=== PATIENT | male | born 1950 | race Caucasian/White ===

== ENCOUNTER 2016-09-01 13:21 | Emergency (ER) | payer OTHER ==
[2016-09-01 14:08] VITALS: BP 131/72; PULSE 77; TEMP 99; BMI 24.0
--- NOTE | 2016-09-01 15:06 | PDOC ---
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 [facility] no COs; missed 4 days of BP Timing/Duration: gone Severity: mild Associated Symptoms: denies: chest pain, cough, diaphoresis, fever/chills, loss of appetite, nausea/vomiting, shortness of breath Past History - Past Medical History Allergies/Adverse Reactions: Allergies Allergy/AdvReac Type Severity Reaction Status Date / Time beeswax Allergy Unknown Verified 09/01/16 13:52 venom-honey bee Allergy ANAPHYLAXIS Verified 09/01/16 13:52 [bee venom (honey bee)] Home Medications: Ambulatory Orders Aripiprazole [Abilify -] 2 mg PO HS 06/10/16 Aripiprazole [Abilify] 5 mg PO HS 06/10/16 Aspirin [ASA -] 81 mg PO DAILY 06/10/16 Atorvastatin Ca [Lipitor] 10 mg PO HS 06/10/16 Divalproex Sodium [Depakote] 250 mg PO HS 06/10/16 Divalproex [Depakote -] 500 mg PO BID 06/10/16 Finasteride 5 mg PO DAILY 06/10/16 Lisinopril [Zestril] 2.5 mg PO BID 06/10/16 Multivitamin [Poly-Vitamin] 1 each PO DAILY 06/10/16 Omeprazole 20 mg PO DAILY 06/10/16 Warfarin Na [Coumadin] 2 tab PO ASDIR 06/10/16 Warfarin Na [Coumadin] 5 mg PO ASDIR 06/10/16 Anemia: No Asthma: No Cancer: No Cardiac Disorders: Yes (aortic valve disorder, dvt, cardiomegaly) CVA: No COPD: No CHF: No Dementia: No Diabetes: No GI Disorders: Yes (volvulus of intestine, bowel or colon, SBO, POLYPS) Disorders: (volvulus of intestine, bowel or colon, SBO) HTN: Yes Hypercholesterolemia: Yes (HYPERLIPIDEMIA) Liver Disease: No Seizures: Yes Thyroid Disease: No Other medical history: SEVERE MR - Surgical History Abdominal Surgery: Yes (aortic root repair and area) Appendectomy: No Cardiac Surgery: Yes (heart valve repair) Cholecystectomy: No Lung Surgery: No Neurologic Surgery: No Orthopedic Surgery: No - Psycho/Social/Smoking Cessation Hx Anxiety: Yes Suicidal Ideation: No Smoking Status: No Smoking History: Never smoked Years of Tobacco Use: 0 Have you smoked in the past 12 months: No Number of Cigarettes Smoked Daily: 0 Cigars Per Day: 0 Hx Alcohol Use: No Drug/Substance Use Hx: No Substance Use Type: None Hx Substance Use Treatment: No Review of Systems - Review of Systems Constitutional: No: Symptoms Reported HEENTM: No: Symptoms Reported Respiratory: No: Symptoms reported, Cough Cardiac (ROS): No: Symptoms Reported, Chest Pain, Edema, Irregular Heart Rate, Lightheadedness, Palpitations, Syncope, Chest Tightness ABD/GI: No: Symptoms Reported, Vomiting *Physical Exam - Vital Signs Last Vital Signs Temp Pulse Resp BP Pulse Ox 99 F 77 19 131/72 100 09/01/16 13:54 09/01/16 13:54 09/01/16 13:54 09/01/16 13:54 09/01/16 13:54 - Physical Exam General Appearance: Yes: Appropriately Dressed HEENT: positive: TMs Normal, Pharynx Normal Neck: negative: Tender, Rigid Respiratory/Chest: positive: Lungs Clear Cardiovascular: positive: Regular Rhythm, Regular Rate. negative: Murmur Medical Decision Making - Medical Decision Making 09/01/16 15:04 PLEASE FILL PTS MEDICATIONS AND GIVE INDICATED *DC/Admit/Observation/Transfer Diagnosis at time of Disposition: Normal exam - Discharge Dispostion Disposition: HOME Condition at time of disposition: Stable Admit: No - Patient Instructions Additional Instructions: PLEASE GET AND START PT MEDS ORDERED BY LOCAL MD; RETURN FOR ANY NEW SYMPTOMS
== END 2016-09-01 15:08 | disposition home or self-care (01) ==
LOC: JERFT 13:21
DX: I10 Essential (primary) hypertension (principal); Z76.0 Encounter for issue of repeat prescription; E78.5 Hyperlipidemia, unspecified; G40.909 Epilepsy, unspecified, not intractable, without status epilepticus; F72 Severe intellectual disabilities
CPT/HCPCS: 99281-25

== ENCOUNTER 2017-07-24 11:30 | Observation (INO) | payer OTHER ==
--- NOTE | 2017-07-24 12:34 | PDOC ---
History of Present Illness - General History Source: Care Provider, Other Exam Limitations: Clinical Condition <Maureen Garland - Last Filed: 07/24/17 16:11> - General History Source: Care Provider, Other Exam Limitations: Clinical Condition, Other - History of Present Illness Initial Comments: 07/24/17 12:58 The patient is a 65 year old male, resident of [facility], with a significant past medical history of mental retardation/developmental disorder, Seizure disorders. Hypertension, hyperlipidemia, GERD(s/p mechanical AVR), aortic root repair, and thoracic aneurysm repair, who presents to the emergency department s/p syncopal episode earlier today. As per retanner, the patient was at work earlier today when he began to feel dizzy, syncopized and landed on his right side. Per retanner, patient was unresponsive for approximately 45 seconds. and could only get up with assistance. It is unclear whether patient sustained any head trauma, or experienced changes in vision, headache, or lightheadedness. Patient endorses right arm pain, but denies any other joint aches at this time. Patients history is limited due to clinical condition. Patient is on Coumadin. Allergies: NKDA, beeswax, honey bee venom Past Surgical History: AAA Repair(2000), Valve Replacement(mechanical AVR) Social History: Non smoker. No ETOH or recreational drug use. PCP: Dr. Jones <Ricci Peña - Last Filed: 07/24/17 16:51> - General Stated Complaint: Syncope/Near Syncope Time Seen by Provider: 07/24/17 12:33 Past History - Past Medical History Anemia: No Asthma: No Cancer: No Cardiac Disorders: Yes (aortic valve disorder, dvt, cardiomegaly) CVA: No COPD: No CHF: No Dementia: No Diabetes: No GI Disorders: Yes (volvulus of intestine, bowel or colon, SBO, POLYPS) Disorders: (volvulus of intestine, bowel or colon, SBO) HTN: Yes Hypercholesterolemia: Yes (HYPERLIPIDEMIA) Liver Disease: No Seizures: Yes Thyroid Disease: No - Surgical History Abdominal Surgery: Yes (aortic root repair and area) Appendectomy: No Cardiac Surgery: Yes (heart valve repair) Cholecystectomy: No Lung Surgery: No Neurologic Surgery: No Orthopedic Surgery: No - Suicide/Smoking/Psychosocial Hx Smoking Status: No Smoking History: Never smoked Years of Tobacco Use: 0 Have you smoked in the past 12 months: No Number of Cigarettes Smoked Daily: 0 Cigars Per Day: 0 Hx Alcohol Use: No Drug/Substance Use Hx: No Substance Use Type: None Hx Substance Use Treatment: No <Maureen Garland - Last Filed: 07/24/17 16:11> <Ricci Peña - Last Filed: 07/24/17 16:51> - Past Medical History Allergies/Adverse Reactions: Allergies Allergy/AdvReac Type Severity Reaction Status Date / Time beeswax Allergy Unknown Verified 07/24/17 12:36 venom-honey bee Allergy ANAPHYLAXIS Verified 07/24/17 12:36 [bee venom (honey bee)] Home Medications: Ambulatory Orders Aripiprazole [Abilify -] 2 mg PO HS 06/10/16 Aripiprazole [Abilify] 5 mg PO HS 06/10/16 Aspirin [ASA -] 81 mg PO DAILY 06/10/16 Atorvastatin Ca [Lipitor] 10 mg PO HS 06/10/16 Divalproex Sodium [Depakote] 250 mg PO HS 06/10/16 Divalproex [Depakote -] 500 mg PO BID 06/10/16 Finasteride 5 mg PO DAILY 06/10/16 Lisinopril [Zestril] 2.5 mg PO BID 06/10/16 Multivitamin [Poly-Vitamin] 1 each PO DAILY 06/10/16 Omeprazole 20 mg PO DAILY 06/10/16 Warfarin Na [Coumadin] 2 tab PO ASDIR 06/10/16 Warfarin Na [Coumadin] 5 mg PO ASDIR 06/10/16 Review of Systems - Review of Systems Able to Perform ROS?: Yes (Limited. ) Comments:: 07/24/17 12:59 GENERAL/CONSTITUTIONAL: No: fever, chills, weakness, loss of appetite. HEAD, EYES, EARS, NOSE AND THROAT: No: change in vision, ear pain, discharge, sore throat, throat swelling. CARDIOVASCULAR: Yes syncope. No: chest pain, lightheadedness, palpitations RESPIRATORY: No: cough, shortness of breath, wheezing, hemoptysis, stridor. GASTROINTESTINAL: No: nausea, vomiting, abdominal cramping, diarrhea, rectal bleeding, constipation. GENITOURINARY: No: dysuria, hematuria, frequency, urgency, flank pain. MUSCULOSKELETAL: No: back pain, neck pain, joint pain, muscle swelling or pain NEUROLOGIC: Yes: dizziness, loss of consciousness, unresponsiveness. No: headache, paresthesias, weakness <Ricci Peña - Last Filed: 07/24/17 16:51> *Physical Exam - Vital Signs Last Vital Signs Temp Pulse Resp BP Pulse Ox 98.5 F 62 17 117/73 100 07/24/17 12:37 07/24/17 12:37 07/24/17 12:37 07/24/17 12:37 07/24/17 12:37 - Physical Exam Comments: 07/24/17 13:01 GENERAL: Awake and Alert. Able to respond to questions within his capacity. The patient is in no acute distress. HEAD: Normal with no signs of trauma. EYES: PERRLA, EOMI, sclera anicteric, conjunctiva clear. ENT: Ears normal, nares patent, oropharynx clear without exudates. Moist mucous membranes. NECK: Normal range of motion, supple without lymphadenopathy, JVD, or masses. LUNGS: Breath sounds equal, clear to auscultation bilaterally. No wheezes, and no crackles. HEART: Grade 1 holosystolic murmur. Regular rate and rhythm, no rub or gallop. No bruits. ABDOMEN: Soft, nontender, normoactive bowel sounds. No guarding, no rebound. Large abdominal surgical scar that is well healed. PELVIS: Stable. EXTREMITIES: Normal range of motion, no edema. No clubbing or cyanosis. No erythema, or tenderness. NEUROLOGICAL: Cranial nerves II through XII grossly intact. No focal neurological deficits. MUSCULOSKELETAL: Back non-tender to palpation, no CVA tenderness SKIN: Warm, Dry, normal turgor. <CaseyAnnaliseaida - Last Filed: 07/24/17 16:51> Heart Score/ECG Review - ECG Intrepretation Comment:: 07/24/17 13:04 Vent Rate: 63 bpm IMPRESSION: Normal sinus rhythm. Possible left atrial enlargement. Left axis deviation. Right bundle branch block. Left ventricular hypertrophy. T wave abnormality, consider lateral ischemia. <Ricci Peña - Last Filed: 07/24/17 16:51> ED Treatment Course - LABORATORY CBC & Chemistry Diagram: 07/24/17 12:53 07/24/17 12:53 <Maureen Garland - Last Filed: 07/24/17 16:11> - LABORATORY CBC & Chemistry Diagram: 07/24/17 12:53 07/24/17 12:53 - RADIOLOGY Radiograph Interpretation: 07/24/17 15:42 EXAM: Head CT INTERPRETED BY: Dr. Gomez REVIEWED BY: Dr. Garland IMPRESSION: 1. No definite interval change from 06/10/[address] No acute intracranial hemorrhage or acute calvarial fracture. No mass effect, midline shift or hydrocephalus. 2. Chronic left MCA territory infarcts as described above, unchanged from 06/10/2016. EXAM: CT Cervical Spine INTERPRETED BY: Dr. Rust REVIEWED BY: Dr. Garland IMPRESSION: No fracture is identified. EXAM: CXR INTERPRETED BY: Dr. Peña REVIEWED BY: Dr. Garland IMPRESSION: Median sternotomy wires and mediastinal clips again noted. New left -sided AICD device ,with possible erosion of one of the electrodes as it exits the AICD device as noted above. Please Correlate clinically. No focal airspace disease or pleural effusion. Cardiomegaly. <Ricci Peña - Last Filed: 07/24/17 16:51> Medical Decision Making - Medical Decision Making 07/24/17 15:30 This is a 66-year-old male history of aortic root replacement, replace aortic valve, defibrillator Pt presents to the emergency department after syncopal event The patient presents to the ER with a complaint of syncopal event while at work Pt became weak and reportedly complained of dizziness No chest pain was reported No seizure-like activity No headache No neck pain On examination Pt is calm interacts with examiner RRR CTA no abdominal tenderness to palpation No guarding no rebound EKG: Sinus rhythm, rate of 63 bpm, left axis deviation intervals are normal, right bundle block, LVH, as seen on prior EKG 07/24/17 16:12 Laboratory Tests 07/24/17 07/24/17 07/24/17 12:53 12:53 13:50 WBC 5.1 Hgb 12.4 D Hct 39.5 Plt Count 75 L D INR 2.40 H Sodium 144 Potassium 5.4 H D Chloride 108 H Carbon Dioxide 29 BUN 25 H D Creatinine 1.2 Random Glucose 67 L Troponin I 0.02 D 07/24/17 16:13 No definite interval change from prior CT no acute hemorrhage No mass effect. Left MCA infarct unchanged from May 2016 Case reviewed with ANASTASIIA Castro Patient will be placed on observation on telemetry Will monitor for any changes in neurologic status Clinical Impression: Syncopal event, initial presentation Thrombocytopenia, initial presentation <Maureen Garland - Last Filed: 07/24/17 16:11> *DC/Admit/Observation/Transfer - Discharge Dispostion Admit: Yes <Maureen Garland - Last Filed: 07/24/17 16:11> - Attestations Scribe Attestion: 07/24/17 13:01 Documentation prepared by Ricci Peña, acting as associate medical director for Maureen Garland MD. <Ricci Peña - Last Filed: 07/24/17 16:51> Diagnosis at time of Disposition: Syncope and collapse - Discharge Dispostion Condition at time of disposition: Stable
[2017-07-24 12:44] VITALS: BMI 25.0
[2017-07-24 13:13] LABS: HEMATOCRIT 39.5 % (35.4-49); HEMOGLOBIN 12.4 GM/dL (11.7-16.9); MCH 28.8 pg (25.7-33.7); MCHC 31.4 g/dl (32.0-35.9); MEAN CELL VOLUME 91.9 fl (80-96); MEAN PLT VOLUME 10.1 fl (7.5-11.1); PLATELET COUNT 75 K/MM3 (134-434); RDW 15.3 % (11.9-15.9); WHITE BLOOD COUNT 5.1 K/mm3 (4.0-10.0)
[2017-07-24 13:25] LABS: INR 2.4 (0.82-1.09); PROTHROMBIN TIME (PATIENT) 27.1 SEC (9.98-11.88)
[2017-07-24 13:41] LABS: ANION GAP 7 (8-16); BILIRUBIN,TOTAL 0.4 mg/dL (0.2-1.0); BLOOD UREA NITROGEN 25 mg/dL (7-18); CALCIUM 8.5 mg/dL (8.5-10.1); CHLORIDE 108 mmol/L (98-107); CO2 29 mmol/L (21-32); CREATININE 1.2 mg/dL (0.7-1.3); GLUCOSE,RANDOM 67 mg/dL (74-106); MAGNESIUM 1.9 mg/dL (1.8-2.4); POTASSIUM 5.4 mmol/L (3.5-5.1); SGOT/AST 25 U/L (15-37); SGPT/ALT 24 U/L (12-78); SODIUM 144 mmol/L (136-145)
[2017-07-24 13:44] LABS: ALK PHOS 50 U/L (45-117)
--- NOTE | 2017-07-24 14:48 | EKG ---
Test Reason : Blood Pressure : / mmHG Vent. Rate : 063 BPM Atrial Rate : 063 BPM P-R Int : 198 ms QRS Dur : 140 ms QT Int : 434 ms P-R-T Axes : 021 -39 120 degrees QTc Int : 444 ms NORMAL SINUS RHYTHM POSSIBLE LEFT ATRIAL ENLARGEMENT LEFT AXIS DEVIATION RIGHT BUNDLE BRANCH BLOCK LEFT VENTRICULAR HYPERTROPHY T WAVE ABNORMALITY, CONSIDER LATERAL ISCHEMIA ABNORMAL ECG WHEN COMPARED WITH ECG OF 11-JUN-2016 08:09, T WAVE INVERSION MORE EVIDENT IN ANTERIOR LEADS Confirmed by ENRIKE CAMPOS, ASHWINI ([id number]) on 07/24/2017 2:48:29 PM Referred By: Confirmed By:ASHWINI CALVERT MD
--- NOTE | 2017-07-24 15:27 | HP ---
CHIEF COMPLAINT: Syncope PCP: Dr. Perla Friend, [address] [place] [address] HISTORY OF PRESENT ILLNESS: 65 year-old male, resident of [facility], with a PMH significant for HTN, HLD, CAD, systolic heart failure, s/p mechanical aortic valve replacement ( on coumadin) and thoracic aneurysm repair, CAD s/p PPM/AICD, mental retardation/ pervasive developmental disorder, seizure disorder, and GERD. Patient was at work earlier today when he began to feel dizzy, syncopized and landed on his right side. Per manager developmental, patient was unresponsive for approximately 45 seconds and could only get up with assistance. It is unclear whether patient sustained any head trauma, or experienced changes in vision, headache, or lightheadedness. Patient indicates to this provider bilateral arm pain. Patient' s history is limited due to clinical condition. Recent Travel: No PAST MEDICAL HISTORY: Hypertension Hyperlipidemia Coronary artery disease Endocarditis (2012) Systolic heart failure Mental retardation/pervasive developmental disorder Seizure disorder GERD PAST SURGICAL HISTORY: Mechanical aortic valve replacement x 2 ([facility] 2000) Thoracic aneurysm repair (2000) Small bowel resection (2001) Right inguinal hernia repair ([facility]) PPM/AICD (Dr. 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) Social History: Smoking: no Alcohol: no Drugs: no Family History: Allergies beeswax Allergy (Unknown, Verified 07/24/17 12:36) venom-honey bee [bee venom (honey bee)] Allergy (Verified 07/24/17 12:36) ANAPHYLAXIS BEE STING HOME MEDICATIONS: Home Medications Medication Instructions Recorded Aripiprazole [Abilify -] 2 mg PO HS 06/10/16 Aripiprazole [Abilify] 5 mg PO HS 06/10/16 Aspirin [ASA -] 81 mg PO DAILY 06/10/16 Atorvastatin Ca [Lipitor] 10 mg PO HS 06/10/16 Divalproex Sodium [Depakote] 250 mg PO HS 06/10/16 Divalproex [Depakote -] 500 mg PO BID 06/10/16 Finasteride 5 mg PO DAILY 06/10/16 Lisinopril [Zestril] 2.5 mg PO BID 06/10/16 Multivitamin [Poly-Vitamin] 1 each PO DAILY 06/10/16 Omeprazole 20 mg PO DAILY 06/10/16 Warfarin Na [Coumadin] 2 tab PO ASDIR 06/10/16 Warfarin Na [Coumadin] 5 mg PO ASDIR 06/10/16 REVIEW OF SYSTEMS Unable to obtain from patient due to clinical limitations PHYSICAL EXAMINATION Vital Signs - 24 hr 07/24/17 12:37 Temperature 98.5 F Pulse Rate 62 Respiratory 17 Rate Blood Pressure 117/73 O2 Sat by Pulse 100 Oximetry (%) GENERAL/NEURO: Awake, alert. Makes eye contact, smiles. Speech very limited, few words difficult to understand. At baseline functioning per aide. HEAD: Normal with no signs of trauma. EYES: Pupils equal, round and reactive to light, extraocular movements intact, sclera anicteric, conjunctiva clear. No lid lag. EARS, NOSE, THROAT: Ears normal, nares patent, oropharynx clear without exudates. Moist mucous membranes. NECK: Normal range of motion, supple without lymphadenopathy, JVD, or masses. LUNGS: Breath sounds equal, clear to auscultation bilaterally. No wheezes, and no crackles. No accessory muscle use. Well-healed surgical scars. PPM palpated. HEART: Irregular. S1, S2. ABDOMEN: Soft, nontender, not distended, normoactive bowel sounds, no guarding, no rebound, no masses. No hepatomegaly or splenomegaly. MUSCULOSKELETAL: Normal range of motion at all joints. No bony deformities or tenderness. No CVA tenderness. UPPER EXTREMITIES: 2+ pulses, warm, well-perfused. No cyanosis. No clubbing. No peripheral edema. LOWER EXTREMITIES: 2+ pulses, warm, well-perfused. No calf tenderness. No peripheral edema. Laboratory Results - last 24 hr 07/24/17 07/24/17 07/24/17 12:53 12:53 13:50 WBC 5.1 RBC 4.30 Hgb 12.4 D Hct 39.5 MCV 91.9 MCH 28.8 MCHC 31.4 L RDW 15.3 Plt Count 75 L D MPV 10.1 D Neutrophils % No Result Required. Lymphocytes % No Result Required. PT with INR 27.10 H INR 2.40 H Sodium 144 Potassium 5.4 H D Chloride 108 H Carbon Dioxide 29 Anion Gap 7 L BUN 25 H D Creatinine 1.2 Creat Clearance w eGFR > 60 Random Glucose 67 L Calcium 8.5 Magnesium 1.9 Total Bilirubin 0.4 D AST 25 ALT 24 Alkaline Phosphatase 50 Creatine Kinase 134 Troponin I 0.02 D Total Protein 6.0 L Albumin 3.0 L ASSESSMENT/PLAN: 65 year-old male with a PMH significant for HTN, HLD, s/p mechanical aortic valve replacement on coumadin, s/p thoracic aneurysm repair (2000), mental retardation/pervasive developmental disorder, seizure disorder, and GERD. Placed on observation for a syncopal episode. Seizure disorder --no indication from history provided of seizure-type activity --continue current anti-epileptics --neuro consult pending Fall --initial CT head shows no acute process --repeat in 12 hours --hold ASA, coumadin tonight Coronary artery disease Syncope --troponin neg x 1; two pending --serial ECGs --CXR --Last stress available in EMR from 2014: moderate inferior defect from base to apex, moderate global hypokinesis and apical dyskinesia; EF 32% --NPO after midnight in event cardiology wants to stress tomorrow --telemetry monitoring --continue lisinopril, Lipitor; hold ASA --cardiology consult pending Systolic heart failure --2014 stress: EF 32% --appears euvolemic, not on home diuretics r/o malfunctioning PPM/AICD --07/24/17 CXR: new left AICD device with possible erosion of one of the electrodes as it exits the device --will get interrogation in morning Hypertension --continue lisinopril Hyperlipidemia --continue Lipitor s/p mechanical AVR --INR therapeutic --hold coumadin until intracranial bleed ruled out Thoracic aneurysm repair --BP control Mental retardation/PDD --continue Abilify Seizure disorder --continue Depakote GERD --protonix FEN Fluids: PO intake adequate Electrolytes: replete as indicated; K>4, Mg>2 Nutrition: low sodium; NPO after midnight DVT prophylaxis: on coumadin with therapeutic INR Physical therapy Dispo: continues to require observation. Full code. Visit type - Emergency Visit Emergency Visit: Yes ED Registration Date: 07/24/17 Care time: The patient presented to the Emergency Department on the above date and was hospitalized for further evaluation of their emergent condition. - New Patient This patient is new to me today: Yes Date on this admission: 07/24/17 - Critical Care Critical Care patient: No
[2017-07-24 15:56] LABS: ANISOCYTOSIS 0; MACROCYTOSIS 0; PLATELET ESTIMATE DECREASED
--- NOTE | 2017-07-24 19:57 | CON.NEURO ---
Consult Consult Specialty:: NEUROLOGY JENNA CAMPOS Reason for Consultation:: Syncope - History of Present Illness History of Present Illness: The patient is a 65 year old male, resident of [facility], with a significant past medical history of mental retardation/developmental disorder, Seizure disorders. Hypertension, hyperlipidemia, GERD(s/p mechanical AVR), aortic root repair, and thoracic aneurysm repair, left MCA territory infarct, who presented to the emergency department s/p syncopal episode earlier today. 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 Per reverse logistics analyst, patient was unresponsive for approximately 45 seconds. and could only get up with assistance. It is unclear whether patient sustained any head trauma, or experienced changes in vision, headache, or lightheadedness. Patient endorses right arm pain, but denies any other joint aches at this time. Patients history is limited due to clinical condition. Patient is on Coumadin. Noted to have INR of 2.4 and platelet count of 75,000. Pt. is unable to report hx. due to MR. 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 ) Cardio/Vascular: Yes: Murmur (mechanical heart sound c/w know AVR), Other (AVR - mechanical valve) Psych: Yes: Anxiety, Depression, Other (Develomental Delay) Additional Medical History: MRDD. DVT. Volvulus - Past Surgical History Past Surgical History: Yes: AAA Repair (2000), Valve Replacement (mechanical AVR ) - Alcohol/Substance Use Hx Alcohol Use: No - Smoking History Smoking history: Never smoked Have you smoked in the past 12 months: No Aproximately how many cigarettes per day: 0 - Social History Usual Living Arrangement: Assisted Living ADL: Support Services Home Medications - Allergies Allergies/Adverse Reactions: Allergies Allergy/AdvReac Type Severity Reaction Status Date / Time beeswax Allergy Unknown Verified 07/24/17 12:36 venom-honey bee Allergy ANAPHYLAXIS Verified 07/24/17 12:36 [bee venom (honey bee)] - Home Medications Home Medications: Ambulatory Orders Aripiprazole [Abilify -] 2 mg PO HS 06/10/16 Aripiprazole [Abilify] 5 mg PO HS 06/10/16 Aspirin [ASA -] 81 mg PO DAILY 06/10/16 Atorvastatin Ca [Lipitor] 10 mg PO HS 06/10/16 Divalproex Sodium [Depakote] 250 mg PO HS 06/10/16 Divalproex [Depakote -] 500 mg PO BID 06/10/16 Finasteride 5 mg PO DAILY 06/10/16 Lisinopril [Zestril] 2.5 mg PO BID 06/10/16 Multivitamin [Poly-Vitamin] 1 each PO DAILY 06/10/16 Omeprazole 20 mg PO DAILY 06/10/16 Warfarin Na [Coumadin] 2 tab PO ASDIR 06/10/16 Warfarin Na [Coumadin] 5 mg PO ASDIR 06/10/16 Physical Exam-Neuro Vital Signs: Vital Signs Temperature 98.8 F 07/24/17 17:31 Pulse Rate 62 07/24/17 12:37 Respiratory Rate 65 H 07/24/17 17:31 Blood Pressure 104/51 07/24/17 17:31 O2 Sat by Pulse Oximetry (%) 100 07/24/17 17:31 Labs: CBC, BMP 07/24/17 12:53 07/24/17 12:53 INR, PTT INR 2.40 (0.82-1.09) H 07/24/17 13:50 - Neuro Exam Speech: Garbled Dominant Hand: Right Mini Mental Exam: Awake, alert, follows simple commands, unable to answer most questions except for "yes/no" answers(at his baseline as per attendant from half-way). Gag: Present DTR's: 2+ Left Bicep, 2+ Right Bicep, 2+ Left Tricep, 2+ Right Tricep, 2+ Left Brachioradialis, 2+ Right Brachioradialis, 2+ Left Achilles, 3+ Right Achilles ( Bilateral ankle jerks-3+) Babinski: Absent Response to light touch: Normal Response to pain prick: Normal Response to temperature: Normal (uNABLE TO TEST) Response to vibration: Normal (uNABLE TO TEST) Motor Strength: 4/5: Right Arm, Right Leg, 5/5: Left Arm, Left Leg Gait: Deferred Imaging - Results Cat Scan: Report Reviewed (07/24/17 15:42 EXAM: Head CT INTERPRETED BY: Dr. Gomez REVIEWED BY: Dr. Garland IMPRESSION: 1. No definite interval change from 06/10/[address] No acute intracranial hemorrhage or acute calvarial fracture. No mass effect, midline shift or hydrocephalus. 2. Chronic left MCA territory infarcts as described above, unchanged from 06/10/2016. EXAM: CT Cervical Spine INTERPRETED BY: Dr. Rust REVIEWED BY: Dr. Garland IMPRESSION: No fracture is identified.) Assessment/Plan This is a 66-year-old male history of aortic root replacement, replace aortic valve, defibrillator,he presented to the emergency department after syncopal event while in his program, he c/o dizziness, became weak and lost consciousness. No movements were noted. No seizure-like activity,no headache/ neck pain. Pt. by description appears to have had syncope,doubt seizure. If pt. has another event that is considered to be a seizure would change Keppra to Oxcarbazepine. Valproic Acid is presumably being used for treating seizures and /or behavioral dyscontrol, given interaction between warfarin and valproic acid i suggest, when patient returns to his residence recommending discontinuation of valproic acid and replacement with Oxcarbazepine or other AED(warfain level is increased by valproic acid and valproic acid level is increased by warfarin). Thrombocytopenia-valproic acid can cause thrombocytopenia, if other etiologies ruled out please consider changing AED for this reason too. Thank you, please call for further assistance. Deann Del Toro MD. [phone].
[2017-07-24] MEDS ORDERED: ARIPiprazole 10 MG TABLET PO SCH (22:00)
[2017-07-24] MEDS ORDERED: DIVALPROEX SODIUM 500 MG TABLET E.C. PO SCH ×2 (22:00)
[2017-07-24] MEDS: WARFARIN NA 5 MG TABLET (UD) PO SCH (22:18)
[2017-07-24] MEDS: LISINOPRIL 5 MG TABLET (FP) PO SCH (22:29)
[2017-07-24] MEDS: ATORVASTATIN CA 10 MG TABLET (FP) PO SCH (22:29)
[2017-07-24] MEDS: ARIPiprazole 5 MG TABLET (FP) PO SCH (22:29)
[2017-07-24] MEDS: DIVALPROEX SODIUM 500 MG TABLET E.C. PO SCH (22:30)
[2017-07-25] MEDS: PANTOPRAZOLE 20 MG TABLET (FP) PO SCH ×2 (06:35→09:30)
[2017-07-25] MEDS ORDERED: DIVALPROEX SODIUM 250 MG TABLET E.C. (FP) PO SCH (07:00)
[2017-07-25 08:11] LABS: HEMATOCRIT 42.8 % (35.4-49); HEMOGLOBIN 13.5 GM/dL (11.7-16.9); MCH 29.1 pg (25.7-33.7); MCHC 31.6 g/dl (32.0-35.9); MEAN PLT VOLUME 9.3 fl (7.5-11.1); PLATELET COUNT 71 K/MM3 (134-434); RBC 4.66 M/mm3 (4.00-5.60); RDW 15.1 % (11.9-15.9); WHITE BLOOD COUNT 5.9 K/mm3 (4.0-10.0)
[2017-07-25 08:15] LABS: CHLORIDE 107 mmol/L (98-107); POTASSIUM 4.5 mmol/L (3.5-5.1); SODIUM 144 mmol/L (136-145)
[2017-07-25 08:22] LABS: ALK PHOS 53 U/L (45-117); ANION GAP 7 (8-16); BILIRUBIN,TOTAL 0.6 mg/dL (0.2-1.0); BLOOD UREA NITROGEN 26 mg/dL (7-18); CALCIUM 8.8 mg/dL (8.5-10.1); CO2 30 mmol/L (21-32); CREATININE 1.2 mg/dL (0.7-1.3); GLUCOSE,RANDOM 67 mg/dL (74-106); MAGNESIUM 1.9 mg/dL (1.8-2.4); PHOSPHOROUS 3.2 mg/dL (2.5-4.9); SGOT/AST 23 U/L (15-37); SGPT/ALT 21 U/L (12-78); TOT PROT 6.2 g/dl (6.4-8.2)
--- NOTE | 2017-07-25 10:31 | EKG ---
Test Reason : Blood Pressure : / mmHG Vent. Rate : 060 BPM Atrial Rate : 060 BPM P-R Int : 310 ms QRS Dur : 184 ms QT Int : 480 ms P-R-T Axes : 025 -85 056 degrees QTc Int : 480 ms AV dual-paced rhythm with prolonged AV conduction ABNORMAL ECG WHEN COMPARED WITH ECG OF 24-JUL-2017 12:46, ELECTRONIC VENTRICULAR PACEMAKER HAS REPLACED SINUS RHYTHM Confirmed by KENDALL CAMPOS, CUONG ([id number]) on 07/25/2017 10:31:04 AM Referred By: Confirmed By:CUONG ARGUETA MD
[2017-07-25] MEDS ORDERED: PT OWN MED DRAWER 7, Y5N ONE ×2 (10:41→21:19)
[2017-07-25] MEDS: DIVALPROEX 500 MG, DIVALPROEX 250 MG PO SCH (10:47)
[2017-07-25] MEDS: FINASTERIDE 5 MG TABLET (FP) PO SCH (10:47)
[2017-07-25] MEDS: LISINOPRIL 5 MG TABLET (FP) PO SCH ×2 (10:47→21:42)
--- NOTE | 2017-07-25 11:26 | PN ---
Physical Exam: SUBJECTIVE: Patient seen and examined at bedside. Aide present. OBJECTIVE: Vital Signs Period Temp Pulse Resp BP Sys/Dickey Pulse Ox Last 24 Hr 97.8 F-98.8 F 60-78 17-65 104-132/51-73 96-100 GENERAL/NEURO: Awake, alert. Makes eye contact. Speech more circumscribed today. No discernible words. No sign of pain or distress. LUNGS: Breath sounds equal, clear to auscultation bilaterally. No wheezes, and no crackles. No accessory muscle use. Well-healed surgical scars. HEART: RRR, S1, S2. ABDOMEN: Soft, nontender, not distended, normoactive bowel sounds, no guarding, no rebound, no masses. MUSCULOSKELETAL: Normal range of motion at all joints. No bony deformities or tenderness. No CVA tenderness. UPPER EXTREMITIES: 2+ pulses, warm, well-perfused. No cyanosis. No clubbing. No peripheral edema. LOWER EXTREMITIES: 2+ pulses, warm, well-perfused. No calf tenderness. No peripheral edema. Laboratory Results - last 24 hr 07/24/17 07/24/17 07/24/17 12:53 12:53 13:50 WBC 5.1 RBC 4.30 Hgb 12.4 D Hct 39.5 MCV 91.9 MCH 28.8 MCHC 31.4 L RDW 15.3 Plt Count 75 L D MPV 10.1 D Neutrophils % No Result Required. Neutrophils % (Manual) 20.4 L Band Neutrophils % 0.0 Lymphocytes % No Result Required. Lymphocytes % (Manual) 44.9 H Monocytes % (Manual) 12 H Eosinophils % (Manual) 16.3 H Basophils % (Manual) 0.0 Myelocytes % (Man) 0 Promyelocytes % (Man) 0 Metamyelocytes 0 Hypochromia 0 Platelet Estimate Decreased Polychromasia 0 Poikilocytosis 0 Anisocytosis 0 Microcytosis 0 Macrocytosis 0 PT with INR 27.10 H INR 2.40 H Sodium 144 Potassium 5.4 H D Chloride 108 H Carbon Dioxide 29 Anion Gap 7 L BUN 25 H D Creatinine 1.2 Creat Clearance w eGFR > 60 Random Glucose 67 L Calcium 8.5 Phosphorus Magnesium 1.9 Total Bilirubin 0.4 D AST 25 ALT 24 Alkaline Phosphatase 50 Creatine Kinase 134 Troponin I 0.02 D B-Natriuretic Peptide Total Protein 6.0 L Albumin 3.0 L 07/24/17 07/25/17 07/25/17 21:45 06:18 06:18 WBC 5.9 RBC 4.66 Hgb 13.5 Hct 42.8 MCV 92.0 MCH 29.1 MCHC 31.6 L RDW 15.1 Plt Count 71 L MPV 9.3 Neutrophils % No Result Required. Neutrophils % (Manual) Band Neutrophils % Lymphocytes % No Result Required. Lymphocytes % (Manual) Monocytes % (Manual) Eosinophils % (Manual) Basophils % (Manual) Myelocytes % (Man) Promyelocytes % (Man) Metamyelocytes Hypochromia Platelet Estimate Polychromasia Poikilocytosis Anisocytosis Microcytosis Macrocytosis PT with INR INR Sodium 144 Potassium 4.5 Chloride 107 Carbon Dioxide 30 Anion Gap 7 L BUN 26 H Creatinine 1.2 Creat Clearance w eGFR > 60 Random Glucose 67 L Calcium 8.8 Phosphorus 3.2 Magnesium 1.9 Total Bilirubin 0.6 D AST 23 ALT 21 Alkaline Phosphatase 53 Creatine Kinase Troponin I 0.03 D 0.03 B-Natriuretic Peptide Total Protein 6.2 L Albumin 3.0 L 07/25/17 06:18 WBC RBC Hgb Hct MCV MCH MCHC RDW Plt Count MPV Neutrophils % Neutrophils % (Manual) Band Neutrophils % Lymphocytes % Lymphocytes % (Manual) Monocytes % (Manual) Eosinophils % (Manual) Basophils % (Manual) Myelocytes % (Man) Promyelocytes % (Man) Metamyelocytes Hypochromia Platelet Estimate Polychromasia Poikilocytosis Anisocytosis Microcytosis Macrocytosis PT with INR INR Sodium Potassium Chloride Carbon Dioxide Anion Gap BUN Creatinine Creat Clearance w eGFR Random Glucose Calcium Phosphorus Magnesium Total Bilirubin AST ALT Alkaline Phosphatase Creatine Kinase Troponin I B-Natriuretic Peptide 833.46 H Total Protein Albumin Active Medications Generic Name Dose Route Start Last Admin Trade Name Freq PRN Reason Stop Dose Admin Aripiprazole 10 mg 07/24/17 22:00 07/24/17 22:29 Abilify PO 10 mg HS YANETH Administration Atorvastatin Calcium 10 mg 07/24/17 22:00 07/24/17 22:29 Lipitor - PO 10 mg HS YANETH Administration Divalproex Sodium 500 mg/ 750 mg 07/25/17 10:00 07/25/17 10:47 Divalproex Sodium 250 mg PO 750 mg DAILY YANETH Administration Divalproex Sodium 500 mg 07/24/17 22:00 07/24/17 22:30 Depakote - PO 500 mg HS YANETH Administration Finasteride 5 mg 07/25/17 10:00 07/25/17 10:47 Proscar - PO 5 mg DAILY YANETH Administration Lisinopril 2.5 mg 07/24/17 22:00 07/25/17 10:47 Prinivil PO 2.5 mg BID YANETH Administration Pantoprazole Sodium 20 mg 07/25/17 07:00 07/25/17 09:30 Protonix - PO 20 mg ACBK YANETH Administration Warfarin Sodium 5 mg 07/24/17 21:15 07/24/17 22:18 Coumadin - PO Not Given DAILY@1800 [facility] ASSESSMENT/PLAN: 65 year-old male with a PMH significant for HTN, HLD, CAD, systolic heart failure, s/p mechanical aortic valve replacement (on coumadin) and thoracic aneurysm repair, CAD s/p PPM, mental retardation/pervasive developmental disorder, seizure disorder, and GERD. Placed on observation for true syncopal episode. Seizure disorder --no indication from history of seizure-type activity and none observed since admission --continue current anti-epileptics Fall --CT head negative for acute process x 2 --resume ASA, warfarin Coronary artery disease Syncope --troponin neg x 3 --ECG not suggestive of ischemic event --CXR: left PPM device with possible erosion of one of the electrodes as it exits the device; however, interrogation today shows fully functional PPM --continue lisinopril, Lipitor, ASA --cardiology following Systolic heart failure --2014 stress: EF 32% --appears euvolemic, not on home diuretics Hypertension --continue lisinopril Hyperlipidemia --continue Lipitor s/p mechanical AVR --resume coumadin --INR in am Thoracic aneurysm repair --BP control Mental retardation/PDD --continue Abilify Seizure disorder --continue Depakote GERD --protonix FEN Fluids: PO intake adequate Electrolytes: replete as indicated; K>4, Mg>2 Nutrition: low sodium DVT prophylaxis: on coumadin with therapeutic INR Physical therapy Dispo: continues to require observation. Full code. Visit type - Emergency Visit Emergency Visit: Yes ED Registration Date: 07/24/17 Care time: The patient presented to the Emergency Department on the above date and was hospitalized for further evaluation of their emergent condition. - New Patient This patient is new to me today: No - Critical Care Critical Care patient: No
--- NOTE | 2017-07-25 14:02 | CON.CARD ---
Consult Consult Specialty:: cardiology Referred by:: Lucretia Gibbons Reason for Consultation:: Syncope - History of Present Illness Chief Complaint: Syncope History of Present Illness: The patient is a 66-year-old man, with mental retardation, in a longterm, history of hypertension, hyperlipidemia, GERD, seizure disorder, left MCA stroke , status post thoracic aneurysm and aortic root repair with a mechanical AVR on Coumadin, now presenting after a true syncopal event. The patient was standing up at his facility when he suddenly collapsed. Is currently comfortable. As per the person from the longterm, the patient is back to his baseline. Head CT revealed an old stroke. There are no acute changes nor bleed. Echocardiogram showed that both ventricles are functioning normally. There was a normal prostatic aortic valve. ECG showed AV sequential pacing. 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 ) Cardio/Vascular: Yes: Aneurysm, HTN, Hyperlipdemia, Murmur (mechanical heart sound c/w know AVR), Other (AVR - mechanical valve) Psych: Yes: Anxiety, Depression, Other (Develomental Delay) Additional Medical History: MRDD. DVT. Volvulus - Past Surgical History Past Surgical History: Yes: AAA Repair (2000), Valve Replacement (mechanical AVR ) - Alcohol/Substance Use Hx Alcohol Use: No - Smoking History Smoking history: Never smoked Have you smoked in the past 12 months: No Aproximately how many cigarettes per day: 0 - Social History Usual Living Arrangement: Assisted Living ADL: Support Services Home Medications - Allergies Allergies/Adverse Reactions: Allergies Allergy/AdvReac Type Severity Reaction Status Date / Time beeswax Allergy Unknown Verified 07/24/17 12:36 venom-honey bee Allergy ANAPHYLAXIS Verified 07/24/17 12:36 [bee venom (honey bee)] - Home Medications Home Medications: Ambulatory Orders Aripiprazole [Abilify] 10 mg PO HS 06/10/16 Aspirin [ASA -] 81 mg PO DAILY 06/10/16 Atorvastatin Ca [Lipitor] 10 mg PO HS 06/10/16 Divalproex Sodium [Depakote] 250 mg PO AM 06/10/16 Divalproex [Depakote -] 500 mg PO BID 06/10/16 Finasteride 5 mg PO DAILY 06/10/16 Lisinopril [Zestril] 2.5 mg PO BID 06/10/16 Multivitamin [Poly-Vitamin] 1 each PO DAILY 06/10/16 Omeprazole 20 mg PO ACBK 06/10/16 Warfarin Na [Coumadin] 5 mg PO DAILY 06/10/16 Amoxicillin - [Amoxicillin 500mg Capsule -] 500 mg PO BID 07/24/17 Mineral Oil/Petrolat,Wht/Water [Eucerin (Large Jar) -] 1 applic DAILY 07/24/17 Review of Systems - Review of Systems Constitutional: reports: No Symptoms Eyes: reports: No Symptoms HENT: reports: No Symptoms Neck: reports: No Symptoms Cardiovascular: reports: No Symptoms Respiratory: reports: No Symptoms Gastrointestinal: reports: No Symptoms Genitourinary: reports: No Symptoms Breasts: reports: No Symptoms Reported Musculoskeletal: reports: No Symptoms Integumentary: reports: No Symptoms Neurological: reports: Syncope Endocrine: reports: No Symptoms Hematology/Lymphatic: reports: No Symptoms Psychiatric: reports: No Symptoms Vital Signs: Vital Signs Temperature 97.8 F 07/25/17 06:00 Pulse Rate 60 07/25/17 06:00 Respiratory Rate 20 07/25/17 06:00 Blood Pressure 113/59 07/25/17 06:00 O2 Sat by Pulse Oximetry (%) 96 07/24/17 23:51 Constitutional: Yes: No Distress, Calm, Obese Eyes: Yes: WNL, Conjunctiva Clear HENT: Yes: WNL, Atraumatic, Normocephalic Neck: Yes: WNL, Supple, Trachea Midline Respiratory: Yes: WNL, Regular, CTA Bilaterally Gastrointestinal: Yes: WNL, Normal Bowel Sounds, Soft Renal/: Yes: WNL Cardiovascular: Yes: WNL, Regular Rate and Rhythm JVD: No Carotid Bruit: No PMI: Non-Displaced Heart Sounds: Yes: S1, S2 Murmur: Yes: Systolic Murmur, Grade 2 Musculoskeletal: Yes: WNL Edema: No Peripheral Pulses WNL: Yes Peripheral Pulses: 2+ Left Carotid, 2+ Right Carotid, 2+ Left Femoral, 2+ Right Femoral, 2+ Left Popliteal, 2+ Right Popliteal, 2+ Left Doralis Pedis, 2+ Right Dorsalis Pedis Integumentary: Yes: WNL Neurological: Yes: WNL - Other Data Labs, Other Data: CBC, BMP 07/25/17 06:18 07/25/17 06:18 INR, PTT INR 2.40 (0.82-1.09) H 07/24/17 13:50 Troponin, BNP 07/24/17 07/25/17 07/25/17 21:45 06:18 06:18 Troponin I 0.03 D 0.03 B-Natriuretic Peptide 833.46 H Troponin, BNP 07/24/17 07/25/17 07/25/17 21:45 06:18 06:18 Troponin I 0.03 D 0.03 B-Natriuretic Peptide 833.46 H Assessment/Plan 66-year-old man, with severe mental retardation, history of hypertension, hyperlipidemia, GERD, seizure disorder, stroke, thoracic aneurysm and aortic root repair with a mechanical aortic valve, maintained on Coumadin, now admitted with true syncope. Brain imaging was unremarkable for new events. It did show the prior stroke. No bleed. The echocardiogram showed a dilated left ventricle with normal left ventricular and right ventricular systolic function. Normally functioning mechanical aortic prosthesis. ECG shows AV sequential pacing. Telemetry shows a paced rhythm. There is no need for further cardiac workup at this point. Please arrange for pacemaker interrogation. Continue current regimen. Please perform orthostatics. Neurologist following. Consider an EEG, given the patient's history. We will follow results.
[2017-07-25 14:50] LABS: ANISOCYTOSIS 0; MACROCYTOSIS 1+; PLATELET ESTIMATE DECREASED
[2017-07-25] MEDS: ASPIRIN 81 MG CHEWABLE TABLETS PO SCH (14:55)
[2017-07-25] MEDS: WARFARIN NA 5 MG TABLET (UD) PO SCH (18:25)
[2017-07-25] MEDS: ATORVASTATIN CA 10 MG TABLET (FP) PO SCH (21:39)
[2017-07-25] MEDS: ARIPiprazole 5 MG TABLET (FP) PO SCH (21:40)
[2017-07-25] MEDS: DIVALPROEX SODIUM 500 MG TABLET E.C. PO SCH (21:42)
[2017-07-26] MEDS: PANTOPRAZOLE 20 MG TABLET (FP) PO SCH (06:20)
[2017-07-26 07:27] LABS: INR 1.52 (0.82-1.09); PROTHROMBIN TIME (PATIENT) 17.2 SEC (9.98-11.88)
[2017-07-26 08:00] LABS: ALBUMIN 2.7 g/dl (3.4-5.0); ANION GAP 8 (8-16); BILIRUBIN,TOTAL 0.5 mg/dL (0.2-1.0); BLOOD UREA NITROGEN 22 mg/dL (7-18); CALCIUM 8.2 mg/dL (8.5-10.1); CHLORIDE 109 mmol/L (98-107); CO2 28 mmol/L (21-32); CREATININE 1.2 mg/dL (0.7-1.3); GLUCOSE,RANDOM 76 mg/dL (74-106); MAGNESIUM 1.8 mg/dL (1.8-2.4); POTASSIUM 4.4 mmol/L (3.5-5.1); SGOT/AST 21 U/L (15-37); SGPT/ALT 19 U/L (12-78); SODIUM 145 mmol/L (136-145); TOT PROT 5.5 g/dl (6.4-8.2)
[2017-07-26 08:01] LABS: ALK PHOS 48 U/L (45-117)
[2017-07-26 08:04] LABS: BASO % 0.2 % (0-2.0); HEMATOCRIT 40.5 % (35.4-49); HEMOGLOBIN 12.8 GM/dL (11.7-16.9); LYMPH % 41.2 % (8-40); MCHC 31.7 g/dl (32.0-35.9); MEAN CELL VOLUME 91.6 fl (80-96); MEAN PLT VOLUME 9.5 fl (7.5-11.1); MONO % 8.4 % (3.8-10.2); NEUT % 20.2 % (42.8-82.8); PLATELET COUNT 68 K/MM3 (134-434); RBC 4.42 M/mm3 (4.00-5.60); RDW 15.1 % (11.9-15.9); WHITE BLOOD COUNT 5.5 K/mm3 (4.0-10.0)
--- NOTE | 2017-07-26 09:08 | DS ---
Physical Exam: SUBJECTIVE: Patient seen and examined OBJECTIVE: Vital Signs Period Temp Pulse Resp BP Sys/Dickey Pulse Ox Last 24 Hr 97.3 F-99.2 F 60-67 18-18 86-124/43-64 98-98 PHYSICAL EXAM GENERAL: The patient is awake, alert, and fully oriented, in no acute distress. HEAD: Normal with no signs of trauma. EYES: PERRL, extraocular movements intact, sclera anicteric, conjunctiva clear. ENT: Ears normal, nares patent, oropharynx clear without exudates, moist mucous membranes. NECK: Trachea midline, full range of motion, supple. LUNGS: Breath sounds equal, clear to auscultation bilaterally, no wheezes, no crackles, no accessory muscle use. HEART: Regular rate and rhythm, S1, S2 without murmur, rub or gallop. ABDOMEN: Soft, nontender, nondistended, normoactive bowel sounds, no guarding, no rebound, no hepatosplenomegaly, no masses. EXTREMITIES: 2+ pulses, warm, well-perfused, no edema. NEUROLOGICAL: Cranial nerves II through XII grossly intact. Normal speech, gait not observed. PSYCH: Normal mood, normal affect. SKIN: Warm, dry, normal turgor, no rashes or lesions noted. LABS Laboratory Results - last 24 hr 07/25/17 07/25/17 07/26/17 06:18 06:18 06:45 WBC 5.5 RBC 4.42 Hgb 12.8 Hct 40.5 MCV 91.6 MCH 29.0 MCHC 31.7 L RDW 15.1 Plt Count 68 L MPV 9.5 Neutrophils % 20.2 L Neutrophils % (Manual) 19.4 L Band Neutrophils % 2.9 Lymphocytes % 41.2 H Lymphocytes % (Manual) 35.0 D Monocytes % 8.4 Monocytes % (Manual) 7 Eosinophils % 30.0 H* Eosinophils % (Manual) 32.0 H D Basophils % 0.2 Basophils % (Manual) 1.0 D Myelocytes % (Man) 0 Promyelocytes % (Man) 0 Metamyelocytes 0 Hypochromia 0 Platelet Estimate Decreased Polychromasia 0 Poikilocytosis 0 Anisocytosis 0 Microcytosis 0 Macrocytosis 1+ PT with INR INR Sodium 144 Potassium 4.5 Chloride 107 Carbon Dioxide 30 Anion Gap 7 L BUN 26 H Creatinine 1.2 Creat Clearance w eGFR > 60 Random Glucose 67 L Calcium 8.8 Phosphorus 3.2 Magnesium 1.9 Total Bilirubin 0.6 D AST 23 ALT 21 Alkaline Phosphatase 53 Troponin I 0.03 Total Protein 6.2 L Albumin 3.0 L 07/26/17 07/26/17 06:45 06:45 WBC RBC Hgb Hct MCV MCH MCHC RDW Plt Count MPV Neutrophils % Neutrophils % (Manual) Band Neutrophils % Lymphocytes % Lymphocytes % (Manual) Monocytes % Monocytes % (Manual) Eosinophils % Eosinophils % (Manual) Basophils % Basophils % (Manual) Myelocytes % (Man) Promyelocytes % (Man) Metamyelocytes Hypochromia Platelet Estimate Polychromasia Poikilocytosis Anisocytosis Microcytosis Macrocytosis PT with INR 17.20 H INR 1.52 H D Sodium 145 Potassium 4.4 Chloride 109 H Carbon Dioxide 28 Anion Gap 8 BUN 22 H Creatinine 1.2 Creat Clearance w eGFR > 60 Random Glucose 76 Calcium 8.2 L Phosphorus Magnesium 1.8 Total Bilirubin 0.5 AST 21 ALT 19 Alkaline Phosphatase 48 Troponin I Total Protein 5.5 L Albumin 2.7 L HOSPITAL COURSE: Date of Admission:07/24/17 Date of Discharge: 07/26/17 Minutes to complete discharge: 45 Discharge Summary Reason For Visit: SYNCOPE Current Active Problems Syncope and collapse (Acute) Condition: Stable - Instructions Referrals: Pan Jones [Primary Care Provider] - - Home Medications Comprehensive Discharge Medication List: Ambulatory Orders Aripiprazole [Abilify] 10 mg PO HS 06/10/16 Aspirin [ASA -] 81 mg PO DAILY 06/10/16 Atorvastatin Ca [Lipitor] 10 mg PO HS 06/10/16 Divalproex Sodium [Depakote] 250 mg PO AM 06/10/16 Divalproex [Depakote -] 500 mg PO BID 06/10/16 Finasteride 5 mg PO DAILY 06/10/16 Lisinopril [Zestril] 2.5 mg PO BID 06/10/16 Multivitamin [Poly-Vitamin] 1 each PO DAILY 06/10/16 Omeprazole 20 mg PO ACBK 06/10/16 Warfarin Na [Coumadin] 5 mg PO DAILY 06/10/16 Amoxicillin - [Amoxicillin 500mg Capsule -] 500 mg PO BID 07/24/17 Mineral Oil/Petrolat,Wht/Water [Eucerin (Large Jar) -] 1 applic DAILY 07/24/17
[2017-07-26] MEDS: LISINOPRIL 5 MG TABLET (FP) PO SCH (10:24)
[2017-07-26] MEDS: FINASTERIDE 5 MG TABLET (FP) PO SCH (10:24)
[2017-07-26] MEDS: ASPIRIN 81 MG CHEWABLE TABLETS PO SCH (10:24)
[2017-07-26] MEDS: DIVALPROEX 500 MG, DIVALPROEX 250 MG PO SCH (10:25)
[2017-07-26 11:17] VITALS: BP 101/44; PULSE 60; TEMP 98.5
--- NOTE | 2017-07-26 13:15 | DS ---
Physical Exam: SUBJECTIVE: Patient seen and examined OBJECTIVE: Vital Signs Period Temp Pulse Resp BP Sys/Dickey Pulse Ox Last 24 Hr 97.3 F-99.2 F 60-67 18-18 86-108/43-58 98-98 PHYSICAL EXAM GENERAL/NEURO: Awake, alert. Makes eye contact. Speech more circumscribed today. No discernible words. No sign of pain or distress. LUNGS: Breath sounds equal, clear to auscultation bilaterally. No wheezes, and no crackles. No accessory muscle use. Well-healed surgical scars. HEART: RRR, S1, S2. ABDOMEN: Soft, nontender, not distended, normoactive bowel sounds, no guarding, no rebound, no masses. MUSCULOSKELETAL: Normal range of motion at all joints. No bony deformities or tenderness. No CVA tenderness. UPPER EXTREMITIES: 2+ pulses, warm, well-perfused. No cyanosis. No clubbing. No peripheral edema. LOWER EXTREMITIES: 2+ pulses, warm, well-perfused. No calf tenderness. No peripheral edema. LABS Laboratory Results - last 24 hr 07/25/17 07/26/17 07/26/17 06:18 06:45 06:45 WBC 5.5 RBC 4.42 Hgb 12.8 Hct 40.5 MCV 91.6 MCH 29.0 MCHC 31.7 L RDW 15.1 Plt Count 68 L MPV 9.5 Neutrophils % 20.2 L Neutrophils % (Manual) 19.4 L Band Neutrophils % 2.9 Lymphocytes % 41.2 H Lymphocytes % (Manual) 35.0 D Monocytes % 8.4 Monocytes % (Manual) 7 Eosinophils % 30.0 H* Eosinophils % (Manual) 32.0 H D Basophils % 0.2 Basophils % (Manual) 1.0 D Myelocytes % (Man) 0 Promyelocytes % (Man) 0 Metamyelocytes 0 Hypochromia 0 Platelet Estimate Decreased Polychromasia 0 Poikilocytosis 0 Anisocytosis 0 Microcytosis 0 Macrocytosis 1+ PT with INR 17.20 H INR 1.52 H D Sodium Potassium Chloride Carbon Dioxide Anion Gap BUN Creatinine Creat Clearance w eGFR Random Glucose Calcium Magnesium Total Bilirubin AST ALT Alkaline Phosphatase Total Protein Albumin 07/26/17 06:45 WBC RBC Hgb Hct MCV MCH MCHC RDW Plt Count MPV Neutrophils % Neutrophils % (Manual) Band Neutrophils % Lymphocytes % Lymphocytes % (Manual) Monocytes % Monocytes % (Manual) Eosinophils % Eosinophils % (Manual) Basophils % Basophils % (Manual) Myelocytes % (Man) Promyelocytes % (Man) Metamyelocytes Hypochromia Platelet Estimate Polychromasia Poikilocytosis Anisocytosis Microcytosis Macrocytosis PT with INR INR Sodium 145 Potassium 4.4 Chloride 109 H Carbon Dioxide 28 Anion Gap 8 BUN 22 H Creatinine 1.2 Creat Clearance w eGFR > 60 Random Glucose 76 Calcium 8.2 L Magnesium 1.8 Total Bilirubin 0.5 AST 21 ALT 19 Alkaline Phosphatase 48 Total Protein 5.5 L Albumin 2.7 L HOSPITAL COURSE: Date of Admission:07/24/17 Date of Discharge: 07/26/17 Minutes to complete discharge: 38 Discharge Summary Reason For Visit: SYNCOPE Current Active Problems Syncope and collapse (Acute) Hospital Course: 65 year-old male, resident of [facility], with a PMH significant for HTN, HLD, CAD, systolic heart failure, s/p mechanical aortic valve replacement ( on coumadin) and thoracic aneurysm repair, CAD s/p PPM/AICD, mental retardation/ pervasive developmental disorder, seizure disorder, and GERD. Patient was at work 07/24 when he began to feel dizzy, syncopized and landed on his right side. Per decorating machine operator, patient was unresponsive for approximately 45 seconds and could only get up with assistance. It is unclear whether patient sustained any head trauma, or experienced changes in vision, headache, or lightheadedness. Patient reported bilateral arm pain. Patient's history is limited due to clinical condition. Seizure disorder - no indication from history of seizure-type activity and none observed since admission - continue current anti-epileptics Fall - CT head negative for acute process x 2 - continue ASA - continue warfarin Coronary artery disease Syncope - troponin neg x 3 - ECG not suggestive of ischemic event - CXR: left PPM device with possible erosion of one of the electrodes as it exits the device; however, interrogation today shows fully functional PPM - continue lisinopril, Lipitor, ASA - pacemaker interrogation as outpatient Systolic heart failure - 2014 stress: EF 32% Hypertension - continue lisinopril Hyperlipidemia - continue Lipitor s/p mechanical AVR - resume coumadin - give 7.5mg coumadin tonight and resume 5mg daily dosing Thoracic aneurysm repair - BP control Mental retardation/PDD - continue Abilify Seizure disorder - continue Depakote 500mg qHS - Depakote 750mg daily - neuro as outpatient to consider changing Depakote to Trileptal- less interaction with Coumadin GERD - continue protonix Condition: Stable - Instructions Diet, Activity, Other Instructions: Take Depakote 750mg every morning and 500mg every night. Take Coumadin 7.5mg today. Take Coumadin 5mg starting tomorrow. Make an appointment with your grind operator to have your pacemaker interrogated. You need to make an appointment with your neurologist to potentially change your Depakote to Trileptal which interferes with Coumadin. Return to ER for dizziness, passing out, chest pain, shortness of breath or any other concerns. Referrals: FriendPan [Primary Care Provider] - Disposition: HOME - Home Medications Comprehensive Discharge Medication List: Ambulatory Orders Aripiprazole [Abilify] 10 mg PO HS 06/10/16 Aspirin [ASA -] 81 mg PO DAILY 06/10/16 Atorvastatin Ca [Lipitor] 10 mg PO HS 06/10/16 Divalproex Sodium [Depakote] 250 mg PO AM 06/10/16 Finasteride 5 mg PO DAILY 06/10/16 Lisinopril [Zestril] 2.5 mg PO BID 06/10/16 Multivitamin [Poly-Vitamin] 1 each PO DAILY 06/10/16 Omeprazole 20 mg PO ACBK 06/10/16 Warfarin Na [Coumadin -] 5 mg PO DAILY 06/10/16 Amoxicillin - [Amoxicillin 500mg Capsule -] 500 mg PO BID 07/24/17 Mineral Oil/Petrolat,Wht/Water [Eucerin (Large Jar) -] 1 applic DAILY 07/24/17 Divalproex [Depakote -] 500 mg PO HS #30 tablet.ec 07/26/17 Divalproex [Depakote -] 750 mg PO DAILY #30 tablet.ec 07/26/17 This patient is new to me today: Yes Date on this admission: 07/26/17 Emergency Visit: Yes ED Registration Date: 07/24/17 Care time: The patient presented to the Emergency Department on the above date and was hospitalized for further evaluation of their emergent condition. Critical Care patient: No - Discharge Referral Referred to [facility] No
--- NOTE | 2017-07-26 14:33 | PN ---
Progress Note, Physician Chief Complaint: Syncope History of Present Illness: 66-year-old man with mental retardation, and multiple medical problems, now admitted with syncope. - Current Medication List Current Medications: Active Medications Aripiprazole (Abilify) 10 mg PO [facility] Last Admin: 07/25/17 21:40 Dose: 10 mg Aspirin (Asa -) 81 mg PO DAILY [facility] Last Admin: 07/26/17 10:24 Dose: 81 mg Atorvastatin Calcium (Lipitor -) 10 mg PO [facility] Last Admin: 07/25/17 21:39 Dose: 10 mg Divalproex Sodium 500 mg/ (Divalproex Sodium 250 mg) 750 mg PO DAILY [facility] Last Admin: 07/26/17 10:25 Dose: 750 mg Divalproex Sodium (Depakote -) 500 mg PO [facility] Last Admin: 07/25/17 21:42 Dose: 500 mg Finasteride (Proscar -) 5 mg PO DAILY [facility] Last Admin: 07/26/17 10:24 Dose: 5 mg Lisinopril (Prinivil) 2.5 mg PO BID [facility] Last Admin: 07/26/17 10:24 Dose: 2.5 mg Pantoprazole Sodium (Protonix -) 20 mg PO ACBK [facility] Last Admin: 07/26/17 06:20 Dose: 20 mg Warfarin Sodium (Coumadin -) 5 mg PO DAILY@1800 [facility] Last Admin: 07/25/17 18:25 Dose: 5 mg - Objective Vital Signs: Vital Signs Temperature 98.5 F 07/26/17 09:00 Pulse Rate 60 07/26/17 09:00 Respiratory Rate 18 07/26/17 11:13 Blood Pressure 101/44 07/26/17 09:00 O2 Sat by Pulse Oximetry (%) 98 07/26/17 11:13 Constitutional: Yes: Obese Eyes: Yes: WNL, Conjunctiva Clear HENT: Yes: WNL, Atraumatic, Normocephalic Neck: Yes: WNL, Supple, Trachea Midline Cardiovascular: Yes: WNL, Regular Rate and Rhythm Respiratory: Yes: WNL, Regular, CTA Bilaterally Gastrointestinal: Yes: WNL, Normal Bowel Sounds, Soft ...Rectal Exam: Yes: Deferred Genitourinary: Yes: WNL Musculoskeletal: Yes: WNL Extremities: Yes: WNL Edema: No Peripheral Pulses WNL: Yes Peripheral Pulses: Left Radial: 2+, Right Radial: 2+, Left Doralis Pedis: 2+, Right Dorsalis Pedis: 2+, Left Femoral: 2+, Right Femoral: 2+ Integumentary: Yes: WNL Neurological: Yes: Alert Psychiatric: Yes: WNL Labs: CBC, BMP 07/26/17 06:45 07/26/17 06:45 INR, PTT INR 1.52 (0.82-1.09) H D 07/26/17 06:45 Assessment/Plan The patient has been comfortable and stable. He remains in sinus rhythm. No clinically significant events noted on telemetry. The pacemaker interrogated okay. There is no need for further cardiac workup at this point. The patient is stable from the cardiac standpoint. Please do not hesitate to call usPRN
[2017-07-26] MEDS ORDERED: WARFARIN NA 2.5 MG TABLET (FP) PO ONE (15:30)
== END 2017-07-26 16:04 | disposition home or self-care (01) ==
LOC: JER 11:30 → JERBED 16:16 → J4W 18:05
PROVIDERS: ADMIT Internal Medicine; ATTEND Nurse Practitioner Family
DX: R55 Syncope and collapse (principal); I10 Essential (primary) hypertension; I50.20 Unspecified systolic (congestive) heart failure; E78.5 Hyperlipidemia, unspecified; F79 Unspecified intellectual disabilities; F84.9 Pervasive developmental disorder, unspecified; G40.909 Epilepsy, unspecified, not intractable, without status epilepticus; K21.9 Gastro-esophageal reflux disease without esophagitis; I45.10 Unspecified right bundle-branch block; I25.10 Atherosclerotic heart disease of native coronary artery without angina pectoris; Z95.2 Presence of prosthetic heart valve; Z95.810 Presence of automatic (implantable) cardiac defibrillator; Z79.01 Long term (current) use of anticoagulants; Z79.82 Long term (current) use of aspirin; Z91.038 Other insect allergy status; W18.30XA Fall on same level, unspecified, initial encounter; Y93.89 Activity, other specified; Y92.89 Other specified places as the place of occurrence of the external cause
CPT/HCPCS: 36415; 70450-TC; 71046-TC; 72125-TC; 80053; 82550; 83735; 83880; 84100; 84484; 85025; 85610; 93005; 93010; 93306-TC; 93880-TC; 99284-25; G0378

== ENCOUNTER 2017-10-07 13:50 | Emergency (ER) | payer OTHER ==
[2017-10-07 13:58] VITALS: BMI 25.0
--- NOTE | 2017-10-07 17:27 | PDOC ---
Attending Attestation - Resident Resident Name: Ferny Garay - ED Attending Attestation I have performed the following: I have examined & evaluated the patient, The case was reviewed & discussed with the resident, I agree w/resident's findings & plan, Exceptions are as noted - HPI HPI: 10/07/17 17:42 67y M mental retardation/developmental disorder, Seizure disorders. Hypertension , hyperlipidemia, GERD(s/p mechanical AVR), aortic root repair, and thoracic aneurysm repair presents for evlauation of possible fall. The patient had a routine visit with a foot doctor where he mentioned he fell yesterday and was referred to the ED for further evaluation. Per the patient's aide who was with the patient between 3 and 11 PM yesterday there was no report of falling and there was no history of falling while he was with the patient. The patient is in a jail that is small and he said that there is some in the house would' ve heard the patient fall if he fell. The patient's history is limited due to his developmental delay, his exam is unremarkable for signs of trauma. Patient denies any headache, neck pain, back pain, chest pain, abdominal pain, arm pain, leg pain. Per the patient's aide there is been no recent history of fevers, cough, diarrhea, foul-smelling urine, change in patient's behavior or eating patterns. GENERAL: The patient is awake, alert, and oriented x 2 Nontoxic - in no acute distress. HEAD: Normocephalic, atraumatic. EYES: extraocular movements intact, sclera anicteric, conjunctiva clear. ENT: Normal voice, Moist mucous membranes. NECK: Normal range of motion, supple Back: No midline tenderness to the cervical, thoracic or lumbar spine Musculoskelatal: FROM of b/l shoulders, elbows, wrist. FROM of hips, knees, ankles - No signs of ecchymosis, erythema, or crepitus noted on palpation extremities, chest wall, clavicals, ribs, back. LUNGS: Breath sounds equal, clear to auscultation bilaterally. No wheezes, no rhonchi, no rales. HEART: Regular rate and rhythm, normal S1 and S2 without murmur, rub or gallop. ABDOMEN: Soft, nontender, normoactive bowel sounds. No guarding, no rebound. . No CVA tenderness EXTREMITIES: Normal range of motion, NEUROLOGICAL: No facial assymetry, Normal speech, PSYCH: Normal mood, normal affect. SKIN: Warm, Dry, normal turgor, will ck labs no signs of trauma pt on coumadin so will ck head ct if things neg will dc the pt with pmd - Physicial Exam PE: 10/10/17 09:21 see above - Medical Decision Making pt ffeeling good at dc pts labs reveiwed and unremarkable pt will go wu to his jail with his aide. will dc the pt with pmd fu return precautions were discussed I discussed the physical exam findings, ancillary test results and final diagnoses with the patient. I answered all of the patient's questions. The patient was satisfied with the care received and felt comfortable with the discharge plan and treatment plan. The patient will call their primary care physician within 24 hours to arrange follow-up and will return to the Emergency Department with any new, persistent or worsening symptoms. Heart Score/ECG Review - ECG Impressions Comment:: 10/07/17 20:52 Twelve-lead EKG was performed and reviewed by me. EKG poerfrormed at 19:24 rate of 73 atrial sensed ventircular pacing
--- NOTE | 2017-10-07 18:27 | PDOC ---
History of Present Illness - General Chief Complaint: Pain Stated Complaint: INJURY, FALL Time Seen by Provider: 10/07/17 17:09 History Source: Patient Exam Limitations: No Limitations - History of Present Illness Initial Comments: 10/07/17 18:18 The patient is a 67M with a PMH of MR, hypertension, hyperlipidemia, aortic valve repair (mechanical) and root repair on coumadin, DVT, GERD, and seizure disorder (depakote) who presents after a fall. The patient is with a healthcare worker who comes from the home with him. The worker provides the history as the patient cannot provide any history. The worker states that the patient went for a routine podiatric check up today and told the plant maintenance engineer that he fell yesterday. The fall was not witnessed at the facility and no one at his facility knew that he fell until he told the plant maintenance engineer. Past History - Past Medical History Allergies/Adverse Reactions: Allergies Allergy/AdvReac Type Severity Reaction Status Date / Time beeswax Allergy Unknown Verified 10/07/17 13:52 venom-honey bee Allergy ANAPHYLAXIS Verified 10/07/17 13:52 [bee venom (honey bee)] Home Medications: Ambulatory Orders Aripiprazole [Abilify] 10 mg PO HS 06/10/16 Aspirin [ASA -] 81 mg PO DAILY 06/10/16 Atorvastatin Ca [Lipitor] 10 mg PO HS 06/10/16 Finasteride 5 mg PO DAILY 06/10/16 Lisinopril [Zestril] 2.5 mg PO BID 06/10/16 Multivitamin [Poly-Vitamin] 1 each PO DAILY 06/10/16 Omeprazole 20 mg PO ACBK 06/10/16 Warfarin Na [Coumadin -] 5 mg PO DAILY 06/10/16 Amoxicillin - [Amoxicillin 500mg Capsule -] 500 mg PO BID 07/24/17 Mineral Oil/Petrolat,Wht/Water [Eucerin (Large Jar) -] 1 applic DAILY 07/24/17 Divalproex [Depakote -] 500 mg PO HS #30 tablet.ec 07/26/17 Divalproex [Depakote -] 750 mg PO DAILY #30 tablet.ec 07/26/17 Anemia: No Asthma: No Cancer: No Cardiac Disorders: Yes (aortic valve disorder, dvt, cardiomegaly) CVA: No COPD: No CHF: No DVT: No Dementia: No Diabetes: No GI Disorders: Yes (volvulus of intestine, bowel or colon, SBO, POLYPS) Disorders: (volvulus of intestine, bowel or colon, SBO) HTN: Yes Hypercholesterolemia: Yes (HYPERLIPIDEMIA) Liver Disease: No Seizures: Yes Thyroid Disease: No - Surgical History Abdominal Surgery: Yes (aortic root repair and area) Appendectomy: No Cardiac Surgery: Yes (heart valve repair) Cholecystectomy: No Lung Surgery: No Neurologic Surgery: No Orthopedic Surgery: No - Immunization History Immunization Up to Date: Yes - Suicide/Smoking/Psychosocial Hx Smoking Status: No Smoking History: Never smoked Years of Tobacco Use: 0 Have you smoked in the past 12 months: No Number of Cigarettes Smoked Daily: 0 Cigars Per Day: 0 Information on smoking cessation initiated: No Hx Alcohol Use: No Drug/Substance Use Hx: No Substance Use Type: None Hx Substance Use Treatment: No Review of Systems - Review of Systems Able to Perform ROS?: No (/ MR) Is the patient limited Nepali proficient: No *Physical Exam - Vital Signs Last Vital Signs Temp Pulse Resp BP Pulse Ox 98.9 F 74 18 137/68 100 10/07/17 13:55 10/07/17 13:55 10/07/17 13:55 10/07/17 13:55 10/07/17 13:55 - Physical Exam Comments: 10/07/17 18:30 GENERAL: Well developed, well nourished. Awake and alert. No acute distress. HEENT: Normocephalic, atraumatic. Hearing grossly normal. Moist mucous membranes. PERRLA, EOMI. No conjunctival pallor. Sclera are non-icteric. 1 cm hematoma on occiput. NECK: Supple. Full ROM. No JVD. CARDIOVASCULAR: Regular rate and rhythm. Systolic murmur with click noted. No rubs, or gallops. PULMONARY: No evidence of respiratory distress. Lungs clear to auscultation bilaterally. No wheezing, rales or rhonchi. ABDOMINAL: Soft. Non-tender. Non-distended. No rebound or guarding. No organomegaly. Normoactive bowel sounds. GENITOURINARY: No CVA tenderness bilaterally. MUSCULOSKELETAL: Normal range of motion at all joints. No bony deformities or tenderness. EXTREMITIES: No cyanosis. No clubbing. No edema. No calf tenderness. SKIN: Warm and dry. Normal capillary refill. No rashes. No jaundice. NEUROLOGICAL: Alert, awake, appropriate. Cranial nerves 2-12 intact. Normal speech. Gait is normal without ataxia. PSYCHIATRIC: Cooperative. Good eye contact. Appropriate mood and affect. ED Treatment Course - LABORATORY CBC & Chemistry Diagram: 10/07/17 20:45 10/07/17 20:45 - RADIOLOGY Radiology Studies Ordered: Category Date Time Status HEAD CT WITHOUT CONTRAST [CT] Stat CT Scan 10/07/17 17:32 Ordered CHEST PA & LAT [RAD] Stat Radiology 10/07/17 17:32 Ordered Medical Decision Making - Medical Decision Making 10/07/17 18:38 The patient is a 67M with a PMH of MR who presents after having an unwitnessed fall. There is a confusing picture of whether or not the patient actually fell or possibly had a seizure. PE negative. Pending CT and other imaging as well as labs. 10/07/17 20:25 CT head negative. Pending labs. 10/07/17 21:36 CXR negative on preliminary read. Labs negative. Will d/c pt and call if depakote level abnormal. Pt agrees and is ready for d/c. *DC/Admit/Observation/Transfer Diagnosis at time of Disposition: Fall Qualifiers: Encounter type: initial encounter Qualified Code(s): W19.XXXA - Unspecified fall, initial encounter - Discharge Dispostion Disposition: HOME Condition at time of disposition: Stable Admit: No - Referrals - Patient Instructions Printed Discharge Instructions: How to Prevent Falls Additional Instructions: Please return to the ER if you have any signs or symptoms of chest pain, shortness of breath, uncontrollable fever, chills, nausea, vomiting, numbness, tingling, or weakness in any part of your body, changes in vision, or slurred speech. Please follow up with your primary care physician in 2-3 days. Please return to the ER if symptoms persist, worsen, or new symptoms arise. Print Language: CAMBODIAN - Post Discharge Activity
[2017-10-07 19:08] LABS: URINE APPEARANCE CLEAR; URINE BILIRUBIN NEGATIVE (<2.0 mg/dL); URINE BLOOD NEGATIVE (NEGATIVE); URINE COLOR LTYELLOW; URINE GLUCOSE (UA) NEGATIVE (NEGATIVE); URINE KETONE NEGATIVE (NEGATIVE); URINE LEUK ESTERASE NEGATIVE (NEGATIVE); URINE NITRITE NEGATIVE (NEGATIVE); URINE PROTEIN NEGATIVE (NEGATIVE)
[2017-10-07 20:13] LABS: INR 3.22 (0.82-1.09); PROTHROMBIN TIME (PATIENT) 36.4 SEC (9.98-11.88)
[2017-10-07 20:54] LABS: BASO % 0.3 % (0-2.0); EOS % 16.5 % (0-4.5); HEMATOCRIT 41.4 % (35.4-49); HEMOGLOBIN 13.6 GM/dL (11.7-16.9); LYMPH % 29.9 % (8-40); MCH 29.5 pg (25.7-33.7); MCHC 32.8 g/dl (32.0-35.9); MEAN PLT VOLUME 9.6 fl (7.5-11.1); MONO % 9.9 % (3.8-10.2); NEUT % 43.4 % (42.8-82.8); PLATELET COUNT 110 K/MM3 (134-434); RDW 15.2 % (11.9-15.9); WHITE BLOOD COUNT 5.7 K/mm3 (4.0-10.0)
[2017-10-07 21:20] LABS: ALBUMIN 3.4 g/dl (3.4-5.0); ALK PHOS 55 U/L (45-117); ANION GAP 3 (8-16); BILIRUBIN,TOTAL 0.3 mg/dL (0.2-1.0); BLOOD UREA NITROGEN 18 mg/dL (7-18); CALCIUM 8.8 mg/dL (8.5-10.1); CHLORIDE 112 mmol/L (98-107); CO2 29 mmol/L (21-32); CREATININE 1.1 mg/dL (0.7-1.3); GLUCOSE,RANDOM 80 mg/dL (74-106); POTASSIUM 4.5 mmol/L (3.5-5.1); SGOT/AST 25 U/L (15-37); SGPT/ALT 21 U/L (12-78); SODIUM 144 mmol/L (136-145); TOT PROT 6.5 g/dl (6.4-8.2)
[2017-10-07 23:08] VITALS: BP 148/86; PULSE 72; TEMP 98.1
--- NOTE | 2017-10-08 10:34 | EKG ---
Test Reason : Blood Pressure : / mmHG Vent. Rate : 071 BPM Atrial Rate : 071 BPM P-R Int : 198 ms QRS Dur : 186 ms QT Int : 458 ms P-R-T Axes : 022 260 066 degrees QTc Int : 497 ms Atrial-sensed ventricular-paced rhythm ABNORMAL ECG WHEN COMPARED WITH ECG OF 25-JUL-2017 08:59, VENT. RATE HAS INCREASED BY 11 BPM Confirmed by MD Lester, Lobo ([id number]) on 10/08/2017 10:34:10 AM Referred By: Confirmed By:Lobo Batista MD
== END 2017-10-07 23:12 | disposition home or self-care (01) ==
LOC: JER 13:50
DX: S00.03XA Contusion of scalp, initial encounter (principal); W19.XXXA Unspecified fall, initial encounter; Y93.89 Activity, other specified; Y92.89 Other specified places as the place of occurrence of the external cause; Y99.8 Other external cause status; F88 Other disorders of psychological development; F78 Other intellectual disabilities; G40.909 Epilepsy, unspecified, not intractable, without status epilepticus; I10 Essential (primary) hypertension; E78.5 Hyperlipidemia, unspecified; K21.9 Gastro-esophageal reflux disease without esophagitis; Z86.718 Personal history of other venous thrombosis and embolism; Z95.2 Presence of prosthetic heart valve; Z79.01 Long term (current) use of anticoagulants; Z79.82 Long term (current) use of aspirin
CPT/HCPCS: 36415; 70450-TC; 71046-TC-FY; 80053; 80164; 81003; 85025; 85610; 93005; 93010; 99282-25

== ENCOUNTER 2018-01-12 11:27 | Inpatient (IN) | payer OTHER ==
--- NOTE | 2018-01-12 11:57 | PDOC ---
History of Present Illness - General Chief Complaint: Pain Stated Complaint: GROIN PAIN Time Seen by Provider: 01/12/18 11:56 History Source: Care Provider (prison binitrotoluene operator) Exam Limitations: Physical Impairment (developmental delay, minimal verbal interaction. Can respond yes or no to questions.) - History of Present Illness Initial Comments: Pt, with PMH of HTN, CAD, aortic valve replacement, thoracic aneurysm, seizures , and chronic developmental delay, presents with his b[facility]rotoluene operator [facility]. The binitrotoluene operator states that this morning, th pt complained of lower abdominal pain that "goes underneath towards his groin" and had shaking chills. He was moving around frequently "as if he had to go to the bathroom" to urinate. The pt did not complain about blood in the urine, pain with urination, or frequency of urination. The pt does not normally have incontinence, wear diapers, and can urinate on his own. The binitrotoluene operator states pt was seen 1 month ago at [facility] for urinary symptoms, but they performed an ultrasound and he had no kidney stones or UTI at that time. The binitrotoluene operator denies LOC, shortness of breath, lack of appetite, nausea/vomiting, or diarrhea. 01/12/18 12:25 01/12/18 12:57 Past History - Past Medical History Allergies/Adverse Reactions: Allergies Allergy/AdvReac Type Severity Reaction Status Date / Time beeswax Allergy Unknown Verified 01/12/18 11:54 venom-honey bee Allergy ANAPHYLAXIS Verified 01/12/18 11:54 [bee venom (honey bee)] Home Medications: Ambulatory Orders Aripiprazole [Abilify] 10 mg PO HS 06/10/16 Aspirin [ASA -] 81 mg PO DAILY 06/10/16 Atorvastatin Ca [Lipitor] 10 mg PO HS 06/10/16 Finasteride 5 mg PO DAILY 06/10/16 Lisinopril [Zestril] 2.5 mg PO BID 06/10/16 Multivitamin [Poly-Vitamin] 1 each PO DAILY 06/10/16 Omeprazole 20 mg PO ACBK 06/10/16 Warfarin Na [Coumadin -] 5 mg PO DAILY 06/10/16 Amoxicillin - [Amoxicillin 500mg Capsule -] 500 mg PO BID 07/24/17 Mineral Oil/Petrolat,Wht/Water [Eucerin (Large Jar) -] 1 applic DAILY 07/24/17 Divalproex [Depakote -] 500 mg PO HS #30 tablet.ec 07/26/17 Divalproex [Depakote -] 750 mg PO DAILY #30 tablet.ec 07/26/17 Tamsulosin HCl [Flomax] 0.4 mg PO HS 01/12/18 Anemia: No Asthma: No Cancer: No Cardiac Disorders: Yes (aortic valve disorder, dvt, cardiomegaly) CVA: No COPD: No CHF: No DVT: No Dementia: No Diabetes: No GI Disorders: Yes (volvulus of intestine, bowel or colon, SBO, POLYPS) Disorders: (volvulus of intestine, bowel or colon, SBO) HTN: Yes Hypercholesterolemia: Yes (HYPERLIPIDEMIA) Liver Disease: No Seizures: Yes Thyroid Disease: No - Surgical History Abdominal Surgery: Yes (aortic root repair and area) Appendectomy: No Cardiac Surgery: Yes (heart valve repair) Cholecystectomy: No Lung Surgery: No Neurologic Surgery: No Orthopedic Surgery: No - Immunization History Immunization Up to Date: Yes - Suicide/Smoking/Psychosocial Hx Smoking Status: No Smoking History: Never smoked Years of Tobacco Use: 0 Have you smoked in the past 12 months: No Number of Cigarettes Smoked Daily: 0 Cigars Per Day: 0 Information on smoking cessation initiated: No Hx Alcohol Use: No Drug/Substance Use Hx: No Substance Use Type: None Hx Substance Use Treatment: No Review of Systems - Review of Systems Able to Perform ROS?: Yes (Through binitrotoluene operator) Is the patient limited Nigerian proficient: Yes Constitutional: Yes: Chills. No: Diaphoresis, Fever, Loss of Appetite, Night Sweats, Unintentional Wgt. Loss HEENTM: No: Recent change in vision, Difficulty Swallowing Respiratory: No: Cough, Orthopnea, Shortness of Breath, Productive cough Cardiac (ROS): Yes: Edema (chronic leg swelling L side). No: Chest Pain, Syncope ABD/GI: No: Abdominal Distended, Abd. Pain w/ defecation, Constipated, Diarrhea , Difficulty Swallowing, Nausea, Poor Appetite, Poor Fluid Intake, Vomiting, Abdominal cramping : Yes: Pain, Urgency. No: Burning, Dysuria, Frequency, Flank Pain, Hematuria , Incontinence Musculoskeletal: No: Back Pain, Joint Pain Integumentary: No: Bruising, Rash Neurological: Yes: Seizure (sz disorder, well-controlled. No recent episodes.). No: Unsteady Gait Psychiatric: No: Sleep Pattern Change, Change in Appetite Endocrine: No: Increased Urine, Change in Weight Hematologic/Lymphatic: Yes: Blood Clots (Aortic valve replacement, DVT. Takes warfarin. ) All Other Systems: Reviewed and Negative *Physical Exam - Vital Signs Last Vital Signs Temp Pulse Resp BP Pulse Ox 99.6 F 94 H 18 106/58 100 01/12/18 11:49 01/12/18 11:49 01/12/18 11:49 01/12/18 11:49 01/12/18 11:49 - Physical Exam General Appearance: Yes: Nourished, Appropriately Dressed, Mild Distress (Pt has chills, pointing towards lower abdomen.). No: Disheveled HEENT: positive: EOMI, Normal ENT Inspection, Hearing Grossly Normal Neck: positive: Trachea midline, Normal Thyroid, Supple. negative: Tender, Rigid Respiratory/Chest: positive: Lungs Clear, Normal Breath Sounds. negative: Chest Tender, Respiratory Distress, Accessory Muscle Use, Labored Respiration, Rapid RR, Decreased Breath Sounds Cardiovascular: positive: Regular Rhythm, Regular Rate, S1, S2, Edema (LLE larger than left, no pitting edema. ), Murmur (loud heart sounds, especially over aortic area with systolic murmur. Expected with replaced valve.). negative : JVD Vascular Pulses: Dorsalis-Pedis (R): 4+, Doralis-Pedis (L): 4+ Gastrointestinal/Abdominal: positive: Normal Bowel Sounds, Tender (Tenderness over suprapubic area to palpation. ), Flat (5-6 cm midline abdominal scar from prior surgery.), Soft, Guarding (guarding while palpating lower abdomen/ suprapubic area.). negative: Organomegaly, Increased Bowel Sounds, Decreased BS , Distended, Rebound Male Genitalia: positive: testicular tenderness (mild testicular tenderness. mild scrotal swelling. No hernia or masses noted in inguinal area.). negative: testicular mass, inguinal hernia, hematuria (urine cloudy yellow) Lymphatic: negative: Adenopathy Musculoskeletal: negative: CVA Tenderness, Decreased Range of Motion Extremity: positive: Normal Capillary Refill, Normal Inspection, Normal Range of Motion Integumentary: positive: Normal Color, Dry, Warm. negative: Rash Neurologic: positive: concrete tester II-XII NML intact, Fully Oriented (Pt able to respond to questions with yes/no. Minimal verbal response but responds appropriately.), Alert, Normal Mood/Affect, Normal Response, Motor Strength 11/02 ED Treatment Course - LABORATORY CBC & Chemistry Diagram: 01/12/18 14:25 01/12/18 14:19 - RADIOLOGY Radiology Studies Ordered: Scrotal US and CT abd/pelvis w contrast 01/12/18 16:49 Radiograph Interpretation: scrotal US: Findings suspicious for right-sided orchitis and left-sided epididymoorchitis. Clinical correlation and follow-up recommended. CT:L inguinal hernia. B/l renal cortical scarring (prior infections). Cholelithiasis. Cardiomegaly. 01/12/18 16:49 Medical Decision Making - Medical Decision Making Pt seen, sent UA and urine culture. Covered with warm blankets. Ordered 1 g Tylenol PO for pain and pt is borderline for fever considering age (99.7). Minimal testicular pain on exam, pt complaining more of suprapubic pain. Considering UTI vs kidney stone. Pt appears more comfortable with blanket, chills reduced. Ordered CBC, CMP considering possible UTI. 01/12/18 13:17 Ordering scrotal US per Dr. Serge Mata considering pt groin pain, and lack of verbal response. Want to r/o any testicular torsion vs orchitis. 01/12/18 13:25 Rectal temp ordered. 20 g IV inserted by ultrasound. CBC and CMP sent. 01/12/18 14:24 Rectal temp 101.5. 01/12/18 14:41 Pt taken to US. Awaiting CBC and CMP to determine disposition along with US results. Urine positive for bacteria. 01/12/18 14:53 Pt was being uncooperative with US, binitrotoluene operator went to calm pt. Results pending. 01/12/18 17:18 US: Findings suspicious for right-sided orchitis and left-sided epididymoorchitis. Clinical correlation and follow-up recommended. Please see above discussion Awaiting CT results. WBC within normal limits. 01/12/18 19:[address] read. Checked with radiology and it has already been sent to radiology on-call. 01/12/18 20:06 Calling hospitalist for med/surg observation. *DC/Admit/Observation/Transfer Diagnosis at time of Disposition: Orchitis and epididymitis, Mental retardation Urinary tract infection Qualifiers: Urinary tract infection type: acute cystitis Hematuria presence: without hematuria Qualified Code(s): N30.00 - Acute cystitis without hematuria - Discharge Dispostion Condition at time of disposition: Stable Decision to Admit order: Yes - Referrals - Patient Instructions - Post Discharge Activity
[2018-01-12] MEDS ORDERED: ACETAMINOPHEN 500 MG TABLET (FP) PO ONE (12:52)
[2018-01-12 13:19] LABS: URINE APPEARANCE SLCLOUDY; URINE BILIRUBIN NEGATIVE (<2.0 mg/dL); URINE COLOR AMBER; URINE GLUCOSE (UA) NEGATIVE (NEGATIVE); URINE KETONE TRACE (NEGATIVE); URINE NITRITE NEGATIVE (NEGATIVE)
[2018-01-12 13:20] LABS: URINE LEUK ESTERASE 2+ (NEGATIVE); URINE PROTEIN 1+ (NEGATIVE)
[2018-01-12 13:22] LABS: EPI CELLS RARE /HPF (FEW); URINE MUCUS RARE
--- NOTE | 2018-01-12 14:13 | PDOC ---
Attending Attestation - Resident Resident Name: Mallory Nascimento - ED Attending Attestation I have performed the following: I have examined & evaluated the patient, The case was reviewed & discussed with the resident, I agree w/resident's findings & plan, Exceptions are as noted - HPI HPI: 01/12/18 14:11 The patient is a 67 year old M accompanied with her geological e logger, who has a significant PMH of HTN, CAD, aortic valve replacement, seizures, thoracic aneurysm and MR/developmental delay, presents to the emergency department with lower abdomen pain that began this morning. The patients geological e logger states that the patient complained of having lower abdominal pain which radiates toward his "private area" and is accompanied by chills. The patients geological e logger reports patient went to [facility] one month ago for urinary symptoms but found no kidney stone or UTI at that time. The patient does not normally have incontinence, wear diapers, and can urinate on his own. History is limited due to pt's developmental delay. Allergies:Beeswax, venom honey bee Past surgical history:Abdominal aortic root repair and heart valve repair Social history: None reported PCP: None reported - Physicial Exam PE: 01/12/18 14:13 GENERAL: Awake, alert, in no acute distress EYES: PERRLA, EOMI, sclera anicteric, conjunctiva clear ENT: Nares patent, oropharynx clear without exudates. Moist mucosa NECK: Normal ROM, supple, no lymphadenopathy, JVD, or masses LUNGS: Breath sounds equal, clear to auscultation bilaterally. No wheezes, and no crackles HEART: Regular rate and rhythm, normal S1 and S2, no murmurs, rubs or gallops ABDOMEN: Multiple healed abd scars, +ttp and voluntary guarding to the suprapubic area. No CVAT. : no scrotal ttp, normal lie, normal cremaster reflex, no penile lesions or abnormalities EXTREMITIES: Normal range of motion, no edema. No clubbing or cyanosis. No cords, erythema, or tenderness NEUROLOGICAL: Normal speech, cranial nerves intact, moves all extremities, can answer yes or no questions SKIN: Warm, Dry, normal turgor, no rashes or lesions noted. - Medical Decision Making 01/12/18 14:16 67yo M with MMP presents to the ED with chills, lower abd pain. Vitals with low grade fever to 99.6, BP at his baseline compared to previous measurements in our system. REctal temp 101.5. Exam with lower abd ttp. Concern for UTI vs pyelo. Hx is limited, however pt points to genitals when asked where his pain is so will obtain scrotal US. Will check UA, UCx, labs and reassess. 01/12/18 16:49 Thus far, UA positive for UTI Scrotal US with R orchitis and L epidydimoorchitis Pt covered with IV levaquin based on previous sensitivities Given persistent lower abd pain, a CTAP was ordered and is pending Case has been signed out to oncoming attending for further mgmt/dispo
[2018-01-12] MEDS ORDERED: ACETAMINOPHEN 325 MG TABLET (FP) ONE (14:16)
[2018-01-12 14:29] LABS: HEMOGLOBIN 12.8 GM/dL (11.7-16.9); WHITE BLOOD COUNT 6.5 K/mm3 (4.0-10.0)
[2018-01-12 14:38] LABS: HEMATOCRIT 39.6 % (35.4-49); MCHC 32.3 g/dl (32.0-35.9); MEAN CELL VOLUME 89.7 fl (80-96); PLATELET COUNT 128 K/MM3 (134-434); RBC 4.41 M/mm3 (4.00-5.60); RDW 16.1 % (11.9-15.9)
[2018-01-12 14:43] LABS: BASO % 0.4 % (0-2.0); EOS % 4.5 % (0-4.5); HEMATOCRIT 38.9 % (35.4-49); HEMOGLOBIN 12.8 GM/dL (11.7-16.9); LYMPH % 11.7 % (8-40); MCH 29.4 pg (25.7-33.7); MCHC 32.8 g/dl (32.0-35.9); MEAN CELL VOLUME 89.5 fl (80-96); MEAN PLT VOLUME 9.5 fl (7.5-11.1); MONO % 10.2 % (3.8-10.2); NEUT % 73.2 % (42.8-82.8); PLATELET COUNT 131 K/MM3 (134-434); RBC 4.35 M/mm3 (4.00-5.60); RDW 15.9 % (11.9-15.9); WHITE BLOOD COUNT 6.6 K/mm3 (4.0-10.0)
[2018-01-12 15:04] LABS: ALBUMIN 3.1 g/dl (3.4-5.0); ALK PHOS 56 U/L (45-117); ANION GAP 4 (8-16); BILIRUBIN,TOTAL 0.3 mg/dL (0.2-1.0); BLOOD UREA NITROGEN 22 mg/dL (7-18); CALCIUM 9.3 mg/dL (8.5-10.1); CHLORIDE 106 mmol/L (98-107); CO2 30 mmol/L (21-32); CREATININE 1.4 mg/dL (0.7-1.3); GLUCOSE,RANDOM 84 mg/dL (74-106); POTASSIUM 4.8 mmol/L (3.5-5.1); SGOT/AST 27 U/L (15-37); SGPT/ALT 20 U/L (12-78); SODIUM 140 mmol/L (136-145); TOT PROT 6.5 g/dl (6.4-8.2)
--- NOTE | 2018-01-12 18:24 | PDOC ---
*Physical Exam - Vital Signs Last Vital Signs Temp Pulse Resp BP Pulse Ox 100.3 F H 83 18 101/53 99 01/12/18 17:40 01/12/18 17:40 01/12/18 17:40 01/12/18 17:40 01/12/18 17:40 ED Treatment Course - LABORATORY CBC & Chemistry Diagram: 01/14/18 06:35 01/14/18 06:35 - ADDITIONAL ORDERS Additional order review: Laboratory Results 01/12/18 01/12/18 14:19 12:45 Sodium 140 Potassium 4.8 Chloride 106 Carbon Dioxide 30 Anion Gap 4 L BUN 22 H Creatinine 1.4 H Creat Clearance w eGFR 50.40 Random Glucose 84 Calcium 9.3 Total Bilirubin 0.3 AST 27 ALT 20 Alkaline Phosphatase 56 Total Protein 6.5 Albumin 3.1 L Urine Color Brigitte Urine Appearance Slcloudy Urine pH 5.0 Ur Specific [place] 1.023 Urine Protein 1+ H Urine Glucose (UA) Negative Urine Ketones Trace H Urine Blood 2+ H Urine Nitrite Negative Urine Bilirubin Negative Urine Urobilinogen 2.0 Ur Leukocyte Esterase 2+ H Urine WBC (Auto) 169 Urine RBC (Auto) 54 Ur Epithelial Cells Rare Urine Mucus Rare 01/12/18 01/12/18 14:25 14:19 RBC 4.35 4.41 MCV 89.5 89.7 MCHC 32.8 32.3 RDW 15.9 16.1 H MPV 9.5 9.0 Neutrophils % 73.2 D Lymphocytes % 11.7 D Monocytes % 10.2 Eosinophils % 4.5 Basophils % 0.4 - Medications Given in the ED: ED Medications Discontinued Medications Generic Name Dose Route Start Last Admin Trade Name Maggie PRN Reason Stop Dose Admin Acetaminophen 1,000 mg 01/12/18 12:52 01/12/18 13:50 Tylenol - PO 01/12/18 12:53 1,000 mg ONCE ONE Administration Levofloxacin 500 mg 01/12/18 17:23 01/12/18 17:31 Levaquin - PO 01/12/18 17:24 Not Given ONCE ONE Medical Decision Making - Medical Decision Making 01/12/18 18:[address] Valentine , ct scan pending 67 yo male from group [facility] _ I spoke w RN covering this eveing PLAN med.surg admit with diagnosis abd pain ,UTI,Orchitis 01/12/18 19:52 pt has low grade oral temp CT SCAN abd/pel reveals 1 cardiomegaly 2-prior bypass surgery. There is a implanted cardiac device. 3. Intra-abdominal fluid or gas. Cholelithiasis. Liver, adrenals, pancreas and spleen are normal. Exophytic simple renal cortical cyst. Multifocal areas of bilateral renal cortical scarring due to prior infections or vascular insults. Bilateral kidneys are otherwise normal. Atherosclerotic disease with aortoiliac arterials tree, but widely patent. No enlarged abdominal lymph nodes. There is mild diffuse circumferential urinary bladder wall thickening and a minimally distended urinary bladder. This is likely secondary to some degree of bladder outlet obstruction. Left inguinal hernia. There is evidence of prior right inguinal hernia surgery. Appendix is absent *DC/Admit/Observation/Transfer Diagnosis at time of Disposition: Orchitis and epididymitis, Mental retardation, Urinary tract infection - Discharge Dispostion Condition at time of disposition: Stable - Referrals - Patient Instructions - Post Discharge Activity
[2018-01-12 22:15] LABS: PROTHROMBIN TIME (PATIENT) 59.8 SEC (9.7-13.0)
[2018-01-12] MEDS ORDERED: SODIUM CHLORIDE 1,000 ML IV SCH (22:30)
[2018-01-12 22:43] LABS: INR 5.29 (0.82-1.09)
--- NOTE | 2018-01-12 22:47 | PN ---
Teaching Attending Note Name of Resident: Alex Granados ATTENDING PHYSICIAN STATEMENT I saw and evaluated the patient. Chart, data, imaging reviewed. I reviewed the resident's note and discussed the case with the resident. I agree with the resident's findings and plan as documented. SUBJECTIVE: 67 year old man accompanied with her software quality analyst with PMH of HTN, CAD, aortic valve replacement, seizures, thoracic aneurysm and MR/developmental delay presented to hospital with lower abd pain and testicular pain which began 7/15 in the morning, associated with chills, low grade fever. Patient is able to urinate on his own, is not incontinent. Pt cannot provide history himself. OBJECTIVE: Last Vital Signs Temp Pulse Resp BP Pulse Ox 100.1 F H 78 16 104/50 97 01/12/18 21:56 01/12/18 21:56 01/12/18 21:56 01/12/18 21:56 01/12/18 21:56 general- nontoxic appearing, nad heent -at, nc, no parotid swelling neck -supple cv-s1+ s2+ rrr, metallic click chest cta b/l abdomen -multiple scars present, bs+, nontender genitals- scrotum appears erythematous, warm to touch, blood around glans meatus ext -no edema present Abnormal Lab Results 01/12/18 01/12/18 01/12/18 12:45 14:19 14:19 RDW 16.1 H Plt Count 128 L PT with INR INR Anion Gap 4 L BUN 22 H Creatinine 1.4 H Albumin 3.1 L Urine Protein 1+ H Urine Ketones Trace H Urine Blood 2+ H Ur Leukocyte Esterase 2+ H 01/12/18 01/12/18 14:25 21:50 RDW Plt Count 131 L PT with INR 59.80 H INR 5.29 H* D Anion Gap BUN Creatinine Albumin Urine Protein Urine Ketones Urine Blood Ur Leukocyte Esterase Scrotal US reviewed- no testicular torsion, right sided orchitis, left sided epidydemoorchitis CT of abdomen/pelvis reviewed. ASSESSMENT AND PLAN: 67yo man with right sided orchitis, left sided epidydemoorchitis, likely bacterial in nature. Should r/o mumps, GC/chlamydia. S/p levofloxacin in ER. -observation -f/u urine culture -send blood cultures x2 -send GC/chlamydia NAAT in urine -VIVIANA to assess for prostatitis -mumps IgM -c/w levofloxacin- 750mg IV daily -scrotal support - consult for hematuria -f/u official CT reading #Metallic heart valve -check INR -continue coumadin -c/w ASA -transthoracic echo Restart home medications for chronic medical problems -SCDs for dvt ppx -
--- NOTE | 2018-01-12 22:57 | HP ---
CHIEF COMPLAINT:scrotal/testicular pain PCP: HISTORY OF PRESENT ILLNESS: Pt is unable to give hx due to MR/DD, Hx was obtained from guest relations coordinator and EMR 67 M with PMH of HTN, CAD, s/p PPM/AICD, aortic valve replacement, thoracic aneurysm, seizures, and MR/chronic developmental delay, presents with testicular pain and accompanied by his guest relations coordinator from the assisted. The guest relations coordinator states that this morning, pt complained of lower abdominal pain that "goes underneath towards his groin" and had shaking chills. He was moving around frequently "as if he had to go to the bathroom" to urinate. The pt did not complain about urinary sxs of hematuria, polyuria, dysuria. The pt does not normally have incontinence, wear diapers, and can urinate on his own. The guest relations coordinator states pt has a hx of multiple UTIs, was seen 1 month ago at [facility] for urinary symptoms, but they performed an ultrasound and he had no kidney stones or UTI at that time. The guest relations coordinator denies fevers, LOC, shortness of breath, lack of appetite, nausea/vomiting, or diarrhea. ER course was notable for: (1)Tylenol, Levaquin (2) (3) Recent Travel: PAST MEDICAL HISTORY: REviewed in HPI GERD Echo in 07/18 shows normal EF PAST SURGICAL HISTORY: Social History: Smoking:none Alcohol:none Drugs: none NO RECENT SEXUAL ACTIVITY Family History:none Allergies beeswax Allergy (Unknown, Verified 01/12/18 11:54) venom-honey bee [bee venom (honey bee)] Allergy (Verified 01/12/18 11:54) ANAPHYLAXIS BEE STING HOME MEDICATIONS: Home Medications Medication Instructions Recorded Aripiprazole [Abilify] 10 mg PO HS 06/10/16 Aspirin [ASA -] 81 mg PO DAILY 06/10/16 Atorvastatin Ca [Lipitor] 10 mg PO HS 06/10/16 Finasteride 5 mg PO DAILY 06/10/16 Lisinopril [Zestril] 2.5 mg PO BID 06/10/16 Multivitamin [Poly-Vitamin] 1 each PO DAILY 06/10/16 Omeprazole 20 mg PO ACBK 06/10/16 Warfarin Na [Coumadin -] 5 mg PO DAILY 06/10/16 Amoxicillin - [Amoxicillin 500mg 500 mg PO BID 07/24/17 Capsule -] Mineral Oil/Petrolat,Wht/Water 1 applic DAILY 07/24/17 [Eucerin (Large Jar) -] Divalproex [Depakote -] 1000 mg PO HS #30 tablet.ec 07/26/17 Divalproex [Depakote -] 750 mg PO DAILY #30 tablet.ec 07/26/17 Tamsulosin HCl [Flomax] 0.4 mg PO HS 01/12/18 REVIEW OF SYSTEMS Reviewed as per HPI PHYSICAL EXAMINATION Vital Signs - 24 hr 01/12/18 01/12/18 01/12/18 11:49 15:25 17:40 Temperature 99.6 F 100.3 F H Pulse Rate 94 H Pulse Rate [ 83 Apical] Respiratory 18 18 Rate Blood Pressure 106/58 Blood Pressure 101/53 [Left Arm] O2 Sat by Pulse 100 99 99 Oximetry (%) 01/12/18 21:56 Temperature 100.1 F H Pulse Rate Pulse Rate [ 78 Apical] Respiratory 16 Rate Blood Pressure Blood Pressure 104/50 [Left Arm] O2 Sat by Pulse 97 Oximetry (%) GENERAL: Awake, alert, and fully oriented, in NAD. HEAD: Normal with no signs of trauma. There is a fluid mass located near occipital bone, it is fluctuent non erythematous and non tender EYES: PERRLA, extraocular movements intact, sclera anicteric, conjunctiva clear. No lid lag. EARS, NOSE, THROAT:, nares patent, oropharynx clear without exudates. MMM. NECK: Normal range of motion, supple without lymphadenopathy, JVD, or masses. no parotid swelling LUNGS: CTAB No wheezes, and no crackles. No accessory muscle use. L posterior thoracic surgical scar HEART: RRR, normal S1 and S2 without murmur, rub or gallop. sternal surgical scar ABDOMEN: TTP in LLQ w/ mild guarding. LLQ surgical scar. laprascopic surgical scars Soft, not distended, normoactive bowel sounds, no rebound, no masses. No hepatomegaly or splenomegaly. MUSCULOSKELETAL: Normal range of motion at all joints. No bony deformities or tenderness. No CVA tenderness. UPPER EXTREMITIES: 2+ pulses, warm, well-perfused. No cyanosis. No clubbing. No peripheral edema. LOWER EXTREMITIES: 2+ pulses, warm, well-perfused. No calf tenderness. No peripheral edema. NEUROLOGICAL: Cranial nerves II-XII intact. PSYCHIATRIC: Cooperative. Good eye contact. Appropriate mood and affect. SKIN: Warm, dry, normal turgor, no rashes or lesions noted, normal capillary refill. : bright red blood at meatus. L testicular enlargment/swelling and erythema of scrotum. TTP L testi. R testi is nl in size and non tender. no fornier gangrene Rectal: no hemorrhoids noted or blood noted. rectal vault empty. prostate is non tender and nl in size Laboratory Results - last 24 hr 01/12/18 01/12/18 01/12/18 12:45 14:19 14:19 WBC 6.5 RBC 4.41 Hgb 12.8 Hct 39.6 MCV 89.7 MCH 29.0 MCHC 32.3 RDW 16.1 H Plt Count 128 L MPV 9.0 Absolute Neuts (auto) Neutrophils % Lymphocytes % Monocytes % Eosinophils % Basophils % Nucleated RBC % PT with INR INR Sodium 140 Potassium 4.8 Chloride 106 Carbon Dioxide 30 Anion Gap 4 L BUN 22 H Creatinine 1.4 H Creat Clearance w eGFR 50.40 Random Glucose 84 Calcium 9.3 Total Bilirubin 0.3 AST 27 ALT 20 Alkaline Phosphatase 56 Total Protein 6.5 Albumin 3.1 L Urine Color Brigitte Urine Appearance Slcloudy Urine pH 5.0 Ur Specific [place] 1.023 Urine Protein 1+ H Urine Glucose (UA) Negative Urine Ketones Trace H Urine Blood 2+ H Urine Nitrite Negative Urine Bilirubin Negative Urine Urobilinogen 2.0 Ur Leukocyte Esterase 2+ H Urine WBC (Auto) 169 Urine RBC (Auto) 54 Ur Epithelial Cells Rare Urine Mucus Rare 01/12/18 01/12/18 14:25 21:50 WBC 6.6 RBC 4.35 Hgb 12.8 Hct 38.9 MCV 89.5 MCH 29.4 MCHC 32.8 RDW 15.9 Plt Count 131 L MPV 9.5 Absolute Neuts (auto) 4.9 Neutrophils % 73.2 D Lymphocytes % 11.7 D Monocytes % 10.2 Eosinophils % 4.5 Basophils % 0.4 Nucleated RBC % 0 PT with INR 59.80 H INR 5.29 H* D Sodium Potassium Chloride Carbon Dioxide Anion Gap BUN Creatinine Creat Clearance w eGFR Random Glucose Calcium Total Bilirubin AST ALT Alkaline Phosphatase Total Protein Albumin Urine Color Urine Appearance Urine pH Ur Specific [place] Urine Protein Urine Glucose (UA) Urine Ketones Urine Blood Urine Nitrite Urine Bilirubin Urine Urobilinogen Ur Leukocyte Esterase Urine WBC (Auto) Urine RBC (Auto) Ur Epithelial Cells Urine Mucus INR - 5.29 EKG - QTc 499 UA - pyuria and bacteria, Ucx, bcx - pending scrotal U/S - R orchitis and L epidydmoorchitis. no testicular torsion A/P CT - cardiomegaly, gallstones, b/l renal cortical scarring, L inguinal hernia ASSESSMENT/PLAN: 67 M with PMH of HTN, CAD, s/p PPM/AICD, aortic valve replacement, thoracic aneurysm, seizures, and MR/chronic developmental delay, presents with testicular pain x1d. #R Orchitis and L epidydemoorchitis - likely bacterial in nature w/ unknown source at this time. Should r/o mumps, GC/chlamydia. S/p levofloxacin in ER. prostate was non tender on rectal exam. No evidence of torsion as per U/S -bcx, ucx -GC/chlamydia NAAT in urine -mumps IgM -c/w levofloxacin- 500mg IV daily, per Pharmacy, should be renal dosed w/ Cr clearance 47 -scrotal support - consult for hematuria -f/u official CT reading #Metallic heart valve -INR is supratherapeutic 5.29 -hold coumadin until INR drops -check daily INRs -c/w ASA -transthoracic echo JOSE - likely prerenal unclear etiology -IV fluids -urine lytes and Cr -I/Os -monitor BMPs #HCM -c/w home meds for pt's chronic medical problems #FEN -IV NS 75cc/hr, monitor I/Os -replete lytes as needed -low sodium diet #DVTppx SCDs, INR is supratherapeutic 5.29 #Dispo -admit to obs Visit type - Emergency Visit Emergency Visit: Yes ED Registration Date: 01/12/18 Care time: The patient presented to the Emergency Department on the above date and was hospitalized for further evaluation of their emergent condition. - New Patient This patient is new to me today: Yes Date on this admission: 01/13/18 - Critical Care Critical Care patient: No Hospitalist Screening - Colonoscopy Questionnaire Colonoscopy Questionnaire: Colonoscopy Questionnaire - Patient: 50 - 75 years old and never had a screening colonoscopy: Unknown History of colon or rectal polyps, or CA: Unknown History of IBD, Crohn's disease or UC: Unknown History of abdominal radiation therapy as a child: Unknown - Relative: 1 with colon or rectal CA, or polyps at age 60 or younger: Unknown Colon or rectal CA diagnosed at age 45 or younger: Unknown Multiple relatives with colon or rectal CA: Unknown - Outcome: Screening Result: Negative Screen
[2018-01-12 23:02] VITALS: BMI 24.3
[2018-01-13] MEDS ORDERED: ACETAMINOPHEN 325 MG TABLET (FP) PO PRN (00:02)
[2018-01-13] MEDS: LISINOPRIL 5 MG TABLET (FP) PO SCH ×3 (00:36→21:56)
[2018-01-13] MEDS: PANTOPRAZOLE 20 MG TABLET (FP) PO SCH (06:25)
[2018-01-13 07:19] LABS: BASO % 0.1 % (0-2.0); EOS % 3.2 % (0-4.5); HEMATOCRIT 38.6 % (35.4-49); HEMOGLOBIN 12.5 GM/dL (11.7-16.9); LYMPH % 10.3 % (8-40); MCHC 32.4 g/dl (32.0-35.9); MEAN CELL VOLUME 89.3 fl (80-96); MONO % 12.7 % (3.8-10.2); NEUT % 73.7 % (42.8-82.8); PLATELET COUNT 127 K/MM3 (134-434); RBC 4.32 M/mm3 (4.00-5.60); RDW 15.5 % (11.9-15.9); WHITE BLOOD COUNT 10.6 K/mm3 (4.0-10.0)
[2018-01-13 07:27] LABS: ALBUMIN 2.7 g/dl (3.4-5.0); ANION GAP 8 (8-16); BLOOD UREA NITROGEN 18 mg/dL (7-18); CALCIUM 8.6 mg/dL (8.5-10.1); CHLORIDE 109 mmol/L (98-107); CO2 25 mmol/L (21-32); CREATININE 1.1 mg/dL (0.7-1.3); GLUCOSE,RANDOM 81 mg/dL (74-106); POTASSIUM 4.2 mmol/L (3.5-5.1); SGOT/AST 22 U/L (15-37); SGPT/ALT 16 U/L (12-78); SODIUM 142 mmol/L (136-145)
[2018-01-13 07:29] LABS: ALK PHOS 52 U/L (45-117); BILIRUBIN,TOTAL 0.6 mg/dL (0.2-1.0); TOT PROT 5.8 g/dl (6.4-8.2)
[2018-01-13 07:32] LABS: PROTHROMBIN TIME (PATIENT) 48.2 SEC (9.7-13.0)
[2018-01-13 08:00] LABS: INR 4.27 (0.82-1.09)
[2018-01-13] MEDS: FINASTERIDE 5 MG TABLET (FP) PO SCH (11:00)
[2018-01-13] MEDS: DIVALPROEX SODIUM 250 MG TABLET E.C. PO SCH (11:00)
[2018-01-13] MEDS: MULTIVITAMINS (DAILY MVI) TABLET (FP) PO SCH (11:00)
[2018-01-13] MEDS: ASPIRIN 81 MG CHEWABLE TABLETS PO SCH (12:42)
--- NOTE | 2018-01-13 13:25 | EKG ---
Test Reason : Blood Pressure : / mmHG Vent. Rate : 081 BPM Atrial Rate : 081 BPM P-R Int : 208 ms QRS Dur : 182 ms QT Int : 430 ms P-R-T Axes : 046 -69 105 degrees QTc Int : 499 ms Atrial-sensed ventricular-paced rhythm ABNORMAL ECG WHEN COMPARED WITH ECG OF 07-OCT-2017 19:25, VENT. RATE HAS INCREASED BY 10 BPM Confirmed by VALEIRO FLORES MD ([id number]) on 01/13/2018 1:24:57 PM Referred By: Confirmed By:VALERIO FLORES MD
--- NOTE | 2018-01-13 14:10 | PN ---
Teaching Attending Note Name of Resident: Bree Rojas ATTENDING PHYSICIAN STATEMENT I saw and evaluated the patient. I reviewed the resident's note and discussed the case with the resident. I agree with the resident's findings and plan as documented. SUBJECTIVE:no complaints, resting comfortable OBJECTIVE: Last Vital Signs Temp Pulse Resp BP Pulse Ox 98.9 F 92 H 18 129/68 100 01/13/18 10:00 01/13/18 10:00 01/13/18 10:01/13/18 10:01/13/18 06:39 General NAD HEENT no parotid swelling CV S1 S2 RRR +aortic click no murmur/rub/gallop Lungs CTA B/L no wheezing/rales/rhonchi Abdomen soft NT/ND Groin B/L Scrotal swelling, erythematous, diffuse tenderness, no drainage noted from urethra ASSESSMENT AND PLAN: 67yo M with PMH HTN, Mental retardation, CAD, aortic valve s/p mechanical valve replacement, seizure and thoracic aneurysm presented to the ER with testicular pain with fever and chills 1. Acute R orchitis and L epidemorchitis- likely due to ecoli vs psuedomonas. full workup sent including mumps. will elevate scrotum, ice, NSAIDS for pain relief. cont wiht levaquin day 2. urology consulted. f/u official CT abdomen report. f/u cx 2. Supratherapeutic INR- will need to determine from transitions rn care coordinator if there has been adjustment to medications or diet recently. INR trending down. continue to hold coumadin. will need to monitor closely while on levaquin 3. thrombocytopenia- due to infection. no signs of bleeding. monitor 4. JOSE- due to infection. now resolved. can d/c IVF 5. seizure- no seizure activity noted. cont home medicatins 6. HTN- controlled. cont home medicatins 7. thoracic aneurysm- routine surveillance 8. aortic valve s/p mechanical valve replacement 9. DVT ppx- supratherapeutic INR
--- NOTE | 2018-01-13 14:37 | ECHO ---
Name: PADILLA, LUIS FERNANDO Exam:Adult Echocardiogram Study Date: 01/13/2018 12:05 PM Reason For Study: AORTIC VALVE REPLACEMENT Height: 65 in Weight: 145 lb BSA: 1.7 m2 MMode/2D Measurements & Calculations IVSd: 1.3 cm Ao root diam: 3.3 cm LVIDd: 4.6 cm LA dimension: 3.9 cm LVIDs: 3.9 cm LVPWd: 0.99 cm EDV(Teich): 96.6 ml LVOT diam: 2.1 cm ESV(Teich): 67.9 ml Doppler Measurements & Calculations MV E max jon: 54.3 cm/sec Ao V2 max: 202.9 cm/sec MV A max jon: 110.6 cm/sec Ao max P.6 mmHg MV E/A: 0.49 Ao V2 mean: 137.0 cm/sec MV dec time: 0.26 sec Ao mean P.0 mmHg Ao V2 VTI: 35.5 cm MAINE(I,D): 0.88 cm2 MAINE(V,D): 0.95 cm2 LV V1 max P.4 mmHg MR max jon: 450.0 cm/sec LV V1 mean P.82 mmHg MR max P.1 mmHg LV V1 max: 58.4 cm/sec LV V1 mean: 41.6 cm/sec LV V1 VTI: 9.4 cm SV(LVOT): 31.2 ml TR max jon: 217.7 cm/sec TR max P.0 mmHg Med Peak E' Jon: 3.4 cm/sec Med E/e': 16.1 Lat Peak E' Jon: 6.2 cm/sec Lat E/e': 8.8 Procedure Technically limited study. Left Ventricle The left ventricle is normal in size. There is mild concentric left ventricular hypertrophy. Left ghislaine tricular systolic function is moderately reduced. E/A reversal with elevated E/E' 16 suggestive TDI evidence o f impaired relaxation with elevated filling pressure. Septal motion is consistent with post-operative s pardo. Regional wall motion could not be accurately assessed due to poor visualization of endocardial border definition. Right Ventricle Linear echodensity is seenin right cardiac chamber suggests pacemaker/ICD lead. The right ventricle i s not well visualized. Atria The left atrial size is normal. Right atrial size is normal. Mitral Valve The mitral valve is normal in structure and function. There is moderate mitral regurgitation. Tricuspid Valve The tricuspid valve is normal in structure and function. There is mild tricuspid regurgitation. Right ventricular systolic pressure is normal. Aortic Valve There is a mechanical aortic valve. The prosthetic aortic valve is well-seated. No aortic regurgitati on is present. Pulmonic Valve The pulmonic valve is not well visualized. Great Vessels The aortic root is normal size. Pericardium/Pleura There is no pericardial effusion. Interpretation Summary Technically limited study The left ventricle is normal in size. There is mild concentric left ventricular hypertrophy. Left ventricular systolic function is moderately reduced. Septal motion is consistent with post-operative state. Regional wall motion could not be accurately assessed due to poor visualization of endocardial border definition E/A reversal with elevated E/E' 16 suggestive TDI evidence of impaired relaxation with elevated filli ng pressure The right ventricle is not well visualized. Linear echodensity is seenin right cardiac chamber suggests pacemaker/ICD lead The left atrial size is normal. Right atrial size is normal. There is moderate mitral regurgitation. There is mild tricuspid regurgitation. Right ventricular systolic pressure is normal. There is a mechanical aortic valve. The prosthetic aortic valve is well-seated. There is no pericardial effusion. Nile Omer MD 01/13/2018 02:37 PM
[2018-01-13] MEDS: MINERAL OIL/PETROLAT/WATER TOPICAL CREAM 113 GM JAR TP SCH (18:34)
--- NOTE | 2018-01-13 20:00 | PN ---
Physical Exam: SUBJECTIVE: Patient seen and examined at bedside this morning in the presence of his director medic[employer] sales Jacques. OBJECTIVE: Vital Signs Period Temp Pulse Resp BP Sys/Dickey Pulse Ox Last 24 Hr 98.9 F-100.7 F 66-92 16-20 104-129/47-68 97-100 GENERAL: The patient is awake, alert, and fully oriented, in no acute distress. LUNGS: Breath sounds equal, clear to auscultation bilaterally, no wheezes, no crackles HEART: Regular rate and rhythm, S1, S2 without murmur, rub or gallop. ABDOMEN: Soft, nontender, nondistended, normoactive bowel sounds GROIN: Scrotal erythema Left > Right, scrotal swelling b/l, Diffuse tenderness Laboratory Results - last 24 hr 01/12/18 01/12/18 01/12/18 08:30 08:30 21:50 WBC RBC Hgb Hct MCV MCH MCHC RDW Plt Count MPV Absolute Neuts (auto) Neutrophils % Lymphocytes % Monocytes % Eosinophils % Basophils % Nucleated RBC % PT with INR 59.80 H INR 5.29 H* D Sodium Potassium Chloride Carbon Dioxide Anion Gap BUN Creatinine Creat Clearance w eGFR Random Glucose Calcium Total Bilirubin AST ALT Alkaline Phosphatase Total Protein Albumin Ur Random Sodium 105 Ur Random Potassium 38.3 Ur Random Chloride 125 Urine Creatinine 57.9 01/13/18 01/13/18 01/13/18 05:55 05:55 05:55 WBC 10.6 H RBC 4.32 Hgb 12.5 Hct 38.6 MCV 89.3 MCH 29.0 MCHC 32.4 RDW 15.5 Plt Count 127 L MPV 10.0 Absolute Neuts (auto) 7.8 Neutrophils % 73.7 Lymphocytes % 10.3 Monocytes % 12.7 H Eosinophils % 3.2 Basophils % 0.1 Nucleated RBC % 0 PT with INR 48.20 H INR 4.27 H* Sodium 142 Potassium 4.2 Chloride 109 H Carbon Dioxide 25 Anion Gap 8 BUN 18 Creatinine 1.1 Creat Clearance w eGFR > 60 Random Glucose 81 Calcium 8.6 Total Bilirubin 0.6 AST 22 ALT 16 Alkaline Phosphatase 52 Total Protein 5.8 L Albumin 2.7 L Ur Random Sodium Ur Random Potassium Ur Random Chloride Urine Creatinine Active Medications Acetaminophen (Tylenol -) 650 mg PO Q4H PRN PRN Reason: FEVER Last Admin: 01/13/18 00:37 Dose: 650 mg Aripiprazole (Abilify) 10 mg PO HS [facility] Aspirin (Asa -) 81 mg PO DAILY [facility] Last Admin: 01/13/18 12:42 Dose: 81 mg Atorvastatin Calcium (Lipitor -) 10 mg PO HS [facility] Divalproex Sodium (Depakote -) 750 mg PO DAILY [facility] Last Admin: 01/13/18 11:00 Dose: 750 mg Divalproex Sodium (Depakote -) 1,000 mg PO HS [facility] Finasteride (Proscar -) 5 mg PO DAILY [facility] Last Admin: 01/13/18 11:00 Dose: 5 mg Levofloxacin (Levaquin 500 Mg Premixed Ivpb -) 500 mg in 100 mls @ 100 mls/hr IVPB DAILY [facility]; Protocol Last Admin: 01/13/18 18:28 Dose: 100 mls/hr Lisinopril (Prinivil) 2.5 mg PO BID [facility] Last Admin: 01/13/18 11:00 Dose: 2.5 mg Multi-Ingredient Lotion (Eucerin (Small Jar) -) 1 applic TP DAILY [facility] Last Admin: 01/13/18 18:34 Dose: Not Given Multivitamins/Minerals/Vitamin C (Tab-A-Vit -) 1 tab PO DAILY [facility] Last Admin: 01/13/18 11:00 Dose: 1 tab Pantoprazole Sodium (Protonix -) 20 mg PO ACBK [facility] Last Admin: 01/13/18 06:25 Dose: 20 mg Tamsulosin HCl (Flomax -) 0.4 mg PO [facility] Scrotum Ultrasound: Findings suspicious for right-sided orchitis and left-sided epididymoorchitis. Abdomen/Pelvis CT: Left inguinal hernia. Gallstones with no CT evidence to suggest acute cholecystitis. Renal scarring which could be on the basis of infection or emboli. Cardiomegaly. Thickening of the bladder wall which could be secondary to hypertrophy, underlying cystitis not excluded. ASSESSMENT/PLAN: 67 M with PMH of HTN, CAD, s/p PPM/AICD, aortic valve replacement, thoracic aneurysm, seizures, and MR/chronic developmental delay, presents with testicular pain x1d. 1. R Orchitis and L epidydemoorchitis - S/p levofloxacin in ER - Likely bacterial: E. Coli Vs Pseudomonas - Blood and urine cultures pending - GC/chlamydia NAAT in urine - Mumps IgM - Continue Levofloxacin (day 2) - Elevate scrotum, Ice - NSAIDs - Urology consult pending -f/u official CT reading 2. Supratherapeutic INR - 5.29 --> 4.27 - Continue to hold Coumadin - Daily INRs - Echo report noted 3. JOSE - Resolved - D'C IVF 4. Seizure Disorder - Continue Depakote 750 mg PO DAILY - Continue Depakote 1,000 mg PO HS 5. HTN - Continue Lisinopril 2.5 mg PO BID 6. FEN - DC'ed IVF - lytes wnl - low sodium diet 7. DVT ppx - INR supratherapeutic 4.27 Visit type - Emergency Visit Emergency Visit: Yes ED Registration Date: 01/12/18 Care time: The patient presented to the Emergency Department on the above date and was hospitalized for further evaluation of their emergent condition. - New Patient This patient is new to me today: Yes Date on this admission: 01/13/18 - Critical Care Critical Care patient: No
[2018-01-13] MEDS: DIVALPROEX SODIUM 500 MG TABLET E.C. PO SCH (21:53)
[2018-01-13] MEDS: ARIPiprazole 10 MG TABLET PO SCH (21:53)
[2018-01-13] MEDS: TAMSULOSIN HCL 0.4 MG CAP.ER.24H (FP) PO SCH (21:56)
[2018-01-13] MEDS: ATORVASTATIN CA 10 MG TABLET (FP) PO SCH (21:56)
[2018-01-13] MEDS ORDERED: DIVALPROEX SODIUM 500 MG TABLET E.C. PO SCH (22:00)
[2018-01-13] MEDS ORDERED: TAMSULOSIN HCL 0.4 MG CAP.ER.24H (FP) PO SCH (22:00)
[2018-01-13] MEDS ORDERED: ATORVASTATIN CA 10 MG TABLET (FP) PO SCH (22:00)
[2018-01-13] MEDS ORDERED: ARIPiprazole 10 MG TABLET PO SCH (22:00)
[2018-01-14] MEDS: PANTOPRAZOLE 20 MG TABLET (FP) PO SCH (06:34)
[2018-01-14 07:35] LABS: BASO % 0.3 % (0-2.0); HEMATOCRIT 36.8 % (35.4-49); HEMOGLOBIN 12.1 GM/dL (11.7-16.9); LYMPH % 18.7 % (8-40); MCH 29.3 pg (25.7-33.7); MCHC 32.8 g/dl (32.0-35.9); MEAN CELL VOLUME 89.3 fl (80-96); MEAN PLT VOLUME 9.2 fl (7.5-11.1); MONO % 11.2 % (3.8-10.2); NEUT % 61.8 % (42.8-82.8); PLATELET COUNT 124 K/MM3 (134-434); RBC 4.12 M/mm3 (4.00-5.60); RDW 15.4 % (11.9-15.9); WHITE BLOOD COUNT 9.1 K/mm3 (4.0-10.0)
[2018-01-14 07:55] LABS: INR 1.57 (0.82-1.09); PROTHROMBIN TIME (PATIENT) 17.7 SEC (9.7-13.0)
[2018-01-14 08:11] LABS: ALBUMIN 2.5 g/dl (3.4-5.0); ALK PHOS 45 U/L (45-117); ANION GAP 5 (8-16); BILIRUBIN,TOTAL 0.6 mg/dL (0.2-1.0); BLOOD UREA NITROGEN 21 mg/dL (7-18); CALCIUM 8.7 mg/dL (8.5-10.1); CHLORIDE 109 mmol/L (98-107); CO2 27 mmol/L (21-32); CREATININE 1.3 mg/dL (0.7-1.3); GLUCOSE,RANDOM 78 mg/dL (74-106); MAGNESIUM 1.9 mg/dL (1.8-2.4); POTASSIUM 4.1 mmol/L (3.5-5.1); SGOT/AST 21 U/L (15-37); SGPT/ALT 16 U/L (12-78); SODIUM 141 mmol/L (136-145); TOT PROT 5.5 g/dl (6.4-8.2)
[2018-01-14] MEDS: ASPIRIN 81 MG CHEWABLE TABLETS PO SCH (09:24)
[2018-01-14] MEDS: FINASTERIDE 5 MG TABLET (FP) PO SCH (09:24)
[2018-01-14] MEDS: MULTIVITAMINS (DAILY MVI) TABLET (FP) PO SCH (09:24)
[2018-01-14] MEDS: DIVALPROEX SODIUM 250 MG TABLET E.C. PO SCH (09:26)
[2018-01-14] MEDS ORDERED: PT OWN MED DRAWER 7, Y5N ONE ×2 (09:26→20:49)
[2018-01-14] MEDS: MINERAL OIL/PETROLAT/WATER TOPICAL CREAM 113 GM JAR TP SCH (10:00)
--- NOTE | 2018-01-14 12:58 | PN ---
Progress Note (short form) - Note Progress Note: ID Consult dictated Orcho-epididymitis Hx Enterococcal endocarditis (2012) S/P AVR Await c/s Urology evaluation Empric ceftriaxone/ doxycycline
--- NOTE | 2018-01-14 14:05 | CONS ---
DATE OF CONSULTATION: DATE OF DICTATION: 01/14/2018 The patient is a 67-year-old male history of developmental delay, enterococcal endocarditis 2012, aortic valve replacement 2000, now evaluated for orchiepididymitis. The history was obtained from the chart as he cannot give a reliable history. He suffers from developmental delay and is a resident of a jail. He was noted to have lower abdominal discomfort with radiation to the groin. He was also noted to be agitated and have chills. He was transferred to the emergency room where the patient was diagnosed to have bilateral orchiepididmyitis. A sonogram of the scrotum was performed that showed right orchitis and left orchiepididymitis. He was empirically treated with Levaquin. He offers no complaints, no reports of grossly purulent urine. He was noted to have kwabena blood at the urethral meatus. Labs showed coagulopathy with an INR of 5.2. The course has been complicated by a low-grade fever. PAST MEDICAL HISTORY: Positive for coronary artery disease, hypertension, seizure disorder, history of enterococcal endocarditis in 2012 and anxiety depression, DVT, developmental delay. PAST SURGICAL HISTORY: He is status post aortic valve replacement in 2000, permanent pacemaker, defibrillator, abdominal aortic aneurysm repair, small bowel resection. ALLERGIES: No known allergies. MEDICATIONS: Abilify, aspirin, Lipitor, lisinopril, Coumadin, Epico, Flomax. SOCIAL HISTORY: He [facility] in a jail. No documented tobacco, or alcohol use. It is not clear whether the patient is sexually active or not. SYSTEMS REVIEW: Neurologic: Positive for developmental delay. Cardiac: Status post aortic valve replacement, enterococcal endocarditis, permanent pacemaker and defibrillator. Respiratory: Negative cough or sputum production. Gastrointestinal: Negative vomiting or diarrhea. Genitourinary: As per HPI. LABORATORY DATA: White count 9.1, hematocrit 36.8, platelets 124. BUN 21, creatinine 1.3, liver enzymes normal. Urinalysis 169 white cells. Blood and urine cultures are pending. Sonogram shows left orchiepididymitis and right orchitis. CAT scan of the abdomen and pelvis shows left inguinal hernia, gallstones, thickened urinary bladder with distension. INR 5.2. PHYSICAL EXAMINATION: General: On physical examination, he is awake and alert, seated in bed. He is in no acute distress. Vitals: Temperature 98.2, T max 100.7, blood pressure 92/43, pulse 64 regular, respirations 20 per minute. HEENT: Sclera anicteric. Heart: Sounds S1 and S2 with a mechanical valve murmur. Lungs: Clear bilaterally. Abdomen: Soft, no tenderness elicited, no mass, rebound or rigidity. Genitourinary: Examination of the genitalia: There is swelling of the left testicle, which is tender to palpation. Slight swelling of the right testicle, less so than the left. Extremities: Negative for edema. IMPRESSION: 1. Orchiepididymitis. 2. History of enterococcal endocarditis 2012. 3. Status post aortic valve replacement. 4. Coagulopathy. Await culture results. Urine for GC and Chlamydia probe. Empiric antibiotic coverage with ceftriaxone 2 g IV piggyback daily and doxycycline 100 mg IV piggyback every 12 hours. Urology follow up. Thank you for the kind referral. ABEBE DELGADO M.D. [id number]
[2018-01-14] MEDS ORDERED: DEXTROSE 5%-WATER 100 ML IVPB ONE (14:32)
[2018-01-14] MEDS: CEFTRIAXONE 2 GM in DEXTROSE 5%-WATER 100 ML IVPB SCH (14:34)
--- NOTE | 2018-01-14 14:55 | PN ---
Teaching Attending Note Name of Resident: Bree Rojas ATTENDING PHYSICIAN STATEMENT I saw and evaluated the patient. I reviewed the resident's note and discussed the case with the resident. I agree with the resident's findings and plan as documented with exceptions below. SUBJECTIVE: Patient seen and examined. denies any pain, no new concerns otherwise. OBJECTIVE: Vital Signs Period Temp Pulse Resp BP Sys/Dickey Pulse Ox Last 24 Hr 97.9 F-99.8 F 54-72 18-20 92-105/43-53 95-100 Intake & Output 01/11/18 01/12/18 01/13/18 01/14/18 23:59 23:59 23:59 23:59 Intake Total 2570 100 Output Total 600 Balance 1970 100 Weight 145 lb 12.8 oz General: sitting in bed in no acute distress Chest: CTAB, no rales or wheezing Abdomen:Soft, NT, ND, positive bowel sounds, no groin or CVA tenderness Extremities: no edema Genitals: some swelling left testicle than right, no tenderness appreciated on current exam Home Medications Medication Instructions Recorded Aripiprazole [Abilify] 10 mg PO HS 06/10/16 Aspirin [ASA -] 81 mg PO DAILY 06/10/16 Atorvastatin Ca [Lipitor] 10 mg PO HS 06/10/16 Finasteride 5 mg PO DAILY 06/10/16 Lisinopril [Zestril] 2.5 mg PO DAILY 06/10/16 Multivitamin [Poly-Vitamin] 1 each PO DAILY 06/10/16 Omeprazole 20 mg PO DAILY 06/10/16 Warfarin Na [Coumadin -] 5 mg PO DAILY 06/10/16 Divalproex [Depakote -] 750 mg PO DAILY #30 tablet.ec 07/26/17 Divalproex [Depakote -] 1,000 mg PO HS 01/12/18 Tamsulosin HCl [Flomax] 0.4 mg PO HS 01/12/18 Active Medications Acetaminophen (Tylenol -) 650 mg PO Q4H PRN PRN Reason: FEVER Last Admin: 01/13/18 00:37 Dose: 650 mg Aripiprazole (Abilify) 10 mg PO HS [facility] Last Admin: 01/13/18 21:53 Dose: 10 mg Aspirin (Asa -) 81 mg PO DAILY [facility] Last Admin: 07/17/18 09:24 Dose: 81 mg Atorvastatin Calcium (Lipitor -) 10 mg PO HS [facility] Last Admin: 01/13/18 21:56 Dose: 10 mg Divalproex Sodium (Depakote -) 750 mg PO DAILY [facility] Last Admin: 01/14/18 09:26 Dose: 750 mg Divalproex Sodium (Depakote -) 1,000 mg PO HS [facility] Last Admin: 01/13/18 21:53 Dose: 1,000 mg Doxycycline Hyclate (Vibramycin -) 100 mg PO BID@1000,1800 [facility] Enoxaparin Sodium (Lovenox -) 65 mg SQ Q12H [facility] Finasteride (Proscar -) 5 mg PO DAILY [facility] Last Admin: 01/14/18 09:24 Dose: 5 mg Ceftriaxone Sodium 2 gm/ (Dextrose) 100 mls @ 200 mls/hr IVPB DAILY [facility]; Protocol Last Admin: 01/14/18 14:34 Dose: 200 mls/hr Multi-Ingredient Lotion (Eucerin (Small Jar) -) 1 applic TP DAILY [facility] Last Admin: 01/14/18 10:00 Dose: Not Given Multivitamins/Minerals/Vitamin C (Tab-A-Vit -) 1 tab PO DAILY [facility] Last Admin: 01/14/18 09:24 Dose: 1 tab Pantoprazole Sodium (Protonix -) 20 mg PO ACBK [facility] Last Admin: 01/14/18 06:34 Dose: 20 mg Tamsulosin HCl (Flomax -) 0.4 mg PO HS [facility] Last Admin: 01/13/18 21:56 Dose: 0.4 mg Warfarin Sodium (Coumadin -) 5 mg PO DAILY@1800 [facility] Laboratory Results - last 24 hr 01/14/18 01/14/18 01/14/18 06:35 06:35 06:35 WBC 9.1 RBC 4.12 Hgb 12.1 Hct 36.8 MCV 89.3 MCH 29.3 MCHC 32.8 RDW 15.4 Plt Count 124 L MPV 9.2 Absolute Neuts (auto) 5.6 Neutrophils % 61.8 Lymphocytes % 18.7 D Monocytes % 11.2 H Eosinophils % 8.0 H D Basophils % 0.3 Nucleated RBC % 0 PT with INR 17.70 H INR 1.57 H D Sodium 141 Potassium 4.1 Chloride 109 H Carbon Dioxide 27 Anion Gap 5 L BUN 21 H Creatinine 1.3 Creat Clearance w eGFR 54.90 Random Glucose 78 Calcium 8.7 Phosphorus 3.0 Magnesium 1.9 Total Bilirubin 0.6 AST 21 ALT 16 Alkaline Phosphatase 45 Total Protein 5.5 L Albumin 2.5 L Microbiology 01/13/18 00:54 Blood - Peripheral Venous Blood Culture - Preliminary NO GROWTH OBTAINED AFTER 24 HOURS, INCUBATION TO CONTINUE FOR 4 DAYS. 01/12/18 23:40 Blood - Peripheral Venous Blood Culture - Preliminary NO GROWTH OBTAINED AFTER 24 HOURS, INCUBATION TO CONTINUE FOR 4 DAYS. 01/12/18 12:39 Urine - Urine Clean Catch Urine Culture - Final ASSESSMENT AND PLAN: 67yo M with PMH HTN, Mental retardation, CAD, enterococcal endocarditis in 2012 , aortic valve s/p mechanical valve replacement, seizure and thoracic aneurysm admitted with acute epididymoorchitis. -Right orchitis/Left epididymoorchitis -Acute cystitis -Coumadin coagulopathy -Thrombocytopenia -JOSE, possible infection +/- meds -h/o enterococcal endocarditis 2012 -BPH -HTN -Thoracic aneurysm -Mechanical aortic valve replacement Plan: ID consulted, Ceftriaxone/doxycycline day 1. Blood cx neg so far. Urine cx noted. GC/Chlamydia probe. Scrotal US/CT A/p Results noted. Follow up urology input. Scrotal support if patient agreable. INR noted, lovenox bridging with coumadin 5 mg today, daily INR. Trend CBC. Continue abilify, depakote, flomax/finasteride. DVTPPX as above Dispo pending clinical improvement.
--- NOTE | 2018-01-14 15:02 | CON.GU ---
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 ) Cardio/Vascular: Yes: Aneurysm, HTN, Hyperlipdemia, Murmur (mechanical heart sound c/w know AVR), Other (AVR - mechanical valve) Psych: Yes: Anxiety, Depression, Other (Develomental Delay) Additional Medical History: MRDD. DVT. Volvulus - Past Surgical History Past Surgical History: Yes: AAA Repair (2000), Valve Replacement (mechanical AVR ) - Alcohol/Substance Use Hx Alcohol Use: No - Smoking History Smoking history: Never smoked Have you smoked in the past 12 months: No Aproximately how many cigarettes per day: 0 - Social History Usual Living Arrangement: Assisted Living ADL: Support Services Home Medications - Allergies Allergies/Adverse Reactions: Allergies Allergy/AdvReac Type Severity Reaction Status Date / Time beeswax Allergy Unknown Verified 01/12/18 11:54 venom-honey bee Allergy ANAPHYLAXIS Verified 01/12/18 11:54 [bee venom (honey bee)] - Home Medications Home Medications: Ambulatory Orders Aripiprazole [Abilify] 10 mg PO HS 06/10/16 Aspirin [ASA -] 81 mg PO DAILY 06/10/16 Atorvastatin Ca [Lipitor] 10 mg PO HS 06/10/16 Finasteride 5 mg PO DAILY 06/10/16 Lisinopril [Zestril] 2.5 mg PO DAILY 06/10/16 Multivitamin [Poly-Vitamin] 1 each PO DAILY 06/10/16 Omeprazole 20 mg PO DAILY 06/10/16 Warfarin Na [Coumadin -] 5 mg PO DAILY 06/10/16 Divalproex [Depakote -] 750 mg PO DAILY #30 tablet.ec 07/26/17 Divalproex [Depakote -] 1,000 mg PO HS 01/12/18 Tamsulosin HCl [Flomax] 0.4 mg PO HS 01/12/18 Physical Exam- Vital Signs: Vital Signs Temperature 97.9 F 01/14/18 12:54 Pulse Rate 60 01/14/18 12:54 Respiratory Rate 18 01/14/18 12:54 Blood Pressure 97/49 01/14/18 12:54 O2 Sat by Pulse Oximetry (%) 95 01/13/18 23:00 Labs: CBC, BMP 01/14/18 06:35 01/14/18 06:35 Imaging - Results Cat Scan: Report Reviewed Ultrasound: Report Reviewed Assessment/Plan 67 yo male w b/l test scrotal inflammation and swelling Improving now on ceftriaxone Voiding well urine clear PVR minimal cont iv abx may change to po Scrotal elevationj will foolow up w opd cysto for bladder thickening
[2018-01-14] MEDS ORDERED: SODIUM CHLORIDE 500 ML IV STA (17:23)
[2018-01-14] MEDS: ENOXAPARIN NA (PORCINE) 80 MG/0.8 ML DISP.SYRIN SQ SCH ×2 (17:30→18:06)
[2018-01-14] MEDS: WARFARIN NA 5 MG TABLET (UD) PO SCH (17:30)
[2018-01-14] MEDS ORDERED: DOXYCYCLINE HYCLATE 100 MG CAPSULE PO SCH (18:00)
--- NOTE | 2018-01-14 19:54 | PN ---
Physical Exam: SUBJECTIVE: Patient seen and examined. Pt. was awake and alert. Pt. had developmental delay and had difficulty understanding me. Pt. refused overnight scrotal support. Per nurse's note Pt.s Sister's correct number is [phone]. No acute events happened overnight. Pt. says he did use the bathroom to urinate , nurse endorsed this. Pt. did not have any bowel movements. OBJECTIVE: Vital Signs Period Temp Pulse Resp BP Sys/Dickey Pulse Ox Last 24 Hr 97.7 F-99.3 F 54-72 18-20 89-106/43-55 95 GENERAL: The patient is awake, alert, and fully oriented, in no acute distress. HEAD: Normal with no signs of trauma, normal parotid glands EYES: PERRL, sclera anicteric, conjunctiva clear. No ptosis. ENT: Ears normal, nares patent, oropharynx clear without exudates, moist mucous membranes. NECK: Trachea midline, supple. LUNGS: Breath sounds equal, clear to auscultation bilaterally, no wheezes, no crackles, no accessory muscle use. No CVA tenderness. HEART: Regular rate and rhythm, S1, loud clicking S2 ABDOMEN: LLQ tenderness, BS+, ND, soft EXTREMITIES:warm, well-perfused, no edema no calf pain, superficial varicose veins. SKIN: Warm, dry, normal turgor, no rashes or lesions noted Laboratory Results - last 24 hr 01/14/18 01/14/18 01/14/18 06:35 06:35 06:35 WBC 9.1 RBC 4.12 Hgb 12.1 Hct 36.8 MCV 89.3 MCH 29.3 MCHC 32.8 RDW 15.4 Plt Count 124 L MPV 9.2 Absolute Neuts (auto) 5.6 Neutrophils % 61.8 Lymphocytes % 18.7 D Monocytes % 11.2 H Eosinophils % 8.0 H D Basophils % 0.3 Nucleated RBC % 0 PT with INR 17.70 H INR 1.57 H D Sodium 141 Potassium 4.1 Chloride 109 H Carbon Dioxide 27 Anion Gap 5 L BUN 21 H Creatinine 1.3 Creat Clearance w eGFR 54.90 Random Glucose 78 Calcium 8.7 Phosphorus 3.0 Magnesium 1.9 Total Bilirubin 0.6 AST 21 ALT 16 Alkaline Phosphatase 45 Total Protein 5.5 L Albumin 2.5 L Active Medications Current Medications Acetaminophen (Tylenol -) 650 mg PO Q4H PRN PRN Reason: FEVER Last Admin: 01/13/18 00:37 Dose: 650 mg Aripiprazole (Abilify) 10 mg PO HS [facility] Last Admin: 01/13/18 21:53 Dose: 10 mg Aspirin (Asa -) 81 mg PO DAILY [facility] Last Admin: 01/14/18 09:24 Dose: 81 mg Atorvastatin Calcium (Lipitor -) 10 mg PO HS [facility] Last Admin: 01/13/18 21:56 Dose: 10 mg Divalproex Sodium (Depakote -) 750 mg PO DAILY [facility] Last Admin: 01/14/18 09:26 Dose: 750 mg Divalproex Sodium (Depakote -) 1,000 mg PO HS [facility] Last Admin: 01/13/18 21:53 Dose: 1,000 mg Enoxaparin Sodium (Lovenox -) 65 mg SQ Q12H [facility] Last Admin: 01/14/18 18:06 Dose: 65 mg Finasteride (Proscar -) 5 mg PO DAILY [facility] Last Admin: 01/14/18 09:24 Dose: 5 mg Ceftriaxone Sodium 2 gm/ (Dextrose) 100 mls @ 200 mls/hr IVPB DAILY [facility]; Protocol Last Admin: 01/14/18 14:34 Dose: 200 mls/hr Doxycycline Hyclate 100 mg/ (Dextrose) 100 mls @ 50 mls/hr IVPB BID [facility] Multi-Ingredient Lotion (Eucerin (Small Jar) -) 1 applic TP DAILY [facility] Last Admin: 01/14/18 10:00 Dose: Not Given Multivitamins/Minerals/Vitamin C (Tab-A-Vit -) 1 tab PO DAILY [facility] Last Admin: 01/14/18 09:24 Dose: 1 tab Pantoprazole Sodium (Protonix -) 20 mg PO ACBK [facility] Last Admin: 01/14/18 06:34 Dose: 20 mg Tamsulosin HCl (Flomax -) 0.4 mg PO HS [facility] Last Admin: 01/13/18 21:56 Dose: 0.4 mg Warfarin Sodium (Coumadin -) 5 mg PO DAILY@1800 [facility] Last Admin: 01/14/18 17:30 Dose: 5 mg IMAGING Scrotum Ultrasound: Findings suspicious for right-sided orchitis and left-sided epididymoorchitis. Abdomen/Pelvis CT: Left inguinal hernia. Gallstones with no CT evidence to suggest acute cholecystitis. Renal scarring which could be on the basis of infection or emboli. Cardiomegaly. Thickening of the bladder wall which could be secondary to hypertrophy, underlying cystitis not excluded. ASSESSMENT/PLAN: 67 y.o. M w/ PMHx. of HTN, CAD s/p pacemaker placement, AVR, thoracic aneurysm, seizures, and developmental delay presents with testicular pain. # R Orchitis and L Epidydymo-orchitis -c/w Abx. Doxycycline and Ceftriaxone, as per Urology consult may switch to PO - scrotal elevation -f/u w/ outpatient cystoscopy for bladder wall thickening. -UA+ for leukocyte esterase -f/u GC urine test -bladder scan shows 90ml residual urine #Supratherapeutic INR -INR : 4.27-->1.57 -restating on 5 mg Coumadin -monitor INR -resolved #Seizure Disorder -c/w Depakote 750mg PO daily and 1000mg at night #Dispo -Med/surg--->Community Home once medically cleared. Visit type - Emergency Visit Emergency Visit: Yes ED Registration Date: 01/14/18 Care time: The patient presented to the Emergency Department on the above date and was hospitalized for further evaluation of their emergent condition. - New Patient This patient is new to me today: Yes Date on this admission: 01/14/18 - Critical Care Critical Care patient: No - Discharge Referral Referred to [facility] Med P.C.: No
[2018-01-14] MEDS: DIVALPROEX SODIUM 500 MG TABLET E.C. PO SCH (21:00)
[2018-01-14] MEDS: TAMSULOSIN HCL 0.4 MG CAP.ER.24H (FP) PO SCH (21:01)
[2018-01-14] MEDS: ATORVASTATIN CA 10 MG TABLET (FP) PO SCH (21:01)
[2018-01-14] MEDS: ARIPiprazole 10 MG TABLET PO SCH (21:01)
[2018-01-14] MEDS: DOXYCYCLINE INJECTION 100 MG in DEXTROSE 5%-WATER - 100 ML IVPB SCH (21:02)
[2018-01-15] MEDS: ENOXAPARIN NA (PORCINE) 80 MG/0.8 ML DISP.SYRIN SQ SCH ×2 (07:55→18:36)
[2018-01-15] MEDS: PANTOPRAZOLE 20 MG TABLET (FP) PO SCH (07:55)
[2018-01-15 08:17] LABS: ALBUMIN 2.4 g/dl (3.4-5.0); ANION GAP 7 (8-16); BLOOD UREA NITROGEN 20 mg/dL (7-18); CALCIUM 8.1 mg/dL (8.5-10.1); CHLORIDE 112 mmol/L (98-107); CO2 26 mmol/L (21-32); CREATININE 1.1 mg/dL (0.7-1.3); GLUCOSE,RANDOM 76 mg/dL (74-106); PHOSPHOROUS 3.5 mg/dL (2.5-4.9); POTASSIUM 4.3 mmol/L (3.5-5.1); SGOT/AST 23 U/L (15-37); SGPT/ALT 19 U/L (12-78); SODIUM 145 mmol/L (136-145)
[2018-01-15 08:18] LABS: BASO % 0.2 % (0-2.0); EOS % 21.4 % (0-4.5); HEMATOCRIT 35.9 % (35.4-49); HEMOGLOBIN 11.8 GM/dL (11.7-16.9); LYMPH % 22.7 % (8-40); MCH 29.3 pg (25.7-33.7); MCHC 32.8 g/dl (32.0-35.9); MEAN CELL VOLUME 89.5 fl (80-96); MEAN PLT VOLUME 10.2 fl (7.5-11.1); MONO % 11.8 % (3.8-10.2); NEUT % 43.9 % (42.8-82.8); PLATELET COUNT 147 K/MM3 (134-434); RBC 4.01 M/mm3 (4.00-5.60); RDW 15.6 % (11.9-15.9); WHITE BLOOD COUNT 6.8 K/mm3 (4.0-10.0)
[2018-01-15 08:19] LABS: ALK PHOS 45 U/L (45-117); BILIRUBIN,TOTAL 0.4 mg/dL (0.2-1.0); TOT PROT 5.5 g/dl (6.4-8.2)
[2018-01-15 08:25] LABS: INR 1.5 (0.82-1.09)
[2018-01-15] MEDS ORDERED: DEXTROSE 5%-WATER 100 ML IVPB ONE (08:57)
[2018-01-15] MEDS: MULTIVITAMINS (DAILY MVI) TABLET (FP) PO SCH (09:11)
[2018-01-15] MEDS: FINASTERIDE 5 MG TABLET (FP) PO SCH (09:11)
[2018-01-15] MEDS: ASPIRIN 81 MG CHEWABLE TABLETS PO SCH (09:11)
[2018-01-15] MEDS: DIVALPROEX SODIUM 250 MG TABLET E.C. PO SCH (09:12)
[2018-01-15] MEDS: DOXYCYCLINE INJECTION 100 MG in DEXTROSE 5%-WATER - 100 ML IVPB SCH ×2 (09:13→21:29)
[2018-01-15] MEDS: MINERAL OIL/PETROLAT/WATER TOPICAL CREAM 113 GM JAR TP SCH (10:30)
[2018-01-15] MEDS: CEFTRIAXONE 2 GM in DEXTROSE 5%-WATER 100 ML IVPB SCH (10:51)
[2018-01-15 11:45] LABS: ANISOCYTOSIS 1+; MACROCYTOSIS 0; PLATELET ESTIMATE DECREASED
--- NOTE | 2018-01-15 15:28 | PN ---
Teaching Attending Note Name of Resident: Jonathan Jovel ATTENDING PHYSICIAN STATEMENT I saw and evaluated the patient. I reviewed the resident's note and discussed the case with the resident. I agree with the resident's findings and plan as documented with exceptions below. SUBJECTIVE: Patient seen and examined, no complaints, limited ROS. OBJECTIVE: Vital Signs Period Temp Pulse Resp BP Sys/Dickey Pulse Ox Last 24 Hr 97.7 F-98.4 F 60-68 18-20 89-106/44-59 98-98 Intake & Output 01/12/18 01/13/18 01/14/18 01/15/18 23:59 23:59 23:59 23:59 Intake Total 2570 620 Output Total 600 Balance 1970 620 Weight 145 lb 12.8 oz General: lying in bed in no acute distress Abdomen:Soft, NT throughout, ND Genitals: mild tenderness left scrotal exam with some swelling Home Medications Medication Instructions Recorded Aripiprazole [Abilify] 10 mg PO HS 06/10/16 Aspirin [ASA -] 81 mg PO DAILY 06/10/16 Atorvastatin Ca [Lipitor] 10 mg PO HS 06/10/16 Finasteride 5 mg PO DAILY 06/10/16 Lisinopril [Zestril] 2.5 mg PO DAILY 06/10/16 Multivitamin [Poly-Vitamin] 1 each PO DAILY 06/10/16 Omeprazole 20 mg PO DAILY 06/10/16 Warfarin Na [Coumadin -] 5 mg PO DAILY 06/10/16 Divalproex [Depakote -] 750 mg PO DAILY #30 tablet.ec 07/26/17 Divalproex [Depakote -] 1,000 mg PO HS 01/12/18 Tamsulosin HCl [Flomax] 0.4 mg PO HS 01/12/18 Active Medications Acetaminophen (Tylenol -) 650 mg PO Q4H PRN PRN Reason: FEVER Last Admin: 01/13/18 00:37 Dose: 650 mg Aripiprazole (Abilify) 10 mg PO HS [facility] Last Admin: 01/14/18 21:01 Dose: 10 mg Aspirin (Asa -) 81 mg PO DAILY [facility] Last Admin: 01/15/18 09:11 Dose: 81 mg Atorvastatin Calcium (Lipitor -) 10 mg PO HS [facility] Last Admin: 01/14/18 21:01 Dose: 10 mg Divalproex Sodium (Depakote -) 750 mg PO DAILY [facility] Last Admin: 01/15/18 09:12 Dose: 750 mg Divalproex Sodium (Depakote -) 1,000 mg PO HS [facility] Last Admin: 01/14/18 21:00 Dose: 1,000 mg Enoxaparin Sodium (Lovenox -) 65 mg SQ Q12H [facility] Last Admin: 01/15/18 07:55 Dose: 65 mg Finasteride (Proscar -) 5 mg PO DAILY [facility] Last Admin: 01/15/18 09:11 Dose: 5 mg Ceftriaxone Sodium 2 gm/ (Dextrose) 100 mls @ 200 mls/hr IVPB DAILY [facility]; Protocol Last Admin: 01/15/18 10:51 Dose: 200 mls/hr Doxycycline Hyclate 100 mg/ (Dextrose) 100 mls @ 50 mls/hr IVPB BID [facility] Last Admin: 01/15/18 09:13 Dose: 50 mls/hr Multi-Ingredient Lotion (Eucerin (Small Jar) -) 1 applic TP DAILY [facility] Last Admin: 01/15/18 10:30 Dose: Not Given Multivitamins/Minerals/Vitamin C (Tab-A-Vit -) 1 tab PO DAILY [facility] Last Admin: 01/15/18 09:11 Dose: 1 tab Pantoprazole Sodium (Protonix -) 20 mg PO ACBK [facility] Last Admin: 01/15/18 07:55 Dose: 20 mg Tamsulosin HCl (Flomax -) 0.4 mg PO HS [facility] Last Admin: 01/14/18 21:01 Dose: 0.4 mg Warfarin Sodium (Coumadin -) 5 mg PO DAILY@1800 [facility] Last Admin: 01/14/18 17:30 Dose: 5 mg Laboratory Results - last 24 hr 01/15/18 01/15/1818 07:18 07:18 07:18 WBC 6.8 RBC 4.01 Hgb 11.8 Hct 35.9 MCV 89.5 MCH 29.3 MCHC 32.8 RDW 15.6 Plt Count 147 MPV 10.2 D Absolute Neuts (auto) 3.0 Neutrophils % 43.9 D Neutrophils % (Manual) 50.5 D Band Neutrophils % 1.0 Lymphocytes % 22.7 D Lymphocytes % (Manual) 12.9 D Monocytes % 11.8 H Monocytes % (Manual) 10 Eosinophils % 21.4 H* D Eosinophils % (Manual) 21.8 H Basophils % 0.2 Basophils % (Manual) 0.0 Myelocytes % (Man) 0 Promyelocytes % (Man) 0 Blast Cells % (Manual) 0 Nucleated RBC % 0 Metamyelocytes 0 Hypochromia 0 Platelet Estimate Decreased Polychromasia 0 Poikilocytosis 1+ Anisocytosis 1+ Microcytosis 1+ Macrocytosis 0 PT with INR 17.00 H INR 1.50 H Sodium 145 Potassium 4.3 Chloride 112 H Carbon Dioxide 26 Anion Gap 7 L BUN 20 H Creatinine 1.1 Creat Clearance w eGFR > 60 Random Glucose 76 Calcium 8.1 L Phosphorus 3.5 Magnesium 2.0 Total Bilirubin 0.4 AST 23 ALT 19 Alkaline Phosphatase 45 Total Protein 5.5 L Albumin 2.4 L ASSESSMENT AND PLAN: 67yo M with PMH HTN, Mental retardation, CAD, enterococcal endocarditis in 2012 , aortic valve s/p mechanical valve replacement, seizure and thoracic aneurysm admitted with acute epididymoorchitis. -Right orchitis/Left epididymoorchitis -Acute cystitis -Coumadin coagulopathy -Thrombocytopenia -JOSE, possible infection +/- meds -h/o enterococcal endocarditis 2012 -BPH -HTN -Thoracic aneurysm -Mechanical aortic valve replacement Plan: ID consulted, Ceftriaxone/doxycycline day 2. Blood cx neg so far. Urine cx noted. GC/Chlamydia probe. Scrotal US/CT A/p Results noted. Urology input noted. Scrotal support if patient agreable. INR noted, lovenox bridging with coumadin 5 mg today, daily INR. Trend CBC. SBP 90s, patient asymptomatic and avoid IVF given LV dysfunction as no clinical concerns currently. Encourage oral fluid intake. Continue abilify, depakote, flomax/finasteride. DVTPPX as above Dispo pending clinical improvement.
[2018-01-15] MEDS: WARFARIN NA 5 MG TABLET (UD) PO SCH (18:36)
--- NOTE | 2018-01-15 20:50 | PN ---
Physical Exam: SUBJECTIVE: Patient seen and examined. No acute events overnight. Pt. urinated 5x, walked to bathroom. Denies pain, chest pain or SOB. OBJECTIVE: Vital Signs Period Temp Pulse Resp BP Sys/Dickey Pulse Ox Last 24 Hr 97.4 F-98.4 F 60-68 18-20 92-99/46-59 98-98 GENERAL: The patient is awake, alert, and fully oriented, in no acute distress. LUNGS: Upper lobes Breath sounds equal, clear to auscultation bilaterally, no wheezes, no crackles, no accessory muscle use. Appreciated coarse breath sounds bibasilarly. No CVA tenderness. HEART: Regular rate and rhythm, S1, S2 without murmur, rub or gallop. ABDOMEN: Soft, nondistended, normoactive bowel sounds, no guarding, no rebound, slight TTP in LLQ, guarding. EXTREMITIES: warm, well-perfused, no edema, no calf tenderness. SKIN: Warm, dry, normal turgor : Nontender, no erythema, no discharge, no purulence. Laboratory Results - last 24 hr 01/15/1818 18 07:18 07:18 07:18 WBC 6.8 RBC 4.01 Hgb 11.8 Hct 35.9 MCV 89.5 MCH 29.3 MCHC 32.8 RDW 15.6 Plt Count 147 MPV 10.2 D Absolute Neuts (auto) 3.0 Neutrophils % 43.9 D Neutrophils % (Manual) 50.5 D Band Neutrophils % 1.0 Lymphocytes % 22.7 D Lymphocytes % (Manual) 12.9 D Monocytes % 11.8 H Monocytes % (Manual) 10 Eosinophils % 21.4 H* D Eosinophils % (Manual) 21.8 H Basophils % 0.2 Basophils % (Manual) 0.0 Myelocytes % (Man) 0 Promyelocytes % (Man) 0 Blast Cells % (Manual) 0 Nucleated RBC % 0 Metamyelocytes 0 Hypochromia 0 Platelet Estimate Decreased Polychromasia 0 Poikilocytosis 1+ Anisocytosis 1+ Microcytosis 1+ Macrocytosis 0 PT with INR 17.00 H INR 1.50 H Sodium 145 Potassium 4.3 Chloride 112 H Carbon Dioxide 26 Anion Gap 7 L BUN 20 H Creatinine 1.1 Creat Clearance w eGFR > 60 Random Glucose 76 Calcium 8.1 L Phosphorus 3.5 Magnesium 2.0 Total Bilirubin 0.4 AST 23 ALT 19 Alkaline Phosphatase 45 Total Protein 5.5 L Albumin 2.4 L Active Medications Current Medications Acetaminophen (Tylenol -) 650 mg PO Q4H PRN PRN Reason: FEVER Last Admin: 01/13/18 00:37 Dose: 650 mg Aripiprazole (Abilify) 10 mg PO HS [facility] Last Admin: 01/14/18 21:01 Dose: 10 mg Aspirin (Asa -) 81 mg PO DAILY [facility] Last Admin: 01/15/18 09:11 Dose: 81 mg Atorvastatin Calcium (Lipitor -) 10 mg PO HS [facility] Last Admin: 01/14/18 21:01 Dose: 10 mg Divalproex Sodium (Depakote -) 750 mg PO DAILY [facility] Last Admin: 01/15/18 09:12 Dose: 750 mg Divalproex Sodium (Depakote -) 1,000 mg PO HS [facility] Last Admin: 01/14/18 21:00 Dose: 1,000 mg Enoxaparin Sodium (Lovenox -) 65 mg SQ Q12H [facility] Last Admin: 01/15/18 18:36 Dose: 65 mg Finasteride (Proscar -) 5 mg PO DAILY [facility] Last Admin: 01/15/18 09:11 Dose: 5 mg Ceftriaxone Sodium 2 gm/ (Dextrose) 100 mls @ 200 mls/hr IVPB DAILY [facility]; Protocol Last Admin: 01/15/18 10:51 Dose: 200 mls/hr Doxycycline Hyclate 100 mg/ (Dextrose) 100 mls @ 50 mls/hr IVPB BID [facility] Last Admin: 01/15/18 09:13 Dose: 50 mls/hr Multi-Ingredient Lotion (Eucerin (Small Jar) -) 1 applic TP DAILY [facility] Last Admin: 01/15/18 10:30 Dose: Not Given Multivitamins/Minerals/Vitamin C (Tab-A-Vit -) 1 tab PO DAILY [facility] Last Admin: 01/15/18 09:11 Dose: 1 tab Pantoprazole Sodium (Protonix -) 20 mg PO ACBK [facility] Last Admin: 01/15/18 07:55 Dose: 20 mg Tamsulosin HCl (Flomax -) 0.4 mg PO HS [facility] Last Admin: 01/14/18 21:01 Dose: 0.4 mg Warfarin Sodium (Coumadin -) 5 mg PO DAILY@1800 [facility] Last Admin: 01/15/18 18:36 Dose: 5 mg ASSESSMENT/PLAN: 67 y.o. M w/ PMHx. of HTN, CAD s/p pacemaker placement, AVR, thoracic aneurysm, seizures, and developmental delay presents with testicular pain. # R Orchitis and L Epidydymo-orchitis -c/w Abx. Doxycycline and Ceftriaxone, as per Urology consult may switch to PO - scrotal elevation -f/u w/ outpatient cystoscopy for bladder wall thickening. -UA+ for leukocyte esterase -f/u GC urine test -bladder scan shows 90ml residual urine -f/u ID to switch to outpatient medication #Supratherapeutic INR -INR : 4.27-->1.57 -restating on 5 mg Coumadin -monitor INR -resolved #Seizure Disorder -c/w Depakote 750mg PO daily and 1000mg at night #Dispo -Med/surg--->Community Home once medically cleared. Visit type - Emergency Visit Emergency Visit: Yes ED Registration Date: 01/14/18 Care time: The patient presented to the Emergency Department on the above date and was hospitalized for further evaluation of their emergent condition. - New Patient This patient is new to me today: No - Critical Care Critical Care patient: No - Discharge Referral Referred to [facility] Med P.C.: No
[2018-01-15] MEDS ORDERED: PT OWN MED DRAWER 7, Y5N ONE ×3 (21:23→22:48)
[2018-01-15] MEDS: ATORVASTATIN CA 10 MG TABLET (FP) PO SCH (21:29)
[2018-01-15] MEDS: DIVALPROEX SODIUM 500 MG TABLET E.C. PO SCH (21:29)
[2018-01-15] MEDS: TAMSULOSIN HCL 0.4 MG CAP.ER.24H (FP) PO SCH (21:30)
[2018-01-15] MEDS: ARIPiprazole 10 MG TABLET PO SCH (23:15)
--- NOTE | 2018-01-16 05:19 | DS ---
Physical Exam: SUBJECTIVE: Patient seen and examined OBJECTIVE: Vital Signs Period Temp Pulse Resp BP Sys/Dickey Pulse Ox Last 24 Hr 97.4 F-98.3 F 60-68 18-20 93-101/49-59 98-98 PHYSICAL EXAM GENERAL: The patient is awake, alert, and fully oriented, in no acute distress. HEAD: Normal with no signs of trauma. EYES: PERRL, extraocular movements intact, sclera anicteric, conjunctiva clear. ENT: Ears normal, nares patent, oropharynx clear without exudates, moist mucous membranes. NECK: Trachea midline, full range of motion, supple. LUNGS: Breath sounds equal, clear to auscultation bilaterally, no wheezes, no crackles, no accessory muscle use. HEART: Regular rate and rhythm, S1, S2 without murmur, rub or gallop. ABDOMEN: Soft, nontender, nondistended, normoactive bowel sounds, no guarding, no rebound, no hepatosplenomegaly, no masses. EXTREMITIES: 2+ pulses, warm, well-perfused, no edema. NEUROLOGICAL: Cranial nerves II through XII grossly intact. Normal speech, gait not observed. PSYCH: Normal mood, normal affect. SKIN: Warm, dry, normal turgor, no rashes or lesions noted. LABS Laboratory Results - last 24 hr 01/15/1818 18 07:18 07:18 07:18 WBC 6.8 RBC 4.01 Hgb 11.8 Hct 35.9 MCV 89.5 MCH 29.3 MCHC 32.8 RDW 15.6 Plt Count 147 MPV 10.2 D Absolute Neuts (auto) 3.0 Neutrophils % 43.9 D Neutrophils % (Manual) 50.5 D Band Neutrophils % 1.0 Lymphocytes % 22.7 D Lymphocytes % (Manual) 12.9 D Monocytes % 11.8 H Monocytes % (Manual) 10 Eosinophils % 21.4 H* D Eosinophils % (Manual) 21.8 H Basophils % 0.2 Basophils % (Manual) 0.0 Myelocytes % (Man) 0 Promyelocytes % (Man) 0 Blast Cells % (Manual) 0 Nucleated RBC % 0 Metamyelocytes 0 Hypochromia 0 Platelet Estimate Decreased Polychromasia 0 Poikilocytosis 1+ Anisocytosis 1+ Microcytosis 1+ Macrocytosis 0 PT with INR 17.00 H INR 1.50 H Sodium 145 Potassium 4.3 Chloride 112 H Carbon Dioxide 26 Anion Gap 7 L BUN 20 H Creatinine 1.1 Creat Clearance w eGFR > 60 Random Glucose 76 Calcium 8.1 L Phosphorus 3.5 Magnesium 2.0 Total Bilirubin 0.4 AST 23 ALT 19 Alkaline Phosphatase 45 Total Protein 5.5 L Albumin 2.4 L HOSPITAL COURSE: Date of Admission:01/14/18 Date of Discharge: 01/16/18 Discharge Summary Reason For Visit: OCHITIS AND EPIDYMITIS Current Active Problems Mental retardation (Acute) Orchitis and epididymitis (Acute) Urinary tract infection (Acute) Condition: Stable - Instructions - Home Medications Comprehensive Discharge Medication List: Ambulatory Orders Aripiprazole [Abilify] 10 mg PO HS 06/10/16 Aspirin [ASA -] 81 mg PO DAILY 06/10/16 Atorvastatin Ca [Lipitor] 10 mg PO HS 06/10/16 Finasteride 5 mg PO DAILY 06/10/16 Lisinopril [Zestril] 2.5 mg PO DAILY 06/10/16 Multivitamin [Poly-Vitamin] 1 each PO DAILY 06/10/16 Omeprazole 20 mg PO DAILY 06/10/16 Warfarin Na [Coumadin -] 5 mg PO DAILY 06/10/16 Divalproex [Depakote -] 750 mg PO DAILY #30 tablet.ec 07/26/17 Divalproex [Depakote -] 1,000 mg PO HS 01/12/18 Tamsulosin HCl [Flomax] 0.4 mg PO HS 01/12/18 - Discharge Referral [facility]erred to [facility] No
[2018-01-16] MEDS: PANTOPRAZOLE 20 MG TABLET (FP) PO SCH (06:39)
[2018-01-16] MEDS: ENOXAPARIN NA (PORCINE) 80 MG/0.8 ML DISP.SYRIN SQ SCH (06:39)
[2018-01-16 08:31] LABS: INR 1.51 (0.82-1.09); PROTHROMBIN TIME (PATIENT) 17.1 SEC (9.7-13.0)
[2018-01-16] MEDS ORDERED: DEXTROSE 5%-WATER 100 ML IVPB ONE (09:30)
[2018-01-16] MEDS: FINASTERIDE 5 MG TABLET (FP) PO SCH (10:11)
[2018-01-16] MEDS: ASPIRIN 81 MG CHEWABLE TABLETS PO SCH (10:11)
[2018-01-16] MEDS: DOXYCYCLINE INJECTION 100 MG in DEXTROSE 5%-WATER - 100 ML IVPB SCH ×2 (10:13→21:46)
[2018-01-16] MEDS: DIVALPROEX SODIUM 250 MG TABLET E.C. PO SCH (10:13)
[2018-01-16 10:23] LABS: BASO % 0.4 % (0-2.0); EOS % 28.5 % (0-4.5); HEMATOCRIT 37.9 % (35.4-49); HEMOGLOBIN 12.6 GM/dL (11.7-16.9); LYMPH % 27.5 % (8-40); MCH 29.9 pg (25.7-33.7); MCHC 33.3 g/dl (32.0-35.9); MEAN CELL VOLUME 89.8 fl (80-96); MEAN PLT VOLUME 9.8 fl (7.5-11.1); MONO % 11.9 % (3.8-10.2); NEUT % 31.7 % (42.8-82.8); PLATELET COUNT 169 K/MM3 (134-434); RBC 4.21 M/mm3 (4.00-5.60); RDW 15.5 % (11.9-15.9); WHITE BLOOD COUNT 5.5 K/mm3 (4.0-10.0)
[2018-01-16 10:56] LABS: ANISOCYTOSIS 1+; MACROCYTOSIS 0; PLATELET ESTIMATE NORMAL
[2018-01-16] MEDS: CEFTRIAXONE 2 GM in DEXTROSE 5%-WATER 100 ML IVPB SCH (12:19)
[2018-01-16] MEDS: MULTIVITAMINS (DAILY MVI) TABLET (FP) PO SCH (12:19)
[2018-01-16] MEDS: MINERAL OIL/PETROLAT/WATER TOPICAL CREAM 113 GM JAR TP SCH (12:20)
--- NOTE | 2018-01-16 15:03 | PN ---
Teaching Attending Note Name of Resident: Jonathan Jovel ATTENDING PHYSICIAN STATEMENT I saw and evaluated the patient. I reviewed the resident's note and discussed the case with the resident. I agree with the resident's findings and plan as documented with exceptions below. SUBJECTIVE: Patient seen and examined. no complaints. OBJECTIVE: Vital Signs Period Temp Pulse Resp BP Sys/Dickey Pulse Ox Last 24 Hr 97.4 F-98.3 F 60-70 20-20 93-116/49-60 98-98 Intake & Output 01/13/18 01/14/18 01/15/18 01/16/18 23:59 23:59 23:59 23:59 Intake Total 2570 620 1355 215 Output Total 600 100 1 Balance 6394 775 6708 214 General: sitting in bed in no acute distress Chest: CTAB, no rales or wheezing Abdomen: soft, NT, ND, no groin tenderness, no scrotal tenderness noted, mild swelling Home Medications Medication Instructions Recorded Aripiprazole [Abilify] 10 mg PO HS 06/10/16 Aspirin [ASA -] 81 mg PO DAILY 06/10/16 Atorvastatin Ca [Lipitor] 10 mg PO HS 06/10/16 Finasteride 5 mg PO DAILY 06/10/16 Lisinopril [Zestril] 2.5 mg PO DAILY 06/10/16 Multivitamin [Poly-Vitamin] 1 each PO DAILY 06/10/16 Omeprazole 20 mg PO DAILY 06/10/16 Warfarin Na [Coumadin -] 5 mg PO DAILY 06/10/16 Divalproex [Depakote -] 750 mg PO DAILY #30 tablet.ec 07/26/17 Divalproex [Depakote -] 1,000 mg PO HS 01/12/18 Tamsulosin HCl [Flomax] 0.4 mg PO HS 01/12/18 Laboratory Results - last 24 hr 01/12/18 01/16/18 01/16/18 16:00 06:20 06:20 WBC 5.5 RBC 4.21 Hgb 12.6 Hct 37.9 MCV 89.8 MCH 29.9 MCHC 33.3 RDW 15.5 Plt Count 169 MPV 9.8 Absolute Neuts (auto) 1.8 Neutrophils % 31.7 L D Neutrophils % (Manual) 28.6 L D Band Neutrophils % 0.0 Lymphocytes % 27.5 D Lymphocytes % (Manual) 25.5 D Monocytes % 11.9 H Monocytes % (Manual) 8 Eosinophils % 28.5 H* Eosinophils % (Manual) 34.7 H Basophils % 0.4 Basophils % (Manual) 0.0 Myelocytes % (Man) 0 Promyelocytes % (Man) 0 Blast Cells % (Manual) 0 Nucleated RBC % 0 Metamyelocytes 0 Hypochromia 0 Platelet Estimate Normal Polychromasia 0 Poikilocytosis 0 Anisocytosis 1+ Microcytosis 1+ Macrocytosis 0 PT with INR 17.10 H INR 1.51 H C. trachomatis (DIEGO) Negative N. gonorrhoeae (DIEGO) Negative ASSESSMENT AND PLAN: 67yo M with PMH HTN, Mental retardation, CAD, enterococcal endocarditis in 2012 , aortic valve s/p mechanical valve replacement, seizure and thoracic aneurysm admitted with acute epididymoorchitis. -Right orchitis/Left epididymoorchitis -Acute cystitis -Coumadin coagulopathy -Thrombocytopenia -JOSE, possible infection +/- meds -h/o enterococcal endocarditis 2012 -BPH -HTN -Thoracic aneurysm -Mechanical aortic valve replacement Plan: ID consulted, Ceftriaxone/doxycycline day 3. Blood cx neg so far. Urine cx noted. GC/Chlamydia probe neg. Scrotal US/CT A/p Results noted. Urology input noted. Scrotal support if patient agreable. INR noted, lovenox bridging with coumadin 5 mg today, daily INR. Trend CBC. SBP 90s, patient asymptomatic and avoid IVF given LV dysfunction as no clinical concerns currently. Encourage oral fluid intake. Continue abilify, depakote, flomax/finasteride. DVTPPX as above Dispo pending clinical improvement.
--- NOTE | 2018-01-16 15:53 | PN ---
Physical Exam: SUBJECTIVE: Patient seen and examined. Per talent sourcer, Pt. did not want to sleep , was sexually frustrated and bored. Pt. had no acute events overnight. OBJECTIVE: Vital Signs Period Temp Pulse Resp BP Sys/Dickey Pulse Ox Last 24 Hr 97.4 F-98.3 F 60-70 20-20 93-116/48-60 98-98 GENERAL: The patient is awake, alert, and fully oriented, in no acute distress, slightly anxious. LUNGS: Breath sounds equal, clear to auscultation bilaterally, no wheezes, no crackles, no accessory muscle use. HEART: Regular rate and rhythm, S1, S2 without murmur ABDOMEN: Soft, slight LLQ tenderness nondistended, normoactive bowel sounds, no guarding, no rebound, no hepatosplenomegaly EXTREMITIES: warm, well-perfused, no edema, no calf tenderness. PSYCH: Normal mood, normal affect. SKIN: Warm, dry, normal turgor : reduced swelling, no tenderness, no discharge, no purulence Laboratory Results - last 24 hr 01/12/18 01/16/18 01/16/18 16:00 06:20 06:20 WBC 5.5 RBC 4.21 Hgb 12.6 Hct 37.9 MCV 89.8 MCH 29.9 MCHC 33.3 RDW 15.5 Plt Count 169 MPV 9.8 Absolute Neuts (auto) 1.8 Neutrophils % 31.7 L D Neutrophils % (Manual) 28.6 L D Band Neutrophils % 0.0 Lymphocytes % 27.5 D Lymphocytes % (Manual) 25.5 D Monocytes % 11.9 H Monocytes % (Manual) 8 Eosinophils % 28.5 H* Eosinophils % (Manual) 34.7 H Basophils % 0.4 Basophils % (Manual) 0.0 Myelocytes % (Man) 0 Promyelocytes % (Man) 0 Blast Cells % (Manual) 0 Nucleated RBC % 0 Metamyelocytes 0 Hypochromia 0 Platelet Estimate Normal Polychromasia 0 Poikilocytosis 0 Anisocytosis 1+ Microcytosis 1+ Macrocytosis 0 PT with INR 17.10 H INR 1.51 H C. trachomatis (DIEGO) Negative N. gonorrhoeae (DIEGO) Negative Active Medications Current Medications Acetaminophen (Tylenol -) 650 mg PO Q4H PRN PRN Reason: FEVER Last Admin: 01/13/18 00:37 Dose: 650 mg Aripiprazole (Abilify) 10 mg PO HS YANETH Last Admin: 01/15/18 23:15 Dose: 10 mg Aspirin (Asa -) 81 mg PO DAILY [facility]AN[facility] Last Admin: 01/16/18 10:11 Dose: 81 mg Atorvastatin Calcium (Lipitor -) 10 mg PO HS YANETH Last Admin: 01/15/18 21:29 Dose: 10 mg Divalproex Sodium (Depakote -) 750 mg PO DAILY [facility]AN[facility] Last Admin: 01/16/18 10:13 Dose: 750 mg Divalproex Sodium (Depakote -) 1,000 mg PO HS [facility]AN[facility] Last Admin: 01/15/18 21:29 Dose: 1,000 mg Finasteride (Proscar -) 5 mg PO DAILY [facility] Last Admin: 01/16/18 10:11 Dose: 5 mg Heparin Sodium (Porcine) (Heparin -) 1,000 unit IVPUSH PRN PRN PRN Reason: Heparin Heparin Sodium (Porcine) (Heparin -) 5,000 unit IVPUSH PRN PRN PRN Reason: Heparin Ceftriaxone Sodium 2 gm/ (Dextrose) 100 mls @ 200 mls/hr IVPB DAILY YANETH; Protocol Last Admin: 01/16/18 12:19 Dose: 200 mls/hr Doxycycline Hyclate 100 mg/ (Dextrose) 100 mls @ 50 mls/hr IVPB BID YANETH Last Admin: 01/16/18 10:13 Dose: 50 mls/hr Heparin Sodium (Porcine) 25, (000 unit/ Sodium Chloride) 500 mls @ 16 mls/hr IV TITR YANETH; Protocol Last Admin: 01/16/18 17:46 Dose: 800 unit/hr, 16 mls/hr Multi-Ingredient Lotion (Eucerin (Small Jar) -) 1 applic TP DAILY [facility] Last Admin: 01/16/18 12:20 Dose: Not Given Multivitamins/Minerals/Vitamin C (Tab-A-Vit -) 1 tab PO DAILY [facility] Last Admin: 01/16/18 12:19 Dose: 1 tab Pantoprazole Sodium (Protonix -) 20 mg PO ACBK [facility]AN[facility] Last Admin: 01/16/18 06:39 Dose: 20 mg Tamsulosin HCl (Flomax -) 0.4 mg PO HS [facility] Last Admin: 01/15/18 21:30 Dose: 0.4 mg Warfarin Sodium (Coumadin -) 5 mg PO DAILY@1800 [facility] Last Admin: 01/16/18 17:46 Dose: 5 mg ASSESSMENT/PLAN: 67 y.o. M w/ PMHx. of HTN, CAD s/p pacemaker placement, AVR, thoracic aneurysm, seizures, and developmental delay presents with testicular pain. # R Orchitis and L Epidydymo-orchitis -c/w Abx. Doxycycline and Ceftriaxone, as per Urology consult may switch to PO - scrotal elevation -f/u w/ outpatient cystoscopy for bladder wall thickening. -UA+ for leukocyte esterase -bladder scan shows 90ml residual urine -f/u ID to switch to outpatient medication -GC urine test negative #Supratherapeutic INR -INR : 4.27-->1.57--1.51(01/16/18) -restating on 5 mg Coumadin. As per paper from [facility], chart Coumadin is 10 mg on Saturday and 5 mg on every other day. -monitor INR. [place] range for Pt with AVR is ~2.5. -As per pt.'s support engineer Dr. Skaggs ([phone]) Pt. cannot be discharged on sub-therapeutic INR. Pt. switched to Heparin drip anticoagulation as Lovenox is not effective in anti-coagulating artificial mechanical valve. #Seizure Disorder -c/w Depakote 750mg PO daily and 1000mg at night #Dispo -Med/surg--->Community Home once medically cleared. Visit type - Emergency Visit Emergency Visit: Yes ED Registration Date: 01/14/18 Care time: The patient presented to the Emergency Department on the above date and was hospitalized for further evaluation of their emergent condition. - New Patient This patient is new to me today: No - Critical Care Critical Care patient: No - Discharge Referral Referred to [facility] No
[2018-01-16] MEDS ORDERED: HEPARIN NA (PORCINE) 5,000 UNITS/ML 1ML VIAL IVPUSH PRN ×2 (16:48)
--- NOTE | 2018-01-16 17:09 | PN ---
Progress Note, Physician History of Present Illness: Awake, alert Offers no complaints Afebrile WBC WNL BC (-) GC/ Chlamydia screen negative - Current Medication List Current Medications: Active Medications Acetaminophen (Tylenol -) 650 mg PO Q4H PRN PRN Reason: FEVER Last Admin: 01/13/18 00:37 Dose: 650 mg Aripiprazole (Abilify) 10 mg PO HS YANETH Last Admin: 01/15/18 23:15 Dose: 10 mg Aspirin (Asa -) 81 mg PO DAILY [facility] Last Admin: 01/16/18 10:11 Dose: 81 mg Atorvastatin Calcium (Lipitor -) 10 mg PO HS [facility] Last Admin: 01/15/18 21:29 Dose: 10 mg Divalproex Sodium (Depakote -) 750 mg PO DAILY [facility] Last Admin: 01/16/18 10:13 Dose: 750 mg Divalproex Sodium (Depakote -) 1,000 mg PO HS [facility] Last Admin: 01/15/18 21:29 Dose: 1,000 mg Finasteride (Proscar -) 5 mg PO DAILY [facility] Last Admin: 01/16/18 10:11 Dose: 5 mg Heparin Sodium (Porcine) (Heparin -) 1,000 unit IVPUSH PRN PRN PRN Reason: Heparin Heparin Sodium (Porcine) (Heparin -) 5,000 unit IVPUSH PRN PRN PRN Reason: Heparin Ceftriaxone Sodium 2 gm/ (Dextrose) 100 mls @ 200 mls/hr IVPB DAILY YANETH; Protocol Last Admin: 01/16/18 12:19 Dose: 200 mls/hr Doxycycline Hyclate 100 mg/ (Dextrose) 100 mls @ 50 mls/hr IVPB BID YANETH Last Admin: 01/16/18 10:13 Dose: 50 mls/hr Heparin Sodium (Porcine) 25, (000 unit/ Sodium Chloride) 500 mls @ 16 mls/hr IV TITR YANETH; Protocol Multi-Ingredient Lotion (Eucerin (Small Jar) -) 1 applic TP DAILY [facility] Last Admin: 01/16/18 12:20 Dose: Not Given Multivitamins/Minerals/Vitamin C (Tab-A-Vit -) 1 tab PO DAILY [facility] Last Admin: 01/16/18 12:19 Dose: 1 tab Pantoprazole Sodium (Protonix -) 20 mg PO ACBK [facility]ANETH Last Admin: 01/16/18 06:39 Dose: 20 mg Tamsulosin HCl (Flomax -) 0.4 mg PO HS [facility] Last Admin: 01/15/18 21:30 Dose: 0.4 mg Warfarin Sodium (Coumadin -) 5 mg PO DAILY@1800 [facility] Last Admin: 01/15/18 18:36 Dose: 5 mg - Objective Vital Signs: Vital Signs Temperature 97.9 F 01/16/18 14:02 Pulse Rate 60 01/16/18 14:02 Respiratory Rate 20 01/16/18 14:02 Blood Pressure 96/48 01/16/18 14:02 O2 Sat by Pulse Oximetry (%) 98 01/16/18 09:00 Constitutional: Yes: No Distress Eyes: Yes: Conjunctiva Clear Cardiovascular: Yes: Regular Rate and Rhythm, S1, S2 Respiratory: Yes: CTA Bilaterally Gastrointestinal: Yes: Normal Bowel Sounds, Soft. No: Tenderness Genitourinary: Yes: Other (No testicular tenderness) Labs: CBC, BMP 01/16/18 06:20 01/15/18 07:18 INR, PTT INR 1.51 (0.82-1.09) H 01/16/18 06:20 Assessment/Plan Orcho-epididymitis S/P AVR Hx enterococcal endocarditis May substitute po levaquin 500mg qd x 7d Outpatient follow up
[2018-01-16] MEDS: HEPARIN - 25,000 UNIT in SODIUM CHLORIDE 495 ML IV SCH (17:46)
[2018-01-16] MEDS: WARFARIN NA 5 MG TABLET (UD) PO SCH (17:46)
[2018-01-16] MEDS ORDERED: PT OWN MED DRAWER 7, Y5N ONE (21:41)
[2018-01-16] MEDS: ATORVASTATIN CA 10 MG TABLET (FP) PO SCH (21:46)
[2018-01-16] MEDS: DIVALPROEX SODIUM 500 MG TABLET E.C. PO SCH (21:46)
[2018-01-16] MEDS: TAMSULOSIN HCL 0.4 MG CAP.ER.24H (FP) PO SCH (21:46)
[2018-01-16] MEDS: ARIPiprazole 10 MG TABLET PO SCH (21:50)
[2018-01-17 01:11] LABS: INR 1.61 (0.82-1.09); PROTHROMBIN TIME (PATIENT) 18.2 SEC (9.7-13.0)
[2018-01-17] MEDS: PANTOPRAZOLE 20 MG TABLET (FP) PO SCH (06:12)
[2018-01-17 07:57] LABS: BASO % 0.2 % (0-2.0); EOS % 26.7 % (0-4.5); HEMATOCRIT 36.5 % (35.4-49); HEMOGLOBIN 11.9 GM/dL (11.7-16.9); LYMPH % 25.5 % (8-40); MCH 29.3 pg (25.7-33.7); MCHC 32.6 g/dl (32.0-35.9); MEAN CELL VOLUME 89.8 fl (80-96); MEAN PLT VOLUME 9.8 fl (7.5-11.1); MONO % 13.3 % (3.8-10.2); NEUT % 34.3 % (42.8-82.8); PLATELET COUNT 161 K/MM3 (134-434); RBC 4.06 M/mm3 (4.00-5.60); RDW 15.3 % (11.9-15.9); WHITE BLOOD COUNT 5.8 K/mm3 (4.0-10.0)
[2018-01-17 08:15] LABS: ALBUMIN 2.5 g/dl (3.4-5.0); ALK PHOS 50 U/L (45-117); ANION GAP 8 (8-16); BILIRUBIN,TOTAL 0.3 mg/dL (0.2-1.0); BLOOD UREA NITROGEN 18 mg/dL (7-18); CALCIUM 8.4 mg/dL (8.5-10.1); CHLORIDE 111 mmol/L (98-107); CO2 26 mmol/L (21-32); CREATININE 1.1 mg/dL (0.7-1.3); GLUCOSE,RANDOM 73 mg/dL (74-106); MAGNESIUM 1.9 mg/dL (1.8-2.4); PHOSPHOROUS 2.7 mg/dL (2.5-4.9); POTASSIUM 4.2 mmol/L (3.5-5.1); SGOT/AST 28 U/L (15-37); SGPT/ALT 21 U/L (12-78); SODIUM 145 mmol/L (136-145); TOT PROT 5.5 g/dl (6.4-8.2)
[2018-01-17 08:27] LABS: INR 1.81 (0.82-1.09); PROTHROMBIN TIME (PATIENT) 20.4 SEC (9.7-13.0)
[2018-01-17] MEDS ORDERED: PT OWN MED DRAWER 7, Y5N ONE ×3 (10:05→21:12)
[2018-01-17] MEDS: FINASTERIDE 5 MG TABLET (FP) PO SCH (10:06)
[2018-01-17] MEDS: MULTIVITAMINS (DAILY MVI) TABLET (FP) PO SCH (10:06)
[2018-01-17] MEDS: ASPIRIN 81 MG CHEWABLE TABLETS PO SCH (10:06)
[2018-01-17] MEDS: DIVALPROEX SODIUM 250 MG TABLET E.C. PO SCH (10:07)
[2018-01-17] MEDS: MINERAL OIL/PETROLAT/WATER TOPICAL CREAM 113 GM JAR TP SCH (10:09)
--- NOTE | 2018-01-17 12:14 | EKG ---
Test Reason : Blood Pressure : / mmHG Vent. Rate : 060 BPM Atrial Rate : 060 BPM P-R Int : 204 ms QRS Dur : 188 ms QT Int : 488 ms P-R-T Axes : 030 264 078 degrees QTc Int : 488 ms AV dual-paced rhythm ABNORMAL ECG WHEN COMPARED WITH ECG OF 12-JAN-2018 23:25, VENT. RATE HAS DECREASED BY 21 BPM Confirmed by ASHWINI CALVERT MD ([id number]) on 01/17/2018 12:14:21 PM Referred By: Confirmed By:ASHWINI CALVERT MD
[2018-01-17 12:28] LABS: PLATELET ESTIMATE ADEQUATE
--- NOTE | 2018-01-17 15:50 | PN ---
Teaching Attending Note Name of Resident: Jonathan Jovel ATTENDING PHYSICIAN STATEMENT I saw and evaluated the patient. I reviewed the resident's note and discussed the case with the resident. I agree with the resident's findings and plan as documented with exceptions below. SUBJECTIVE: patient seen and examined, no complaints. OBJECTIVE: Vital Signs Period Temp Pulse Resp BP Sys/Dickey Pulse Ox Last 24 Hr 98.0 F-98.3 F 60-62 20-20 101-106/45-61 97 Intake & Output 01/14/18 01/15/18 01/16/18 01/17/18 23:59 23:59 23:59 23:59 Intake Total 620 1355 1450 626 Output Total 100 1 400 Balance 620 1255 1449 226 General: sitting in bed in no acute distress Abdomen:Soft, NT, ND, positive bowel sounds Genitals: minimal Left scrotal swelling, no erythema or tenderness Home Medications Medication Instructions Recorded Aripiprazole [Abilify] 10 mg PO HS 06/10/16 Aspirin [ASA -] 81 mg PO DAILY 06/10/16 Atorvastatin Ca [Lipitor] 10 mg PO HS 06/10/16 Finasteride 5 mg PO DAILY 06/10/16 Lisinopril [Zestril] 2.5 mg PO DAILY 06/10/16 Multivitamin [Poly-Vitamin] 1 each PO DAILY 06/10/16 Omeprazole 20 mg PO DAILY 06/10/16 Warfarin Na [Coumadin -] 5 mg PO DAILY 06/10/16 Divalproex [Depakote -] 750 mg PO DAILY #30 tablet.ec 07/26/17 Divalproex [Depakote -] 1,000 mg PO HS 01/12/18 Tamsulosin HCl [Flomax] 0.4 mg PO HS 01/12/18 Active Medications Acetaminophen (Tylenol -) 650 mg PO Q4H PRN PRN Reason: FEVER Last Admin: 01/13/18 00:37 Dose: 650 mg Aripiprazole (Abilify) 10 mg PO HS [facility] Last Admin: 01/16/18 21:50 Dose: 10 mg Aspirin (Asa -) 81 mg PO DAILY [facility] Last Admin: 01/17/18 10:06 Dose: 81 mg Atorvastatin Calcium (Lipitor -) 10 mg PO HS [facility] Last Admin: 01/16/18 21:46 Dose: 10 mg Divalproex Sodium (Depakote -) 750 mg PO DAILY [facility] Last Admin: 01/17/18 10:07 Dose: 750 mg Divalproex Sodium (Depakote -) 1,000 mg PO HS [facility] Last Admin: 01/16/18 21:46 Dose: 1,000 mg Finasteride (Proscar -) 5 mg PO DAILY [facility] Last Admin: 01/17/18 10:06 Dose: 5 mg Heparin Sodium (Porcine) (Heparin -) 1,000 unit IVPUSH PRN PRN PRN Reason: Heparin Last Admin: 01/17/18 02:37 Dose: 1,000 unit Heparin Sodium (Porcine) (Heparin -) 5,000 unit IVPUSH PRN PRN PRN Reason: Heparin Heparin Sodium (Porcine) 25, (000 unit/ Sodium Chloride) 500 mls @ 16 mls/hr IV TITR YANETH; Protocol Last Titration: 01/17/18 02:35 Dose: 900 unit/hr, 18 mls/hr Levofloxacin (Levaquin -) 500 mg PO DAILY@0600 [facility] Last Admin: 01/17/18 10:06 Dose: 500 mg Multi-Ingredient Lotion (Eucerin (Small Jar) -) 1 applic TP DAILY [facility] Last Admin: 01/17/18 10:09 Dose: 1 applic Multivitamins/Minerals/Vitamin C (Tab-A-Vit -) 1 tab PO DAILY [facility] Last Admin: 01/17/18 10:06 Dose: 1 tab Pantoprazole Sodium (Protonix -) 20 mg PO ACBK [facility] Last Admin: 01/17/18 06:12 Dose: 20 mg Tamsulosin HCl (Flomax -) 0.4 mg PO HS [facility] Last Admin: 01/16/18 21:46 Dose: 0.4 mg Warfarin Sodium (Coumadin -) 5 mg PO DAILY@1800 [facility] Last Admin: 01/16/18 17:46 Dose: 5 mg Laboratory Results - last 24 hr 01/12/18 01/17/18 01/17/18 23:40 00:30 00:30 WBC RBC Hgb Hct MCV MCH MCHC RDW Plt Count MPV Absolute Neuts (auto) Neutrophils % Neutrophils % (Manual) Band Neutrophils % Lymphocytes % Lymphocytes % (Manual) Monocytes % Monocytes % (Manual) Eosinophils % Eosinophils % (Manual) Basophils % Basophils % (Manual) Myelocytes % (Man) Promyelocytes % (Man) Blast Cells % (Manual) Nucleated RBC % Metamyelocytes Platelet Estimate PT with INR 18.20 H INR 1.61 H PTT (Actin FS) 43.9 H D Sodium Potassium Chloride Carbon Dioxide Anion Gap BUN Creatinine Creat Clearance w eGFR Random Glucose Calcium Phosphorus Magnesium Total Bilirubin AST ALT Alkaline Phosphatase Total Protein Albumin Mumps Virus IgM Ab <0.80 01/17/18 01/17/18 01/17/18 06:30 06:30 06:30 WBC 5.8 RBC 4.06 Hgb 11.9 Hct 36.5 MCV 89.8 MCH 29.3 MCHC 32.6 RDW 15.3 Plt Count 161 MPV 9.8 Absolute Neuts (auto) 2.0 Neutrophils % 34.3 L Neutrophils % (Manual) 32.7 L Band Neutrophils % 0.0 Lymphocytes % 25.5 Lymphocytes % (Manual) 30.7 D Monocytes % 13.3 H Monocytes % (Manual) 9 Eosinophils % 26.7 H* Eosinophils % (Manual) 25.7 H Basophils % 0.2 Basophils % (Manual) 2.0 D Myelocytes % (Man) 0 Promyelocytes % (Man) 0 Blast Cells % (Manual) 0 Nucleated RBC % 0 Metamyelocytes 0 Platelet Estimate Adequate PT with INR 20.40 H INR 1.81 H PTT (Actin FS) Sodium 145 Potassium 4.2 Chloride 111 H Carbon Dioxide 26 Anion Gap 8 BUN 18 Creatinine 1.1 Creat Clearance w eGFR > 60 Random Glucose 73 L Calcium 8.4 L Phosphorus 2.7 D Magnesium 1.9 Total Bilirubin 0.3 AST 28 D ALT 21 Alkaline Phosphatase 50 Total Protein 5.5 L Albumin 2.5 L Mumps Virus IgM Ab 01/17/18 06:30 WBC RBC Hgb Hct MCV MCH MCHC RDW Plt Count MPV Absolute Neuts (auto) Neutrophils % Neutrophils % (Manual) Band Neutrophils % Lymphocytes % Lymphocytes % (Manual) Monocytes % Monocytes % (Manual) Eosinophils % Eosinophils % (Manual) Basophils % Basophils % (Manual) Myelocytes % (Man) Promyelocytes % (Man) Blast Cells % (Manual) Nucleated RBC % Metamyelocytes Platelet Estimate PT with INR INR PTT (Actin FS) 84.3 H D Sodium Potassium Chloride Carbon Dioxide Anion Gap BUN Creatinine Creat Clearance w eGFR Random Glucose Calcium Phosphorus Magnesium Total Bilirubin AST ALT Alkaline Phosphatase Total Protein Albumin Mumps Virus IgM Ab Microbiology 01/13/18 00:54 Blood - Peripheral Venous Blood Culture - Preliminary NO GROWTH OBTAINED AFTER 96 HOURS, INCUBATION TO CONTINUE FOR 1 DAYS. 01/12/18 23:40 Blood - Peripheral Venous Blood Culture - Preliminary NO GROWTH OBTAINED AFTER 96 HOURS, INCUBATION TO CONTINUE FOR 1 DAYS. 01/12/18 12:39 Urine - Urine Clean Catch Urine Culture - Final ASSESSMENT AND PLAN: 67yo M with PMH HTN, Mental retardation, CAD, enterococcal endocarditis in 2012 , aortic valve s/p mechanical valve replacement, seizure and thoracic aneurysm admitted with acute epididymoorchitis. -Right orchitis/Left epididymoorchitis -Acute cystitis -Coumadin coagulopathy -Thrombocytopenia -JOSE, possible infection +/- meds -h/o enterococcal endocarditis 2012 -BPH -HTN -Thoracic aneurysm -Mechanical aortic valve replacement Plan: s/p 3 days of ceftriaxone/doxycycline. ID input noted. GC/chlamydia probe neg. Mumps Ig M neg. Start levaquin for 7 days. (has paced rhythm) Scrotal US/CT A/p Results noted. Urology input noted. Scrotal support if patient agreable. Discussed with outpatient cardiology, recommend heparin/coumadin bridging. Heparin started, Coumadin 5 mg daily, goal INR 2.5-3.5. Trend CBC. SBP 90s, patient asymptomatic and avoid IVF given LV dysfunction as no clinical concerns currently. Encourage oral fluid intake. Continue abilify, depakote, flomax/finasteride. DVTPPX as above Dispo pending therapeutic iNR if no concerns. Plan discussed with aide at bedside, all questions answered.
[2018-01-17] MEDS: WARFARIN NA 5 MG TABLET (UD) PO SCH (18:06)
[2018-01-17] MEDS: HEPARIN - 25,000 UNIT in SODIUM CHLORIDE 495 ML IV SCH (19:31)
--- NOTE | 2018-01-17 20:16 | PN ---
Physical Exam: SUBJECTIVE: Patient seen and examined. No acute events overnight. Pt. passed stool and urine. No fever. OBJECTIVE: Vital Signs Period Temp Pulse Resp BP Sys/Dickey Pulse Ox Last 24 Hr 98.0 F-98.3 F 60-62 19-20 100-104/45-53 97-97 GENERAL: The patient is awake, alert, and fully oriented, in no acute distress. LUNGS: Breath sounds equal, clear to auscultation bilaterally, no wheezes, no crackles, no accessory muscle use. HEART: Regular rate and rhythm, S1, S2 without murmur ABDOMEN: Soft, nontender, nondistended, normoactive bowel sounds, no guarding, no rebound EXTREMITIES: warm, well-perfused, no edema, no calf tenderness. : no discharge/purulence/malodor, no tenderness, swelling has decreased since admission, same as yesterday Laboratory Results - last 24 hr 01/12/18 01/17/18 01/17/18 23:40 00:30 00:30 WBC RBC Hgb Hct MCV MCH MCHC RDW Plt Count MPV Absolute Neuts (auto) Neutrophils % Neutrophils % (Manual) Band Neutrophils % Lymphocytes % Lymphocytes % (Manual) Monocytes % Monocytes % (Manual) Eosinophils % Eosinophils % (Manual) Basophils % Basophils % (Manual) Myelocytes % (Man) Promyelocytes % (Man) Blast Cells % (Manual) Nucleated RBC % Metamyelocytes Platelet Estimate PT with INR 18.20 H INR 1.61 H PTT (Actin FS) 43.9 H D Sodium Potassium Chloride Carbon Dioxide Anion Gap BUN Creatinine Creat Clearance w eGFR Random Glucose Calcium Phosphorus Magnesium Total Bilirubin AST ALT Alkaline Phosphatase Total Protein Albumin Mumps Virus IgM Ab <0.80 01/17/18 01/17/18 01/17/18 06:30 06:30 06:30 WBC 5.8 RBC 4.06 Hgb 11.9 Hct 36.5 MCV 89.8 MCH 29.3 MCHC 32.6 RDW 15.3 Plt Count 161 MPV 9.8 Absolute Neuts (auto) 2.0 Neutrophils % 34.3 L Neutrophils % (Manual) 32.7 L Band Neutrophils % 0.0 Lymphocytes % 25.5 Lymphocytes % (Manual) 30.7 D Monocytes % 13.3 H Monocytes % (Manual) 9 Eosinophils % 26.7 H* Eosinophils % (Manual) 25.7 H Basophils % 0.2 Basophils % (Manual) 2.0 D Myelocytes % (Man) 0 Promyelocytes % (Man) 0 Blast Cells % (Manual) 0 Nucleated RBC % 0 Metamyelocytes 0 Platelet Estimate Adequate PT with INR 20.40 H INR 1.81 H PTT (Actin FS) Sodium 145 Potassium 4.2 Chloride 111 H Carbon Dioxide 26 Anion Gap 8 BUN 18 Creatinine 1.1 Creat Clearance w eGFR > 60 Random Glucose 73 L Calcium 8.4 L Phosphorus 2.7 D Magnesium 1.9 Total Bilirubin 0.3 AST 28 D ALT 21 Alkaline Phosphatase 50 Total Protein 5.5 L Albumin 2.5 L Mumps Virus IgM Ab 01/17/18 01/17/18 06:30 17:30 WBC RBC Hgb Hct MCV MCH MCHC RDW Plt Count MPV Absolute Neuts (auto) Neutrophils % Neutrophils % (Manual) Band Neutrophils % Lymphocytes % Lymphocytes % (Manual) Monocytes % Monocytes % (Manual) Eosinophils % Eosinophils % (Manual) Basophils % Basophils % (Manual) Myelocytes % (Man) Promyelocytes % (Man) Blast Cells % (Manual) Nucleated RBC % Metamyelocytes Platelet Estimate PT with INR INR PTT (Actin FS) 84.3 H D 80.7 H Sodium Potassium Chloride Carbon Dioxide Anion Gap BUN Creatinine Creat Clearance w eGFR Random Glucose Calcium Phosphorus Magnesium Total Bilirubin AST ALT Alkaline Phosphatase Total Protein Albumin Mumps Virus IgM Ab Active Medications Current Medications Acetaminophen (Tylenol -) 650 mg PO Q4H PRN PRN Reason: FEVER Last Admin: 01/13/18 00:37 Dose: 650 mg Aripiprazole (Abilify) 10 mg PO [facility] Last Admin: 01/16/18 21:50 Dose: 10 mg Aspirin (Asa -) 81 mg PO DAILY [facility] Last Admin: 01/17/18 10:06 Dose: 81 mg Atorvastatin Calcium (Lipitor -) 10 mg PO [facility] Last Admin: 01/16/18 21:46 Dose: 10 mg Divalproex Sodium (Depakote -) 750 mg PO DAILY [facility] Last Admin: 01/17/18 10:07 Dose: 750 mg Divalproex Sodium (Depakote -) 1,000 mg PO [facility] Last Admin: 01/16/18 21:46 Dose: 1,000 mg Finasteride (Proscar -) 5 mg PO DAILY [facility] Last Admin: 01/17/18 10:06 Dose: 5 mg Heparin Sodium (Porcine) (Heparin -) 1,000 unit IVPUSH PRN PRN PRN Reason: Heparin Last Admin: 01/17/18 02:37 Dose: 1,000 unit Heparin Sodium (Porcine) (Heparin -) 5,000 unit IVPUSH PRN PRN PRN Reason: Heparin Heparin Sodium (Porcine) 25, (000 unit/ Sodium Chloride) 500 mls @ 16 mls/hr IV TITR YANETH; Protocol Last Admin: 01/17/18 19:31 Dose: 800 unit/hr, 16 mls/hr Levofloxacin (Levaquin -) 500 mg PO DAILY@0600 [facility] Last Admin: 01/17/18 10:06 Dose: 500 mg Multi-Ingredient Lotion (Eucerin (Small Jar) -) 1 applic TP DAILY [facility] Last Admin: 01/17/18 10:09 Dose: 1 applic Multivitamins/Minerals/Vitamin C (Tab-A-Vit -) 1 tab PO DAILY [facility] Last Admin: 01/17/18 10:06 Dose: 1 tab Pantoprazole Sodium (Protonix -) 20 mg PO ACBK [facility] Last Admin: 01/17/18 06:12 Dose: 20 mg Tamsulosin HCl (Flomax -) 0.4 mg PO HS [facility] Last Admin: 01/16/18 21:46 Dose: 0.4 mg Warfarin Sodium (Coumadin -) 5 mg PO DAILY@1800 [facility] Last Admin: 01/17/18 18:06 Dose: 5 mg ASSESSMENT/PLAN: 67 y.o. M w/ PMHx. of HTN, CAD s/p pacemaker placement, AVR, thoracic aneurysm, seizures, and developmental delay presents with testicular pain. # R Orchitis and L Epidydymo-orchitis -Levaquin 500 mg PO daily - scrotal elevation -f/u w/ outpatient cystoscopy for bladder wall thickening. -UA+ for leukocyte esterase -f/u ID to switch to outpatient medication -GC urine test negative #Supratherapeutic INR -INR : 4.27-->1.57--1.51(01/16/18)--->1.81(01/17/18) -restating on 5 mg Coumadin. As per paper from [facility], chart Coumadin is 10 mg on Saturday and 5 mg on every other day. -monitor INR. [place] range for Pt with AVR is ~2.5. -As per pt.'s customer facilities supervisor Dr. Skaggs ([phone]) Pt. cannot be discharged on sub-therapeutic INR. Pt. switched to Heparin drip anticoagulation as Lovenox is not effective in anti-coagulating artificial mechanical valve. -PTT: 80.7; Platelets: 161k (monitor PTT and platelets while on Heparin) #Seizure Disorder -c/w Depakote 750mg PO daily and 1000mg at night #Dispo -Med/surg--->Community Home once medically cleared. Visit type - Emergency Visit Emergency Visit: Yes ED Registration Date: 01/14/18 Care time: The patient presented to the Emergency Department on the above date and was hospitalized for further evaluation of their emergent condition. - New Patient This patient is new to me today: No - Critical Care Critical Care patient: No - Discharge Referral Referred to [facility] Med P.C.: No
[2018-01-17] MEDS: ARIPiprazole 10 MG TABLET PO SCH (21:20)
[2018-01-17] MEDS: DIVALPROEX SODIUM 500 MG TABLET E.C. PO SCH (21:21)
[2018-01-17] MEDS: TAMSULOSIN HCL 0.4 MG CAP.ER.24H (FP) PO SCH (21:22)
[2018-01-17] MEDS: ATORVASTATIN CA 10 MG TABLET (FP) PO SCH (21:22)
[2018-01-18] MEDS: PANTOPRAZOLE 20 MG TABLET (FP) PO SCH (06:01)
--- NOTE | 2018-01-18 08:18 | PN ---
Physical Exam: SUBJECTIVE: Patient seen and examined at bed side , no acute events over night , denies any fever or chills , sitting in bed asking for food, left scrotal swelling has improved with no erythema. OBJECTIVE: Vital Signs Period Temp Pulse Resp BP Sys/Dickey Pulse Ox Last 24 Hr 98.1 F-98.9 F 60-65 18-20 99-120/45-67 97-97 GENERAL: demented in no acute distress, on his bas line per critical care unit nurse , asking for food HEAD: Normal with no signs of trauma. NECK: supple. LUNGS: CTA B/L , no wheezes, or crackles , no accessory muscle use ,medsternal surgical scar , posterior right lung surgical scar HEART:RRR, S1, loud S2 without MRG, metallic click , ABDOMEN: Soft, ND/NT, normoactive bowel sounds, EXTREMITIES: 2+ pulses, warm, well-perfused, no edema. NEUROLOGICAL: demented , in NAD , no focal deficit SKIN: Warm, dry, normal turgor, : scrotum with support, left side with minimal swelling but no erythema , no local testicular or inguinal tenderness. no inguinal lymphadenopathy. Active Medications Generic Name Dose Route Start Last Admin Trade Name Freq PRN Reason Stop Dose Admin Acetaminophen 650 mg 01/13/18 00:02 01/13/18 00:37 Tylenol - PO 650 mg Q4H PRN Administration FEVER Aripiprazole 10 mg 01/12/18 22:36 01/17/18 21:20 Abilify PO 10 mg HS YANETH Administration Aspirin 81 mg 01/13/18 10:00 01/17/18 10:06 Asa - PO 81 mg DAILY [facility]AN[facility] Administration Atorvastatin Calcium 10 mg 01/12/18 22:36 01/17/18 21:22 Lipitor - PO 10 mg HS YANETH Administration Divalproex Sodium 750 mg 01/13/18 10:00 01/17/18 10:07 Depakote - PO 750 mg DAILY YAN[facility] Administration Divalproex Sodium 1,000 mg 01/12/18 22:36 01/17/18 21:21 Depakote - PO 1,000 mg HS YANETH Administration Finasteride 5 mg 01/13/18 10:00 01/17/18 10:06 Proscar - PO 5 mg DAILY YANETH Administration Heparin Sodium (Porcine) 1,000 unit 01/16/18 16:48 01/17/18 02:37 Heparin - IVPUSH 1,000 unit PRN PRN Administration Heparin Heparin Sodium (Porcine) 5,000 unit 01/16/18 16:48 Heparin - IVPUSH PRN PRN Heparin Heparin Sodium (Porcine) 25, 500 mls @ 16 mls/hr 01/16/18 17:00 01/17/18 19: 31 000 unit/ Sodium Chloride IV 800 unit/hr TITR YANETH 16 mls/hr Administration Protocol 800 UNIT/HR Levofloxacin 500 mg 01/17/18 10:00 01/18/18 06:01 Levaquin - PO 500 mg DAILY@0600 [facility] Administration Multi-Ingredient Lotion 1 applic 01/13/18 10:00 01/17/18 10:09 Eucerin (Small Jar) - TP 1 applic DAILY [facility] Administration Multivitamins/Minerals/Vitamin C 1 tab 01/13/18 10:00 01/17/18 10:06 Tab-A-Vit - PO 1 tab DAILY [facility] Administration Pantoprazole Sodium 20 mg 01/13/18 07:00 01/18/18 06:01 Protonix - PO 20 mg ACBK YANETH Administration Tamsulosin HCl 0.4 mg 01/12/18 22:36 01/17/18 21:22 Flomax - PO 0.4 mg HS YANETH Administration Warfarin Sodium 5 mg 01/14/18 18:00 01/17/18 18:06 Coumadin - PO 5 mg DAILY@1800 YAN[facility] Administration CBC, BMP 01/17/18 06:30 01/17/18 06:30 INR, PTT INR 1.81 (0.82-1.09) H 01/17/18 06:30 ASSESSMENT/PLAN:
[2018-01-18 09:12] LABS: BASO % 0.3 % (0-2.0); EOS % 27.1 % (0-4.5); HEMATOCRIT 39.7 % (35.4-49); HEMOGLOBIN 12.9 GM/dL (11.7-16.9); LYMPH % 29.6 % (8-40); MCH 29.4 pg (25.7-33.7); MCHC 32.5 g/dl (32.0-35.9); MEAN CELL VOLUME 90.4 fl (80-96); MEAN PLT VOLUME 9.2 fl (7.5-11.1); MONO % 12.9 % (3.8-10.2); NEUT % 30.1 % (42.8-82.8); PLATELET COUNT 137 K/MM3 (134-434); RBC 4.39 M/mm3 (4.00-5.60); RDW 15.9 % (11.9-15.9); WHITE BLOOD COUNT 4.3 K/mm3 (4.0-10.0)
[2018-01-18] MEDS: FINASTERIDE 5 MG TABLET (FP) PO SCH (09:12)
[2018-01-18] MEDS: MULTIVITAMINS (DAILY MVI) TABLET (FP) PO SCH (09:12)
[2018-01-18] MEDS: ASPIRIN 81 MG CHEWABLE TABLETS PO SCH (09:12)
[2018-01-18] MEDS: DIVALPROEX SODIUM 250 MG TABLET E.C. PO SCH (09:13)
[2018-01-18 09:23] LABS: INR 1.99 (0.82-1.09); PROTHROMBIN TIME (PATIENT) 22.5 SEC (9.7-13.0)
--- NOTE | 2018-01-18 09:34 | PN ---
Teaching Attending Note Name of Resident: Tab Galindo ATTENDING PHYSICIAN STATEMENT I saw and evaluated the patient. I reviewed the resident's note and discussed the case with the resident. I agree with the resident's findings and plan as documented with exceptions below. SUBJECTIVE: patient seen and examined. No complaints. OBJECTIVE: Vital Signs Period Temp Pulse Resp BP Sys/Dickey Pulse Ox Last 24 Hr 98.1 F-98.9 F 60-65 18-20 99-120/45-67 97 Intake & Output 01/15/18 01/16/18 01/17/18 01/18/18 23:59 23:59 23:59 23:59 Intake Total 1355 1450 926 292 Output Total 100 1 400 800 Balance 1255 1449 526 -508 General: sitting in bed in no acute distress Abdomen:soft, NT, ND, positive bowel sounds Genitals: no scrotal tenderness, almost resolved edema Active Medications Acetaminophen (Tylenol -) 650 mg PO Q4H PRN PRN Reason: FEVER Last Admin: 01/13/18 00:37 Dose: 650 mg Aripiprazole (Abilify) 10 mg PO HS [facility] Last Admin: 01/17/18 21:20 Dose: 10 mg Aspirin (Asa -) 81 mg PO DAILY [facility] Last Admin: 01/18/18 09:12 Dose: 81 mg Atorvastatin Calcium (Lipitor -) 10 mg PO HS [facility] Last Admin: 01/17/18 21:22 Dose: 10 mg Divalproex Sodium (Depakote -) 750 mg PO DAILY [facility] Last Admin: 01/18/18 09:13 Dose: 750 mg Divalproex Sodium (Depakote -) 1,000 mg PO HS [facility] Last Admin: 01/17/18 21:21 Dose: 1,000 mg Finasteride (Proscar -) 5 mg PO DAILY [facility] Last Admin: 01/18/18 09:12 Dose: 5 mg Heparin Sodium (Porcine) (Heparin -) 1,000 unit IVPUSH PRN PRN PRN Reason: Heparin Last Admin: 01/17/18 02:37 Dose: 1,000 unit Heparin Sodium (Porcine) (Heparin -) 5,000 unit IVPUSH PRN PRN PRN Reason: Heparin Heparin Sodium (Porcine) 25, (000 unit/ Sodium Chloride) 500 mls @ 16 mls/hr IV TITR YANETH; Protocol Last Admin: 01/17/18 19:31 Dose: 800 unit/hr, 16 mls/hr Levofloxacin (Levaquin -) 500 mg PO DAILY@0600 [facility] Last Admin: 01/18/18 06:01 Dose: 500 mg Multi-Ingredient Lotion (Eucerin (Small Jar) -) 1 applic TP DAILY [facility] Last Admin: 01/17/18 10:09 Dose: 1 applic Multivitamins/Minerals/Vitamin C (Tab-A-Vit -) 1 tab PO DAILY [facility] Last Admin: 01/18/18 09:12 Dose: 1 tab Pantoprazole Sodium (Protonix -) 20 mg PO ACBK [facility] Last Admin: 01/18/18 06:01 Dose: 20 mg Tamsulosin HCl (Flomax -) 0.4 mg PO HS [facility] Last Admin: 01/17/18 21:22 Dose: 0.4 mg Warfarin Sodium (Coumadin -) 5 mg PO DAILY@1800 [facility] Last Admin: 01/17/18 18:06 Dose: 5 mg Laboratory Results - last 24 hr 01/17/18 01/17/18 01/18/18 06:30 17:30 01:30 WBC RBC Hgb Hct MCV MCH MCHC RDW Plt Count MPV Absolute Neuts (auto) Neutrophils % Neutrophils % (Manual) 32.7 L Band Neutrophils % 0.0 Lymphocytes % Lymphocytes % (Manual) 30.7 D Monocytes % Monocytes % (Manual) 9 Eosinophils % Eosinophils % (Manual) 25.7 H Basophils % Basophils % (Manual) 2.0 D Myelocytes % (Man) 0 Promyelocytes % (Man) 0 Blast Cells % (Manual) 0 Nucleated RBC % 0 Metamyelocytes 0 Platelet Estimate Adequate PTT (Actin FS) 80.7 H 56.1 H D 01/18/18 08:40 WBC 4.3 RBC 4.39 Hgb 12.9 Hct 39.7 MCV 90.4 MCH 29.4 MCHC 32.5 RDW 15.9 Plt Count 137 MPV 9.2 Absolute Neuts (auto) 1.3 Neutrophils % 30.1 L Neutrophils % (Manual) Band Neutrophils % Lymphocytes % 29.6 Lymphocytes % (Manual) Monocytes % 12.9 H Monocytes % (Manual) Eosinophils % 27.1 H* Eosinophils % (Manual) Basophils % 0.3 Basophils % (Manual) Myelocytes % (Man) Promyelocytes % (Man) Blast Cells % (Manual) Nucleated RBC % 0 Metamyelocytes Platelet Estimate PTT (Actin FS) Microbiology 01/13/18 00:54 Blood - Peripheral Venous Blood Culture - Final NO GROWTH AFTER 5 DAYS INCUBATION 01/12/18 23:40 Blood - Peripheral Venous Blood Culture - Final NO GROWTH AFTER 5 DAYS INCUBATION 01/12/18 12:39 Urine - Urine Clean Catch Urine Culture - Final ASSESSMENT AND PLAN: 67yo M with PMH HTN, Mental retardation, CAD, enterococcal endocarditis in 2012 , aortic valve s/p mechanical valve replacement, seizure and thoracic aneurysm admitted with acute epididymoorchitis. -Right orchitis/Left epididymoorchitis -Acute cystitis -Coumadin coagulopathy -Thrombocytopenia -JOSE, possible infection +/- meds -h/o enterococcal endocarditis 2012 -BPH -HTN -Thoracic aneurysm -Mechanical aortic valve replacement Plan: s/p 3 days of ceftriaxone/doxycycline. ID input noted. GC/chlamydia probe neg. Mumps Ig M neg. Start levaquin day 2/7. (has paced rhythm) Scrotal US/CT A/p Results noted. Urology input noted. Scrotal support if patient agreable. Discussed with outpatient cardiology, recommend heparin/coumadin bridging. Heparin started, Coumadin 5 mg daily, goal INR 2.5-3.5. Trend CBC. SBP 90s-100s, patient asymptomatic and avoid IVF given LV dysfunction as no clinical concerns currently. Encourage oral fluid intake. Continue abilify, depakote, flomax/finasteride. DVTPPX as above Dispo pending therapeutic iNR if no concerns. Plan discussed with aide at bedside, all questions answered.
--- NOTE | 2018-01-18 09:50 | PN ---
Physical Exam: SUBJECTIVE: Patient seen and examined. No acute events overnight. OBJECTIVE: Vital Signs Period Temp Pulse Resp BP Sys/Dickey Pulse Ox Last 24 Hr 98.1 F-98.9 F 60-65 18-20 99-120/45-67 97 GENERAL: The patient is awake, alert, and in no acute distress lying comfortably in bed. EYES: PERRL, sclera anicteric, conjunctiva clear. No ptosis. LUNGS: Breath sounds equal, clear to auscultation bilaterally, no wheezes, no crackles, no accessory muscle use. HEART: Regular rate and rhythm, S1 click, S2, without murmur ABDOMEN: Soft, nontender, nondistended, normoactive bowel sounds, no guarding EXTREMITIES: 2+ tibial pulses, no calf tenderness, no edema, cap. refill <2 PSYCH: Normal mood, normal affect. SKIN: Warm, dry, no buises, old scar on pt.'s left upper back. : No tenderness, swelling or discharge. Pt. kept trying to move my hand, discomfort? Laboratory Results - last 24 hr 01/17/18 01/17/18 01/18/18 06:30 17:30 01:30 WBC RBC Hgb Hct MCV MCH MCHC RDW Plt Count MPV Absolute Neuts (auto) Neutrophils % Neutrophils % (Manual) 32.7 L Band Neutrophils % 0.0 Lymphocytes % Lymphocytes % (Manual) 30.7 D Monocytes % Monocytes % (Manual) 9 Eosinophils % Eosinophils % (Manual) 25.7 H Basophils % Basophils % (Manual) 2.0 D Myelocytes % (Man) 0 Promyelocytes % (Man) 0 Blast Cells % (Manual) 0 Nucleated RBC % 0 Metamyelocytes 0 Platelet Estimate Adequate PT with INR INR PTT (Actin FS) 80.7 H 56.1 H D 01/18/18 01/18/18 08:40 08:40 WBC 4.3 RBC 4.39 Hgb 12.9 Hct 39.7 MCV 90.4 MCH 29.4 MCHC 32.5 RDW 15.9 Plt Count 137 MPV 9.2 Absolute Neuts (auto) 1.3 Neutrophils % 30.1 L Neutrophils % (Manual) Band Neutrophils % Lymphocytes % 29.6 Lymphocytes % (Manual) Monocytes % 12.9 H Monocytes % (Manual) Eosinophils % 27.1 H* Eosinophils % (Manual) Basophils % 0.3 Basophils % (Manual) Myelocytes % (Man) Promyelocytes % (Man) Blast Cells % (Manual) Nucleated RBC % 0 Metamyelocytes Platelet Estimate PT with INR 22.50 H INR 1.99 H PTT (Actin FS) Active Medications Current Medications Acetaminophen (Tylenol -) 650 mg PO Q4H PRN PRN Reason: FEVER Last Admin: 01/13/18 00:37 Dose: 650 mg Aripiprazole (Abilify) 10 mg PO HS [facility] Last Admin: 01/17/18 21:20 Dose: 10 mg Aspirin (Asa -) 81 mg PO DAILY [facility] Last Admin: 01/18/18 09:12 Dose: 81 mg Atorvastatin Calcium (Lipitor -) 10 mg PO HS [facility] Last Admin: 01/17/18 21:22 Dose: 10 mg Divalproex Sodium (Depakote -) 750 mg PO DAILY [facility] Last Admin: 01/18/18 09:13 Dose: 750 mg Divalproex Sodium (Depakote -) 1,000 mg PO HS [facility] Last Admin: 01/17/18 21:21 Dose: 1,000 mg Finasteride (Proscar -) 5 mg PO DAILY [facility] Last Admin: 01/18/18 09:12 Dose: 5 mg Heparin Sodium (Porcine) (Heparin -) 1,000 unit IVPUSH PRN PRN PRN Reason: Heparin Last Admin: 01/17/18 02:37 Dose: 1,000 unit Heparin Sodium (Porcine) (Heparin -) 5,000 unit IVPUSH PRN PRN PRN Reason: Heparin Heparin Sodium (Porcine) 25, (000 unit/ Sodium Chloride) 500 mls @ 16 mls/hr IV TITR YANETH; Protocol Last Admin: 01/17/18 19:31 Dose: 800 unit/hr, 16 mls/hr Levofloxacin (Levaquin -) 500 mg PO DAILY@0600 [facility] Last Admin: 01/18/18 06:01 Dose: 500 mg Multi-Ingredient Lotion (Eucerin (Small Jar) -) 1 applic TP DAILY [facility] Last Admin: 01/17/18 10:09 Dose: 1 applic Multivitamins/Minerals/Vitamin C (Tab-A-Vit -) 1 tab PO DAILY [facility] Last Admin: 01/18/18 09:12 Dose: 1 tab Pantoprazole Sodium (Protonix -) 20 mg PO ACBK [facility] Last Admin: 01/18/18 06:01 Dose: 20 mg Tamsulosin HCl (Flomax -) 0.4 mg PO HS [facility] Last Admin: 01/17/18 21:22 Dose: 0.4 mg Warfarin Sodium (Coumadin -) 5 mg PO DAILY@1800 [facility] Last Admin: 01/17/18 18:06 Dose: 5 mg ASSESSMENT/PLAN: 67 y.o. M w/ PMHx. of HTN, CAD s/p pacemaker placement, AVR, thoracic aneurysm, seizures, and developmental delay presents with testicular pain. # R Orchitis and L Epidydymo-orchitis -Levaquin 500 mg PO daily - scrotal elevation -f/u w/ outpatient cystoscopy for bladder wall thickening. -UA+ for leukocyte esterase -GC urine test negative #Supratherapeutic INR -INR : 4.27--->1.81(01/17/18)--> 1.91(01/18/18) -restating on 5 mg Coumadin. As per paper from [facility], chart Coumadin is 10 mg on Saturday and 5 mg on every other day. -monitor INR. [place] range for Pt with AVR is ~2.5. -As per pt.'s fiber artist Dr. Skaggs ([phone]) Pt. cannot be discharged on sub-therapeutic INR. Pt. switched to Heparin drip anticoagulation as Lovenox is not effective in anti-coagulating artificial mechanical valve. -PTT: 56.1; Platelets: 137k (monitor PTT and platelets while on Heparin) #Seizure Disorder -c/w Depakote 750mg PO daily and 1000mg at night #Dispo -Med/surg--->Community Home once medically cleared. Visit type - Emergency Visit Emergency Visit: No - New Patient This patient is new to me today: No - Critical Care Critical Care patient: No - Discharge Referral Referred to [facility] Med P.C.: No
[2018-01-18 09:54] LABS: ANION GAP 8 (8-16); BLOOD UREA NITROGEN 17 mg/dL (7-18); CALCIUM 8.2 mg/dL (8.5-10.1); CHLORIDE 111 mmol/L (98-107); CO2 25 mmol/L (21-32); CREATININE 1.1 mg/dL (0.7-1.3); GLUCOSE,RANDOM 68 mg/dL (74-106); PHOSPHOROUS 2.9 mg/dL (2.5-4.9); POTASSIUM 4.2 mmol/L (3.5-5.1); SODIUM 144 mmol/L (136-145)
[2018-01-18 12:25] LABS: ACANTHOCYTES 0; ANISOCYTOSIS 0; HELMET CELLS 0; HOWELL-JOLLY BODIES 0; MACROCYTOSIS 0; OVALOCYTE 0; PLATELET ESTIMATE DECREASED; ROULEAU 0; SICKELED CELLS 0; TARGET CELLS 0; TEAR DROP CELLS 0; TOXIC GRANULATION 0
[2018-01-18] MEDS: DOCUSATE SODIUM 100 MG CAPSULE (FP) PO SCH (13:10)
[2018-01-18] MEDS: MINERAL OIL/PETROLAT/WATER TOPICAL CREAM 113 GM JAR TP SCH (13:11)
[2018-01-18] MEDS: WARFARIN NA 5 MG TABLET (UD) PO SCH (18:03)
[2018-01-18] MEDS: HEPARIN - 25,000 UNIT in SODIUM CHLORIDE 495 ML IV SCH (18:04)
[2018-01-18] MEDS ORDERED: PT OWN MED DRAWER 7, Y5N ONE (20:52)
[2018-01-18] MEDS: TAMSULOSIN HCL 0.4 MG CAP.ER.24H (FP) PO SCH (21:39)
[2018-01-18] MEDS: DIVALPROEX SODIUM 500 MG TABLET E.C. PO SCH (21:39)
[2018-01-18] MEDS: ATORVASTATIN CA 10 MG TABLET (FP) PO SCH (21:39)
[2018-01-18] MEDS: SENNOSIDES 8.6MG TABLET (FP) PO SCH (21:39)
[2018-01-18] MEDS: ARIPiprazole 10 MG TABLET PO SCH (21:40)
[2018-01-18] MEDS ORDERED: SENNOSIDES 8.6MG TABLET (FP) PO SCH (22:00)
[2018-01-19] MEDS: PANTOPRAZOLE 20 MG TABLET (FP) PO SCH (06:05)
[2018-01-19 08:40] LABS: INR 2.23 (0.82-1.09); PROTHROMBIN TIME (PATIENT) 25.2 SEC (9.7-13.0)
[2018-01-19] MEDS: ASPIRIN 81 MG CHEWABLE TABLETS PO SCH (09:09)
[2018-01-19] MEDS: MULTIVITAMINS (DAILY MVI) TABLET (FP) PO SCH (09:09)
[2018-01-19] MEDS: DOCUSATE SODIUM 100 MG CAPSULE (FP) PO SCH (09:10)
[2018-01-19] MEDS: DIVALPROEX SODIUM 250 MG TABLET E.C. PO SCH (09:10)
[2018-01-19] MEDS: FINASTERIDE 5 MG TABLET (FP) PO SCH (09:10)
[2018-01-19] MEDS: MINERAL OIL/PETROLAT/WATER TOPICAL CREAM 113 GM JAR TP SCH (10:22)
--- NOTE | 2018-01-19 16:02 | PN ---
Physical Exam: SUBJECTIVE: Patient seen and examined, no complaints. OBJECTIVE: Vital Signs Period Temp Pulse Resp BP Sys/Dickey Pulse Ox Last 24 Hr 97.4 F-98.4 F 60-74 20-22 99-114/42-64 97 GENERAL: no acute distress Abdomen:soft, NT, ND, positive bowel sounds Gentials: no scrotal swelling, erythema or tenderness Chest: CTAB, no rales or wheezing Laboratory Results - last 24 hr 01/19/18 01/19/18 07:42 07:42 PT with INR 25.20 H INR 2.23 H PTT (Actin FS) 69.8 H Active Medications Generic Name Dose Route Start Last Admin Trade Name Freq PRN Reason Stop Dose Admin Acetaminophen 650 mg 01/13/18 00:02 01/13/18 00:37 Tylenol - PO 650 mg Q4H PRN Administration FEVER Aripiprazole 10 mg 01/12/18 22:36 01/18/18 21:40 Abilify PO 10 mg HS YANETH Administration Aspirin 81 mg 01/13/18 10:00 01/19/18 09:09 Asa - PO 81 mg DAILY YANETH Administration Atorvastatin Calcium 10 mg 01/12/18 22:36 01/18/18 21:39 Lipitor - PO 10 mg HS YANETH Administration Divalproex Sodium 750 mg 01/13/18 10:00 01/19/18 09:10 Depakote - PO 750 mg DAILY YANETH Administration Divalproex Sodium 1,000 mg 01/12/18 22:36 01/18/18 21:39 Depakote - PO 1,000 mg HS YANETH Administration Docusate Sodium 100 mg 01/18/18 12:00 01/19/18 09:10 Colace - PO 100 mg DAILY YANETH Administration Finasteride 5 mg 01/13/18 10:00 01/19/18 09:10 Proscar - PO 5 mg DAILY [facility]ANETH Administration Heparin Sodium (Porcine) 1,000 unit 01/16/18 16:48 01/17/18 02:37 Heparin - IVPUSH 1,000 unit PRN PRN Administration Heparin Heparin Sodium (Porcine) 5,000 unit 01/16/18 16:48 Heparin - IVPUSH PRN PRN Heparin Heparin Sodium (Porcine) 25, 500 mls @ 16 mls/hr 01/16/18 17:00 07/21/18 18: 04 000 unit/ Sodium Chloride IV 800 unit/hr TITR YANETH 16 mls/hr Administration Protocol 800 UNIT/HR Levofloxacin 500 mg 01/17/18 10:00 01/19/18 06:05 Levaquin - PO 500 mg DAILY@0600 YANETH Administration Multi-Ingredient Lotion 1 applic 01/13/18 10:00 01/19/18 10:22 Eucerin (Small Jar) - TP 1 applic DAILY [facility] Administration Multivitamins/Minerals/Vitamin C 1 tab 01/13/18 10:00 01/19/18 09:09 Tab-A-Vit - PO 1 tab DAILY [facility] Administration Pantoprazole Sodium 20 mg 01/13/18 07:00 01/19/18 06:05 Protonix - PO 20 mg ACBK YANETH Administration Senna 1 tab 01/18/18 15:28 01/18/18 21:39 Senna - PO 1 tab HS YANETH Administration Tamsulosin HCl 0.4 mg 01/12/18 22:36 01/18/18 21:39 Flomax - PO 0.4 mg HS YANETH Administration Warfarin Sodium 5 mg 01/14/18 18:00 01/18/18 18:03 Coumadin - PO 5 mg DAILY@1800 [facility]AN[facility] Administration ASSESSMENT/PLAN: 67yo M with PMH HTN, Mental retardation, CAD, enterococcal endocarditis in 2012 , aortic valve s/p mechanical valve replacement, seizure and thoracic aneurysm admitted with acute epididymoorchitis. -Right orchitis/Left epididymoorchitis -Acute cystitis -Coumadin coagulopathy -Thrombocytopenia -JOSE, possible infection +/- meds -h/o enterococcal endocarditis 2012 -BPH -HTN -Thoracic aneurysm -Mechanical aortic valve replacement Plan: s/p 3 days of ceftriaxone/doxycycline. ID input noted. GC/chlamydia probe neg. Mumps Ig M neg. Start levaquin day 3/7. (has paced rhythm) Scrotal US/CT A/p Results noted. Urology input noted. Scrotal support, outpatient urology follow up. Discussed with outpatient cardiology, recommend heparin/coumadin bridging. Heparin started, Coumadin 5 mg daily, goal INR 2.5-3.5. Trend CBC. SBP 90s-100s, patient asymptomatic and avoid IVF given LV dysfunction as no clinical concerns currently. Encourage oral fluid intake. Continue abilify, depakote, flomax/finasteride. DVTPPX as above Dispo pending therapeutic iNR if no concerns,likely in 24 hours. Plan discussed with aide at bedside, all questions answered. Visit type - Emergency Visit Emergency Visit: Yes ED Registration Date: 01/14/18 Care time: The patient presented to the Emergency Department on the above date and was hospitalized for further evaluation of their emergent condition. - New Patient This patient is new to me today: No - Critical Care Critical Care patient: No - Discharge Referral Referred to [facility] Med P.C.: No
[2018-01-19] MEDS: HEPARIN - 25,000 UNIT in SODIUM CHLORIDE 495 ML IV SCH (17:16)
[2018-01-19] MEDS: WARFARIN NA 5 MG TABLET (UD) PO SCH (17:18)
[2018-01-19] MEDS: SENNOSIDES 8.6MG TABLET (FP) PO SCH (21:24)
[2018-01-19] MEDS: TAMSULOSIN HCL 0.4 MG CAP.ER.24H (FP) PO SCH (21:24)
[2018-01-19] MEDS: DIVALPROEX SODIUM 500 MG TABLET E.C. PO SCH (21:24)
[2018-01-19] MEDS: ATORVASTATIN CA 10 MG TABLET (FP) PO SCH (21:24)
[2018-01-19] MEDS: ARIPiprazole 10 MG TABLET PO SCH (21:24)
[2018-01-20] MEDS: PANTOPRAZOLE 20 MG TABLET (FP) PO SCH (06:28)
[2018-01-20 07:37] LABS: INR 2.39 (0.82-1.09)
[2018-01-20] MEDS ORDERED: PT OWN MED DRAWER 7, Y5N ONE ×2 (10:32→11:45)
[2018-01-20] MEDS: DOCUSATE SODIUM 100 MG CAPSULE (FP) PO SCH (10:33)
[2018-01-20] MEDS: MULTIVITAMINS (DAILY MVI) TABLET (FP) PO SCH (10:33)
[2018-01-20] MEDS: ASPIRIN 81 MG CHEWABLE TABLETS PO SCH (10:33)
[2018-01-20] MEDS: FINASTERIDE 5 MG TABLET (FP) PO SCH (10:33)
[2018-01-20] MEDS: DIVALPROEX SODIUM 250 MG TABLET E.C. PO SCH (10:34)
[2018-01-20] MEDS: MINERAL OIL/PETROLAT/WATER TOPICAL CREAM 113 GM JAR TP SCH (10:35)
--- NOTE | 2018-01-20 13:16 | PN ---
Teaching Attending Note Name of Resident: Jonathan Jovel ATTENDING PHYSICIAN STATEMENT I saw and evaluated the patient. I reviewed the resident's note and discussed the case with the resident. I agree with the resident's findings and plan as documented with exceptions below. SUBJECTIVE: patient seen and examined. no complaints. OBJECTIVE: Vital Signs Period Temp Pulse Resp BP Sys/Dickey Pulse Ox Last 24 Hr 97.5 F-98.4 F 60-74 18-22 100-138/42-52 97-97 Intake & Output 01/17/18 01/18/18 01/19/18 01/20/18 23:59 23:59 23:59 23:59 Intake Total 926 1946 1771 120 Output Total 400 1100 Balance 527 485 7865 120 General: sitting in bed in no acute distress Active Medications Acetaminophen (Tylenol -) 650 mg PO Q4H PRN PRN Reason: FEVER Last Admin: 01/13/18 00:37 Dose: 650 mg Aripiprazole (Abilify) 10 mg PO HS [facility] Last Admin: 01/19/18 21:24 Dose: 10 mg Aspirin (Asa -) 81 mg PO DAILY [facility] Last Admin: 01/20/18 10:33 Dose: 81 mg Atorvastatin Calcium (Lipitor -) 10 mg PO HS [facility] Last Admin: 01/19/18 21:24 Dose: 10 mg Divalproex Sodium (Depakote -) 750 mg PO DAILY [facility] Last Admin: 01/20/18 10:34 Dose: 750 mg Divalproex Sodium (Depakote -) 1,000 mg PO HS [facility] Last Admin: 01/19/18 21:24 Dose: 1,000 mg Docusate Sodium (Colace -) 100 mg PO DAILY [facility] Last Admin: 01/20/18 10:33 Dose: 100 mg Finasteride (Proscar -) 5 mg PO DAILY [facility] Last Admin: 01/20/18 10:33 Dose: 5 mg Heparin Sodium (Porcine) (Heparin -) 1,000 unit IVPUSH PRN PRN PRN Reason: Heparin Last Admin: 01/17/18 02:37 Dose: 1,000 unit Heparin Sodium (Porcine) (Heparin -) 5,000 unit IVPUSH PRN PRN PRN Reason: Heparin Heparin Sodium (Porcine) 25, (000 unit/ Sodium Chloride) 500 mls @ 16 mls/hr IV TITR [facility]; Protocol Last Admin: 01/19/18 17:16 Dose: 800 unit/hr, 16 mls/hr Levofloxacin (Levaquin -) 500 mg PO DAILY@0600 [facility] Last Admin: 01/20/18 06:28 Dose: 500 mg Multi-Ingredient Lotion (Eucerin (Small Jar) -) 1 applic TP DAILY [facility] Last Admin: 01/20/18 10:35 Dose: 1 applic Multivitamins/Minerals/Vitamin C (Tab-A-Vit -) 1 tab PO DAILY [facility] Last Admin: 01/20/18 10:33 Dose: 1 tab Pantoprazole Sodium (Protonix -) 20 mg PO ACBK [facility] Last Admin: 01/20/18 06:28 Dose: 20 mg Senna (Senna -) 1 tab PO HS [facility] Last Admin: 01/19/18 21:24 Dose: 1 tab Tamsulosin HCl (Flomax -) 0.4 mg PO HS [facility] Last Admin: 01/19/18 21:24 Dose: 0.4 mg Warfarin Sodium (Coumadin -) 5 mg PO DAILY@1800 [facility] Last Admin: 01/19/18 17:18 Dose: 5 mg Laboratory Results - last 24 hr 01/20/18 01/20/18 06:10 06:10 PT with INR 27.00 H INR 2.39 H PTT (Actin FS) 95.1 H D ASSESSMENT AND PLAN: 67yo M with PMH HTN, Mental retardation, CAD, enterococcal endocarditis in 2012 , aortic valve s/p mechanical valve replacement, seizure and thoracic aneurysm admitted with acute epididymoorchitis. -Right orchitis/Left epididymoorchitis -Acute cystitis -Coumadin coagulopathy -Thrombocytopenia -JOSE, possible infection +/- meds -h/o enterococcal endocarditis 2012 -BPH -HTN -Thoracic aneurysm -Mechanical aortic valve replacement Plan: INR noted. Doing well, d/c on coumadin 5 mg daily with INR check in 3 days. Levaquin for additional 2 days. Resume home medications. Plan discussed with RN and aide at bedside in detail, all questions answered. D/c home today.
[2018-01-20 15:46] VITALS: BP 90/56; PULSE 73; TEMP 98.2
== END 2018-01-20 15:53 | disposition home or self-care (01) | DRG 690 ==
LOC: JER 11:27 → JERBED 20:47 → UNDOADMOB 20:47 → INTOOBSV 20:47 → J5S 22:12 → JERBED 23:38 → J5S 23:38 → OBSVTOIN 01-14 11:28
PROVIDERS: ADMIT Internal Medicine; ATTEND Hospitalist
DX: N39.0 Urinary tract infection, site not specified (principal); D68.9 Coagulation defect, unspecified; G40.89 Other seizures; N17.9 Acute kidney failure, unspecified; D68.8 Other specified coagulation defects; N45.3 Epididymo-orchitis; F79 Unspecified intellectual disabilities; K80.20 Calculus of gallbladder without cholecystitis without obstruction; N28.1 Cyst of kidney, acquired; Z95.810 Presence of automatic (implantable) cardiac defibrillator; Z95.2 Presence of prosthetic heart valve; I25.10 Atherosclerotic heart disease of native coronary artery without angina pectoris; I10 Essential (primary) hypertension; E78.5 Hyperlipidemia, unspecified; Z86.718 Personal history of other venous thrombosis and embolism
CPT/HCPCS: 36415; 74177-TC; 76870-TC; 80048; 80053; 81003; 81015; 82436; 82570; 82962; 83735; 84100; 84133; 84300; 85025; 85027; 85610; 85730; 86735; 87040; 87086; 87491; 87591; 93005; 93010; 93306-TC; 97116-GP; 97161-GP; 99284-25; G0378; J1644; J7030

== ENCOUNTER 2018-03-04 20:42 | Emergency (ER) | payer OTHER ==
--- NOTE | 2018-03-04 20:52 | PDOC ---
Rapid Medical Evaluation Time Seen by Provider: 03/04/18 20:49 Medical Evaluation: Allergies Allergy/AdvReac Type Severity Reaction Status Date / Time beeswax Allergy Unknown Verified 02/07/18 15:45 venom-honey bee Allergy ANAPHYLAXIS Verified 02/07/18 15:45 [bee venom (honey bee)] 03/04/18 20:50 I have performed a brief in-person evaluation of this patient. The patient presents with a chief complaint of: frontal head abrasion s/p fall, trip and fall, CONTRACTS ADVISOR witnessed fall. on coumadin, no LOC Pertinent physical exam findings:+ abrasion noted in left frontal region, abrasion in b/l knees I have ordered the following:labs, CT, knee xray The patient will proceed to the ED for further evaluation. Discharge Disposition - Diagnosis Fall Qualifiers: Encounter type: initial encounter Qualified Code(s): W19.XXXA - Unspecified fall, initial encounter - Referrals - Patient Instructions - Post Discharge Activity
[2018-03-04 20:56] VITALS: TEMP 98.6; BMI 23.3
[2018-03-04] MEDS ORDERED: ACETAMINOPHEN 325 MG TABLET (FP) PO ONE (22:33)
--- NOTE | 2018-03-04 23:46 | PDOC ---
History of Present Illness - General Chief Complaint: Injury Stated Complaint: FALL INJURY TO HEAD Time Seen by Provider: 03/04/18 20:49 History Source: Patient - History of Present Illness Initial Comments: 03/05/18 00:58 Pt is a 67yo M with PMH HTN, Mental retardation, CAD, enterococcal endocarditis in 2012, aortic valve s/p mechanical valve replacement currently on coumadin, seizure and thoracic aneurysm presenting to ED brought by caregiver s/p trip and fall while on outting with staff. denies LOC/ nausea / vomiting. Pt has limited communication ability last tetanus unknown Past History - Past Medical History Allergies/Adverse Reactions: Allergies Allergy/AdvReac Type Severity Reaction Status Date / Time beeswax Allergy Unknown Verified 03/05/18 00:51 venom-honey bee Allergy ANAPHYLAXIS Verified 03/05/18 00:51 [bee venom (honey bee)] Home Medications: Ambulatory Orders Aripiprazole [Abilify] 10 mg PO HS 06/10/16 Aspirin [ASA -] 81 mg PO DAILY 06/10/16 Atorvastatin Ca [Lipitor] 10 mg PO HS 06/10/16 Finasteride 5 mg PO DAILY 06/10/16 Lisinopril [Zestril] 2.5 mg PO DAILY 06/10/16 Multivitamin [Poly-Vitamin] 1 each PO DAILY 06/10/16 Omeprazole 20 mg PO DAILY 06/10/16 Tamsulosin HCl [Flomax -] 0.4 mg PO HS 01/12/18 Warfarin Na [Coumadin -] 5 mg PO ASDIR 02/08/18 Divalproex [Depakote -] 1,000 mg PO HS tablet.ec 02/19/18 Divalproex [Depakote -] 750 mg PO DAILY tablet.ec 02/19/18 Anemia: No Asthma: No Cancer: No Cardiac Disorders: Yes (aortic valve disorder, dvt, cardiomegaly) CVA: Yes COPD: No CHF: No DVT: No Dementia: No Diabetes: No GI Disorders: Yes (volvulus of intestine, bowel or colon, SBO, POLYPS) Disorders: (volvulus of intestine, bowel or colon, SBO) HTN: Yes Hypercholesterolemia: Yes (HYPERLIPIDEMIA) Liver Disease: No Seizures: Yes Thyroid Disease: No - Surgical History Abdominal Surgery: Yes (aortic root repair and area) Appendectomy: No Cardiac Surgery: Yes (heart valve repair) Cholecystectomy: No Lung Surgery: No Neurologic Surgery: No Orthopedic Surgery: No - Immunization History Immunization Up to Date: Yes - Suicide/Smoking/Psychosocial Hx Smoking Status: No Smoking History: Never smoked Years of Tobacco Use: 0 Have you smoked in the past 12 months: No Number of Cigarettes Smoked Daily: 0 Cigars Per Day: 0 Information on smoking cessation initiated: No Hx Alcohol Use: No Drug/Substance Use Hx: No Substance Use Type: None Hx Substance Use Treatment: No Review of Systems - Review of Systems Able to Perform ROS?: Yes Is the patient limited Italian proficient: No Constitutional: Yes: Other (head injury) *Physical Exam - Vital Signs Last Vital Signs Temp Pulse Resp BP Pulse Ox 98.6 F 77 16 134/80 99 03/04/18 20:50 03/04/18 20:50 03/04/18 20:50 03/04/18 20:50 03/04/18 20:50 - Physical Exam General Appearance: Yes: Appropriately Dressed HEENT: positive: Other (abrasion to forehead and b/l knee abrasion. no deformity no swelling. ) Musculoskeletal: positive: CVA Tenderness (L) Extremity: positive: Normal Capillary Refill, Normal Inspection, Normal Range of Motion, Other (able to weightbear) Neurologic: positive: Fully Oriented, Alert, Normal Mood/Affect ED Treatment Course - LABORATORY CBC & Chemistry Diagram: 03/04/18 23:50 03/04/18 23:50 Progress Note - Progress Note Progress Note: A: head injury on coumadin P: CT head LAbs abrasions to knee. if unable to weightbear will consider imaging Medical Decision Making - Medical Decision Making 03/05/18 01:16 patient able to weight bear with normal gait for patient. will d/c back to facility. *DC/Admit/Observation/Transfer Diagnosis at time of Disposition: Abrasion of skin Fall Qualifiers: Encounter type: initial encounter Qualified Code(s): W19.XXXA - Unspecified fall, initial encounter Head injury, acute Qualifiers: Encounter type: initial encounter Qualified Code(s): S09.90XA - Unspecified injury of head, initial encounter - Discharge Dispostion Disposition: HOME Condition at time of disposition: Stable - Referrals - Patient Instructions Printed Discharge Instructions: DI for Closed Head Injury Additional Instructions: rest and relax as much as possible after a head injury. keep abrasions clean and dry. you may apply bacitracin to the wound. follow up with his do doctor as soon as possible. - Post Discharge Activity
[2018-03-05] MEDS ORDERED: ACETAMINOPHEN 325 MG TABLET (FP) ONE
[2018-03-05 00:08] LABS: HEMATOCRIT 36.5 % (35.4-49); HEMOGLOBIN 11.9 GM/dL (11.7-16.9); MCH 29.4 pg (25.7-33.7); MCHC 32.5 g/dl (32.0-35.9); MEAN CELL VOLUME 90.5 fl (80-96); MEAN PLT VOLUME 9.8 fl (7.5-11.1); PLATELET COUNT 143 K/MM3 (134-434); RBC 4.03 M/mm3 (4.00-5.60); RDW 16.1 % (11.9-15.9)
[2018-03-05 00:34] LABS: INR 1.08 (0.83-1.09); PROTHROMBIN TIME (PATIENT) 12.2 SEC (9.7-13.0)
[2018-03-05 00:44] LABS: ANION GAP 7 MMOL/L (8-16); BLOOD UREA NITROGEN 26 mg/dL (7-18); CALCIUM 8.6 mg/dL (8.5-10.1); CHLORIDE 110 mmol/L (98-107); CO2 27 mmol/L (21-32); CREATININE 1.2 mg/dL (0.7-1.3); GLUCOSE,RANDOM 88 mg/dL (74-106); SGPT/ALT 19 U/L (12-78); SODIUM 144 mmol/L (136-145)
[2018-03-05 00:45] LABS: ALK PHOS 52 U/L (45-117); BILIRUBIN,TOTAL 0.3 mg/dL (0.2-1.0); TOT PROT 6.3 g/dl (6.4-8.2)
[2018-03-05 00:46] LABS: SGOT/AST 30 U/L (15-37)
[2018-03-05 00:47] LABS: POTASSIUM 4.8 mmol/L (3.5-5.1)
[2018-03-05] MEDS ORDERED: DIPHTH,PERTUSS(ACELL),TET 0.5 ML DISP.SYRIN IM ONE (00:59)
[2018-03-05 01:35] VITALS: BP 138/76; PULSE 80
== END 2018-03-05 01:35 | disposition home or self-care (01) ==
LOC: JER 20:42
PROC: 3E0234Z Introduction of Serum, Toxoid and Vaccine into Muscle, Percutaneous Approach (ICD-10-PCS; principal; 2018-03-04)
DX: S80.219A Abrasion, unspecified knee, initial encounter (principal); W18.09XA Striking against other object with subsequent fall, initial encounter; Y93.89 Activity, other specified; Y92.89 Other specified places as the place of occurrence of the external cause; Z79.01 Long term (current) use of anticoagulants; I10 Essential (primary) hypertension; Z86.73 Personal history of transient ischemic attack (TIA), and cerebral infarction without residual deficits
CPT/HCPCS: 36415; 70450-TC; 80053; 85027; 85610; 90715; 99283-25

== ENCOUNTER 2018-07-07 10:07 | Emergency (ER) | payer OTHER ==
[2018-07-07 10:29] VITALS: BP 103/54; PULSE 72; TEMP 98.7; BMI 24.2
[2018-07-07 11:12] LABS: URINE APPEARANCE CLEAR; URINE BILIRUBIN NEGATIVE (<2.0 mg/dL); URINE COLOR DKYELLOW; URINE GLUCOSE (UA) NEGATIVE (NEGATIVE); URINE KETONE TRACE (NEGATIVE); URINE LEUK ESTERASE NEGATIVE (NEGATIVE); URINE NITRITE NEGATIVE (NEGATIVE); URINE PROTEIN NEGATIVE (NEGATIVE); URINE UROBILINOGEN NEGATIVE mg/dL (0.2-1.0)
--- NOTE | 2018-07-07 12:04 | PDOC ---
History of Present Illness - General Chief Complaint: Cold Symptoms Stated Complaint: WEAKNESS Time Seen by Provider: 07/07/18 10:56 - History of Present Illness Initial Comments: 07/07/18 12:00 67-year-old started to show localized male presents for evaluation of cough 2 days. Poor historian. Does not answer questions. Past History - Past Medical History Allergies/Adverse Reactions: Allergies Allergy/AdvReac Type Severity Reaction Status Date / Time beeswax Allergy Unknown Verified 03/05/18 00:51 venom-honey bee Allergy ANAPHYLAXIS Verified 03/05/18 00:51 [bee venom (honey bee)] Home Medications: Ambulatory Orders Aripiprazole [Abilify] 10 mg PO HS 06/10/16 Aspirin [ASA -] 81 mg PO DAILY 06/10/16 Atorvastatin Ca [Lipitor] 10 mg PO HS 06/10/16 Finasteride 5 mg PO DAILY 06/10/16 Lisinopril [Zestril] 2.5 mg PO DAILY 06/10/16 Multivitamin [Poly-Vitamin] 1 each PO DAILY 06/10/16 Omeprazole 20 mg PO DAILY 06/10/16 Tamsulosin HCl [Flomax -] 0.4 mg PO HS 01/12/18 Warfarin Na [Coumadin -] 5 mg PO ASDIR 02/08/18 Divalproex [Depakote -] 1,000 mg PO HS tablet.ec 02/19/18 Divalproex [Depakote -] 750 mg PO DAILY tablet.ec 02/19/18 Oseltamivir Phosphate [Tamiflu -] 75 mg PO BID #10 capsule 07/07/18 Anemia: No Asthma: No Cancer: No Cardiac Disorders: Yes (aortic valve disorder, dvt, cardiomegaly) CVA: Yes COPD: No CHF: No DVT: No Dementia: No Diabetes: No GI Disorders: Yes (volvulus of intestine, bowel or colon, SBO, POLYPS) Disorders: (volvulus of intestine, bowel or colon, SBO) HTN: Yes Hypercholesterolemia: Yes (HYPERLIPIDEMIA) Liver Disease: No Seizures: Yes Thyroid Disease: No - Surgical History Abdominal Surgery: Yes (aortic root repair and area) Appendectomy: No Cardiac Surgery: Yes (heart valve repair) Cholecystectomy: No Lung Surgery: No Neurologic Surgery: No Orthopedic Surgery: No - Immunization History Immunization Up to Date: Yes - Suicide/Smoking/Psychosocial Hx Smoking Status: No Smoking History: Never smoked Years of Tobacco Use: 0 Have you smoked in the past 12 months: No Number of Cigarettes Smoked Daily: 0 Cigars Per Day: 0 Information on smoking cessation initiated: No Hx Alcohol Use: No Drug/Substance Use Hx: No Substance Use Type: None Hx Substance Use Treatment: No Review of Systems - Review of Systems Able to Perform ROS?: No *Physical Exam - Vital Signs Last Vital Signs Temp Pulse Resp BP Pulse Ox 98.7 F 72 16 103/54 L 97 07/07/18 10:24 07/07/18 10:24 07/07/18 10:24 07/07/18 10:24 07/07/18 10:24 - Physical Exam Comments: 07/07/18 12:03 HEAD: NC/AT EYES: Conjuntiva clear Ears: Canals and TM's normal NOSE: No d/c THROAT: Moist mucous membrances, oral pharanx clear, uvula midline NECK: Supple without adenopathy CARDIAC: S1 S2 LUNGS: CTA Full and Equal breath sounds ABDOMEN: Soft NT ND MS: Full ROM in all joints without edema NEUROLOGIC: No gross sensory or motor deficits, NVID SKIN: Normal color and temperature no lesions or rashes Moderate Sedation - Procedure Monitoring Vital Signs: Procedure Monitoring Vital Signs Temperature 98.7 F 07/07/18 10:24 Pulse Rate 72 07/07/18 10:24 Respiratory Rate 16 07/07/18 10:24 Blood Pressure 103/54 L 07/07/18 10:24 O2 Sat by Pulse Oximetry (%) 97 07/07/18 10:24 ED Treatment Course - ADDITIONAL ORDERS Additional order review: Laboratory Results 07/07/18 11:02 Urine Color Dkyellow Urine Appearance Clear Urine pH 5.0 Ur Specific [place] 1.023 Urine Protein Negative Urine Glucose (UA) Negative Urine Ketones Trace H Urine Blood Negative Urine Nitrite Negative Urine Bilirubin Negative Urine Urobilinogen Negative Ur Leukocyte Esterase Negative - RADIOLOGY Radiology Studies Ordered: Category Date Time Status CHEST PA & LAT [RAD] Stat Radiology 07/07/18 11:14 Completed *DC/Admit/Observation/Transfer Diagnosis at time of Disposition: Influenza A - Discharge Dispostion Disposition: HOME Condition at time of disposition: Stable Decision to Admit order: No - Prescriptions Prescriptions: Oseltamivir Phosphate [Tamiflu -] 75 mg PO BID #10 capsule - Referrals Referrals: Heidi Martin MD [Staff Physician] - - Patient Instructions Printed Discharge Instructions: Influenza Additional Instructions: Return to the emergency room should symptoms worsen or go unresolved. Please follow-up with your primary care physician once 2 days for further evaluation and treatment options. Tylenol for fever should he require - Post Discharge Activity
== END 2018-07-07 12:08 | disposition home or self-care (01) ==
LOC: JERFT 10:07
DX: J09.X2 Influenza due to identified novel influenza A virus with other respiratory manifestations (principal); I10 Essential (primary) hypertension; E78.5 Hyperlipidemia, unspecified; R56.9 Unspecified convulsions; I51.9 Heart disease, unspecified
CPT/HCPCS: 71046-TC-FY; 81003; 87086; 87804; 99281-25

== ENCOUNTER 2018-12-31 16:59 | Inpatient (IN) | payer OTHER ==
[2018-12-31 17:17] VITALS: BMI 24.7
[2018-12-31 18:09] LABS: PH,URINE 5.5 (5.0-8.0); URINE APPEARANCE CLEAR; URINE BILIRUBIN NEGATIVE (NEGATIVE); URINE COLOR YELLOW; URINE GLUCOSE (UA) NEGATIVE (NEGATIVE); URINE KETONE NEGATIVE (NEGATIVE); URINE LEUK ESTERASE NEGATIVE (NEGATIVE); URINE NITRITE NEGATIVE (NEGATIVE); URINE PROTEIN NEGATIVE (NEGATIVE)
--- NOTE | 2018-12-31 19:04 | PDOC ---
History of Present Illness - General Chief Complaint: Pain Stated Complaint: ABD PAIN Time Seen by Provider: 12/31/18 17:13 - History of Present Illness Initial Comments: 12/31/18 20:32 Casey Marte is a 68yo man with a PMH of severe intellectual disability, minimally verbal at baseline, HTN, CAD, enterococcal endocarditis (2012), s/p mechanical aortic valve replacement, s/p pacemaker placement, seizures, thoracic aortic aneurysm, chronic orchitis, bpiolor disorder, GERD, and BPH who presents with bilateral lower abdominal pain today. [facility] a [facility] with nursing staff at bedside. Per the staff member, Mr Marte has been in his normal state of health recently but indicated abdominal pain today. She is not aware of any fevers, chills, or difficulty eating. She states that the day staff reported he had a normal bowel movement earlier today. She additionally says that the pt has been requesting food for the past hour or so. She is not aware of any other recent or current symptoms. Past History - Past Medical History Allergies/Adverse Reactions: Allergies Allergy/AdvReac Type Severity Reaction Status Date / Time beeswax Allergy Unknown Verified 12/31/18 17:51 venom-honey bee Allergy ANAPHYLAXIS Verified 12/31/18 17:51 [bee venom (honey bee)] Home Medications: Ambulatory Orders Aripiprazole [Abilify] 10 mg PO HS 06/10/16 Aspirin [ASA -] 81 mg PO DAILY 06/10/16 Atorvastatin Ca [Lipitor] 10 mg PO HS 06/10/16 Finasteride 5 mg PO DAILY 06/10/16 Lisinopril [Zestril] 2.5 mg PO DAILY 06/10/16 Tamsulosin HCl [Flomax -] 0.4 mg PO HS 01/12/18 Warfarin Na [Coumadin -] 5 mg PO ASDIR 02/08/18 Divalproex [Depakote -] 250 mg PO HS 12/31/18 Divalproex [Depakote -] 500 mg PO DAILY 12/31/18 Anemia: No Asthma: No Cancer: No Cardiac Disorders: Yes (aortic valve disorder, dvt, cardiomegaly) CVA: Yes COPD: No CHF: No DVT: No Dementia: No Diabetes: No GI Disorders: Yes (volvulus of intestine, bowel or colon, SBO, POLYPS) Disorders: (volvulus of intestine, bowel or colon, SBO) HTN: Yes Hypercholesterolemia: Yes (HYPERLIPIDEMIA) Liver Disease: No Seizures: Yes Thyroid Disease: No - Surgical History Abdominal Surgery: Yes (aortic root repair and area) Appendectomy: No Cardiac Surgery: Yes (heart valve repair) Cholecystectomy: No Lung Surgery: No Neurologic Surgery: No Orthopedic Surgery: No - Immunization History Immunization Up to Date: Yes - Suicide/Smoking/Psychosocial Hx Smoking Status: No Smoking History: Never smoked Years of Tobacco Use: 0 Have you smoked in the past 12 months: No Number of Cigarettes Smoked Daily: 0 Cigars Per Day: 0 Information on smoking cessation initiated: No Hx Alcohol Use: No Drug/Substance Use Hx: No Substance Use Type: None Hx Substance Use Treatment: No Review of Systems - Review of Systems Comments:: Could not obtain, pt nonverbal *Physical Exam - Vital Signs Last Vital Signs Temp Pulse Resp BP Pulse Ox 97.4 F L 72 18 109/69 100 12/31/18 17:13 12/31/18 17:13 12/31/18 17:13 12/31/18 17:13 12/31/18 17:13 - Physical Exam Comments: General: Comfortable, no acute distress HEENT: PERRL, EOMI, MMM, voice normal, normal neck ROM, no LAD Cards: RRR, no murmur appreciated Pulm: Comfortable on room air, clear to auscultation bilaterally Abd: Soft. TTP in b/l lower abdomen. Moderately distended. : No CVA tenderness. Normal external genitalia. No localized swelling, no TTP , no edema, no erythema. No palpable hernia Ext: Atraumatic. No LE edema Neuro: Awake, non-verbal, CN grossly intact, moves all extremities ED Treatment Course - LABORATORY CBC & Chemistry Diagram: 12/31/18 20:52 12/31/18 20:52 - ADDITIONAL ORDERS Additional order review: Laboratory Results 12/31/18 18:00 Urine Color Yellow Urine Appearance Clear Urine pH 5.5 Ur Specific [place] 1.012 Urine Protein Negative Urine Glucose (UA) Negative Urine Ketones Negative Urine Blood Negative Urine Nitrite Negative Urine Bilirubin Negative Urine Urobilinogen 1.0 Ur Leukocyte Esterase Negative Medical Decision Making - Medical Decision Making 12/31/18 19:04 Attempted to see patient twice. He is at ultrasound, which was ordered in E. Will evaluate when he returns from US. 12/31/18 20:32 Casey Marte is a 68yo man with a PMH of severe intellectual disability, minimally verbal at baseline, HTN, CAD, enterococcal endocarditis (2012), s/p mechanical aortic valve replacement, s/p pacemaker placement, seizures, thoracic aortic aneurysm, chronic orchitis, bpiolor disorder, GERD, and BPH who presents with bilateral lower abdominal pain today. There are no other known symptoms, and Mr Marte is unable to provide additional information. - Seen initially in [facility] and sent for abdominal and scrotal US, which has been completed. Shows evidence of known chronic orchitis and epididimitis, poorly visualized blood flow in left testicle similar to previous ultrasounds - Testicular exam benign when seen after US - Pt grimices w/ palpation of the lower abdomen and apepars somewhat distended. With history of aneurysm, numerous other chronic medical problems, and inability to describe his symptoms, need to consider a wide diagnosis including aortic aneurysm and mesenteric ischemia. Additionally, staff member was not present for reported BM earlier today, and she was not working prior to 4pm. It is possible there were additional symptoms or factors that are not known currently - UA and UCx ordered in E. Adding CBC, CMP, lactate. CTA chest/abd/pelvis for evaluation - Cr was previously 1.2. Fluids ordered prior to CT 12/31/18 23:40 - Pt still at CT; has not yet been completed 01/01/19 00:33 - Signed out to Dr Nascimento for the remainder of his ED care. Discussed with George Champagne and Cyril. Kanwal Dickinson PGY2 *DC/Admit/Observation/Transfer Diagnosis at time of Disposition: Abdominal pain in male - Referrals - Patient Instructions - Post Discharge Activity
[2018-12-31] MEDS ORDERED: SODIUM CHLORIDE 0.9% 500 ML INFUS.BAG IV ONE (20:23)
[2018-12-31 21:10] LABS: BASO % 0.3 % (0-2.0); EOS % 2.7 % (0-4.5); HEMOGLOBIN 12.2 GM/dL (11.7-16.9); LYMPH % 44.6 % (8-40); MCH 29.3 pg (25.7-33.7); MCHC 32.2 g/dl (32.0-35.9); MEAN CELL VOLUME 90.9 fl (80-96); MEAN PLT VOLUME 9.8 fl (7.5-11.1); MONO % 14.5 % (3.8-10.2); NEUT % 37.9 % (42.8-82.8); PLATELET COUNT 105 K/MM3 (134-434); RBC 4.18 M/mm3 (4.00-5.60); RDW 16.9 % (11.9-15.9); WHITE BLOOD COUNT 3.5 K/mm3 (4.0-10.0)
[2018-12-31 21:30] LABS: ALBUMIN 2.8 g/dl (3.4-5.0); BILIRUBIN,TOTAL 0.2 mg/dL (0.2-1); BLOOD UREA NITROGEN 15.7 mg/dL (7-18); CALCIUM 7.1 mg/dL (8.5-10.1); CREATININE 1.2 mg/dL (0.55-1.3); POTASSIUM 5.1 mmol/L (3.5-5.1); TOT PROT 6.2 g/dl (6.4-8.2)
--- NOTE | 2018-12-31 23:40 | PDOC ---
Documentation entered by Kanu Ruelas SCRIBE, acting as scribe for Kira Champagne DO. Kira Champagne DO: This documentation has been prepared by the meera, Kanu Ruelas SCRIBE, under my direction and personally reviewed by me in its entirety. I confirm that the documentation accurately reflects all work , treatment, procedures, and medical decision making performed by me. Attending Attestation - Resident Resident Name: Kanwal Dickinson - ED Attending Attestation I have performed the following: I have examined & evaluated the patient, The case was reviewed & discussed with the resident, I agree w/resident's findings & plan - HPI HPI: 12/31/18 21:07 Patient is a 68 year old male with a significant PMH of HTN, CAD, enterococcal endocarditis (2012), s/p mechanical aortic valve replacement, s/p pacemaker placement, seizures, thoracic aortic aneurysm, chronic orchitis, bipolar disorder, GERD, and BPH who presents to the ED via halfway who presents to the with bilateral lower abdominal pain. As per prison staff member at bedside, the patient mentioned the abdominal pain. History limited secondary to patient having severe intellectual disability and minimally verbal at baseline. Denies fever, chills, difficulty eating and changes in bowel movement. Allergies: Beeswax, Venom-Honey Bee PCP: Dr. Mcadams - Physicial Exam PE: 12/31/18 21:08 Agree with Resident's exam - Medical Decision Making 12/31/18 23:37 68-year-old male with apparent lower abdominal pain Patient has a complicated past medical history with significant comorbidities Plan for CTA of the chest abdomen and pelvis to visualize aorta as well as rule out gastrointestinal pathology Labs, EKG Plan for possible admission pending workup
[2019-01-01] MEDS ORDERED: ACETAMINOPHEN 1000 MG/100 ML VIAL (NON FORMULARY) IVPB ONE (00:45)
[2019-01-01] MEDS ORDERED: ACETAMINOPHEN INJECTION 100 ML IVPB ONE (01:01)
--- NOTE | 2019-01-01 01:04 | PDOC ---
*Physical Exam - Vital Signs Last Vital Signs Temp Pulse Resp BP Pulse Ox 97.7 F 60 18 105/56 L 98 12/31/18 21:20 12/31/18 21:20 12/31/18 21:20 12/31/18 21:20 12/31/18 21:20 ED Treatment Course - LABORATORY CBC & Chemistry Diagram: 12/31/18 20:52 12/31/18 20:52 - ADDITIONAL ORDERS Additional order review: Laboratory Results 12/31/18 12/31/18 12/31/18 20:52 20:52 20:52 Sodium 143 Potassium 5.1 Chloride 112 H Carbon Dioxide 29 Anion Gap 2 L BUN 15.7 Creatinine 1.2 Est GFR (CKD-EPI)AfAm 71.08 Est GFR (CKD-EPI)NonAf 61.33 Random Glucose 84 Lactic Acid 0.8 Calcium 7.1 L Total Bilirubin 0.2 AST 27 ALT 18 Alkaline Phosphatase 56 Creatine Kinase 221 Creatine Kinase Index 1.4 CK-MB (CK-2) 3.3 Troponin I 0.08 H Total Protein 6.2 L Albumin 2.8 L Urine Color Urine Appearance Urine pH Ur Specific [place] Urine Protein Urine Glucose (UA) Urine Ketones Urine Blood Urine Nitrite Urine Bilirubin Urine Urobilinogen Ur Leukocyte Esterase 12/31/18 18:00 Sodium Potassium Chloride Carbon Dioxide Anion Gap BUN Creatinine Est GFR (CKD-EPI)AfAm Est GFR (CKD-EPI)NonAf Random Glucose Lactic Acid Calcium Total Bilirubin AST ALT Alkaline Phosphatase Creatine Kinase Creatine Kinase Index CK-MB (CK-2) Troponin I Total Protein Albumin Urine Color Yellow Urine Appearance Clear Urine pH 5.5 Ur Specific [place] 1.012 Urine Protein Negative Urine Glucose (UA) Negative Urine Ketones Negative Urine Blood Negative Urine Nitrite Negative Urine Bilirubin Negative Urine Urobilinogen 1.0 Ur Leukocyte Esterase Negative 12/31/18 20:52 RBC 4.18 MCV 90.9 MCHC 32.2 RDW 16.9 H MPV 9.8 Neutrophils % 37.9 L D Lymphocytes % 44.6 H Monocytes % 14.5 H Eosinophils % 2.7 D Basophils % 0.3 - Medications Given in the ED: ED Medications Discontinued Medications Generic Name Dose Route Start Last Admin Trade Name Freq PRN Reason Stop Dose Admin Sodium Chloride 1,000 ml 12/31/18 20:23 12/31/18 20:59 Normal Saline - IV 12/31/18 20:24 1,000 ml ONCE ONE Administration Medical Decision Making - Medical Decision Making Pt was signed out to me by resident Dr. Dickinson, who explained the presentation, ED course, any pending results, and needed interventions. Pending results include CTA chest and abd/pelvis. Pt is currently stable and is lying comfortably. 01/01/19 01:02 CTA abd/pelvis showed no acute pathology. Pt admitted to hospitalist team to telemetry considering elevated troponin (No EKG changes). Troponin will be repeated to trend. Providing 1 g IV ofirmev for abd pain. 01/01/19 01:03 *DC/Admit/Observation/Transfer Diagnosis at time of Disposition: Abdominal pain in male - Referrals - Patient Instructions - Post Discharge Activity
--- NOTE | 2019-01-01 02:03 | PN ---
Teaching Attending Note Name of Resident: Sunita Garcia ATTENDING PHYSICIAN STATEMENT I saw and evaluated the patient. I reviewed the resident's note and discussed the case with the resident. I agree with the resident's findings and plan as documented. SUBJECTIVE: Patient is a 68 year old man - resident of a Sn[facility] - with a PMH of severe intellectual disability, minimally verbal at baseline, HTN, CAD, enterococcal endocarditis (2012), s/p mechanical aortic valve replacement, s/p pacemaker placement, seizures, thoracic aortic aneurysm, chronic epididymo-orchitis, bipolar disorder, GERD and BPH who presents with bilateral lower abdominal pain today. Per the staff member at bedside, Mr Marte has been in his normal state of health recently but indicated abdominal pain today. She is not aware of any fevers, chills, or difficulty eating. She states that the day staff reported he had a normal bowel movement earlier today. She additionally says that the patient has been requesting food for the past hour or so. She is not aware of any other recent or current symptoms. OBJECTIVE: Alert Vital Signs Period Temp Pulse Resp BP Sys/Dickey Pulse Ox Last 24 Hr 97.4 F-98.2 F 60-72 18-19 105-122/56-69 96-100 HEENT: No Jaundice, eye redness or discharge, PERRLA, EOMI. Normocephalic, atraumatic. External ears are normal and hearing is grossly intact. No nasal discharge. Neck: Supple, nontender. No palpable adenopathy or thyromegaly. No JVD Chest: Good effort. Clear to auscultation and percussion. Heart: Regular. No S3, rub or murmur Abdomen: Not distended, soft, bilateral inguinal tenderness (L>R) and no HSM. No rebound or guarding. Normal bowel sounds. Ext: Peripheral pulses intact. No leg edema. Skin: Warm and dry. No petechiae, rash or ecchymosis. Neuro: Alert. Oriented to person. CN 2-12 grossly intact. Sensation grossly intact in all four extremities and DTR are symmetric. Psych: Appropriate mood and affect. Current Medications Generic Name Dose Route Start Last Admin Trade Name Freq PRN Reason Stop Dose Admin Aripiprazole 10 mg 01/01/19 22:00 Abilify PO HS YANETH Aspirin 81 mg 01/01/19 10:00 Asa - PO DAILY YANETH Atorvastatin Calcium 10 mg 01/01/19 22:00 Lipitor - PO HS [facility] Divalproex Sodium 250 mg 01/01/19 22:00 Depakote - PO HS [facility] Divalproex Sodium 500 mg 01/01/19 10:00 Depakote - PO DAILY [facility] Finasteride 5 mg 01/01/19 10:00 Proscar - PO DAILY [facility] Lisinopril 2.5 mg 01/01/19 10:00 Prinivil PO DAILY [facility] Tamsulosin HCl 0.4 mg 01/01/19 22:00 Flomax - PO HS [facility] Warfarin Sodium 5 mg 01/01/19 18:00 Coumadin - PO TuTh@1800 [facility] Home Medications Medication Instructions Recorded Aripiprazole [Abilify] 10 mg PO HS 06/10/16 Aspirin [ASA -] 81 mg PO DAILY 06/10/16 Atorvastatin Ca [Lipitor] 10 mg PO HS 06/10/16 Finasteride 5 mg PO DAILY 06/10/16 Lisinopril [Zestril] 2.5 mg PO DAILY 06/10/16 Tamsulosin HCl [Flomax -] 0.4 mg PO HS 01/12/18 Warfarin Na [Coumadin -] 5 mg PO ASDIR 02/08/18 Divalproex [Depakote -] 250 mg PO HS 12/31/18 Divalproex [Depakote -] 500 mg PO DAILY 12/31/18 Abnormal Lab Results 12/31/18 12/31/18 12/31/18 20:52 20:52 20:52 WBC 3.5 L RDW 16.9 H Plt Count 105 L D Absolute Neuts (auto) 1.3 L Neutrophils % 37.9 L D Lymphocytes % 44.6 H Monocytes % 14.5 H Chloride 112 H Anion Gap 2 L Calcium 7.1 L Troponin I 0.08 H Total Protein 6.2 L Albumin 2.8 L ASSESSMENT AND PLAN: 1. Chronic ?recurrent epididymo-orchitis - Lower abdominal pain/inguinal pain may be referred pain from chronic epididymo-orchitis. No scrotal tenderness at this time. CTA chest/abdomen/pelvis showed no acute pathology. Scrotal sonogram showed evidence of chronic/subacute epididymo-orchitis, but left tesicular torsion cannot be ruled out so a CT scan is recommended. Patient has been treated at several times in the past 1 year with Rocephin/Doxycycline/ Levofloxacin for epididymo-orchitis. Will withhold antibiotics for now and get a CT to rule out torsion of the left testes. Consult ID and Urology. Elevated troponin likely due to demand ischemia. EKG shows atrial sensed ventricular paced rhythm similar to prior EKGs but now has occasional PVC. Will trend troponin and repeat EKG to rule out ACS. Thrombocytopenia is reportedly being worked up as an outpatient - cause is unclear, but drug side effect (? Depakote) is a possibility. Will liaise with his PCP/Neurologist to consider switching to another anticonvulsant ad monitor the effect on the platelet count. 2. Hypoalbuminemia - Possibly due to combined effects of malnutrition and inflammation associated with comorbid chronic conditions. Will ensure adequate dietary protein intake and also consult phonograph mechanic. 3. Hypertension - Restart suitable outpatient antihypertensive drugs when clinically appropriate. Revise regimen to ensure good BP control. Nonpharmacologic measures to control hypertension like weight loss, salt restriction and exercise discussed. 4. DVT prophylaxis - On Coumadin for mechanical aortic valve. 5. Advance directives - Full code
--- NOTE | 2019-01-01 05:41 | HP ---
CHIEF COMPLAINT: Abdominal pain PCP: Dr. Jones HISTORY OF PRESENT ILLNESS: History obtained from nurse who came with patient from [facility] 68 year old male with PMH significant for severe intellectual disability, minimally verbal baseline, HTN, CAD, AV replacement, who came in complaining of suprapubic pain after returning from program to his care home in the afternoon. Patient reported no activity during program in the morning that would have resulted in trauma to the abdomen or groin area. He points to the left lower quadrant and inguinal region when asked about pain. He has no change in pain, and he feels better now after receiving pain medication. Nurse noted that patient has a high threshold for pain before he will normally complain. Nurse noted that patient has been seeing surgeon for inguinal hernia and is currently being non-operatively managed for it. No change in diet. He moved his bowels in the morning, with no change in quality of stool. No nausea, vomiting, or change in appetite. He has been able to urinate without dysuria or hematuria. He has normal volume to his urine . No fevers, or shortness of breath , or chest pain. In the ER he was given Tylenol, and an U/S of his scrotum was completed. The U/ S showed decreased flow in his right testes, and no flow was visualized in his left testes. There wad diffuse epidymal thickening. There was no sonographic evidence of hernia. CT Chest/Thorax and Abdomen was completed which showed no evidence of pulmonary embolus, dissection, no effusion, gallstones without inflammation or duct dilation. Recent Travel:None. PAST MEDICAL HISTORY: Severe intellectual disability, HTN, enterococcal endocarditis, seizures, inguinal hernia, Anxiety Disorder, Bipolar Type I, Volvulus of intestine, Cervical disc degeneration C3,4,5, Enlarged prostate,BPH, GERD, chronic orchitis , thoracic aortic aneurysm. PAST SURGICAL HISTORY: Pacemaker implant, Heart valve repair, Aortic root repair, bowel resection. Social History: Smoking:None Alcohol: None Drugs: None Family History: Unable to obtain Allergies beeswax Allergy (Unknown, Verified 12/31/18 17:51) venom-honey bee [bee venom (honey bee)] Allergy (Verified 12/31/18 17:51) ANAPHYLAXIS BEE STING HOME MEDICATIONS: Home Medications Medication Instructions Recorded Aripiprazole [Abilify] 10 mg PO HS 06/10/16 Aspirin [ASA -] 81 mg PO DAILY 06/10/16 Atorvastatin Ca [Lipitor] 10 mg PO HS 06/10/16 Finasteride 5 mg PO DAILY 06/10/16 Lisinopril [Zestril] 2.5 mg PO DAILY 06/10/16 Tamsulosin HCl [Flomax -] 0.4 mg PO HS 01/12/18 Warfarin Na [Coumadin -] 5 mg PO ASDIR 02/08/18 Divalproex [Depakote -] 250 mg PO HS 12/31/18 Divalproex [Depakote -] 500 mg PO DAILY 12/31/18 REVIEW OF SYSTEMS CONSTITUTIONAL: No fever, chills, diaphoresis, generalized weakness, or loss of appetite CARDIOVASCULAR: No chest pain, palpitations RESPIRATORY: No cough, shortness of breath, dyspnea with exertion GENITOURINARY: No dysuria, frequency, urgency, hesitancy, hematuria, flank pain , genital pain PHYSICAL EXAMINATION Vital Signs - 24 hr 12/31/18 12/31/18 12/31/18 17:13 21:12 21:20 Temperature 97.4 F L 98.2 F 97.7 F Pulse Rate 72 Pulse Rate [ 71 60 Left Radial] Respiratory 18 19 18 Rate Blood Pressure 109/69 Blood Pressure 122/59 L 105/56 L [Left Arm] O2 Sat by Pulse 100 96 98 Oximetry (%) 01/01/19 01/01/19 02:00 03:33 Temperature 98.2 F 98 F Pulse Rate 66 Pulse Rate [ 60 Left Radial] Respiratory 18 18 Rate Blood Pressure 126/64 Blood Pressure 94/59 L [Left Arm] O2 Sat by Pulse 95 99 Oximetry (%) GENERAL: Awake, alert, and cooperative with examiner. HEAD: Normal with no signs of trauma. EYES: Sclera anicteric, conjunctiva clear EARS, NOSE, THROAT: External ears atraumatic. Moist mucous membranes. NECK: Normal range of motion, supple without lymphadenopathy, no JVD, LUNGS: Breath sounds equal, clear to auscultation bilaterally. No wheezes, and no crackles. HEART: Regular rate and rhythm, S1 and S2 present. ABDOMEN: Soft, nontender, not distended, normoactive bowel sounds, no guarding, no rebound, no masses. No masses in the groin area. Testicular exam was non- tender. UPPER EXTREMITIES: 2+ pulses, warm, well-perfused. No cyanosis. No clubbing. No peripheral edema. LOWER EXTREMITIES: 2+ pulses, warm, well-perfused. No calf tenderness. No peripheral edema. NEUROLOGICAL: Cranial nerves II-XII intact. PSYCHIATRIC: Cooperative. Good eye contact. Appropriate mood and affect. SKIN: Warm, dry, normal turgor. Laboratory Results - last 24 hr 12/31/18 12/31/18 12/31/18 18:00 20:52 20:52 WBC 3.5 L RBC 4.18 Hgb 12.2 Hct 38.0 MCV 90.9 MCH 29.3 MCHC 32.2 RDW 16.9 H Plt Count 105 L D MPV 9.8 Absolute Neuts (auto) 1.3 L Neutrophils % 37.9 L D Lymphocytes % 44.6 H Monocytes % 14.5 H Eosinophils % 2.7 D Basophils % 0.3 Nucleated RBC % 0 Sodium Potassium Chloride Carbon Dioxide Anion Gap BUN Creatinine Est GFR (CKD-EPI)AfAm Est GFR (CKD-EPI)NonAf Random Glucose Lactic Acid Calcium Total Bilirubin AST ALT Alkaline Phosphatase Creatine Kinase 221 Creatine Kinase Index 1.4 CK-MB (CK-2) 3.3 Troponin I 0.08 H Total Protein Albumin Urine Color Yellow Urine Appearance Clear Urine pH 5.5 Ur Specific [place] 1.012 Urine Protein Negative Urine Glucose (UA) Negative Urine Ketones Negative Urine Blood Negative Urine Nitrite Negative Urine Bilirubin Negative Urine Urobilinogen 1.0 Ur Leukocyte Esterase Negative 12/31/18 12/31/18 20:52 20:52 WBC RBC Hgb Hct MCV MCH MCHC RDW Plt Count MPV Absolute Neuts (auto) Neutrophils % Lymphocytes % Monocytes % Eosinophils % Basophils % Nucleated RBC % Sodium 143 Potassium 5.1 Chloride 112 H Carbon Dioxide 29 Anion Gap 2 L BUN 15.7 Creatinine 1.2 Est GFR (CKD-EPI)AfAm 71.08 Est GFR (CKD-EPI)NonAf 61.33 Random Glucose 84 Lactic Acid 0.8 Calcium 7.1 L Total Bilirubin 0.2 AST 27 ALT 18 Alkaline Phosphatase 56 Creatine Kinase Creatine Kinase Index CK-MB (CK-2) Troponin I Total Protein 6.2 L Albumin 2.8 L Urine Color Urine Appearance Urine pH Ur Specific [place] Urine Protein Urine Glucose (UA) Urine Ketones Urine Blood Urine Nitrite Urine Bilirubin Urine Urobilinogen Ur Leukocyte Esterase ASSESSMENT/PLAN: 68 year old male with PMH of severe intellectual disability, inguinal hernia, chronic orchitis and CAD who presents today with pain in the inguinal region likely due to chronic epidiymo-orchitis vs a flare of hernia pain. 1) Inguinal pain = chronic epidydmo-orchitis vs hernia : CT scan hip/pelvis Walk patient to evaluate for fractures Consult ID and Urology. 2) Rule out ACS: Troponins have peaked. Cardiac profile Repeat EKG Aspirin 81 mg PO QDaily Atorvastatin 10 mg PO HS 3) Thrombocytopenia: Patient is receiving work-up through outpatient providers. Potentially a side-effect of depakote. Contact PCP and discuss management 4) Hypoalbuminemia: Potentially due to diet and inflammatory effects of chronic disease process. Adequate nutrition. 5) Hypertension: Restart Lisinopril 2.5 mg PO Qdaily. 6)DVT Prophylaxis: Coumadin 5mg PO Qdaily for mechanical valve. No need for other anti- coagulation. F: No fluids E: Follow BMP N: Normal diet Dispo: Admitted to Telemetry. Visit type - Emergency Visit Emergency Visit: Yes ED Registration Date: 01/01/19 Care time: The patient presented to the Emergency Department on the above date and was hospitalized for further evaluation of their emergent condition. - New Patient This patient is new to me today: Yes Date on this admission: 01/01/19 - Critical Care Critical Care patient: No
[2019-01-01 07:18] LABS: HEMATOCRIT 37.1 % (35.4-49); MCH 29.2 pg (25.7-33.7); MCHC 32.2 g/dl (32.0-35.9); MEAN CELL VOLUME 90.7 fl (80-96); MEAN PLT VOLUME 9.5 fl (7.5-11.1); RBC 4.09 M/mm3 (4.00-5.60); RDW 16.8 % (11.9-15.9); WHITE BLOOD COUNT 3.4 K/mm3 (4.0-10.0)
[2019-01-01 07:33] LABS: PROTHROMBIN TIME (PATIENT) 86.6 SEC (9.7-13.0)
[2019-01-01 07:48] LABS: ALBUMIN 2.7 g/dl (3.4-5.0); BILIRUBIN,TOTAL 0.5 mg/dL (0.2-1); BLOOD UREA NITROGEN 15.3 mg/dL (7-18); CALCIUM 8.1 mg/dL (8.5-10.1); CREATININE 1.1 mg/dL (0.55-1.3); MAGNESIUM 2.2 mg/dL (1.8-2.4); PHOSPHOROUS 3.2 mg/dL (2.5-4.9); POTASSIUM 4.6 mmol/L (3.5-5.1); TOT PROT 5.6 g/dl (6.4-8.2)
[2019-01-01 08:09] LABS: PLATELET COUNT 83 K/MM3 (134-434)
[2019-01-01] MEDS ORDERED: PT OWN MED DRAWER 7, Y5N ONE ×3 (09:08→21:39)
[2019-01-01] MEDS: DIVALPROEX SODIUM 500 MG TABLET E.C. PO SCH (09:13)
[2019-01-01] MEDS: LISINOPRIL 5 MG TABLET (FP) PO SCH (09:14)
[2019-01-01] MEDS: FINASTERIDE 5 MG TABLET (FP) PO SCH (09:14)
[2019-01-01] MEDS: ASPIRIN 81 MG CHEWABLE TABLETS PO SCH (09:14)
[2019-01-01 10:11] LABS: INR 7.19 (0.83-1.09)
--- NOTE | 2019-01-01 10:14 | EKG ---
Test Reason : Blood Pressure : / mmHG Vent. Rate : 065 BPM Atrial Rate : 065 BPM P-R Int : 200 ms QRS Dur : 196 ms QT Int : 490 ms P-R-T Axes : 023 266 093 degrees QTc Int : 509 ms Atrial-sensed ventricular-paced rhythm WITH OCCASIONAL PREMATURE VENTRICULAR COMPLEXES ABNORMAL ECG WHEN COMPARED WITH ECG OF 17-JAN-2018 11:23, PREMATURE VENTRICULAR COMPLEXES ARE NOW PRESENT VENT. RATE HAS INCREASED BY 5 BPM Confirmed by ABEBE ORTIZ MD ([id number]) on 01/01/2019 10:14:40 AM Referred By: Confirmed By:ABEBE ORTIZ MD
--- NOTE | 2019-01-01 10:16 | PN ---
Progress Note (short form) - Note Progress Note: ID CONSULT DICTATED R/O RECURRENT ORCHO-EPIDIDYMITIS NEW LEUKOPENIA/LYMPHOCYTOSIS , CHR THROMBOCYTOPENIA ? SEPSIS ? VIRAL HX ENTEROCOCCAL BACTEREMIA S/P AVR HX EOSINOPHILIA / + STRONGELOIDES AB AWAIT C/S EMPIRIC CEFTRIAXONE/ DOXY FLU SWAB
--- NOTE | 2019-01-01 10:42 | CON.GU ---
Consult Consult Specialty:: Referred by:: medicine Reason for Consultation:: suprapubic pain - History of Present Illness Chief Complaint: suprapubic pain/orchitis History of Present Illness: 68 year old male with intellectual limitations and minimally verbal who lives in a usp presents with complaints of urinary frequency and suprapubic pain. US of scrotum with orchitis/poor flow to left testicle. - History Source History Provided By: Medical Record, Caregiver Limitations to Obtaining History: Other (intellectual disability) - Past Medical History [employer]: Yes: Seizure, Other (Developmental delay, per attendant at baseline. ) Cardio/Vascular: Yes: Aneurysm, HTN, Hyperlipdemia, Murmur (mechanical heart sound c/w know AVR), Other (AVR - mechanical valve) Renal/: No: BPH Psych: Yes: Anxiety, Depression, Other (Develomental Delay) Additional Medical History: MRDD. DVT. Volvulus - Past Surgical History Past Surgical History: Yes: AAA Repair (2000), Valve Replacement (mechanical AVR ) - Alcohol/Substance Use Hx Alcohol Use: No - Smoking History Smoking history: Never smoked Have you smoked in the past 12 months: No Aproximately how many cigarettes per day: 0 - Social History Usual Living Arrangement: Assisted Living ADL: Support Services Home Medications - Allergies Allergies/Adverse Reactions: Allergies Allergy/AdvReac Type Severity Reaction Status Date / Time beeswax Allergy Unknown Verified 12/31/18 17:51 venom-honey bee Allergy ANAPHYLAXIS Verified 12/31/18 17:51 [bee venom (honey bee)] - Home Medications Home Medications: Ambulatory Orders Aripiprazole [Abilify] 10 mg PO HS 06/10/16 Aspirin [ASA -] 81 mg PO DAILY 06/10/16 Atorvastatin Ca [Lipitor] 10 mg PO HS 06/10/16 Finasteride 5 mg PO DAILY 06/10/16 Lisinopril [Zestril] 2.5 mg PO DAILY 06/10/16 Tamsulosin HCl [Flomax -] 0.4 mg PO HS 01/12/18 Warfarin Na [Coumadin -] 5 mg PO ASDIR 02/08/18 Divalproex [Depakote -] 250 mg PO HS 12/31/18 Divalproex [Depakote -] 500 mg PO DAILY 12/31/18 Review of Systems - Review of Systems Gastrointestinal: reports: Abdominal Pain Genitourinary: reports: Testicular Pain Physical Exam- Vital Signs: Vital Signs Temperature 97.9 F 01/01/19 06:00 Pulse Rate 63 01/01/19 06:00 Respiratory Rate 18 01/01/19 06:00 Blood Pressure 93/42 L 01/01/19 06:00 O2 Sat by Pulse Oximetry (%) 99 01/01/19 03:33 Gastrointestinal: Yes: Soft. No: Tenderness Renal/: No: Bladder Distention, CVA Tenderness - Left, CVA Tenderness - Right , Scrotal Edema Testicles: Yes: WNL, Descended (no testicular abnl or tenderness on exam) Labs: CBC, BMP 01/01/19 06:20 01/01/19 06:20 Imaging - Results Ultrasound: Report Reviewed Problem List - Problems (1) Orchitis and epididymitis Assessment/Plan: testicular exam is nomal. doubt acute process. recommend abx. urine culture. pain meds as needed Code(s): N45.3 - EPIDIDYMO-ORCHITIS
--- NOTE | 2019-01-01 11:09 | CONS ---
DATE OF CONSULTATION: DATE OF DICTATION: 01/01/2019 HISTORY: The patient is a 68-year-old male history of bipolar disorder and intellectually challenged who was evaluated for suspected recurrent/chronic orchitis. History was obtained from the chart as he cannot give a history. He was brought in from his intermediate after he was noted to have abdominal discomfort. He had a bowel movement on the day of admission, and there were no reports of any nausea or vomiting. He was evaluated in the emergency room where the patient was hypotensive and bradycardic. When questioned about pain, he points to his scrotal area. No reports of any voiding difficulties or grossly purulent urine. Imaging studies of the abdomen and pelvis included a CAT scan of the abdomen and pelvis, which was negative for acute pathology and a sonogram of the scrotum, which showed chronic orchitis. His course was notable for leukopenia with lymphocytosis, monocytosis, and thrombocytopenia. His leukopenia and lymphocytosis appear new. He has had a history of chronic thrombocytopenia in the past. He apparently is not sexually active in the past. There was concern that his pelvic pain was secondary to excessive masturbation; however, his aide reports that he has not been displaying this behavior lately. PAST MEDICAL HISTORY: Positive for bipolar disorder, hypertension, coronary artery disease, chronic orchitis, gastroesophageal reflux, BPH, seizure disorder, history of enterococcal endocarditis, and history of aortic valve replacement. PAST SURGICAL HISTORY: Status post aortic valve replacement, permanent pacemaker. ALLERGIES: No known drug allergies. MEDICATIONS: At the present time include Tylenol, Abilify, aspirin, Lipitor, lisinopril, Flomax, Coumadin. SOCIAL HISTORY: He resides in a intermediate. No tobacco or alcohol use. SYSTEMS REVIEW: Neurologic: Positive for seizure disorder, bipolar disorder, and mental retardation. Cardiac: Negative chest pain or palpitations. Status post pacemaker and aortic valve replacement. Respiratory: Negative cough or sputum production. Gastrointestinal: Negative vomiting or diarrhea. Genitourinary: As per HPI. LABORATORY DATA: White count 3.4, neutrophils 37, lymphocytes 44, monocytes 14, hematocrit 37.1, platelet count 83, creatinine 1.1. Liver enzymes normal. Urinalysis negative. PHYSICAL EXAMINATION: General: He is awake and alert. He is not acutely toxic appearing. Vital Signs: Temperature 97.9, blood pressure 93/42, pulse 63 regular, respirations 18 per minute. HEENT: Sclerae anicteric. Neck: Supple. Heart: Sounds S1, S2 with a mechanical valve murmur. Lungs: Clear. Abdomen: Slightly distended. No tenderness elicited. Genitourinary: Examination of the genitalia does not appear to be any erythema or swelling of the scrotum. There is no tenderness present. Extremities: Negative for edema. IMPRESSION: 1. Abdominal pain syndrome, possible recurrent orchoepididymitis. 2. New leukopenia and lymphocytosis, rule out sepsis versus viral syndrome. 3. Chronic thrombocytopenia. 4. History of enterococcal bacteremia/endocarditis. 5. Status post aortic valve replacement. 6. History of eosinophilia and strongyloides antibodies (treated). PLAN: Await cultures. Obtain influenza swab. Urine for Chlamydia and GC. Empiric coverage with ceftriaxone and doxycycline. We will attempt to obtain consent for HIV testing in light of recurrent genitourinary complaints and chronic thrombocytopenia. Thank you for the kind referral. ABEBE DELGADO M.D. [id number]
[2019-01-01] MEDS ORDERED: DEXTROSE 5%-WATER 100 ML IVPB ONE (11:40)
[2019-01-01] MEDS: DOXYCYCLINE INJECTION 100 MG in DEXTROSE 5%-WATER 100 ML IVPB SCH ×2 (11:46→21:38)
[2019-01-01] MEDS: CEFTRIAXONE 2 GM in DEXTROSE 5%-WATER 100 ML IVPB SCH (11:47)
--- NOTE | 2019-01-01 15:06 | HOSP ---
Subjective - Review of Symptoms Events since last encounter: Patient was seen and examined. discussed with Urologist , as per urology, no acute pathology , patient has no pain at this time, seen by ID and was started on IV antibiotic empirically. Physical Examination Vital Signs: Vital Signs Temperature 97.9 F 01/01/19 10:00 Pulse Rate 67 01/01/19 10:00 Respiratory Rate 18 01/01/19 10:00 Blood Pressure 125/71 01/01/19 10:00 O2 Sat by Pulse Oximetry (%) 99 01/01/19 10:00 Labs: CBC, BMP 01/01/19 06:20 01/01/19 06:20
[2019-01-01] MEDS ORDERED: WARFARIN NA 5 MG TABLET (UD) PO SCH (18:00)
[2019-01-01] MEDS: TAMSULOSIN HCL 0.4 MG CAP PO SCH (21:37)
[2019-01-01] MEDS: ATORVASTATIN CA 10 MG TABLET (FP) PO SCH (21:37)
[2019-01-01] MEDS: DIVALPROEX SODIUM 250 MG TABLET E.C. PO SCH (21:38)
[2019-01-01] MEDS: ARIPiprazole 10 MG TABLET PO SCH (21:41)
--- NOTE | 2019-01-02 06:55 | PN ---
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 He presented to the ER from halfway complaining of suprapubic pain. He was admitted for suspected recurrent/ chronic orchitis. SUBJECTIVE: Patient seen and examined OBJECTIVE: Vital Signs Period Temp Pulse Resp BP Sys/Dickey Pulse Ox Last 24 Hr 97.8 F-98.1 F 60-68 14-20 101-125/53-71 98-99 GENERAL: The patient is awake, alert, partially oriented, in no acute distress. He follows basic commands, and is partially cooperative HEAD: Normal with no signs of trauma. EYES: PERRL, extraocular movements intact, sclera anicteric. No ptosis. NECK: Trachea midline, unable to observre full range of motion LUNGS: Breath sounds diminished B/L, clear to auscultation, no wheezes, no crackles, no accessory muscle use appreciated. HEART: diminished S1, with loud S2 click heard. No murmurs, rubs, gallops heard. ABDOMEN: Midlie scar observed. Soft, nontender, nondistended, normoactive bowel sounds, no guarding, no rebound, no hepatosplenomegaly, no masses. EXTREMITIES: Warm, well-perfused, no edema. NEUROLOGICAL: Patient unwilling to speak, gait not observed. PSYCH: Unable to assess mood and affect. SKIN: Warm, dry, normal turgor, no rashes or lesions noted Laboratory Results - last 24 hr 01/01/19 01/01/19 01/01/19 06:20 06:20 06:20 WBC 3.4 L RBC 4.09 Hgb 12.0 Hct 37.1 MCV 90.7 MCH 29.2 MCHC 32.2 RDW 16.8 H Plt Count 83 L D MPV 9.5 PT with INR 86.60 H INR 7.19 H* Sodium 140 Potassium 4.6 Chloride 111 H Carbon Dioxide 25 Anion Gap 5 L BUN 15.3 Creatinine 1.1 Est GFR (CKD-EPI)AfAm 78.97 Est GFR (CKD-EPI)NonAf 68.13 Random Glucose 63 L Calcium 8.1 L Phosphorus 3.2 Magnesium 2.2 Total Bilirubin 0.5 AST 21 ALT 15 Alkaline Phosphatase 54 Total Protein 5.6 L Albumin 2.7 L Influenza A (Rapid) Influenza B (Rapid) 01/01/19 11:15 WBC RBC Hgb Hct MCV MCH MCHC RDW Plt Count MPV PT with INR INR Sodium Potassium Chloride Carbon Dioxide Anion Gap BUN Creatinine Est GFR (CKD-EPI)AfAm Est GFR (CKD-EPI)NonAf Random Glucose Calcium Phosphorus Magnesium Total Bilirubin AST ALT Alkaline Phosphatase Total Protein Albumin Influenza A (Rapid) Negative Influenza B (Rapid) Negative Active Medications Generic Name Dose Route Start Last Admin Trade Name Freq PRN Reason Stop Dose Admin Aripiprazole 10 mg 01/01/19 22:00 01/01/19 21:41 Abilify PO 10 mg HS YANETH Administration Aspirin 81 mg 01/01/19 10:00 01/01/19 09:14 Asa - PO 81 mg DAILY YANETH Administration Atorvastatin Calcium 10 mg 01/01/19 22:00 01/01/19 21:37 Lipitor - PO 10 mg HS YAENTH Administration Divalproex Sodium 250 mg 01/01/19 22:00 01/01/19 21:38 Depakote - PO 250 mg HS YANETH Administration Divalproex Sodium 500 mg 01/01/19 10:00 01/01/19 09:13 Depakote - PO 500 mg DAILY YANETH Administration Finasteride 5 mg 01/01/19 10:00 01/01/19 09:14 Proscar - PO 5 mg DAILY YAENTH Administration Ceftriaxone Sodium 2 gm/ 100 mls @ 200 mls/hr 01/01/19 10:30 01/01/19 11:47 Dextrose IVPB 200 mls/hr DAILY YANETH Administration Protocol Doxycycline Hyclate 100 mg/ 100 mls @ 50 mls/hr 01/01/19 10:30 01/01/19 21:38 Dextrose IVPB 50 mls/hr BID YANETH Administration Lisinopril 2.5 mg 01/01/19 10:00 01/01/19 09:14 Prinivil PO 2.5 mg DAILY YANETH Administration Tamsulosin HCl 0.4 mg 01/01/19 22:00 01/01/19 21:37 Flomax - PO 0.4 mg HS YANETH Administration Warfarin Sodium 5 mg 01/01/19 18:00 Coumadin - PO TuTh@1800 YANETH CBC, BMP 01/02/19 06:22 01/02/19 06:22 ASSESSMENT/PLAN: Patient is a 68 yo male with PMH of intellectual disability, HTN, CAD, enterococcal endocarditis (2012 mechanical aortic valve replacement, s/p pacemaker placement), seizures, thoracic aortic aneurysm, chronic epididymo- orchitis, bipolar disorder, GERD and BPH. He presented with suprapubic pain, which began the same day (12/31). No associated fevers, chills, or difficulty eating, or loss of appetite, and patient had a bowel movement on the day of admission. #Chronic recurrent epididymo-orchitis -Abd/Pelvic USG: chronic/subacute epididymo-orchitis, continued follow-up suggested (12/31) -CT Pelvis: s/p RLQ bowel resection; no evidence of bowel obstruction/ pneumoperitoneum seen. compared to CT on 02/15, increased amount of R pelvic free fluid -CT chest/abdomen: showed no acute pathology, no AAA, probable pulmonary HTN, small umbilical hernia, cholelithiasis (12/31) -Abdominal Xray: Moderate air distention of colon to distal sigmoid colon level , Moderate fecal retention at rectosigmoid junction, no free air -ID consult: Empiric coverage Ceftriaxone Doxycycline (day 2), awaiting blood, urine cx, urine for Chlamydia and GC, HIV testing ([place]+thrombocytopenia). Previously on Rocephin/Doxycycline/Levofloxacin past year for epididymo-orchitis -Urology consult: Acute pathology unlikely, manage pain #Elevated troponin likely due to demand ischemia -EKG: atrial sensed ventricular paced rhythm similar to prior EKGs + PVC ( premature Vent complex). -Will trend troponin and repeat EKG to rule out ACS. #Thrombocytopenia -INR /4-01/02 (7.19, 2.89) -Pt count 12/31-01/02 (103, 85, 81) -handled outpatient, possibly Depakote SE -Consult PCP/Neurologist to consider switching to another anticonvulsant -Monitor platelet count #BUN -26.1 (01/02) #Hypoalbuminemia -12/31-12/31 (2.7, 2.8, 3.0) -Ensure adequate dietary protein intake and also consult mechanic industrial truck. #Hx of Hypertension -Restart suitable outpatient antihypertensive drugs when clinically appropriate -monitor BP #DVT prophylaxis -On Coumadin for mechanical aortic valve. #Advance directives -Full code Visit type - Emergency Visit Emergency Visit: Yes ED Registration Date: 01/01/19 Care time: The patient presented to the Emergency Department on the above date and was hospitalized for further evaluation of their emergent condition. - New Patient This patient is new to me today: No - Critical Care Critical Care patient: No - Discharge Referral Referred to [facility] No
[2019-01-02 08:08] LABS: HEMATOCRIT 39.9 % (35.4-49); HEMOGLOBIN 12.9 GM/dL (11.7-16.9); MCH 29.4 pg (25.7-33.7); MCHC 32.4 g/dl (32.0-35.9); MEAN CELL VOLUME 90.7 fl (80-96); MEAN PLT VOLUME 9.6 fl (7.5-11.1); PLATELET COUNT 81 K/MM3 (134-434); RDW 16.8 % (11.9-15.9); WHITE BLOOD COUNT 3.6 K/mm3 (4.0-10.0)
[2019-01-02 08:21] LABS: BILIRUBIN,TOTAL 0.4 mg/dL (0.2-1); BLOOD UREA NITROGEN 26.1 mg/dL (7-18); CREATININE 1.3 mg/dL (0.55-1.3); POTASSIUM 4.5 mmol/L (3.5-5.1); TOT PROT 5.9 g/dl (6.4-8.2)
[2019-01-02 08:47] LABS: INR 2.89 (0.83-1.09); PROTHROMBIN TIME (PATIENT) 34.5 SEC (9.7-13.0)
[2019-01-02 10:15] LABS: CALCIUM 8.7 mg/dL (8.5-10.1)
[2019-01-02] MEDS ORDERED: PT OWN MED DRAWER 7, Y5N ONE ×2 (10:27→21:32)
[2019-01-02] MEDS ORDERED: DEXTROSE 5%-WATER 100 ML IVPB ONE (10:28)
[2019-01-02] MEDS: DIVALPROEX SODIUM 500 MG TABLET E.C. PO SCH (10:31)
[2019-01-02] MEDS: FINASTERIDE 5 MG TABLET (FP) PO SCH (10:32)
[2019-01-02] MEDS: ASPIRIN 81 MG CHEWABLE TABLETS PO SCH (10:32)
[2019-01-02] MEDS: LISINOPRIL 5 MG TABLET (FP) PO SCH (10:32)
[2019-01-02] MEDS: CEFTRIAXONE 2 GM in DEXTROSE 5%-WATER 100 ML IVPB SCH (10:32)
[2019-01-02] MEDS: DOXYCYCLINE INJECTION 100 MG in DEXTROSE 5%-WATER 100 ML IVPB SCH ×2 (11:22→22:36)
--- NOTE | 2019-01-02 12:30 | PN ---
Progress Note, Physician History of Present Illness: AWAKE, ALERT SEATED IN BED EATING LUNCH OFFERS NO COMPLAINTS NO ACUTE DISTRESS AFEBRILE REMAINS LEUKOPENIC BC (-) URINE C/S NLF - Current Medication List Current Medications: Active Medications Aripiprazole (Abilify) 10 mg PO [facility] Last Admin: 01/01/19 21:41 Dose: 10 mg Aspirin (Asa -) 81 mg PO DAILY [facility] Last Admin: 01/02/19 10:32 Dose: 81 mg Atorvastatin Calcium (Lipitor -) 10 mg PO [facility] Last Admin: 01/01/19 21:37 Dose: 10 mg Divalproex Sodium (Depakote -) 250 mg PO [facility] Last Admin: 01/01/19 21:38 Dose: 250 mg Divalproex Sodium (Depakote -) 500 mg PO DAILY [facility] Last Admin: 01/02/19 10:31 Dose: 500 mg Finasteride (Proscar -) 5 mg PO DAILY [facility] Last Admin: 01/02/19 10:32 Dose: 5 mg Ceftriaxone Sodium 2 gm/ (Dextrose) 100 mls @ 200 mls/hr IVPB DAILY [facility]; Protocol Last Admin: 01/02/19 10:32 Dose: 200 mls/hr Doxycycline Hyclate 100 mg/ (Dextrose) 100 mls @ 50 mls/hr IVPB BID [facility] Last Admin: 01/02/19 11:22 Dose: 50 mls/hr Lisinopril (Prinivil) 2.5 mg PO DAILY [facility] Last Admin: 01/02/19 10:32 Dose: 2.5 mg Tamsulosin HCl (Flomax -) 0.4 mg PO [facility] Last Admin: 01/01/19 21:37 Dose: 0.4 mg Warfarin Sodium (Coumadin -) 5 mg PO SuMoWeFrSa@1800 [facility] Warfarin Sodium (Coumadin -) 10 mg PO TU@1800 [facility] - Objective Vital Signs: Vital Signs Temperature 97.8 F 01/02/19 05:58 Pulse Rate 60 01/02/19 08:11 Respiratory Rate 18 01/02/19 08:11 Blood Pressure 112/61 01/02/19 08:11 O2 Sat by Pulse Oximetry (%) 98 01/02/19 08:11 Constitutional: Yes: No Distress Eyes: Yes: Conjunctiva Clear Cardiovascular: Yes: Regular Rate and Rhythm, S1, S2 Respiratory: Yes: CTA Bilaterally Gastrointestinal: Yes: Normal Bowel Sounds, Soft, Other (NO SUPRAPUBIC TENDERNESS). No: Tenderness Genitourinary: Yes: Other (NO SCROTAL SWELLING/ ERYTHEMA/ TENDERNESS) Labs: CBC, BMP 01/02/19 06:22 01/02/19 06:22 INR, PTT INR 2.89 (0.83-1.09) H 01/02/19 06:22 Assessment/Plan ? RECURRENT ORCHITIS UTI LEUKOPENIA CHRONIC THROMBOCYTOPENIA AWAIT C/S CONTINUE CEFTRIAXONE/ DOXYCYCLINE ?PO ANTIBIOTIC NEXT 24HR
[2019-01-02] MEDS: WARFARIN NA 5 MG TABLET (UD) PO SCH (17:10)
--- NOTE | 2019-01-02 17:31 | PN ---
Teaching Attending Note Name of Resident: Hany Cornejo ATTENDING PHYSICIAN STATEMENT I saw and evaluated the patient. I reviewed the resident's note and discussed the case with the resident. I agree with the resident's findings and plan as documented. SUBJECTIVE: Patient is a 68yo male with PMHx for significant PMHx of severe intellectual disability, minimally verbal baseline, HTN, CAD, AV replacement, who came in complaining of suprapubic pain after returning from program to his snf in the afternoon. OBJECTIVE: Vital Signs Temperature 98.6 F 01/02/19 13:35 Pulse Rate 66 01/02/19 13:35 Respiratory Rate 18 01/02/19 13:35 Blood Pressure 91/49 L 01/02/19 13:35 O2 Sat by Pulse Oximetry (%) 98 01/02/19 08:11 GENERAL: Awake, alert, and cooperative with examiner. HEAD: Normal with no signs of trauma. EYES: Sclera anicteric, conjunctiva clear EARS, NOSE, THROAT: External ears atraumatic. Moist mucous membranes. NECK: Normal range of motion, supple without lymphadenopathy, no JVD, LUNGS: Breath sounds equal, clear to auscultation bilaterally. No wheezes, and no crackles. HEART: Regular rate and rhythm, S1 and S2 present. ABDOMEN: Soft, NT, ND, normoactive bowel sounds, no guarding, no rebound, no masses. Testicular exam per urology . EXTREMITIES: 2+ pulses, warm, well-perfused. No cyanosis. No clubbing. No peripheral edema. NEUROLOGICAL: Cranial nerves II-XII intact. PSYCHIATRIC: Cooperative. Good eye contact. Appropriate mood and affect. SKIN: Warm, dry, normal turgor. CBCD WBC 3.6 K/mm3 (4.0-10.0) L 01/02/19 06:22 RBC 4.40 M/mm3 (4.00-5.60) 01/02/19 06:22 Hgb 12.9 GM/dL (11.7-16.9) 01/02/19 06:22 Hct 39.9 % (35.4-49) 01/02/19 06:22 MCV 90.7 fl (80-96) 01/02/19 06:22 MCHC 32.4 g/dl (32.0-35.9) 01/02/19 06:22 RDW 16.8 % (11.9-15.9) H 01/02/19 06:22 Plt Count 81 K/MM3 (134-434) L 01/02/19 06:22 MPV 9.6 fl (7.5-11.1) 01/02/19 06:22 CMP Sodium 144 mmol/L (136-145) 01/02/19 06:22 Potassium 4.5 mmol/L (3.5-5.1) 01/02/19 06:22 Chloride 110 mmol/L (98-107) H 01/02/19 06:22 Carbon Dioxide 30 mmol/L (21-32) 01/02/19 06:22 Anion Gap 3 MMOL/L (8-16) L 01/02/19 06:22 BUN 26.1 mg/dL (7-18) H 01/02/19 06:22 Creatinine 1.3 mg/dL (0.55-1.3) 01/02/19 06:22 Random Glucose 75 mg/dL (74-106) 01/02/19 06:22 Calcium 8.7 mg/dL (8.5-10.1) 01/02/19 06:22 Total Bilirubin 0.4 mg/dL (0.2-1) 01/02/19 06:22 AST 22 U/L (15-37) 01/02/19 06:22 ALT 16 U/L (13-61) 01/02/19 06:22 Alkaline Phosphatase 57 U/L (45-117) 01/02/19 06:22 Total Protein 5.9 g/dl (6.4-8.2) L 01/02/19 06:22 Albumin 3.0 g/dl (3.4-5.0) L 01/02/19 06:22 CARDIAC ENZYMES Creatine Kinase 182 U/L (26-308) 01/01/19 04:45 Troponin I 0.06 ng/ml (0.00-0.05) H 01/01/19 04:45 Current Medications Generic Name Dose Route Start Last Admin Trade Name Freq PRN Reason Stop Dose Admin Aripiprazole 10 mg 01/01/19 22:00 01/01/19 21:41 Abilify PO 10 mg HS YANETH Administration Aspirin 81 mg 01/01/19 10:00 01/02/19 10:32 Asa - PO 81 mg DAILY YANETH Administration Atorvastatin Calcium 10 mg 01/01/19 22:00 01/01/19 21:37 Lipitor - PO 10 mg HS YANETH Administration Divalproex Sodium 250 mg 01/01/19 22:00 01/01/19 21:38 Depakote - PO 250 mg HS YANETH Administration Divalproex Sodium 500 mg 01/01/19 10:00 01/02/19 10:31 Depakote - PO 500 mg DAILY YANETH Administration Finasteride 5 mg 01/01/19 10:00 01/02/19 10:32 Proscar - PO 5 mg DAILY YANETH Administration Ceftriaxone Sodium 2 gm/ 100 mls @ 200 mls/hr 01/01/19 10:30 01/02/19 10:32 Dextrose IVPB 200 mls/hr DAILY YANETH Administration Protocol Doxycycline Hyclate 100 mg/ 100 mls @ 50 mls/hr 01/01/19 10:30 01/02/19 11:22 Dextrose IVPB 50 mls/hr BID YANETH Administration Lisinopril 2.5 mg 01/01/19 10:00 01/02/19 10:32 Prinivil PO 2.5 mg DAILY YANETH Administration Tamsulosin HCl 0.4 mg 01/01/19 22:00 01/01/19 21:37 Flomax - PO 0.4 mg HS YANETH Administration Warfarin Sodium 5 mg 01/02/19 18:00 01/02/19 17:10 Coumadin - PO 5 mg SuMoWeFrSa@1800 YANETH Administration Warfarin Sodium 10 mg 01/06/19 18:00 Coumadin - PO TU@1800 [facility] Home Medications Medication Instructions Recorded Aripiprazole [Abilify] 10 mg PO HS 06/10/16 Aspirin [ASA -] 81 mg PO DAILY 06/10/16 Atorvastatin Ca [Lipitor] 10 mg PO HS 06/10/16 Finasteride 5 mg PO DAILY 06/10/16 Lisinopril [Zestril] 2.5 mg PO DAILY 06/10/16 Tamsulosin HCl [Flomax -] 0.4 mg PO HS 01/12/18 Warfarin Na [Coumadin -] 5 mg PO ASDIR 02/08/18 Divalproex [Depakote -] 250 mg PO DAILY 12/31/18 Divalproex [Depakote -] 500 mg PO BID 12/31/18 Omeprazole 10 mg PO DAILY 01/02/19 Warfarin Na [Coumadin] 5 mg PO TU@1800 01/02/19 Laboratory Tests 02/07/18 02/08/18 02/14/18 19:10 06:30 07:30 WBC 4.8 Plt Count 87 L PT with INR INR 1.66 H 1.43 H BUN Creatinine 12/31/18 12/31/18 01/01/19 20:52 20:52 06:20 WBC 3.5 L 3.4 L Plt Count 105 L D 83 L D PT with INR INR BUN 15.7 Creatinine 1.2 01/01/19 01/02/19 01/02/19 06:20 06:22 06:22 WBC 3.6 L Plt Count 81 L PT with INR 34.50 H INR 2.89 H BUN 15.3 Creatinine 1.1 01/02/19 06:22 WBC Plt Count PT with INR INR BUN 26.1 H Creatinine 1.3 ASSESSMENT AND PLAN: Patient is a 68yo male with PMHx of severe intellectual disability, minimally verbal baseline, HTN, CAD, AV replacement on coumadin , who came in complaining of suprapubic pain after returning from program to his snf in this afternoon. #Recurrent Epididymitis/ orchitis -on iv antibiotic Rocephin/doxycycline. Patient's aid who is at bedside reports that the patient used to masturbate and did pelvic thrusts on the floor, as per aid patient did this at night time, when everyone is sleep. So patient is being monitored at nights now to avoid problems. Also patient was examined by urologist who does not think that the patient has torsion clinically since patient has no pain. waiting for culture. Clinically as per urologist no torsion. Since patient is asymptomatic. Reviewed all the images. # History of AVR 2000 and enterococcal endocarditis 2012 has a metallic valve on Coumadin INR is 2.78 today, will continue with home regimen, daily PT/INR # Acute UTI on iv antibiotic Rocephin/doxycycline continue. # Leukopenia with chronic thrombocytopenia continue to monitor DVT Px: Coumadin
[2019-01-02] MEDS: DIVALPROEX SODIUM 250 MG TABLET E.C. PO SCH (22:37)
[2019-01-02] MEDS: TAMSULOSIN HCL 0.4 MG CAP PO SCH (22:37)
[2019-01-02] MEDS: ARIPiprazole 10 MG TABLET PO SCH (22:37)
[2019-01-02] MEDS: ATORVASTATIN CA 10 MG TABLET (FP) PO SCH (22:37)
[2019-01-03 07:45] LABS: HEMATOCRIT 42.2 % (35.4-49); HEMOGLOBIN 13.5 GM/dL (11.7-16.9); MCHC 32.1 g/dl (32.0-35.9); MEAN CELL VOLUME 90.4 fl (80-96); MEAN PLT VOLUME 9.5 fl (7.5-11.1); RBC 4.66 M/mm3 (4.00-5.60); RDW 16.6 % (11.9-15.9); WHITE BLOOD COUNT 3.9 K/mm3 (4.0-10.0)
[2019-01-03 08:38] LABS: ALBUMIN 2.8 g/dl (3.4-5.0); BILIRUBIN,TOTAL 0.5 mg/dL (0.2-1); BLOOD UREA NITROGEN 21.1 mg/dL (7-18); CALCIUM 8.9 mg/dL (8.5-10.1); CREATININE 1.1 mg/dL (0.55-1.3); POTASSIUM 4.4 mmol/L (3.5-5.1); TOT PROT 6.1 g/dl (6.4-8.2)
[2019-01-03 08:42] LABS: PLATELET COUNT 84 K/MM3 (134-434)
[2019-01-03] MEDS ORDERED: DEXTROSE 5%-WATER 100 ML IVPB ONE (08:52)
[2019-01-03] MEDS: CEFTRIAXONE 2 GM in DEXTROSE 5%-WATER 100 ML IVPB SCH (09:29)
[2019-01-03] MEDS: LISINOPRIL 5 MG TABLET (FP) PO SCH (09:30)
[2019-01-03] MEDS: DIVALPROEX SODIUM 500 MG TABLET E.C. PO SCH (09:30)
[2019-01-03] MEDS: ASPIRIN 81 MG CHEWABLE TABLETS PO SCH (09:30)
[2019-01-03] MEDS: FINASTERIDE 5 MG TABLET (FP) PO SCH (09:30)
[2019-01-03] MEDS: DOXYCYCLINE INJECTION 100 MG in DEXTROSE 5%-WATER 100 ML IVPB SCH (10:09)
--- NOTE | 2019-01-03 13:14 | PN ---
Progress Note, Physician History of Present Illness: AWAKE, ALERT SUPINE IN BED OFFERS NO COMPLAINTS NO ACUTE DISTRESS AFEBRILE REMAINS LEUKOPENIC/ THROMBOCYTOPENIC BC (-) URINE C/S CITROBACTER - Current Medication List Current Medications: Active Medications Aripiprazole (Abilify) 10 mg PO [facility] Last Admin: 01/02/19 22:37 Dose: 10 mg Aspirin (Asa -) 81 mg PO DAILY [facility] Last Admin: 01/03/19 09:30 Dose: 81 mg Atorvastatin Calcium (Lipitor -) 10 mg PO [facility] Last Admin: 01/02/19 22:37 Dose: 10 mg Divalproex Sodium (Depakote -) 250 mg PO [facility] Last Admin: 01/02/19 22:37 Dose: 250 mg Divalproex Sodium (Depakote -) 500 mg PO DAILY [facility] Last Admin: 01/03/19 09:30 Dose: 500 mg Finasteride (Proscar -) 5 mg PO DAILY [facility] Last Admin: 01/03/19 09:30 Dose: 5 mg Ceftriaxone Sodium 2 gm/ (Dextrose) 100 mls @ 200 mls/hr IVPB DAILY [facility]; Protocol Last Admin: 01/03/19 09:29 Dose: 200 mls/hr Doxycycline Hyclate 100 mg/ (Dextrose) 100 mls @ 50 mls/hr IVPB BID [facility] Last Admin: 01/03/19 10:09 Dose: 50 mls/hr Lisinopril (Prinivil) 2.5 mg PO DAILY [facility] Last Admin: 01/03/19 09:30 Dose: Not Given Tamsulosin HCl (Flomax -) 0.4 mg PO [facility] Last Admin: 01/02/19 22:37 Dose: 0.4 mg Warfarin Sodium (Coumadin -) 5 mg PO SuMoWeFrSa@1800 [facility] Last Admin: 01/02/19 17:10 Dose: 5 mg Warfarin Sodium (Coumadin -) 10 mg PO TU@1800 [facility] - Objective Vital Signs: Vital Signs Temperature 98.6 F 01/03/19 09:37 Pulse Rate 83 01/03/19 09:37 Respiratory Rate 18 01/03/19 09:37 Blood Pressure 91/55 L 01/03/19 09:37 O2 Sat by Pulse Oximetry (%) 99 01/03/19 09:00 Constitutional: Yes: No Distress Eyes: Yes: Conjunctiva Clear Cardiovascular: Yes: Regular Rate and Rhythm, S1, S2 Respiratory: Yes: CTA Bilaterally Gastrointestinal: Yes: Normal Bowel Sounds, Soft, Other (NO SUPRPUBIC TENDERNESS ). No: Tenderness Genitourinary: Yes: Other (NO SCROTAL SWELLING/ ERYTHEMA/ TENDERNESS) Labs: CBC, BMP 01/03/19 05:50 01/03/19 05:50 INR, PTT INR 2.89 (0.83-1.09) H 01/02/19 06:22 Assessment/Plan ? RECURRENT ORCHITIS UTI LEUKOPENIA CHRONIC THROMBOCYTOPENIA SUBSTITUTE BACTRIM DS PO BID X 10D
[2019-01-03] MEDS: SULFAMETHOXAZOLE/TRIMETHOPRIM 800MG/160MG D.S. TABLET PO SCH ×2 (14:21→22:08)
--- NOTE | 2019-01-03 16:32 | PN ---
Progress Note (short form) - Note Progress Note: Patient is feeling better with no acute distress. No shortness of breath, comfortable. Vital Signs Temperature 97.7 F 01/03/19 14:00 Pulse Rate 74 01/03/19 14:00 Respiratory Rate 20 01/03/19 14:00 Blood Pressure 97/54 L 01/03/19 14:00 O2 Sat by Pulse Oximetry (%) 99 01/03/19 09:00 GENERAL: Awake, alert, and cooperative with examiner. HEAD: Normal with no signs of trauma. EYES: Sclera anicteric, conjunctiva clear EARS, NOSE, THROAT: External ears atraumatic. Moist mucous membranes. NECK: Normal range of motion, supple without lymphadenopathy, no JVD, LUNGS: Breath sounds equal, clear to auscultation bilaterally. No wheezes, and no crackles. HEART: Regular rate and rhythm, S1 and S2 present. ABDOMEN: Soft, NT, ND, normoactive bowel sounds, no guarding, no rebound, no masses. Testicular exam per urology . EXTREMITIES: 2+ pulses, warm, well-perfused. No cyanosis. No clubbing. No peripheral edema. NEUROLOGICAL: Cranial nerves II-XII intact. PSYCHIATRIC: Cooperative. Good eye contact. Appropriate mood and affect. SKIN: Warm, dry, normal turgor. CBCD WBC 3.9 K/mm3 (4.0-10.0) L 01/03/19 05:50 RBC 4.66 M/mm3 (4.00-5.60) 01/03/19 05:50 Hgb 13.5 GM/dL (11.7-16.9) 01/03/19 05:50 Hct 42.2 % (35.4-49) 01/03/19 05:50 MCV 90.4 fl (80-96) 01/03/19 05:50 MCHC 32.1 g/dl (32.0-35.9) 01/03/19 05:50 RDW 16.6 % (11.9-15.9) H 01/03/19 05:50 Plt Count 84 K/MM3 (134-434) L 01/03/19 05:50 MPV 9.5 fl (7.5-11.1) 01/03/19 05:50 CMP Sodium 144 mmol/L (136-145) 01/03/19 05:50 Potassium 4.4 mmol/L (3.5-5.1) 01/03/19 05:50 Chloride 110 mmol/L (98-107) H 01/03/19 05:50 Carbon Dioxide 26 mmol/L (21-32) 01/03/19 05:50 Anion Gap 8 MMOL/L (8-16) 01/03/19 05:50 BUN 21.1 mg/dL (7-18) H 01/03/19 05:50 Creatinine 1.1 mg/dL (0.55-1.3) 01/03/19 05:50 Random Glucose 76 mg/dL (74-106) 01/03/19 05:50 Calcium 8.9 mg/dL (8.5-10.1) 01/03/19 05:50 Total Bilirubin 0.5 mg/dL (0.2-1) 01/03/19 05:50 AST 19 U/L (15-37) 01/03/19 05:50 ALT 16 U/L (13-61) 01/03/19 05:50 Alkaline Phosphatase 60 U/L (45-117) 01/03/19 05:50 Total Protein 6.1 g/dl (6.4-8.2) L 01/03/19 05:50 Albumin 2.8 g/dl (3.4-5.0) L 01/03/19 05:50 CARDIAC ENZYMES Creatine Kinase 182 U/L (26-308) 01/01/19 04:45 Troponin I 0.06 ng/ml (0.00-0.05) H 01/01/19 04:45 Current Medications Generic Name Dose Route Start Last Admin Trade Name Freq PRN Reason Stop Dose Admin Aripiprazole 10 mg 01/01/19 22:00 01/02/19 22:37 Abilify PO 10 mg HS YANETH Administration Aspirin 81 mg 01/01/19 10:00 01/03/19 09:30 Asa - PO 81 mg DAILY YANETH Administration Atorvastatin Calcium 10 mg 01/01/19 22:00 01/02/19 22:37 Lipitor - PO 10 mg HS YANETH Administration Divalproex Sodium 250 mg 01/01/19 22:00 01/02/19 22:37 Depakote - PO 250 mg HS YANETH Administration Divalproex Sodium 500 mg 01/01/19 10:00 01/03/19 09:30 Depakote - PO 500 mg DAILY YANETH Administration Finasteride 5 mg 01/01/19 10:00 01/03/19 09:30 Proscar - PO 5 mg DAILY YANETH Administration Lisinopril 2.5 mg 01/01/19 10:00 01/03/19 09:30 Prinivil PO Not Given DAILY YANETH Tamsulosin HCl 0.4 mg 01/01/19 22:00 01/02/19 22:37 Flomax - PO 0.4 mg HS YANETH Administration Trimethoprim/Sulfamethoxazole 1 each 01/03/19 13:15 01/03/19 14:21 Bactrim Ds - PO 1 each BID YANETH Administration Warfarin Sodium 5 mg 01/02/19 18:00 01/02/19 17:10 Coumadin - PO 5 mg SuMoWeFrSa@1800 YANETH Administration Warfarin Sodium 10 mg 01/06/19 18:00 Coumadin - PO TU@1800 [facility] 01/01/19 12:45 Blood - Peripheral Venous Blood Culture - Preliminary NO GROWTH OBTAINED AFTER 48 HOURS, INCUBATION TO CONTINUE FOR 3 DAYS. 01/01/19 12:58 Blood - Peripheral Venous Blood Culture - Preliminary NO GROWTH OBTAINED AFTER 48 HOURS, INCUBATION TO CONTINUE FOR 3 DAYS. 12/31/18 18:00 Urine - Urine Clean Catch Urine Culture - Final Citrobacter Koseri ASSESSMENT AND PLAN: Patient is a 68yo male with PMHx of severe intellectual disability, minimally verbal baseline, HTN, CAD, AV replacement on coumadin , who came in complaining of suprapubic pain after returning from program to his intermediate in this afternoon. #Recurrent Epididymitis/ orchitis -s/p iv antibiotic Rocephin/doxycycline, swiched to po Bactrim as per ID. Patient's aid who is at bedside reports that the patient used to masturbate and did pelvic thrusts on the floor, as per aid patient did this at night time, when everyone is sleep. So patient is being monitored at nights now to avoid problems. Also patient was examined by urologist who does not think that the patient has torsion clinically since patient has no pain. waiting for culture. Clinically as per urologist no torsion. Since patient is asymptomatic. Reviewed all the images. # History of AVR 2000 and enterococcal endocarditis 2012 has a metallic valve on Coumadin INR is 2.78 , will continue with home regimen, daily PT/INR # Acute UTI s/p iv antibiotic Rocephin/doxycycline. now on po bacrim ds since is sensitive. # Leukopenia with chronic thrombocytopenia continue to monitor DVT Px: Coumadin SUBSTITUTE BACTRIM DS PO BID X 10D Visit type - Emergency Visit Emergency Visit: Yes ED Registration Date: 01/01/19 Care time: The patient presented to the Emergency Department on the above date and was hospitalized for further evaluation of their emergent condition. - New Patient This patient is new to me today: No - Critical Care Critical Care patient: No - Discharge Referral Referred to [facility] No
[2019-01-03] MEDS: WARFARIN NA 5 MG TABLET (UD) PO SCH (17:29)
[2019-01-03] MEDS ORDERED: PT OWN MED DRAWER 7, Y5N ONE (21:31)
[2019-01-03] MEDS: ATORVASTATIN CA 10 MG TABLET (FP) PO SCH (22:08)
[2019-01-03] MEDS: TAMSULOSIN HCL 0.4 MG CAP PO SCH (22:08)
[2019-01-03] MEDS: ARIPiprazole 10 MG TABLET PO SCH (22:08)
[2019-01-03] MEDS: DIVALPROEX SODIUM 250 MG TABLET E.C. PO SCH (22:08)
[2019-01-04] MEDS ORDERED: PT OWN MED DRAWER 7, Y5N ONE ×2 (10:14→21:26)
[2019-01-04] MEDS: DIVALPROEX SODIUM 500 MG TABLET E.C. PO SCH (10:19)
[2019-01-04] MEDS: ASPIRIN 81 MG CHEWABLE TABLETS PO SCH (10:19)
[2019-01-04] MEDS: FINASTERIDE 5 MG TABLET (FP) PO SCH (10:19)
[2019-01-04] MEDS: SULFAMETHOXAZOLE/TRIMETHOPRIM 800MG/160MG D.S. TABLET PO SCH ×2 (10:19→21:31)
[2019-01-04] MEDS: LISINOPRIL 5 MG TABLET (FP) PO SCH (10:20)
--- NOTE | 2019-01-04 14:35 | PN ---
Physical Exam: SUBJECTIVE: Patient seen and examined OBJECTIVE: Vital Signs Period Temp Pulse Resp BP Sys/Dickey Pulse Ox Last 24 Hr 97.7 F-99.1 F 62-88 18-18 93-106/39-56 97-97 No PE was done, although patient looked like he was in no acute distress. Pt lying comfortably in chair, seen while rounding with my attending. Active Medications Generic Name Dose Route Start Last Admin Trade Name Freq PRN Reason Stop Dose Admin Aripiprazole 10 mg 01/01/19 22:00 01/03/19 22:08 Abilify PO 10 mg HS YANETH Administration Aspirin 81 mg 01/01/19 10:00 01/04/19 10:19 Asa - PO 81 mg DAILY YANETH Administration Atorvastatin Calcium 10 mg 01/01/19 22:00 01/03/19 22:08 Lipitor - PO 10 mg HS YANETH Administration Divalproex Sodium 250 mg 01/01/19 22:00 01/03/19 22:08 Depakote - PO 250 mg HS YANETH Administration Divalproex Sodium 500 mg 01/01/19 10:00 01/04/19 10:19 Depakote - PO 500 mg DAILY YANETH Administration Finasteride 5 mg 01/01/19 10:00 01/04/19 10:19 Proscar - PO 5 mg DAILY YANETH Administration Lisinopril 2.5 mg 01/01/19 10:00 01/04/19 10:20 Prinivil PO 2.5 mg DAILY YANETH Administration Tamsulosin HCl 0.4 mg 01/01/19 22:00 01/03/19 22:08 Flomax - PO 0.4 mg HS YANETH Administration Trimethoprim/Sulfamethoxazole 1 each 01/03/19 13:15 01/04/19 10:19 Bactrim Ds - PO 1 each BID YANETH Administration Warfarin Sodium 5 mg 01/02/19 18:00 01/03/19 17:29 Coumadin - PO 5 mg [email or web address]@1800 YANETH Administration Warfarin Sodium 10 mg 01/06/19 18:00 Coumadin - PO TU@1800 YANETH CBC, BMP 01/03/19 05:50 01/03/19 05:50 Images: -CT chest/abdomen: showed no acute pathology, no AAA, probable pulmonary HTN, small umbilical hernia, cholelithiasis (/) -Abdominal Xray: Moderate air distention of colon to distal sigmoid colon level , Moderate fecal retention at rectosigmoid junction, no free air ASSESSMENT/PLAN: Patient is a 68yo male with PMHx of severe intellectual disability, minimally verbal baseline, HTN, CAD, AV replacement on coumadin, 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 Pt has been admitted for UTI, troponemia. #Chronic recurrent epididymo-orchitis/UTI -Abd/Pelvic USG: chronic/subacute epididymo-orchitis, continued follow-up suggested (12/31) -CT Pelvis: s/p RLQ bowel resection; no evidence of bowel obstruction/ pneumoperitoneum seen. compared to CT on 02/15, increased amount of R pelvic free fluid -ID consult: Pt started on Bactrim for UTI/orchitis management, blood cx negative, urine cx positive for citrobacter koseri, urine for Chlamydia and GC still pending, HIV testing (MADISNO+thrombocytopenia). -Pt was noted to be previously on Rocephin/Doxycycline/Levofloxacin in the past year for epididymo-orchitis -Urology consult: torsion was ruled out. #Elevated troponin likely due to demand ischemia -EKG: atrial sensed ventricular paced rhythm similar to prior EKGs + PVC ( premature Vent complex). -Will trend troponin (0.08,0.06 on 12/31-01/01) and repeat EKG to rule out ACS. - serial trops slight elevation w/o EKG changes significant for non-cardiac origin/renal compomise/demand ischemia (Type II KS potentially due to hypovolemia and increased myocardial oxygen consumption). #Thrombocytopenia -INR 01/01-01/02 (7.19, 2.89) -Pt count 12/31-01/04 (103, 85, 81, 84) -handled outpatient, possibly Depakote SE -Monitor platelet count, will transfuse when PLT <50 w bleeding or <10 without bleeding. #Uremia -26.1 (01/02)- 21.1 (01/04), 2/2 dehydration potentially. #Hypoalbuminemia -12/31-01/04 (2.7, 2.8, 3.0, 2.8) -Ensure adequate dietary protein intake and also consult market research coordinator. #Hx of Hypertension -Restart antihypertensive drugs when clinically appropriate - will continue to monitor BP - BP has been slightly hypotensive but that is his baseline. #DVT prophylaxis -On Coumadin for mechanical aortic valve. Visit type - Emergency Visit Emergency Visit: No - New Patient This patient is new to me today: Yes Date on this admission: 01/04/19 - Critical Care Critical Care patient: No - Discharge Referral Referred to [facility] No
--- NOTE | 2019-01-04 15:59 | PN ---
Teaching Attending Note Name of Resident: Bhupendra Ortiz ATTENDING PHYSICIAN STATEMENT I saw and evaluated the patient. I reviewed the resident's note and discussed the case with the resident. I agree with the resident's findings and plan as documented. SUBJECTIVE: Patient is comfortable from retirement. No fever or chills, no shortness of breath. OBJECTIVE: Vital Signs Temperature 97.7 F 01/04/19 14:10 Pulse Rate 70 01/04/19 14:10 Respiratory Rate 20 01/04/19 14:10 Blood Pressure 93/57 L 01/04/19 14:10 O2 Sat by Pulse Oximetry (%) 97 01/04/19 09:00 GENERAL: Awake, alert, and cooperative with examiner. HEAD: Normal with no signs of trauma. EYES: Sclera anicteric, conjunctiva clear EARS, NOSE, THROAT: External ears atraumatic. Moist mucous membranes. NECK: Normal range of motion, supple without lymphadenopathy, no JVD, LUNGS: Breath sounds equal, clear to auscultation bilaterally. No wheezes, and no crackles. HEART: Regular rate and rhythm, S1 and S2 present. ABDOMEN: Soft, NT, ND, normoactive bowel sounds, no guarding, no rebound, no masses. Testicular exam per urology . EXTREMITIES: 2+ pulses, warm, well-perfused. No cyanosis. No clubbing. No peripheral edema. NEUROLOGICAL: Cranial nerves II-XII intact. PSYCHIATRIC: Cooperative. Good eye contact. Appropriate mood and affect. SKIN: Warm, dry, normal turgor. CBCD WBC 3.9 K/mm3 (4.0-10.0) L 01/03/19 05:50 RBC 4.66 M/mm3 (4.00-5.60) 01/03/19 05:50 Hgb 13.5 GM/dL (11.7-16.9) 01/03/19 05:50 Hct 42.2 % (35.4-49) 01/03/19 05:50 MCV 90.4 fl (80-96) 01/03/19 05:50 MCHC 32.1 g/dl (32.0-35.9) 01/03/19 05:50 RDW 16.6 % (11.9-15.9) H 01/03/19 05:50 Plt Count 84 K/MM3 (134-434) L 01/03/19 05:50 MPV 9.5 fl (7.5-11.1) 01/03/19 05:50 CMP Sodium 144 mmol/L (136-145) 01/03/19 05:50 Potassium 4.4 mmol/L (3.5-5.1) 01/03/19 05:50 Chloride 110 mmol/L (98-107) H 01/03/19 05:50 Carbon Dioxide 26 mmol/L (21-32) 01/03/19 05:50 Anion Gap 8 MMOL/L (8-16) 01/03/19 05:50 BUN 21.1 mg/dL (7-18) H 01/03/19 05:50 Creatinine 1.1 mg/dL (0.55-1.3) 01/03/19 05:50 Random Glucose 76 mg/dL (74-106) 01/03/19 05:50 Calcium 8.9 mg/dL (8.5-10.1) 01/03/19 05:50 Total Bilirubin 0.5 mg/dL (0.2-1) 01/03/19 05:50 AST 19 U/L (15-37) 01/03/19 05:50 ALT 16 U/L (13-61) 01/03/19 05:50 Alkaline Phosphatase 60 U/L (45-117) 01/03/19 05:50 Total Protein 6.1 g/dl (6.4-8.2) L 01/03/19 05:50 Albumin 2.8 g/dl (3.4-5.0) L 01/03/19 05:50 CARDIAC ENZYMES Creatine Kinase 182 U/L (26-308) 01/01/19 04:45 Troponin I 0.06 ng/ml (0.00-0.05) H 01/01/19 04:45 Current Medications Generic Name Dose Route Start Last Admin Trade Name Freq PRN Reason Stop Dose Admin Aripiprazole 10 mg 01/01/19 22:00 01/03/19 22:08 Abilify PO 10 mg HS YANETH Administration Aspirin 81 mg 01/01/19 10:00 01/04/19 10:19 Asa - PO 81 mg DAILY YANETH Administration Atorvastatin Calcium 10 mg 01/01/19 22:00 01/03/19 22:08 Lipitor - PO 10 mg HS YANETH Administration Divalproex Sodium 250 mg 01/01/19 22:00 01/03/19 22:08 Depakote - PO 250 mg HS YANETH Administration Divalproex Sodium 500 mg 01/01/19 10:00 01/04/19 10:19 Depakote - PO 500 mg DAILY YANETH Administration Finasteride 5 mg 01/01/19 10:00 01/04/19 10:19 Proscar - PO 5 mg DAILY YANETH Administration Lisinopril 2.5 mg 01/01/19 10:00 01/04/19 10:20 Prinivil PO 2.5 mg DAILY YANETH Administration Tamsulosin HCl 0.4 mg 01/01/19 22:00 01/03/19 22:08 Flomax - PO 0.4 mg HS [facility] Administration Trimethoprim/Sulfamethoxazole 1 each 01/03/19 13:15 01/04/19 10:19 Bactrim Ds - PO 1 each BID [facility] Administration Warfarin Sodium 5 mg 01/02/19 18:00 01/03/19 17:29 Coumadin - PO 5 mg [email or web address] [facility] Administration Warfarin Sodium 10 mg 01/06/19 18:00 Coumadin - PO TU@1800 [facility] Home Medications Medication Instructions Recorded Aripiprazole [Abilify] 10 mg PO HS 06/10/16 Aspirin [ASA -] 81 mg PO DAILY 06/10/16 Atorvastatin Ca [Lipitor] 10 mg PO HS 06/10/16 Finasteride 5 mg PO DAILY 06/10/16 Lisinopril [Zestril] 2.5 mg PO DAILY 06/10/16 Tamsulosin HCl [Flomax -] 0.4 mg PO HS 01/12/18 Warfarin Na [Coumadin -] 5 mg PO ASDIR 02/08/18 Divalproex [Depakote -] 250 mg PO DAILY 12/31/18 Divalproex [Depakote -] 500 mg PO BID 12/31/18 Omeprazole 10 mg PO DAILY 01/02/19 Warfarin Na [Coumadin] 5 mg PO TU@1800 01/02/19 Microbiology 01/01/19 12:45 Blood - Peripheral Venous Blood Culture - Preliminary NO GROWTH OBTAINED AFTER 72 HOURS, INCUBATION TO CONTINUE FOR 2 DAYS. 01/01/19 12:58 Blood - Peripheral Venous Blood Culture - Preliminary NO GROWTH OBTAINED AFTER 72 HOURS, INCUBATION TO CONTINUE FOR 2 DAYS. 12/31/18 18:00 Urine - Urine Clean Catch Urine Culture - Final Citrobacter Koseri ASSESSMENT AND PLAN: Patient is a 68yo male with PMHx of severe intellectual disability, minimally verbal baseline, HTN, CAD, AV replacement on coumadin , who came in complaining of suprapubic pain after returning from program to his retirement in this afternoon. #Recurrent Epididymitis/ orchitis -On po Bacrim Ds bid x 10 days 08/10 today . Patient's aid is at bedside who stated that patient cannot be sent to retirement since no nurse is available on the weekend to accept the patient. # History of AVR 2000 and enterococcal endocarditis 2012 has a metallic valve on Coumadin INR is 2.78 , will continue with home regimen, daily PT/INR # Acute UTI on po bacrim ds since is sensitive. # Leukopenia with chronic thrombocytopenia improving . continue to monitor DVT Px: Coumadin
[2019-01-04] MEDS: WARFARIN NA 5 MG TABLET (UD) PO SCH (17:43)
[2019-01-04] MEDS: TAMSULOSIN HCL 0.4 MG CAP PO SCH (21:30)
[2019-01-04] MEDS: DIVALPROEX SODIUM 250 MG TABLET E.C. PO SCH (21:31)
[2019-01-04] MEDS: ARIPiprazole 10 MG TABLET PO SCH (21:31)
[2019-01-04] MEDS: ATORVASTATIN CA 10 MG TABLET (FP) PO SCH (21:31)
[2019-01-05 06:29] LABS: BASO % 0.2 % (0-2.0); EOS % 4.9 % (0-4.5); HEMATOCRIT 42.9 % (35.4-49); HEMOGLOBIN 13.8 GM/dL (11.7-16.9); MCH 29.3 pg (25.7-33.7); MEAN CELL VOLUME 91.5 fl (80-96); MEAN PLT VOLUME 9.2 fl (7.5-11.1); NEUT % 30.9 % (42.8-82.8); PLATELET COUNT 88 K/MM3 (134-434); RBC 4.69 M/mm3 (4.00-5.60); RDW 16.2 % (11.9-15.9)
[2019-01-05 06:32] LABS: INR 2.34 (0.83-1.09); PROTHROMBIN TIME (PATIENT) 27.8 SEC (9.7-13.0)
--- NOTE | 2019-01-05 06:46 | DS ---
Physical Exam: SUBJECTIVE: Patient seen and examined OBJECTIVE: Vital Signs Period Temp Pulse Resp BP Sys/Dickey Pulse Ox Last 24 Hr 97.6 F-99.6 F 60-88 16-20 93-127/43-67 97-97 PHYSICAL EXAM GENERAL: The patient is awake, alert, and fully oriented, in no acute distress. HEAD: Normal with no signs of trauma. EYES: PERRL, extraocular movements intact, sclera anicteric, conjunctiva clear. ENT: Ears normal, nares patent, oropharynx clear without exudates, moist mucous membranes. NECK: Trachea midline, full range of motion, supple. LUNGS: Breath sounds equal, clear to auscultation bilaterally, no wheezes, no crackles, no accessory muscle use. HEART: Regular rate and rhythm, S1, S2 without murmur, rub or gallop. ABDOMEN: Soft, nontender, nondistended, normoactive bowel sounds, no guarding, no rebound, no hepatosplenomegaly, no masses. EXTREMITIES: 2+ pulses, warm, well-perfused, no edema. NEUROLOGICAL: Cranial nerves II through XII grossly intact. Normal speech, gait not observed. PSYCH: Normal mood, normal affect. SKIN: Warm, dry, normal turgor, no rashes or lesions noted. LABS Laboratory Results - last 24 hr 01/05/19 05:30 PT with INR 27.80 H INR 2.34 H HOSPITAL COURSE: Date of Admission:01/01/19 Date of Discharge: 01/05/19 ASSESSMENT/PLAN: Patient is a 68 yo male with PMH of intellectual disability, HTN, CAD, enterococcal endocarditis (2012 mechanical aortic valve replacement, s/p pacemaker placement), seizures, thoracic aortic aneurysm, chronic epididymo- orchitis, bipolar disorder, GERD and BPH. He presented with suprapubic pain, which began the same day (12/31). No associated fevers, chills, or difficulty eating, or loss of appetite, and patient had a bowel movement on the day of admission. #Chronic recurrent epididymo-orchitis -Abd/Pelvic USG: chronic/subacute epididymo-orchitis, continued follow-up suggested (12/31) -Urine cx: Citrobacter Koseri -Blood cx pending -ID consult: Ceftriaxone/Doxy switched to Bactrim added for UTI (01/03), awaiting blood, urine for Chlamydia and GC, HIV testing ([place]+thrombocytopenia). Previously on Rocephin/Doxycycline/Levofloxacin past year for epididymo-orchitis -CT Pelvis: s/p RLQ bowel resection; no evidence of bowel obstruction/ pneumoperitoneum seen. compared to CT on 02/15, increased amount of R pelvic free fluid -CT chest/abdomen: showed no acute pathology, no AAA, probable pulmonary HTN, small umbilical hernia, cholelithiasis (12/31) -Abdominal Xray: Moderate air distention of colon to distal sigmoid colon level , Moderate fecal retention at rectosigmoid junction, no free air -Urology consult: Acute pathology unlikely, manage pain #Elevated troponin likely due to demand ischemia -EKG: atrial sensed ventricular paced rhythm similar to prior EKGs + PVC ( premature Vent complex). -Will trend troponin and repeat EKG to rule out ACS. #Thrombocytopenia -INR 01/01-01/02 (7.19, 2.89) -Pt count 01/01-01/05 (83, 81,84,- ,88) -handled outpatient, possibly Depakote SE -Consult PCP/Neurologist to consider switching to another anticonvulsant -Monitor platelet count #BUN -26.1 (01/02) #Hypoalbuminemia -12/31-12/31 (2.7, 2.8, 3.0) -Ensure adequate dietary protein intake and also consult drafter geophysical. #Hx of Hypertension -Restart suitable outpatient antihypertensive drugs when clinically appropriate -monitor BP #DVT prophylaxis -On Coumadin for mechanical aortic valve. #Advance directives -Full code Discharge Summary Reason For Visit: ELEVATED TROPONIN LEVEL,CHEST PAIN Current Active Problems Orchitis and epididymitis (Acute) - Instructions - Home Medications Comprehensive Discharge Medication List: Ambulatory Orders Aripiprazole [Abilify] 10 mg PO HS 06/10/16 Aspirin [ASA -] 81 mg PO DAILY 06/10/16 Atorvastatin Ca [Lipitor] 10 mg PO HS 06/10/16 Finasteride 5 mg PO DAILY 06/10/16 Lisinopril [Zestril] 2.5 mg PO DAILY 06/10/16 Tamsulosin HCl [Flomax -] 0.4 mg PO HS 01/12/18 Warfarin Na [Coumadin -] 5 mg PO ASDIR 02/08/18 Divalproex [Depakote -] 250 mg PO DAILY 12/31/18 Divalproex [Depakote -] 500 mg PO BID 12/31/18 Omeprazole 10 mg PO DAILY 01/02/19 Warfarin Na [Coumadin] 5 mg PO TU@1800 01/02/19 - Discharge Referral Referred to [facility] No
[2019-01-05 06:56] LABS: ALBUMIN 2.8 g/dl (3.4-5.0); BILIRUBIN,TOTAL 0.5 mg/dL (0.2-1); BLOOD UREA NITROGEN 28.4 mg/dL (7-18); CALCIUM 8.4 mg/dL (8.5-10.1); CREATININE 1.5 mg/dL (0.55-1.3); POTASSIUM 4.8 mmol/L (3.5-5.1); TOT PROT 5.8 g/dl (6.4-8.2)
--- NOTE | 2019-01-05 07:07 | PN ---
Physical Exam: SUBJECTIVE: Patient seen and examined OBJECTIVE: Vital Signs Period Temp Pulse Resp BP Sys/Dickey Pulse Ox Last 24 Hr 97.6 F-99.6 F 60-88 16-20 93-127/43-67 97-97 GENERAL: The patient is awake, alert, and fully oriented, in no acute distress. HEAD: Normal with no signs of trauma. EYES: PERRL, extraocular movements intact, sclera anicteric, conjunctiva clear. No ptosis. ENT: Ears normal, nares patent, oropharynx clear without exudates, moist mucous membranes. NECK: Trachea midline, full range of motion, supple. LUNGS: Breath sounds equal, clear to auscultation bilaterally, no wheezes, no crackles, no accessory muscle use. HEART: Regular rate and rhythm, S1, S2 without murmur, rub or gallop. ABDOMEN: Soft, nontender, nondistended, normoactive bowel sounds, no guarding, no rebound, no hepatosplenomegaly, no masses. EXTREMITIES: 2+ pulses, warm, well-perfused, no edema. NEUROLOGICAL: Cranial nerves II through XII grossly intact. Normal speech, gait not observed. PSYCH: Normal mood, normal affect. SKIN: Warm, dry, normal turgor, no rashes or lesions noted Laboratory Results - last 24 hr 01/05/19 01/05/19 01/05/19 05:30 05:30 05:30 WBC 4.0 RBC 4.69 Hgb 13.8 Hct 42.9 MCV 91.5 MCH 29.3 MCHC 32.0 RDW 16.2 H Plt Count 88 L MPV 9.2 Absolute Neuts (auto) 1.2 L Neutrophils % 30.9 L Lymphocytes % 48.0 H Monocytes % 16.0 H Eosinophils % 4.9 H D Basophils % 0.2 Nucleated RBC % 0 PT with INR 27.80 H INR 2.34 H Sodium 140 Potassium 4.8 Chloride 111 H Carbon Dioxide 23 Anion Gap 6 L BUN 28.4 H Creatinine 1.5 H Est GFR (CKD-EPI)AfAm 54.27 Est GFR (CKD-EPI)NonAf 46.83 Random Glucose 72 L Calcium 8.4 L Total Bilirubin 0.5 AST 29 ALT 19 Alkaline Phosphatase 53 Total Protein 5.8 L Albumin 2.8 L Active Medications Generic Name Dose Route Start Last Admin Trade Name Freq PRN Reason Stop Dose Admin Aripiprazole 10 mg 01/01/19 22:00 01/04/19 21:31 Abilify PO 10 mg HS YANETH Administration Aspirin 81 mg 01/01/19 10:00 01/04/19 10:19 Asa - PO 81 mg DAILY YANETH Administration Atorvastatin Calcium 10 mg 01/01/19 22:00 01/04/19 21:31 Lipitor - PO 10 mg HS YANETH Administration Divalproex Sodium 250 mg 01/01/19 22:00 01/04/19 21:31 Depakote - PO 250 mg HS YANETH Administration Divalproex Sodium 500 mg 01/01/19 10:00 01/04/19 10:19 Depakote - PO 500 mg DAILY YANETH Administration Finasteride 5 mg 01/01/19 10:00 01/04/19 10:19 Proscar - PO 5 mg DAILY YANETH Administration Lisinopril 2.5 mg 01/01/19 10:00 01/04/19 10:20 Prinivil PO 2.5 mg DAILY YANETH Administration Tamsulosin HCl 0.4 mg 01/01/19 22:00 01/04/19 21:30 Flomax - PO 0.4 mg HS YANETH Administration Trimethoprim/Sulfamethoxazole 1 each 01/03/19 13:15 01/04/19 21:31 Bactrim Ds - PO 1 each BID YANETH Administration Warfarin Sodium 5 mg 01/02/19 18:00 01/04/19 17:43 Coumadin - PO 5 mg [email or web address]@1800 YANETH Administration Warfarin Sodium 10 mg 01/06/19 18:00 Coumadin - PO TU@1800 [facility] ASSESSMENT/PLAN: Patient is a 68 yo male with PMH of intellectual disability, HTN, CAD, enterococcal endocarditis (2012 mechanical aortic valve replacement, s/p pacemaker placement), seizures, thoracic aortic aneurysm, chronic epididymo- orchitis, bipolar disorder, GERD and BPH. He presented with suprapubic pain, which began the same day (12/31). No associated fevers, chills, or difficulty eating, or loss of appetite, and patient had a bowel movement on the day of admission. #Chronic recurrent epididymo-orchitis -Abd/Pelvic USG: chronic/subacute epididymo-orchitis, continued follow-up suggested (12/31) -Urine cx: Citrobacter Koseri -Blood cx pending -ID consult: Ceftriaxone/Doxy switched to Bactrim added for UTI (01/03), awaiting blood, urine for Chlamydia and GC, HIV testing ([place]+thrombocytopenia). Previously on Rocephin/Doxycycline/Levofloxacin past year for epididymo-orchitis -CT Pelvis: s/p RLQ bowel resection; no evidence of bowel obstruction/ pneumoperitoneum seen. compared to CT on 02/15, increased amount of R pelvic free fluid -CT chest/abdomen: showed no acute pathology, no AAA, probable pulmonary HTN, small umbilical hernia, cholelithiasis (12/31) -Abdominal Xray: Moderate air distention of colon to distal sigmoid colon level , Moderate fecal retention at rectosigmoid junction, no free air -Urology consult: Acute pathology unlikely, manage pain #Elevated troponin likely due to demand ischemia -EKG: atrial sensed ventricular paced rhythm similar to prior EKGs + PVC ( premature Vent complex). -Will trend troponin and repeat EKG to rule out ACS. #Thrombocytopenia -INR 01/01-01/03 (7.19, 2.89, 2.34) -Pt count 01/01-01/05 (83, 81,84,- ,88) -handled outpatient, possibly Depakote SE -Consult PCP/Neurologist to consider switching to another anticonvulsant -Monitor platelet count #BUN -01/02-01/05 (26.1, 21.1, -, 28.4) #Hypoalbuminemia -01/01-01/05 (2.7, 3.0, 2.8, -, 2.8) -Ensure adequate dietary protein intake and also consult construction plumber. #Hx of Hypertension -Restart suitable outpatient antihypertensive drugs when clinically appropriate -monitor BP #DVT prophylaxis -On Coumadin for mechanical aortic valve. #Advance directives -Full code Visit type - Emergency Visit Emergency Visit: Yes ED Registration Date: 01/01/19 Care time: The patient presented to the Emergency Department on the above date and was hospitalized for further evaluation of their emergent condition. - New Patient This patient is new to me today: No - Critical Care Critical Care patient: No - Discharge Referral [facility]erred to [facility] No
[2019-01-05] MEDS: LISINOPRIL 5 MG TABLET (FP) PO SCH (10:19)
[2019-01-05] MEDS ORDERED: WARFARIN NA 2 MG TABLET (UD) PO ONE ×2 (10:52→12:15)
[2019-01-05] MEDS: DIVALPROEX SODIUM 500 MG TABLET E.C. PO SCH (10:59)
[2019-01-05] MEDS: FINASTERIDE 5 MG TABLET (FP) PO SCH (10:59)
[2019-01-05] MEDS: SULFAMETHOXAZOLE/TRIMETHOPRIM 800MG/160MG D.S. TABLET PO SCH (10:59)
[2019-01-05] MEDS: ASPIRIN 81 MG CHEWABLE TABLETS PO SCH (10:59)
[2019-01-05 11:07] VITALS: BP 98/54; PULSE 73; TEMP 98
--- NOTE | 2019-01-05 14:33 | PN ---
Teaching Attending Note Name of Resident: Hany Cornejo ATTENDING PHYSICIAN STATEMENT I saw and evaluated the patient. I reviewed the resident's note and discussed the case with the resident. I agree with the resident's findings and plan as documented. SUBJECTIVE: Patient is comfortable with no acute distress. No nausea or vomiting. OBJECTIVE: Vital Signs Temperature 98 F 01/05/19 10:00 Pulse Rate 73 01/05/19 10:00 Respiratory Rate 18 01/05/19 10:00 Blood Pressure 98/54 L 01/05/19 10:00 O2 Sat by Pulse Oximetry (%) 97 01/05/19 09:00 GENERAL: Awake, alert, and cooperative with examiner. HEAD: Normal with no signs of trauma. EYES: Sclera anicteric, conjunctiva clear EARS, NOSE, THROAT: External ears atraumatic. MMM. NECK: Normal range of motion, supple without lymphadenopathy, no JVD, LUNGS: Breath sounds equal, clear to auscultation bilaterally. No wheezes, and no crackles. HEART: Regular rate and rhythm, S1 and S2 present. ABDOMEN: Soft, NT, ND, normoactive bowel sounds, no guarding, no rebound, no masses. EXTREMITIES: 2+ pulses, warm, well-perfused. No cyanosis. No clubbing. No peripheral edema. NEUROLOGICAL: Cranial nerves II-XII intact. PSYCHIATRIC: Cooperative. Good eye contact. Appropriate mood and affect. SKIN: Warm, dry, normal turgor. CBCD WBC 4.0 K/mm3 (4.0-10.0) 01/05/19 05:30 RBC 4.69 M/mm3 (4.00-5.60) 01/05/19 05:30 Hgb 13.8 GM/dL (11.7-16.9) 01/05/19 05:30 Hct 42.9 % (35.4-49) 01/05/19 05:30 MCV 91.5 fl (80-96) 01/05/19 05:30 MCHC 32.0 g/dl (32.0-35.9) 01/05/19 05:30 RDW 16.2 % (11.9-15.9) H 01/05/19 05:30 Plt Count 88 K/MM3 (134-434) L 01/05/19 05:30 MPV 9.2 fl (7.5-11.1) 01/05/19 05:30 CMP Sodium 140 mmol/L (136-145) 01/05/19 05:30 Potassium 4.8 mmol/L (3.5-5.1) 01/05/19 05:30 Chloride 111 mmol/L (98-107) H 01/05/19 05:30 Carbon Dioxide 23 mmol/L (21-32) 01/05/19 05:30 Anion Gap 6 MMOL/L (8-16) L 01/05/19 05:30 BUN 28.4 mg/dL (7-18) H 01/05/19 05:30 Creatinine 1.5 mg/dL (0.55-1.3) H 01/05/19 05:30 Random Glucose 72 mg/dL (74-106) L 01/05/19 05:30 Calcium 8.4 mg/dL (8.5-10.1) L 01/05/19 05:30 Total Bilirubin 0.5 mg/dL (0.2-1) 01/05/19 05:30 AST 29 U/L (15-37) 01/05/19 05:30 ALT 19 U/L (13-61) 01/05/19 05:30 Alkaline Phosphatase 53 U/L (45-117) 01/05/19 05:30 Total Protein 5.8 g/dl (6.4-8.2) L 01/05/19 05:30 Albumin 2.8 g/dl (3.4-5.0) L 01/05/19 05:30 CARDIAC ENZYMES Creatine Kinase 182 U/L (26-308) 01/01/19 04:45 Troponin I 0.06 ng/ml (0.00-0.05) H 01/01/19 04:45 Current Medications Generic Name Dose Route Start Last Admin Trade Name Freq PRN Reason Stop Dose Admin Aripiprazole 10 mg 01/01/19 22:00 01/04/19 21:31 Abilify PO 10 mg HS YANETH Administration Aspirin 81 mg 01/01/19 10:00 01/05/19 10:59 Asa - PO 81 mg DAILY YANETH Administration Atorvastatin Calcium 10 mg 01/01/19 22:00 01/04/19 21:31 Lipitor - PO 10 mg HS YANETH Administration Divalproex Sodium 250 mg 01/01/19 22:00 01/04/19 21:31 Depakote - PO 250 mg HS [facility] Administration Divalproex Sodium 500 mg 01/01/19 10:00 01/05/19 10:59 Depakote - PO 500 mg DAILY YANETH Administration Finasteride 5 mg 01/01/19 10:00 01/05/19 10:59 Proscar - PO 5 mg DAILY YANETH Administration Lisinopril 2.5 mg 01/01/19 10:00 01/05/19 10:19 Prinivil PO Not Given DAILY [facility] Tamsulosin HCl 0.4 mg 01/01/19 22:00 01/04/19 21:30 Flomax - PO 0.4 mg HS [facility] Administration Trimethoprim/Sulfamethoxazole 1 each 01/03/19 13:15 01/05/19 10:59 Bactrim Ds - PO 1 each BID [facility] Administration Warfarin Sodium 5 mg 01/02/19 18:00 01/04/19 17:43 Coumadin - PO 5 mg [id number]@1800 [facility] Administration Warfarin Sodium 10 mg 01/06/19 18:00 Coumadin - PO TU@1800 [facility] Home Medications Medication Instructions Recorded Aripiprazole [Abilify] 10 mg PO HS 06/10/16 Aspirin [ASA -] 81 mg PO DAILY 06/10/16 Atorvastatin Ca [Lipitor] 10 mg PO HS 06/10/16 Finasteride 5 mg PO DAILY 06/10/16 Lisinopril [Zestril] 2.5 mg PO DAILY 06/10/16 Tamsulosin HCl [Flomax -] 0.4 mg PO HS 01/12/18 Warfarin Na [Coumadin -] 5 mg PO ASDIR 02/08/18 Divalproex [Depakote -] 250 mg PO DAILY 12/31/18 Divalproex [Depakote -] 500 mg PO BID 12/31/18 Omeprazole 10 mg PO DAILY 01/02/19 Warfarin Na [Coumadin -] 5 mg PO TU@1800 01/02/19 Sulfamethoxazole/Trimethoprim 1 each PO BID #16 tablet 01/05/19 [Bactrim DS -] 01/01/19 12:45 Blood - Peripheral Venous Blood Culture - Preliminary NO GROWTH OBTAINED AFTER 72 HOURS, INCUBATION TO CONTINUE FOR 2 DAYS. 01/01/19 12:58 Blood - Peripheral Venous Blood Culture - Preliminary NO GROWTH OBTAINED AFTER 72 HOURS, INCUBATION TO CONTINUE FOR 2 DAYS. 12/31/18 18:00 Urine - Urine Clean Catch Urine Culture - Final Citrobacter Koseri ASSESSMENT AND PLAN: Patient is a 68yo male with PMHx of severe intellectual disability, minimally verbal baseline, HTN, CAD, AV replacement on coumadin , who came in complaining of suprapubic pain after returning from program to his retirement in this afternoon. #Recurrent Epididymitis/ orchitis -On po Bacrim Ds bid x 10 days 09/07 today . Patient's aid is at bedside , patient csn return today since a nurse is available to to accept the patient from retirement. 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 continue home regimen, repeat PT/INR in 2 days. # Acute UTI on po bacrim ds since is sensitive day #09/07 as per recommendation os ID # Leukopenia with chronic thrombocytopenia improving . given extra dose of coumadin 2mg since inr was 2.34 and Rx bactrim DS 3 hrs apart from coumadin.
[2019-01-06] MEDS ORDERED: WARFARIN NA 5 MG TABLET (UD) PO SCH (18:00)
== END 2019-01-05 14:46 | DRG 728 ==
LOC: JER 16:59 → JERBED 01-01 00:31 → OBSVTOIN 01-01 01:45 → J4S 01-01 03:28
PROVIDERS: ADMIT Internal Medicine; ATTEND Internal Medicine
DX: N45.3 Epididymo-orchitis (principal); F72 Severe intellectual disabilities; E46 Unspecified protein-calorie malnutrition; I24.8 Other forms of acute ischemic heart disease; N39.0 Urinary tract infection, site not specified; I10 Essential (primary) hypertension; E78.5 Hyperlipidemia, unspecified; I25.10 Atherosclerotic heart disease of native coronary artery without angina pectoris; I49.3 Ventricular premature depolarization; I27.20 Pulmonary hypertension, unspecified; F41.8 Other specified anxiety disorders; D69.6 Thrombocytopenia, unspecified; E88.09 Other disorders of plasma-protein metabolism, not elsewhere classified; D72.829 Elevated white blood cell count, unspecified; N40.0 Benign prostatic hyperplasia without lower urinary tract symptoms; F31.9 Bipolar disorder, unspecified; K21.9 Gastro-esophageal reflux disease without esophagitis; D72.819 Decreased white blood cell count, unspecified; K59.09 Other constipation; K80.20 Calculus of gallbladder without cholecystitis without obstruction; I71.2 Thoracic aortic aneurysm, without rupture; D72.820 Lymphocytosis (symptomatic); R56.9 Unspecified convulsions; K40.90 Unilateral inguinal hernia, without obstruction or gangrene, not specified as recurrent; M50.31 Other cervical disc degeneration, high cervical region; Z95.0 Presence of cardiac pacemaker; Z95.2 Presence of prosthetic heart valve; Z79.01 Long term (current) use of anticoagulants
CPT/HCPCS: 36415; 71275-TC; 72193-TC; 74175-TC; 76705-TC; 76870-TC; 80053; 81003; 82550; 82553; 83605; 83735; 84100; 84484; 85025; 85027; 85610; 87040; 87086; 87186; 87804; 93005; 93010; 99284-25; G0378; J0131

== ENCOUNTER 2019-01-16 10:56 | Emergency (ER) | payer OTHER ==
[2019-01-16 11:04] VITALS: BMI 25.0
--- NOTE | 2019-01-16 12:08 | PDOC ---
History of Present Illness - General Chief Complaint: Pain Stated Complaint: ABD PAIN Time Seen by Provider: 01/16/19 11:10 History Source: Patient Exam Limitations: No Limitations - History of Present Illness Initial Comments: 01/16/19 12:10 68 yo male pmh intellectual disability, HTN, CAD, enterococcal endocarditis ( 2012 mechanical aortic valve replacement, s/p pacemaker placement), seizures, thoracic aortic aneurysm, chronic epididymo-orchitis, bipolar disorder, GERD and BPH presents from assisted living facility for abdominal pain. Of note, pt recently admitted for similar complaint, hospital course: -Abd/Pelvic USG: chronic/subacute epididymo-orchitis, continued follow-up suggested (12/31) -Urine cx: Citrobacter Koseri -ID consult: Ceftriaxone/Doxy switched to Bactrim added for UTI (01/03), awaiting blood, urine for Chlamydia and GC, HIV testing ([place]+thrombocytopenia). Previously on Rocephin/Doxycycline/Levofloxacin past year for epididymo-orchitis -CT Pelvis: s/p RLQ bowel resection; no evidence of bowel obstruction/ pneumoperitoneum seen. compared to CT on 02/15, increased amount of R pelvic free fluid -CT chest/abdomen: showed no acute pathology, no AAA, probable pulmonary HTN, small umbilical hernia, cholelithiasis (12/31) -Abdominal Xray: Moderate air distention of colon to distal sigmoid colon level , Moderate fecal retention at rectosigmoid junction, no free air -Urology consult: Acute pathology unlikely, manage pain S/P bowel resection Pt at baseline mentation, follows basic commands, knows name. Only new complaint today is abdominal pain, not able to expand Past History - Past Medical History Allergies/Adverse Reactions: Allergies Allergy/AdvReac Type Severity Reaction Status Date / Time beeswax Allergy Unknown Verified 01/16/19 11:03 venom-honey bee Allergy ANAPHYLAXIS Verified 01/16/19 11:03 [bee venom (honey bee)] Home Medications: Ambulatory Orders Aripiprazole [Abilify] 10 mg PO HS 06/10/16 Aspirin [ASA -] 81 mg PO DAILY 06/10/16 Atorvastatin Ca [Lipitor] 10 mg PO HS 06/10/16 Finasteride 5 mg PO DAILY 06/10/16 Lisinopril [Zestril] 2.5 mg PO DAILY 06/10/16 Tamsulosin HCl [Flomax -] 0.4 mg PO HS 01/12/18 Warfarin Na [Coumadin -] 10 mg PO ASDIR 02/08/18 Divalproex [Depakote -] 250 mg PO DAILY 12/31/18 Divalproex [Depakote -] 500 mg PO BID 12/31/18 Omeprazole 20 mg PO DAILY 01/02/19 Warfarin Na [Coumadin -] 5 mg PO TU@1800 01/02/19 Sulfamethoxazole/Trimethoprim [Bactrim DS -] 1 each PO BID #16 tablet 01/05/19 Mineral Oil/Petrolat,Wht/Water [Eucerin] 1 applic TP DAILY 01/16/19 Multivitamin [Multiple Vitamins] 1 each PO DAILY 01/16/19 Anemia: No Asthma: No Cancer: No Cardiac Disorders: Yes (aortic valve disorder, dvt, cardiomegaly) CVA: Yes COPD: No CHF: No DVT: No Dementia: No Diabetes: No GI Disorders: Yes (volvulus of intestine, bowel or colon, SBO, POLYPS) Disorders: Yes (BPH, CHRONIC ORCHITIS) HTN: Yes Hypercholesterolemia: Yes (HYPERLIPIDEMIA) Liver Disease: No Seizures: Yes Thyroid Disease: No - Surgical History Abdominal Surgery: Yes (aortic root repair and area) Appendectomy: No Cardiac Surgery: Yes (heart valve repair) Cholecystectomy: No Lung Surgery: No Neurologic Surgery: No Orthopedic Surgery: No - Immunization History Immunization Up to Date: Yes - Suicide/Smoking/Psychosocial Hx Smoking Status: No Smoking History: Unknown if ever smoked Years of Tobacco Use: 0 Have you smoked in the past 12 months: No Number of Cigarettes Smoked Daily: 0 Cigars Per Day: 0 Information on smoking cessation initiated: No Hx Alcohol Use: No Drug/Substance Use Hx: No Substance Use Type: None Hx Substance Use Treatment: No *Physical Exam - Vital Signs Last Vital Signs Temp Pulse Resp BP Pulse Ox 76 16 127/79 100 01/16/19 11:00 01/16/19 11:00 01/16/19 11:00 01/16/19 11:00 - Physical Exam General Appearance: Yes: Nourished, Appropriately Dressed. No: Apparent Distress HEENT: positive: EOMI ED Treatment Course - LABORATORY CBC & Chemistry Diagram: 01/16/19 12:42 01/16/19 15:20 Medical Decision Making - Medical Decision Making 01/16/19 15:58 68 yo male pmh intellectual disability, HTN, CAD, enterococcal endocarditis ( 2012 mechanical aortic valve replacement, s/p pacemaker placement), seizures, thoracic aortic aneurysm, chronic epididymo-orchitis, bipolar disorder, GERD and BPH presents from assisted living facility for abdominal pain. Of note, pt recently admitted for similar complaint, hospital course: -Abd/Pelvic USG: chronic/subacute epididymo-orchitis, continued follow-up suggested (12/31) -Urine cx: Citrobacter Koseri -ID consult: Ceftriaxone/Doxy switched to Bactrim added for UTI (01/03), awaiting blood, urine for Chlamydia and GC, HIV testing ([place]+thrombocytopenia). Previously on Rocephin/Doxycycline/Levofloxacin past year for epididymo-orchitis -CT Pelvis: s/p RLQ bowel resection; no evidence of bowel obstruction/ pneumoperitoneum seen. compared to CT on 02/15, increased amount of R pelvic free fluid -CT chest/abdomen: showed no acute pathology, no AAA, probable pulmonary HTN, small umbilical hernia, cholelithiasis (12/31) -Abdominal Xray: Moderate air distention of colon to distal sigmoid colon level , Moderate fecal retention at rectosigmoid junction, no free air -Urology consult: Acute pathology unlikely, manage pain S/P bowel resection Pt at baseline mentation, follows basic commands, knows name. Only new complaint today is abdominal pain, not able to expand Ab/Pel CT with oral and IV contrast will hydrate pt due to borderline kidney function 01/16/19 18:24 Pt resting comfortably in bed, pending CT read 01/16/19 18:52 CT shows no acute findings Re examined pt, states he no longer has abdominal pain, no pain, guarding, rebound on palpation Ua neg today urine culture on last admission grew less than 20 000 CFU of Citrobacter Koseri , discussed case with Dr. Killian who saw pt during that admission, pt treated with IV and POI antibiotics but believes pt is likely not suffering from epididymo-orchitis due to lab, CT and presentation Pt at baseline currently and can safely be discharged home with strict return precautions 01/16/19 19:13 Discussed case with Karlene at pts [place] [facility], aware of pt complaints and workup including strict return precautions and PCP f/u *DC/Admit/Observation/Transfer Diagnosis at time of Disposition: Abdominal pain - Discharge Dispostion Disposition: HOME Condition at time of disposition: Stable Decision to Admit order: No - Referrals Referrals: Rebecca Mcadams [Primary Care Provider] - - Patient Instructions Printed Discharge Instructions: DI for Abdominal Pain-Adult Additional Instructions: Please see your primary doctor within the next 48 hours. Continue taking your home dosed medications as prescribed, Return to the closest ER immediately for new or concerning symptoms including but not limited to: fevers, inability to eat or drink, significant abdominal pain, inability to urinate or defecate. Thank you - Post Discharge Activity
[2019-01-16 12:57] LABS: BASO % 0.3 % (0-2.0); EOS % 1.5 % (0-4.5); HEMATOCRIT 37.4 % (35.4-49); HEMOGLOBIN 12.2 GM/dL (11.7-16.9); LYMPH % 34.1 % (8-40); MCH 29.4 pg (25.7-33.7); MCHC 32.6 g/dl (32.0-35.9); MEAN CELL VOLUME 90.2 fl (80-96); MONO % 11.6 % (3.8-10.2); NEUT % 52.5 % (42.8-82.8); RBC 4.15 M/mm3 (4.00-5.60); RDW 15.4 % (11.9-15.9); WHITE BLOOD COUNT 3.1 K/mm3 (4.0-10.0)
[2019-01-16 13:05] LABS: PLATELET COUNT 93 K/MM3 (134-434)
[2019-01-16 13:24] LABS: URINE APPEARANCE CLEAR; URINE BILIRUBIN NEGATIVE (NEGATIVE); URINE COLOR YELLOW; URINE GLUCOSE (UA) NEGATIVE (NEGATIVE); URINE KETONE NEGATIVE (NEGATIVE); URINE LEUK ESTERASE NEGATIVE (NEGATIVE); URINE NITRITE NEGATIVE (NEGATIVE); URINE PROTEIN NEGATIVE (NEGATIVE); URINE UROBILINOGEN 0.2 mg/dL (0.2-1.0)
--- NOTE | 2019-01-16 13:56 | PDOC ---
Documentation entered by Macie Blackburn SCRIBE, acting as scribe for Brayden White MD. Brayden White MD: This documentation has been prepared by the Alexey estes Xhesika, SCRIBE, under my direction and personally reviewed by me in its entirety. I confirm that the documentation accurately reflects all work, treatment, procedures, and medical decision making performed by me. Attending Attestation - Resident Resident Name: Ascencion Canales - ED Attending Attestation I have performed the following: I have examined & evaluated the patient, The case was reviewed & discussed with the resident, I agree w/resident's findings & plan, Exceptions are as noted - HPI HPI: 01/16/19 13:27 Patient is a 68 year old male with a significant PMH of intellectual disability , HTN, CAD, enterococcal endocarditis (2012 mechanical aortic valve replacement , s/p pacemaker placement), seizures, thoracic aortic aneurysm, chronic epididymo-orchitis, bipolar disorder, GERD and BPH who presents to the ED from assisted living with worsening suprapubic pain. The patient was recently admitted here at [facility] (12/31/18) with similar symptoms, was diagnosed with epididymo-orchitis and discharged home on antibiotics. The patient is a poor historian due to his severe intellectual disability. Allergies: Beeswax, Venom-Honey Bee PCP: Rebecca Chacon - Physicial Exam PE: 01/16/19 13:27 Vitals: Triage Vital signs reviewed General Appearance: no acute distress, well nourished well developed, Head: Atraumatic, normocephalic Eyes: Pupils equal reactive round, extraocular movement intact Neck: Supple;No Nuchal rigidity Chest Wall: Nontender Cardiac: Regular rate and rhythm, no murmurs, no rubs, no gallops, Lungs: Clear to auscultation bilateral, good air movement bilaterally, Abdomen: Soft, nondistended, normal bowel sounds, nontender to palpation Extremities: (+) puprapubic lower abdominal dicomfort. Full range of motion to all extremities, no cyanosis, clubbing, or edema Skin: Warm and dry, no rashes or lesions, no petechiae Neuro: AOX3; Cranial Nerves 2-12 grossly c intact, Strength intact to all extremities, Sensation intact to all extremities Psych: normal mood, normal affect - Medical Decision Making 01/16/19 16:20 Multiple abdominal surgeries with abdominal pain history Limited by intellectual disability we'll check CT abdomen pelvis and reassessed Dr. Garcia to follow-up results.
[2019-01-16 15:50] LABS: ALBUMIN 3.2 g/dl (3.4-5.0); BILIRUBIN,TOTAL 0.4 mg/dL (0.2-1); CREATININE 1.4 mg/dL (0.55-1.3); POTASSIUM 5.1 mmol/L (3.5-5.1); TOT PROT 6.3 g/dl (6.4-8.2)
[2019-01-16] MEDS ORDERED: SODIUM CHLORIDE 1,000 ML IV STA (15:56)
--- NOTE | 2019-01-16 18:53 | PDOC ---
*Physical Exam - Vital Signs Last Vital Signs Temp Pulse Resp BP Pulse Ox 98.0 F 80 16 101/70 97 01/16/19 12:08 01/16/19 12:08 01/16/19 11:00 01/16/19 12:08 01/16/19 12:08 ED Treatment Course - LABORATORY CBC & Chemistry Diagram: 01/16/19 12:42 01/16/19 15:20 - ADDITIONAL ORDERS Additional order review: Laboratory Results 01/16/19 01/16/19 01/16/19 15:20 13:55 13:10 Sodium 138 Cancelled Potassium 5.1 Cancelled Chloride 106 Cancelled Carbon Dioxide 28 Cancelled Anion Gap 5 L Cancelled BUN 26.0 H Cancelled Creatinine 1.4 H Cancelled Est GFR (CKD-EPI)AfAm 58.99 Cancelled Est GFR (CKD-EPI)NonAf 50.90 Cancelled Random Glucose 79 Cancelled Lactic Acid Calcium 9.0 Cancelled Total Bilirubin 0.4 Cancelled AST 26 Cancelled ALT 18 Cancelled Alkaline Phosphatase 57 Cancelled Total Protein 6.3 L Cancelled Albumin 3.2 L Cancelled Lipase Urine Color Yellow Urine Appearance Clear Urine pH 5.0 Ur Specific [place] 1.011 Urine Protein Negative Urine Glucose (UA) Negative Urine Ketones Negative Urine Blood Negative Urine Nitrite Negative Urine Bilirubin Negative Urine Urobilinogen 0.2 Ur Leukocyte Esterase Negative 01/16/19 01/16/19 01/16/19 12:47 12:42 12:42 Sodium Cancelled Potassium Cancelled Chloride Cancelled Carbon Dioxide Cancelled Anion Gap Cancelled BUN Cancelled Creatinine Cancelled Est GFR (CKD-EPI)AfAm Cancelled Est GFR (CKD-EPI)NonAf Cancelled Random Glucose Cancelled Lactic Acid 1.0 Calcium Cancelled Total Bilirubin Cancelled AST Cancelled ALT Cancelled Alkaline Phosphatase Cancelled Total Protein Cancelled Albumin Cancelled Lipase 172 Urine Color Urine Appearance Urine pH Ur Specific [place] Urine Protein Urine Glucose (UA) Urine Ketones Urine Blood Urine Nitrite Urine Bilirubin Urine Urobilinogen Ur Leukocyte Esterase 01/16/19 12:42 RBC 4.15 MCV 90.2 MCHC 32.6 RDW 15.4 MPV 9.0 Neutrophils % 52.5 D Lymphocytes % 34.1 D Monocytes % 11.6 H Eosinophils % 1.5 Basophils % 0.3 - Medications Given in the ED: ED Medications Discontinued Medications Generic Name Dose Route Start Last Admin Trade Name Freq PRN Reason Stop Dose Admin Sodium Chloride 1,000 mls @ 1,000 mls/hr 01/16/19 15:56 01/16/19 17:01 Normal Saline - IV 01/16/19 16:55 1,000 mls/hr ASDIR STA Administration Medical Decision Making - Medical Decision Making 01/16/19 18:51 CBC, BMP 01/16/19 12:42 01/16/19 15:20 CMP Sodium 138 mmol/L (136-145) 01/16/19 15:20 Potassium 5.1 mmol/L (3.5-5.1) 01/16/19 15:20 Chloride 106 mmol/L (98-107) 01/16/19 15:20 Carbon Dioxide 28 mmol/L (21-32) 01/16/19 15:20 Anion Gap 5 MMOL/L (8-16) L 01/16/19 15:20 BUN 26.0 mg/dL (7-18) H 01/16/19 15:20 Creatinine 1.4 mg/dL (0.55-1.3) H 01/16/19 15:20 Est GFR (CKD-EPI)AfAm 58.99 01/16/19 15:20 Est GFR (CKD-EPI)NonAf 50.90 01/16/19 15:20 Random Glucose 79 mg/dL (74-106) 01/16/19 15:20 Lactic Acid 1.0 mmol/L (0.4-2.0) 01/16/19 12:47 Calcium 9.0 mg/dL (8.5-10.1) 01/16/19 15:20 Total Bilirubin 0.4 mg/dL (0.2-1) 01/16/19 15:20 AST 26 U/L (15-37) 01/16/19 15:20 ALT 18 U/L (13-61) 01/16/19 15:20 Alkaline Phosphatase 57 U/L (45-117) 01/16/19 15:20 Total Protein 6.3 g/dl (6.4-8.2) L 01/16/19 15:20 Albumin 3.2 g/dl (3.4-5.0) L 01/16/19 15:20 Lipase 172 U/L (73-393) 01/16/19 12:42 Urine Test Results Urine Color Yellow 01/16/19 13:10 Urine Appearance Clear 01/16/19 13:10 Urine pH 5.0 (5.0-8.0) 01/16/19 13:10 Ur Specific [place] 1.011 (1.010-1.035) 01/16/19 13:10 Urine Protein Negative (NEGATIVE) 01/16/19 13:10 Urine Glucose (UA) Negative (NEGATIVE) 01/16/19 13:10 Urine Ketones Negative (NEGATIVE) 01/16/19 13:10 Urine Blood Negative (NEGATIVE) 01/16/19 13:10 Urine Nitrite Negative (NEGATIVE) 01/16/19 13:10 Urine Bilirubin Negative (NEGATIVE) 01/16/19 13:10 Ur Leukocyte Esterase Negative (NEGATIVE) 01/16/19 13:[address] ordered. Though patient does have some small interval development in left inguinal area, the patient has no acute findings. The patient has had multiple prior abdominal surgeries, and some hernias, but no obstruction or strangulation. The patient was re-examined by me, and noted to have no abdominal tenderness and appears comfortably watching television. Given these findings, and a negative blood and imaging workup for acute processes, we will touch base with the assisted living facility and give very strict return precautions including severe pain, nausea, vomiting. Dr. Canales had spoken with Dr. Killian and at that time, was thought that this orchitis was equivocal at that time, and pt has no testicular pain at this time. *DC/Admit/Observation/Transfer Diagnosis at time of Disposition: Abdominal pain - Discharge Dispostion Disposition: HOME Condition at time of disposition: Stable - Referrals Referrals: Rebecca Mcadams [Primary Care Provider] - - Patient Instructions Printed Discharge Instructions: DI for Abdominal Pain-Adult Additional Instructions: Please see your primary doctor within the next 48 hours. Continue taking your home dosed medications as prescribed, Return to the closest ER immediately for new or concerning symptoms including but not limited to: fevers, inability to eat or drink, significant abdominal pain, inability to urinate or defecate. Thank you - Post Discharge Activity
[2019-01-16 19:06] VITALS: BP 110/78; PULSE 89; TEMP 98.5
--- NOTE | 2019-01-18 00:12 | EKG ---
Test Reason : Blood Pressure : / mmHG Vent. Rate : 076 BPM Atrial Rate : 076 BPM P-R Int : 174 ms QRS Dur : 200 ms QT Int : 462 ms P-R-T Axes : 018 233 072 degrees QTc Int : 519 ms Atrial-sensed ventricular-paced rhythm ABNORMAL ECG WHEN COMPARED WITH ECG OF 31-DEC-2018 20:53, PREMATURE VENTRICULAR COMPLEXES ARE NO LONGER PRESENT VENT. RATE HAS INCREASED BY 11 BPM Confirmed by FRANKY CAMPOS, DARIEN ([id number]) on 01/18/2019 12:11:56 AM Referred By: Confirmed By:DARIEN WILKINS MD
== END 2019-01-16 19:32 | disposition home or self-care (01) ==
LOC: JER 10:56
PROC: 3E0337Z Introduction of Electrolytic and Water Balance Substance into Peripheral Vein, Percutaneous Approach (ICD-10-PCS; principal; 2019-01-16)
DX: R10.9 Unspecified abdominal pain (principal); I25.10 Atherosclerotic heart disease of native coronary artery without angina pectoris; I10 Essential (primary) hypertension; Z95.2 Presence of prosthetic heart valve; Z79.01 Long term (current) use of anticoagulants; N40.0 Benign prostatic hyperplasia without lower urinary tract symptoms; K21.9 Gastro-esophageal reflux disease without esophagitis; F79 Unspecified intellectual disabilities; Z95.0 Presence of cardiac pacemaker
CPT/HCPCS: 36415; 74177-TC; 80053; 81003; 83605; 83690; 85025; 87040; 87086; 87186; 93005; 93010; 96360; 99283-25; J7030

== ENCOUNTER 2019-04-27 09:01 | Inpatient (IN) | payer OTHER ==
--- NOTE | 2019-04-27 09:16 | PDOC ---
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 Per staff at bedside pt was given his morning medications then dressed himself, and then became increasingly somnolent while eating breakfast and slumped forward in his chair, to the point he stopped verbally responding to staff, prompting them to call EMS. It was reported pts blood sugar was in the 60s en route. Last normal 0730 AM today. Staff at bedside denied pt receiving any pain medication. PCP: Pan Jones Uro: Dhruvstdorina ID: Constantin Past History - Past Medical History Allergies/Adverse Reactions: Allergies Allergy/AdvReac Type Severity Reaction Status Date / Time beeswax Allergy Unknown Verified 04/27/19 09:24 venom-honey bee Allergy ANAPHYLAXIS Verified 04/27/19 09:24 [bee venom (honey bee)] Home Medications: Ambulatory Orders Aripiprazole [Abilify] 10 mg PO HS 06/10/16 Aspirin [ASA -] 81 mg PO DAILY 06/10/16 Atorvastatin Ca [Lipitor] 10 mg PO HS 06/10/16 Finasteride 5 mg PO DAILY 06/10/16 Lisinopril [Zestril] 2.5 mg PO DAILY 06/10/16 Tamsulosin HCl [Flomax -] 0.4 mg PO HS 01/12/18 Warfarin Na [Coumadin -] 10 mg PO ASDIR 02/08/18 Divalproex [Depakote -] 250 mg PO AM 12/31/18 Divalproex [Depakote -] 500 mg PO BID 12/31/18 Omeprazole 20 mg PO DAILY 01/02/19 Warfarin Na [Coumadin -] 5 mg PO TU@1800 01/02/19 Sulfamethoxazole/Trimethoprim [Bactrim DS -] 1 each PO BID #16 tablet 01/05/19 Mineral Oil/Petrolat,Wht/Water [Eucerin] 1 applic TP DAILY 01/16/19 Multivitamin [Multiple Vitamins] 1 each PO DAILY 01/16/19 Doxycycline Hyclate [Vibratab -] 100 mg PO BID #14 tablet 01/19/19 Anemia: No Asthma: No Cancer: No Cardiac Disorders: Yes (aortic valve disorder, dvt, cardiomegaly) CVA: Yes COPD: No CHF: No DVT: No Dementia: No Diabetes: No GI Disorders: Yes (volvulus of intestine, bowel or colon, SBO, POLYPS) Disorders: Yes (BPH, CHRONIC ORCHITIS) HTN: Yes Hypercholesterolemia: Yes (HYPERLIPIDEMIA) Liver Disease: No Seizures: Yes Thyroid Disease: No - Surgical History Abdominal Surgery: Yes (aortic root repair and area) Appendectomy: No Cardiac Surgery: Yes (heart valve repair) Cholecystectomy: No Lung Surgery: No Neurologic Surgery: No Orthopedic Surgery: No - Immunization History Immunization Up to Date: Yes - Psycho Social/Smoking Cessation Hx Smoking Status: No Smoking History: Unknown if ever smoked Years of Tobacco Use: 0 Have you smoked in the past 12 months: No Number of Cigarettes Smoked Daily: 0 Cigars Per Day: 0 Hx Alcohol Use: No Drug/Substance Use Hx: No Substance Use Type: None Hx Substance Use Treatment: No *Physical Exam - Physical Exam Comments: ROS unable to be completed 2/2 pt's current mental status. PE Constitutional: Well-nourished, Well-developed, appearing stated age. HEENT: head is normocephalic, atraumatic. EOMI. PERRLA. pinpoint pupils bilaterally. Neck: supple. Full ROM. Cardiovascular: regular heart rhythm. click murmur noted. Respiratory: rhonchi bilaterally. crackles to left base. Gastrointestinal: soft, nontender. no distension. normal bowel sounds. no rebound, guarding, masses. Extremities: peripheral pulses intact. no lower extremity edema. Neurological: CN 2-12 grossly intact. moves all four extremities. Psych: somnolent. will arouse to touch. oriented to person. ED Treatment Course - LABORATORY CBC & Chemistry Diagram: 04/27/19 09:47 04/27/19 09:47 - ADDITIONAL ORDERS Additional order review: Laboratory Results 04/27/19 09:13 POC Glucometer 79 04/27/19 09:13 POC Glucometer 79 Medical Decision Making - Medical Decision Making 68 year old male with above PMH BIBA to ED for AMS increased lethargy. Reported blood glucose in 60s en route. Medications ordered: 1 amp D50, IV tylenol Initial Vital Signs Temp Pulse Resp BP Pulse Ox 96.7 F L 60 20 114/82 97 04/27/19 09:21 04/27/19 09:21 04/27/19 09:21 04/27/19 09:21 04/27/19 09:21 Mild hypothermia. No tachycardia. No tachypnea. No hypotension. No hypoxia on room air. Labs ordered: CBC, CMP, Mag/Phos, Troponin, Acetaminophen/ETOH/salicyclate, coags, UA/UC (straight cath), VBG, blood culture Imaging ordered: CT head noncontrast, CXR CODE MAN called. EKG performed at 0918: rate 60, regular paced rhythm, flipped T in V6, aVL, I. 04/27/19 10:14 Pt clinically improving, now following commands, speaking with slurred speech, stroke scale in Dr. De La Rosa's note (attending), somewhat confused (asking about lunch). 04/27/19 10:36 CXR report: Name: [facility] DEPARTMENT OF RADIOLOGY Phys: Vania Liu RESIDENT : 1950 Age: 68 Sex: M [facility] Acct: [id number] Loc: [address] Exam Date: 04/27/19 Status: [facility] [place] [address] Unit Number: [id number] EXAM#: TYPE/EXAM: RESULT: [id number] RAD/CHEST X-RAY PORTABLE* AMS, increased lethargy. Single AP view of the chest. Comparison study July 07, 2018. Patient is rotated to the left side. Left pacemaker with 2 intact leads. Status post cardiothoracic surgery. Soft tissue of the chest, cardiac silhouette obscures left lower lung zone. No evidence of vascular congestive changes. No airspace opacities seen in the left upper lung zone, right lung. No evidence of blunting of the costophrenic angles. No pneumothorax, or large pleural effusion is seen. Prominent cardiac silhouette. Impression. No evidence of CHF, pneumothorax, or large pleural effusion. No airspace opacities are seen in the left upper lung zone, right lung. Lung zone obscured by the cardiac silhouette soft tissues of the chest. Reported By: Santos Bhakta MD 04/27/[address] report: Name: [facility] DEPARTMENT OF RADIOLOGY Phys: Vania Liu RESIDENT : 1950 Age: 68 Sex: M [facility] Acct: [id number] Loc: [address] Exam Date: 04/27/19 Status: [facility] [place] [address] Unit Number: [id number] EXAM#: TYPE/EXAM: RESULT: [id number] CT/HEAD CT WITHOUT CONTRAST Change in mental status. Please G. On Coumadin CT scan of the head without intravenous contrast Compared to prior examination dated 03/04/2018 There is moderate volume loss, ventricular dilatation and mild periventricular chronic microvascular ischemic disease changes. Focal low-attenuation density again seen in the left frontal lobe, laterally at the level of the huerta radiata and the its junction with the centrum semiovale compatible with encephalomalacia/ chronic infarct. No mass lesion, gross acute infarct or intracranial hemorrhage are identified. There is no shift of the midline structures. The craniocervical junction appears unremarkable. Normal size and symmetric gland. Moderate mucoperiosteal thickening is partially opacifying the right maxillary antrum. The mastoid air cells are well aerated and the calvarium is intact IMPRESSION: Moderate atrophy. Focal encephalomalacia again seen in the left frontal lobe, laterally at the level of the huerta radiata and its junction with the centrum semiovale. No gross CT evidence of acute intracranial pathology is identified. Correlate clinically to determine further evaluation and follow-up Reported By: Coco Cobb MD 04/27/19 1016 CBC WBC 2.6 K/mm3 (4.0-10.0) L 04/27/19 09:47 RBC 4.32 M/mm3 (4.00-5.60) 04/27/19 09:47 Hgb 12.6 GM/dL (11.7-16.9) 04/27/19 09:47 Hct 39.6 % (35.4-49) 04/27/19 09:47 MCV 91.7 fl (80-96) 04/27/19 09:47 MCH 29.1 pg (25.7-33.7) 04/27/19 09:47 MCHC 31.7 g/dl (32.0-35.9) L 04/27/19 09:47 RDW 15.4 % (11.9-15.9) 04/27/19 09:47 Plt Count 82 K/MM3 (134-434) L 04/27/19 09:47 MPV 9.5 fl (7.5-11.1) 04/27/19 09:47 Absolute Neuts (auto) 1.1 K/mm3 (1.5-8.0) L 04/27/19 09:47 Neutrophils % 43.7 % (42.8-82.8) 04/27/19 09:47 Lymphocytes % 42.9 % (8-40) H D 04/27/19 09:47 Monocytes % 11.2 % (3.8-10.2) H 04/27/19 09:47 Eosinophils % 1.9 % (0-4.5) 04/27/19 09:47 Basophils % 0.3 % (0-2.0) 04/27/19 09:47 Nucleated RBC % 0 % (0-0) 04/27/19 09:47 Leukopenia. Mild neutropenia. No anemia. VBG negative for CO2 retention, negative for acidosis. 04/27/19 10:54 Urine Test Results Urine Color Yellow 04/27/19 09:48 Urine Appearance Clear 04/27/19 09:48 Urine pH 6.0 (5.0-8.0) 04/27/19 09:48 Ur Specific [place] 1.022 (1.010-1.035) 04/27/19 09:48 Urine Protein Negative (NEGATIVE) 04/27/19 09:48 Urine Glucose (UA) 2+ (NEGATIVE) H 04/27/19 09:48 Urine Ketones Trace (NEGATIVE) H 04/27/19 09:48 Urine Blood Negative (NEGATIVE) 04/27/19 09:48 Urine Nitrite Negative (NEGATIVE) 04/27/19 09:48 Urine Bilirubin Negative (NEGATIVE) 04/27/19 09:48 Ur Leukocyte Esterase Negative (NEGATIVE) 04/27/19 09:48 Negative for UTI. Trace ketones. 04/27/19 11:[address] Del Toro, who reported he will evaluate the patient today. Consult placed. Bedside Lung US showed air bronchograms to the left lower lobe. Will cover for pneumonia. Pt to be admitted for pneumonia, AMS, syncope vs CVA, leukopenia, thrombocytopenia. 04/27/19 12:08 [facility] reported they are not cash reconciliation specialist today. Dr. Bellamy paged. 04/27/19 12:23 Second troponin ordered. Second EKG performed at 1216 similar to prior. 04/27/19 12:[address] Bellamy, who agreed with admission. Pending admission. Discharge - Discharge Information Problems reviewed: Yes Clinical Impression/Diagnosis: AMS (altered mental status), Thrombocytopenia, Pneumonia, Supratherapeutic INR Condition: Stable - Admission Yes - Follow up/Referral - Patient Discharge Instructions - Post Discharge Activity
[2019-04-27] MEDS ORDERED: DEXTROSE 50%-WATER - 25 GM/50 ML VIAL IVPUSH ONE (09:19)
[2019-04-27 09:25] VITALS: BMI 25.7
[2019-04-27] MEDS ORDERED: DEXTROSE 50%-WATER 25 GM/50 ML DISP.SYRIN ONE (09:26)
[2019-04-27] MEDS ORDERED: ACETAMINOPHEN 1000 MG/100 ML VIAL (NON FORMULARY) IVPB ONE (09:30)
[2019-04-27] MEDS ORDERED: ACETAMINOPHEN INJECTION 100 ML IVPB ONE (09:56)
--- NOTE | 2019-04-27 10:10 | PDOC ---
Attending Attestation - Resident Resident Name: Vania Liu - ED Attending Attestation I have performed the following: I have examined & evaluated the patient, The case was reviewed & discussed with the resident, I agree w/resident's findings & plan, Exceptions are as noted - HPI HPI: 04/27/19 10:04 68-year-old male history of hypertension previous CVA, recent UTI mood disorder , intellectual disability, valve replacement, after damage from endocarditis previous abdominal surgeries, here today from nursing facility for altered mental status. Per staff was at the bedside patient was normal this a.m. around 7-7 30 at that time they gave him his breakfast shortly thereafter he was seen slumped in the chair at the breakfast table without maybe he was sleeping a try to arouse him was unable to arouse him called EMS at that time when they checked his sugar was found to be 69 no recent head trauma denies any witnessed seizure activity no known history of previous seizures however they did notice that he was incontinent of urine on arrival to the emergency room patient's glucose was checked and found to be 79 has had a history of frequent UTIs however no recent history of fever. No nausea no vomiting. No history of choking during feeds per staff 04/27/19 11:46 at [facility]. - Physicial Exam PE: 04/27/19 10:07 Patient is drowsy but arousable to loud voice and sternal rub. Pupils are pinpoint bilaterally he is able to follow commands intermittently. Lungs are with crackles at the left base there is an audible click murmur over the cardiac exam normal rate and rhythm. Abdomen is soft and nontender extremities are warm and well-perfused there is no noted edema. Neurologically patient is drowsy but arousable. Opens eyes to loud verbal stimulus he is noted to have right nasolabial fold flattening which is new per nursing staff. His speech is slurred which is also new he is able to open his eyes extraocular motions appear to be intact. Patient moves all 4 extremities has difficult complying with strength testing however both arms he is able to lift against gravity with a drift and eventually at the bed. The left leg he is unable to lift against gravity. The right leg he is able to lift against gravity there is a drift and hits the bed. He is unable to comply or comprehend cerebellar testing - Medical Decision Making 04/27/19 10:09 68-year-old male multiple medical problems including diabetes hypertension hyperlipidemia previous CVA valve replacement on Coumadin previous abdominal surgeries here with episodic altered mental status. Differential diagnosis includes stroke, seizure versus syncope, infection such as UTI or pneumonia as patient does have crackles on his left lung exam. Patient's could be symptomatic hypoglycemia however his sugar was 69 and on repeat was 79 here in the ED. Staff denies any narcotic use which was considered due to the pinpoint pupils noted on exam. Intracerebral hemorrhage was also considered. Due to the rapid onset at 738 code iqbal was called patient was sent to the CT scan at this time patient is not considered a TPA candidate due to the fact that he is on Coumadin in addition he is rapidly improving here in the ED. 04/27/19 11:[address] negative for ICH or new cva. INR 4.8, noted to be nuetropenic, , mild, hypothermic. will cover for sepsis. suspect ineftion possible pneumonia. cxr unable to see left base. focused ED US with faint bronchograms left base. will cover vanco, zosyn. noted to have thick cough with secretions in ED. ua negative for UTI, d/w nuero consult dr piña. working diagnosis syncope. vs. TIA, symptoms overall improving. vs. infection and exacerbation of old sxs. will admit to hospitalist. Heart Score/ECG Review #1 General ECG Interpretation: Normal Rate, Normal Intervals, No acute ischemic changes Compared to previous ECG there are: Other (paced rhythm) NIH Stroke Scale - Last Known Well Date/Time & Onset Date Last Known Well: 04/27/19 Time Last Known Well: 07:30 - Initial Evaluation Level of consciousness: Not alert, but arousable with minimal stimulation Ask patient the month and their age: Both incorrect Ask patient to open & close eyes; make fist and let go: Obeys both correctly Best gaze (horizontal eye movement): Normal Visual field testing: No visual field loss Facial paresis (Show teeth/raise eyebrows/close eyes tight): Minor paralysis ( flattened nasolabial fold, asymmetry on smiling) (right nasolabial fold flattening.) Motor Function: Left Arm: Drift Motor Function: Right Arm: Drift Motor Function: Left Leg: No effort against gravity Motor Function: Right Leg: Some effort against gravity Limb Ataxia: No ataxia Sensory(Use pinprick test arms,legs,trunk,face/side to side): Normal Best language (Describe picture, name items, read sentences): No Aphasia Dysarthria (read several words): Mild to moderate slurring of words Extinction and Inattention: No abnormality - Total Score NIH Stroke Scale Score: 12 tPA Exclusion Checklist 0-3hr - Time Elapsed Date last known well: 04/27/19 Time last known well: 07:30 Elaspsed time: Day(s) and 4 Hour(s) and 16 Minutes - Thrombolytic Therapy Candidate Is the patient eligible for Thrombolytic Therapy?: No - Exclusion Criteria 0-3hr SBP greater than 185 or DBP greater than 110mmHg despite tx: No Recent IC/spinal surgery,head trauma or stroke w/in last 3mo: No Hx of previous IC hemorrhage, IC neoplasm, AVM or aneurysm: No Active internal bleeding: No Blding diathesis(low plt ct, inc PTT,INR>1.7 or use of NOAC): No Symptoms suggest subarachnoid hemorrhage: No CT demonstrates multilobar infarct(>1/3 cerebral hemiphere): No Arterial puncture at noncompressible site in previous 7 days: No Blood glucose concentration less than 50mg/dL (2.7mmol/L): No - Relative Exclusion Criteria 0-3h Life expectancy <1yr/severe co-morbid illness/CLASSIFICATIONS OFFICER CC/CM on admit: No : No Patient/family refused: No Rapid improvement: Yes Stroke severity too mild: No Recent acute [place] (w/in previous 3 months): No Seizure at onset with postictal residual neuro impairments: No Major surgery or serious trauma w/in previous 14 days: No Recent GI or hemorrhage (w/in previous 21 days): No - Ineligibility reason(s) Reasons No tPA given: See reason(s) noted above
[2019-04-27 10:12] LABS: URINE APPEARANCE CLEAR; URINE BILIRUBIN NEGATIVE (NEGATIVE); URINE COLOR YELLOW; URINE GLUCOSE (UA) 2+ (NEGATIVE); URINE KETONE TRACE (NEGATIVE); URINE LEUK ESTERASE NEGATIVE (NEGATIVE); URINE NITRITE NEGATIVE (NEGATIVE); URINE PROTEIN NEGATIVE (NEGATIVE)
[2019-04-27 10:17] LABS: BASO % 0.3 % (0-2.0); EOS % 1.9 % (0-4.5); HEMATOCRIT 39.6 % (35.4-49); HEMOGLOBIN 12.6 GM/dL (11.7-16.9); LYMPH % 42.9 % (8-40); MCH 29.1 pg (25.7-33.7); MCHC 31.7 g/dl (32.0-35.9); MEAN CELL VOLUME 91.7 fl (80-96); MEAN PLT VOLUME 9.5 fl (7.5-11.1); MONO % 11.2 % (3.8-10.2); NEUT % 43.7 % (42.8-82.8); PLATELET COUNT 82 K/MM3 (134-434); RBC 4.32 M/mm3 (4.00-5.60); RDW 15.4 % (11.9-15.9); WHITE BLOOD COUNT 2.6 K/mm3 (4.0-10.0)
[2019-04-27 10:18] LABS: VENOUS PC02 48.6 mmHg (38-52); VENOUS PH 7.36 (7.31-7.41)
[2019-04-27 10:47] LABS: VENOUS PO2 < 49 mmHg (28-48)
[2019-04-27 11:06] LABS: ALBUMIN 2.8 g/dl (3.4-5.0); BILIRUBIN,TOTAL 0.4 mg/dL (0.2-1); BLOOD UREA NITROGEN 23.7 mg/dL (7-18); CALCIUM 8.6 mg/dL (8.5-10.1); CREATININE 1.5 mg/dL (0.55-1.3); PHOSPHOROUS 3.3 mg/dL (2.5-4.9); POTASSIUM 4.4 mmol/L (3.5-5.1)
[2019-04-27 11:09] LABS: LIPASE 81 U/L (73-393); N-TERMINAL BNP 1857.9 pg/ml (5-125)
[2019-04-27 11:12] LABS: INR 4.18 (0.83-1.09)
[2019-04-27] MEDS ORDERED: PIPERACILLIN/TAZOB 4.5 GM 4.5 GM in DEXTROSE 5%-WATER 100 ML IVPB ONE (11:43)
[2019-04-27] MEDS ORDERED: VANCOMYCIN 1,000 MG in DEXTROSE 5%-WATER - 250 ML IVPB ONE (11:43)
[2019-04-27] MEDS ORDERED: PIPERACILLIN/TAZOB 4.5 GM 4.5 GM/100 ML BAG IVPB ONE (11:47)
[2019-04-27] MEDS ORDERED: VANCOMYCIN 1 GRAM (PRE-DOCKED) 1,000 MG/250 ML BAG IVPB ONE (11:47)
--- NOTE | 2019-04-27 15:43 | EKG ---
Test Reason : Blood Pressure : / mmHG Vent. Rate : 061 BPM Atrial Rate : 061 BPM P-R Int : 164 ms QRS Dur : 206 ms QT Int : 520 ms P-R-T Axes : 030 -88 107 degrees QTc Int : 523 ms Atrial-sensed ventricular-paced rhythm WITH OCCASIONAL PREMATURE VENTRICULAR COMPLEXES ABNORMAL ECG WHEN COMPARED WITH ECG OF 16-JAN-2019 14:09, PREMATURE VENTRICULAR COMPLEXES ARE NOW PRESENT VENT. RATE HAS DECREASED BY 15 BPM Confirmed by TWAN ONEIL MD ([id number]) on 04/27/2019 3:43:48 PM Referred By: Confirmed By:TWAN ONEIL MD
[2019-04-27] MEDS ORDERED: FLU VACCINE QUAD 60 MCG/0.5 ML (MDV 19-20) IM ONE (16:16)
--- NOTE | 2019-04-27 18:44 | HP ---
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 Per staff at bedside pt was given his morning medications then dressed himself, and then became increasingly somnolent while eating breakfast and slumped forward in his chair, to the point he stopped verbally responding to staff, prompting them to call EMS. It was reported pts blood sugar was in the 60s en route. Last normal 0730 AM today. Staff at bedside denied pt receiving any pain medication. 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 ) Cardiovascular: Yes: Aneurysm, HTN, Hyperlipdemia, Murmur (mechanical heart sound c/w know AVR), Other (AVR - mechanical valve) Psych: Yes: Anxiety, Depression, Other (Develomental Delay) - Past Surgical History Past Surgical History: Yes: AAA Repair (2000), Valve Replacement (mechanical AVR ) - Smoking History Smoking history: Unknown if ever smoked Have you smoked in the past 12 months: No Aproximately how many cigarettes per day: 0 - Alcohol/Substance Use Hx Alcohol Use: No - Social History ADL: Support Services Home Medications - Allergies Allergies/Adverse Reactions: Allergies Allergy/AdvReac Type Severity Reaction Status Date / Time beeswax Allergy Unknown Verified 04/27/19 09:24 venom-honey bee Allergy ANAPHYLAXIS Verified 04/27/19 09:24 [bee venom (honey bee)] - Home Medications Home Medications: Ambulatory Orders Aripiprazole [Abilify] 10 mg PO HS 06/10/16 Aspirin [ASA -] 81 mg PO DAILY 06/10/16 Atorvastatin Ca [Lipitor] 10 mg PO HS 06/10/16 Finasteride 5 mg PO DAILY 06/10/16 Lisinopril [Zestril] 2.5 mg PO DAILY 06/10/16 Tamsulosin HCl [Flomax -] 0.4 mg PO HS 01/12/18 Warfarin Na [Coumadin -] 10 mg PO ASDIR 02/08/18 Divalproex [Depakote -] 250 mg PO AM 12/31/18 Divalproex [Depakote -] 500 mg PO BID 12/31/18 Omeprazole 20 mg PO DAILY 01/02/19 Warfarin Na [Coumadin -] 5 mg PO TU@1800 01/02/19 Sulfamethoxazole/Trimethoprim [Bactrim DS -] 1 each PO BID #16 tablet 01/05/19 Mineral Oil/Petrolat,Wht/Water [Eucerin (Large Jar) -] 1 applic TP DAILY Multivitamin [Multiple Vitamins] 1 each PO DAILY 01/16/19 Doxycycline Hyclate [Vibratab -] 100 mg PO BID #14 tablet 01/19/19 Physical Examination Vital Signs: Vital Signs Temperature 98.9 F 04/27/19 15:26 Pulse Rate 61 04/27/19 15:26 Respiratory Rate 19 04/27/19 15:26 Blood Pressure 111/63 04/27/19 15:26 O2 Sat by Pulse Oximetry (%) 97 04/27/19 15:26 Constitutional: Yes: Calm HENT: Yes: Atraumatic Neck: Yes: Supple Cardiovascular: Yes: Regular Rate and Rhythm Respiratory: Yes: Rhonchi Gastrointestinal: Yes: Normal Bowel Sounds Extremities: Yes: WNL Edema: No Neurological: Yes: Alert Labs: CBC, BMP 04/27/19 09:47 04/27/19 09:47 Imaging - Results X-ray: Report Reviewed Cat Scan: Report Reviewed Problem List - Problems (1) Altered mental state Assessment/Plan: doing well back to baseline as per aide Code(s): R41.82 - ALTERED MENTAL STATUS, UNSPECIFIED (2) Pneumonia Assessment/Plan: not on abx cxs pending id on board Code(s): J18.9 - PNEUMONIA, UNSPECIFIED ORGANISM (3) Supratherapeutic INR Assessment/Plan: inr now subtherapeutic will start coumadin Code(s): R79.1 - ABNORMAL COAGULATION PROFILE (4) BPH (benign prostatic hyperplasia) Code(s): N40.0 - BENIGN PROSTATIC HYPERPLASIA WITHOUT LOWER URINRY TRACT SYMP (5) HTN (hypertension) Code(s): I10 - ESSENTIAL (PRIMARY) HYPERTENSION Qualifiers: Assessment/Plan Laboratory Tests 04/27/19 04/27/19 04/27/19 09:13 09:47 09:47 WBC 2.6 L RBC 4.32 Hgb 12.6 Hct 39.6 MCV 91.7 MCH 29.1 MCHC 31.7 L RDW 15.4 Plt Count 82 L MPV 9.5 Absolute Neuts (auto) 1.1 L Neutrophils % 43.7 Lymphocytes % 42.9 H D Monocytes % 11.2 H Eosinophils % 1.9 Basophils % 0.3 Nucleated RBC % 0 PT with INR 50.00 H INR 4.18 H* PTT (Actin FS) 67.0 H VBG pH POC VBG pCO2 POC VBG pO2 VBG HCO3 VBG O2 Sat (Fabiana) VBG Base Excess Sodium Potassium Chloride Carbon Dioxide Anion Gap BUN Creatinine Est GFR (CKD-EPI)AfAm Est GFR (CKD-EPI)NonAf POC Glucometer 79 Random Glucose Lactic Acid Calcium Phosphorus Magnesium Total Bilirubin AST ALT Alkaline Phosphatase Troponin I B-Natriuretic Peptide Total Protein Albumin Lipase TSH Urine Color Urine Appearance Urine pH Ur Specific [place] Urine Protein Urine Glucose (UA) Urine Ketones Urine Blood Urine Nitrite Urine Bilirubin Urine Urobilinogen Ur Leukocyte Esterase Salicylates Acetaminophen Valproic Acid Alcohol, Quantitative 04/27/19 04/27/19 04/27/19 09:47 09:47 09:47 WBC RBC Hgb Hct MCV MCH MCHC RDW Plt Count MPV Absolute Neuts (auto) Neutrophils % Lymphocytes % Monocytes % Eosinophils % Basophils % Nucleated RBC % PT with INR INR PTT (Actin FS) VBG pH POC VBG pCO2 POC VBG pO2 VBG HCO3 VBG O2 Sat (Fabiana) VBG Base Excess Sodium 143 Potassium 4.4 Chloride 110 H Carbon Dioxide 26 Anion Gap 6 L BUN 23.7 H Creatinine 1.5 H Est GFR (CKD-EPI)AfAm 54.27 Est GFR (CKD-EPI)NonAf 46.83 POC Glucometer Random Glucose 160 H Lactic Acid 1.3 Calcium 8.6 Phosphorus 3.3 Magnesium 2.0 Total Bilirubin 0.4 AST 25 ALT 17 Alkaline Phosphatase 57 Troponin I 0.03 B-Natriuretic Peptide 1857.9 H Total Protein 6.0 L Albumin 2.8 L Lipase 81 TSH 2.55 D Urine Color Urine Appearance Urine pH Ur Specific [place] Urine Protein Urine Glucose (UA) Urine Ketones Urine Blood Urine Nitrite Urine Bilirubin Urine Urobilinogen Ur Leukocyte Esterase Salicylates Acetaminophen Valproic Acid Alcohol, Quantitative < 3.0 04/27/19 04/27/19 04/27/19 09:47 09:48 10:35 WBC RBC Hgb Hct MCV MCH MCHC RDW Plt Count MPV Absolute Neuts (auto) Neutrophils % Lymphocytes % Monocytes % Eosinophils % Basophils % Nucleated RBC % PT with INR INR PTT (Actin FS) VBG pH 7.36 POC VBG pCO2 48.6 POC VBG pO2 < 49 H VBG HCO3 27.0 VBG O2 Sat (Fabiana) 46.9 L VBG Base Excess 1.5 Sodium Potassium Chloride Carbon Dioxide Anion Gap BUN Creatinine Est GFR (CKD-EPI)AfAm Est GFR (CKD-EPI)NonAf POC Glucometer Random Glucose Lactic Acid Calcium Phosphorus Magnesium Total Bilirubin AST ALT Alkaline Phosphatase Troponin I B-Natriuretic Peptide Total Protein Albumin Lipase TSH Urine Color Yellow Urine Appearance Clear Urine pH 6.0 Ur Specific [place] 1.022 Urine Protein Negative Urine Glucose (UA) 2+ H Urine Ketones Trace H Urine Blood Negative Urine Nitrite Negative Urine Bilirubin Negative Urine Urobilinogen 1.0 Ur Leukocyte Esterase Negative Salicylates < 1.7 L Acetaminophen Valproic Acid Alcohol, Quantitative 04/27/19 04/27/19 04/27/19 10:35 12:22 14:00 WBC RBC Hgb Hct MCV MCH MCHC RDW Plt Count MPV Absolute Neuts (auto) Neutrophils % Lymphocytes % Monocytes % Eosinophils % Basophils % Nucleated RBC % PT with INR INR PTT (Actin FS) VBG pH POC VBG pCO2 POC VBG pO2 VBG HCO3 VBG O2 Sat (Fabiana) VBG Base Excess Sodium Potassium Chloride Carbon Dioxide Anion Gap BUN Creatinine Est GFR (CKD-EPI)AfAm Est GFR (CKD-EPI)NonAf POC Glucometer Random Glucose Lactic Acid Calcium Phosphorus Magnesium Total Bilirubin AST ALT Alkaline Phosphatase Troponin I 0.03 B-Natriuretic Peptide Total Protein Albumin Lipase TSH Urine Color Urine Appearance Urine pH Ur Specific [place] Urine Protein Urine Glucose (UA) Urine Ketones Urine Blood Urine Nitrite Urine Bilirubin Urine Urobilinogen Ur Leukocyte Esterase Salicylates Acetaminophen <2.0 Valproic Acid 111.7 H Alcohol, Quantitative Active Medications Generic Name Dose Route Start Last Admin Trade Name Freq PRN Reason Stop Dose Admin Aripiprazole 10 mg 04/27/19 22:00 04/28/19 21:40 Abilify PO 10 mg HS YANETH Administration Aspirin 81 mg 04/28/19 10:00 04/29/19 11:36 Asa - PO 81 mg DAILY YANETH Administration Atorvastatin Calcium 10 mg 04/27/19 22:00 04/28/19 21:40 Lipitor - PO 10 mg HS YANETH Administration Finasteride 5 mg 04/28/19 10:00 04/29/19 11:36 Proscar - PO 5 mg DAILY YANETH Administration Lisinopril 2.5 mg 04/28/19 10:00 04/29/19 11:40 Prinivil PO Not Given DAILY YANETH Pantoprazole Sodium 20 mg 04/28/19 10:00 04/29/19 11:36 Protonix - PO 20 mg DAILY YANETH Administration Tamsulosin HCl 0.4 mg 04/27/19 22:00 04/28/19 21:40 Flomax - PO 0.4 mg HS YANETH Administration Warfarin Sodium 5 mg 04/29/19 18:00 Coumadin - PO DAILY@1800 [facility]
[2019-04-27] MEDS: ATORVASTATIN CA 10 MG TABLET (FP) PO SCH (21:35)
[2019-04-27] MEDS: TAMSULOSIN HCL 0.4 MG CAP PO SCH (21:35)
[2019-04-27] MEDS: ARIPiprazole 5 MG TABLET (FP) PO SCH (21:35)
[2019-04-27] MEDS ORDERED: DIVALPROEX SODIUM 500 MG TABLET E.C. PO SCH (22:00)
[2019-04-28 06:44] LABS: BASO % 0.2 % (0-2.0); EOS % 1.3 % (0-4.5); HEMATOCRIT 39.4 % (35.4-49); HEMOGLOBIN 12.8 GM/dL (11.7-16.9); LYMPH % 29.5 % (8-40); MCH 29.2 pg (25.7-33.7); MCHC 32.5 g/dl (32.0-35.9); MEAN CELL VOLUME 89.9 fl (80-96); MEAN PLT VOLUME 9.9 fl (7.5-11.1); MONO % 13.5 % (3.8-10.2); NEUT % 55.5 % (42.8-82.8); PLATELET COUNT 102 K/MM3 (134-434); RBC 4.39 M/mm3 (4.00-5.60); RDW 15.2 % (11.9-15.9); WHITE BLOOD COUNT 3.6 K/mm3 (4.0-10.0)
[2019-04-28 06:52] LABS: PROTHROMBIN TIME (PATIENT) 50.4 SEC (9.7-13.0)
[2019-04-28 06:55] LABS: ALBUMIN 2.6 g/dl (3.4-5.0); BILIRUBIN,TOTAL 0.6 mg/dL (0.2-1); BLOOD UREA NITROGEN 22.2 mg/dL (7-18); CALCIUM 8.6 mg/dL (8.5-10.1); CREATININE 1.2 mg/dL (0.55-1.3); POTASSIUM 4.3 mmol/L (3.5-5.1); TOT PROT 5.4 g/dl (6.4-8.2)
[2019-04-28 07:52] LABS: INR 4.21 (0.83-1.09)
--- NOTE | 2019-04-28 09:14 | CON.NEURO ---
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 Per staff at bedside pt was given his morning medications then dressed himself, and then became increasingly somnolent while eating breakfast and slumped forward in his chair, to the point he stopped verbally responding to staff, prompting them to call EMS. It was reported pts blood sugar was in the 60s en route. Last normal 0730 AM today. Staff at bedside denied pt receiving any pain medication. As per attendant he has been appearing'ill, weak" since this past saturday. He is unable to report hx.He has ?? 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 ) Cardio/Vascular: Yes: Aneurysm, HTN, Hyperlipdemia, Murmur (mechanical heart sound c/w know AVR), Other (AVR - mechanical valve) Psych: Yes: Anxiety, Depression, Other (Develomental Delay) Additional Medical History: MRDD. DVT. Volvulus - Past Surgical History Past Surgical History: Yes: AAA Repair (2000), Valve Replacement (mechanical AVR ) - Alcohol/Substance Use Hx Alcohol Use: No - Smoking History Smoking history: Unknown if ever smoked Have you smoked in the past 12 months: No Aproximately how many cigarettes per day: 0 - Social History Usual Living Arrangement: Assisted Living ADL: Support Services Home Medications - Allergies Allergies/Adverse Reactions: Allergies Allergy/AdvReac Type Severity Reaction Status Date / Time beeswax Allergy Unknown Verified 04/27/19 09:24 venom-honey bee Allergy ANAPHYLAXIS Verified 04/27/19 09:24 [bee venom (honey bee)] - Home Medications Home Medications: Ambulatory Orders Aripiprazole [Abilify] 10 mg PO HS 06/10/16 Aspirin [ASA -] 81 mg PO DAILY 06/10/16 Atorvastatin Ca [Lipitor] 10 mg PO HS 06/10/16 Finasteride 5 mg PO DAILY 06/10/16 Lisinopril [Zestril] 2.5 mg PO DAILY 06/10/16 Tamsulosin HCl [Flomax -] 0.4 mg PO HS 01/12/18 Warfarin Na [Coumadin -] 10 mg PO ASDIR 02/08/18 Divalproex [Depakote -] 250 mg PO AM 12/31/18 Divalproex [Depakote -] 500 mg PO BID 12/31/18 Omeprazole 20 mg PO DAILY 01/02/19 Warfarin Na [Coumadin -] 5 mg PO TU@1800 01/02/19 Sulfamethoxazole/Trimethoprim [Bactrim DS -] 1 each PO BID #16 tablet 01/05/19 Mineral Oil/Petrolat,Wht/Water [Eucerin] 1 applic TP DAILY 01/16/19 Multivitamin [Multiple Vitamins] 1 each PO DAILY 01/16/19 Doxycycline Hyclate [Vibratab -] 100 mg PO BID #14 tablet 01/19/19 Physical Exam-Neuro Vital Signs: Vital Signs Temperature 97.5 F L 04/28/19 05:58 Pulse Rate 61 04/28/19 05:58 Respiratory Rate 20 04/28/19 05:58 Blood Pressure 98/53 L 04/28/19 05:58 O2 Sat by Pulse Oximetry (%) 97 04/27/19 21:00 Labs: CBC, BMP 04/28/19 05:20 04/28/19 05:20 INR, PTT INR 4.21 (0.83-1.09) H* 04/28/19 05:20 - Neuro Exam Level Of Consciousness: Yes: Alert, Oriented to Person Eyes: Yes: YOLANDA Speech: Other (Hypophonic, no spont. speech) Mini Mental Exam: Impaired memory/att/conc.-long standing DTR's: 1+ Left Bicep, 1+ Right Bicep, 2+ Left Tricep, 2+ Right Tricep, 2+ Left Brachioradialis, 2+ Right Brachioradialis, 2+ Left Achilles, 2+ Right Achilles ( Bilat knee jerks-3+ /+increased tone in all 4 ext.) Babinski: Present Motor Strength: 5/5: Left Arm, Right Arm, Left Leg, Right Leg Gait: Deferred (as per attendant last night felt unsteady, refusing to get out of bed) Imaging - Results Cat Scan: Report Reviewed (Left frontal focal encephalomalacia) Assessment/Plan Pt. with encephalopathy likely due to ?/infection, he appears to have had syncope, likely etiology unclear. suggest: ESR, ammonia level, hold VPA for now - he may be encephalopathic 2/2 liver abn.from VPA. Please send blood cultures. Thank you, Deann Del Toro MD
[2019-04-28] MEDS: ASPIRIN 81 MG CHEWABLE TABLETS PO SCH (10:28)
[2019-04-28] MEDS: PANTOPRAZOLE 20 MG TABLET (FP) PO SCH (10:28)
[2019-04-28] MEDS: FINASTERIDE 5 MG TABLET (FP) PO SCH (10:28)
--- NOTE | 2019-04-28 11:06 | EKG ---
Test Reason : Blood Pressure : / mmHG Vent. Rate : 060 BPM Atrial Rate : 060 BPM P-R Int : 208 ms QRS Dur : 210 ms QT Int : 520 ms P-R-T Axes : 024 -81 098 degrees QTc Int : 520 ms AV dual-paced rhythm ABNORMAL ECG WHEN COMPARED WITH ECG OF 16-JAN-2019 14:09, VENT. RATE HAS DECREASED BY 16 BPM Confirmed by Anthony Dill MD ([id number]) on 04/28/2019 11:05:51 AM Referred By: Confirmed By:Anthony Dill MD
--- NOTE | 2019-04-28 12:48 | CON.ID ---
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 ) Cardio/Vascular: Yes: Aneurysm, HTN, Hyperlipdemia, Murmur (mechanical heart sound c/w know AVR), Other (AVR - mechanical valve) Psych: Yes: Anxiety, Depression, Other (Develomental Delay) Additional Medical History: MRDD. DVT. Volvulus - Past Surgical History Past Surgical History: Yes: AAA Repair (2000), Valve Replacement (mechanical AVR ) - Alcohol/Substance Use Hx Alcohol Use: No - Smoking History Smoking history: Unknown if ever smoked Have you smoked in the past 12 months: No Aproximately how many cigarettes per day: 0 - Social History Usual Living Arrangement: Assisted Living ADL: Support Services Home Medications - Allergies Allergies/Adverse Reactions: Allergies Allergy/AdvReac Type Severity Reaction Status Date / Time beeswax Allergy Unknown Verified 04/27/19 09:24 venom-honey bee Allergy ANAPHYLAXIS Verified 04/27/19 09:24 [bee venom (honey bee)] - Home Medications Home Medications: Ambulatory Orders Aripiprazole [Abilify] 10 mg PO HS 06/10/16 Aspirin [ASA -] 81 mg PO DAILY 06/10/16 Atorvastatin Ca [Lipitor] 10 mg PO HS 06/10/16 Finasteride 5 mg PO DAILY 06/10/16 Lisinopril [Zestril] 2.5 mg PO DAILY 06/10/16 Tamsulosin HCl [Flomax -] 0.4 mg PO HS 01/12/18 Warfarin Na [Coumadin -] 10 mg PO ASDIR 02/08/18 Divalproex [Depakote -] 250 mg PO AM 12/31/18 Divalproex [Depakote -] 500 mg PO BID 12/31/18 Omeprazole 20 mg PO DAILY 01/02/19 Warfarin Na [Coumadin -] 5 mg PO TU@1800 01/02/19 Sulfamethoxazole/Trimethoprim [Bactrim DS -] 1 each PO BID #16 tablet 01/05/19 Mineral Oil/Petrolat,Wht/Water [Eucerin] 1 applic TP DAILY 01/16/19 Multivitamin [Multiple Vitamins] 1 each PO DAILY 01/16/19 Doxycycline Hyclate [Vibratab -] 100 mg PO BID #14 tablet 01/19/19 Physical Exam Vital Signs: Vital Signs Temperature 97.7 F 04/28/19 09:00 Pulse Rate 66 04/28/19 09:00 Respiratory Rate 20 04/28/19 09:00 Blood Pressure 99/53 L 04/28/19 09:00 O2 Sat by Pulse Oximetry (%) 97 04/28/19 09:00 Labs: CBC, BMP 04/28/19 05:20 04/28/19 05:20
--- NOTE | 2019-04-28 16:49 | PN ---
Progress Note, Physician - Current Medication List Current Medications: Active Medications Aripiprazole (Abilify) 10 mg PO HS [facility] Last Admin: 04/27/19 21:35 Dose: 10 mg Aspirin (Asa -) 81 mg PO DAILY [facility] Last Admin: 04/28/19 10:28 Dose: 81 mg Atorvastatin Calcium (Lipitor -) 10 mg PO HS [facility] Last Admin: 04/27/19 21:35 Dose: 10 mg Finasteride (Proscar -) 5 mg PO DAILY [facility] Last Admin: 04/28/19 10:28 Dose: 5 mg Lisinopril (Prinivil) 2.5 mg PO DAILY [facility] Pantoprazole Sodium (Protonix -) 20 mg PO DAILY [facility] Last Admin: 04/28/19 10:28 Dose: 20 mg Tamsulosin HCl (Flomax -) 0.4 mg PO [facility] Last Admin: 04/27/19 21:35 Dose: 0.4 mg - Objective Vital Signs: Vital Signs Temperature 98.4 F 04/28/19 16:19 Pulse Rate 66 04/28/19 16:19 Respiratory Rate 20 04/28/19 16:19 Blood Pressure 138/47 L 04/28/19 16:19 O2 Sat by Pulse Oximetry (%) 97 04/28/19 09:00 Constitutional: Yes: No Distress HENT: Yes: Atraumatic Neck: Yes: Supple Cardiovascular: Yes: Regular Rate and Rhythm Respiratory: Yes: CTA Bilaterally Gastrointestinal: Yes: Normal Bowel Sounds Extremities: Yes: WNL Edema: No Peripheral Pulses WNL: Yes Neurological: Yes: Alert Labs: CBC, BMP 04/28/19 05:20 04/28/19 05:20 INR, PTT INR 4.21 (0.83-1.09) H* 04/28/19 05:20 Problem List - Problems (1) Altered mental state Assessment/Plan: doing well back to baseline as per aide Code(s): R41.82 - ALTERED MENTAL STATUS, UNSPECIFIED (2) Pneumonia Assessment/Plan: not on abx cxs pending id on board Code(s): J18.9 - PNEUMONIA, UNSPECIFIED ORGANISM (3) Supratherapeutic INR Assessment/Plan: inr still high Code(s): R79.1 - ABNORMAL COAGULATION PROFILE (4) BPH (benign prostatic hyperplasia) Code(s): N40.0 - BENIGN PROSTATIC HYPERPLASIA WITHOUT LOWER URINRY TRACT SYMP (5) HTN (hypertension) Assessment/Plan: on meds monitor Code(s): I10 - ESSENTIAL (PRIMARY) HYPERTENSION Qualifiers:
[2019-04-28] MEDS: TAMSULOSIN HCL 0.4 MG CAP PO SCH (21:40)
[2019-04-28] MEDS: ATORVASTATIN CA 10 MG TABLET (FP) PO SCH (21:40)
[2019-04-28] MEDS: ARIPiprazole 5 MG TABLET (FP) PO SCH (21:40)
[2019-04-29 07:00] LABS: INR 1.73 (0.83-1.09); PROTHROMBIN TIME (PATIENT) 20.5 SEC (9.7-13.0)
[2019-04-29] MEDS: ASPIRIN 81 MG CHEWABLE TABLETS PO SCH (11:36)
[2019-04-29] MEDS: PANTOPRAZOLE 20 MG TABLET (FP) PO SCH (11:36)
[2019-04-29] MEDS: FINASTERIDE 5 MG TABLET (FP) PO SCH (11:36)
[2019-04-29] MEDS: LISINOPRIL 5 MG TABLET (FP) PO SCH ×2 (11:37→11:40)
--- NOTE | 2019-04-29 14:32 | PN ---
Progress Note, Physician History of Present Illness: stable doing well no new issues according to aid stable - Current Medication List Current Medications: Active Medications Aripiprazole (Abilify) 10 mg PO HS [facility] Last Admin: 04/28/19 21:40 Dose: 10 mg Aspirin (Asa -) 81 mg PO DAILY [facility] Last Admin: 04/29/19 11:36 Dose: 81 mg Atorvastatin Calcium (Lipitor -) 10 mg PO HS [facility] Last Admin: 04/28/19 21:40 Dose: 10 mg Finasteride (Proscar -) 5 mg PO DAILY [facility] Last Admin: 04/29/19 11:36 Dose: 5 mg Lisinopril (Prinivil) 2.5 mg PO DAILY [facility] Last Admin: 04/29/19 11:40 Dose: Not Given Pantoprazole Sodium (Protonix -) 20 mg PO DAILY [facility] Last Admin: 04/29/19 11:36 Dose: 20 mg Tamsulosin HCl (Flomax -) 0.4 mg PO HS [facility] Last Admin: 04/28/19 21:40 Dose: 0.4 mg - Objective Vital Signs: Vital Signs Temperature 98.1 F 04/29/19 09:00 Pulse Rate 69 04/29/19 09:00 Respiratory Rate 20 04/29/19 09:00 Blood Pressure 113/46 L 04/29/19 09:00 O2 Sat by Pulse Oximetry (%) 98 04/29/19 09:00 Constitutional: Yes: No Distress, Calm Cardiovascular: Yes: S1, S2 Respiratory: Yes: Regular, CTA Bilaterally Gastrointestinal: Yes: Normal Bowel Sounds, Soft Musculoskeletal: Yes: WNL Extremities: Yes: WNL Neurological: Yes: Alert, Other Psychiatric: Yes: Other Labs: CBC, BMP 04/28/19 05:20 04/28/19 05:20 INR, PTT INR 1.73 (0.83-1.09) H 04/29/19 05:30 Assessment/Plan Problem List - Problems (1) Altered mental state Code(s): R41.82 - ALTERED MENTAL STATUS, UNSPECIFIED (2) Pneumonia Code(s): J18.9 - PNEUMONIA, UNSPECIFIED ORGANISM (3) Supratherapeutic INR Code(s): R79.1 - ABNORMAL COAGULATION PROFILE (4) BPH (benign prostatic hyperplasia) Code(s): N40.0 - BENIGN PROSTATIC HYPERPLASIA WITHOUT LOWER URINRY TRACT SYMP (5) HTN (hypertension) Code(s): I10 - ESSENTIAL (PRIMARY) HYPERTENSION Qualifiers: plan continue current mgmt rest as per the team
--- NOTE | 2019-04-29 14:36 | PN ---
Progress Note, Physician - Current Medication List Current Medications: Active Medications Aripiprazole (Abilify) 10 mg PO HS [facility] Last Admin: 04/28/19 21:40 Dose: 10 mg Aspirin (Asa -) 81 mg PO DAILY [facility] Last Admin: 04/29/19 11:36 Dose: 81 mg Atorvastatin Calcium (Lipitor -) 10 mg PO HS [facility] Last Admin: 04/28/19 21:40 Dose: 10 mg Finasteride (Proscar -) 5 mg PO DAILY [facility] Last Admin: 04/29/19 11:36 Dose: 5 mg Lisinopril (Prinivil) 2.5 mg PO DAILY [facility] Last Admin: 04/29/19 11:40 Dose: Not Given Pantoprazole Sodium (Protonix -) 20 mg PO DAILY [facility] Last Admin: 04/29/19 11:36 Dose: 20 mg Tamsulosin HCl (Flomax -) 0.4 mg PO HS [facility] Last Admin: 04/28/19 21:40 Dose: 0.4 mg - Objective Vital Signs: Vital Signs Temperature 98.1 F 04/29/19 09:00 Pulse Rate 69 04/29/19 09:00 Respiratory Rate 20 04/29/19 09:00 Blood Pressure 113/46 L 04/29/19 09:00 O2 Sat by Pulse Oximetry (%) 98 04/29/19 09:00 Constitutional: Yes: No Distress HENT: Yes: Atraumatic Neck: Yes: Supple Cardiovascular: Yes: Regular Rate and Rhythm Respiratory: Yes: CTA Bilaterally Gastrointestinal: Yes: Normal Bowel Sounds Extremities: Yes: WNL Edema: No Neurological: Yes: Alert, Oriented Labs: CBC, BMP 04/28/19 05:20 04/28/19 05:20 INR, PTT INR 1.73 (0.83-1.09) H 04/29/19 05:30 Problem List - Problems (1) Altered mental state Assessment/Plan: doing well back to baseline as per aide Code(s): R41.82 - ALTERED MENTAL STATUS, UNSPECIFIED (2) Pneumonia Assessment/Plan: not on abx cxs pending id on board Code(s): J18.9 - PNEUMONIA, UNSPECIFIED ORGANISM (3) Supratherapeutic INR Assessment/Plan: inr now subtherapeutic will start coumadin Code(s): R79.1 - ABNORMAL COAGULATION PROFILE (4) BPH (benign prostatic hyperplasia) Code(s): N40.0 - BENIGN PROSTATIC HYPERPLASIA WITHOUT LOWER URINRY TRACT SYMP (5) HTN (hypertension) Assessment/Plan: on meds monitor Code(s): I10 - ESSENTIAL (PRIMARY) HYPERTENSION Qualifiers:
[2019-04-29 15:00] VITALS: BP 99/51; PULSE 65; TEMP 98.2
--- NOTE | 2019-04-29 15:09 | DS ---
Physical Examination Vital Signs: Vital Signs Temperature 98.2 F 04/29/19 14:00 Pulse Rate 65 04/29/19 14:00 Respiratory Rate 20 04/29/19 14:00 Blood Pressure 99/51 L 04/29/19 14:00 O2 Sat by Pulse Oximetry (%) 98 04/29/19 09:00 Constitutional: Yes: No Distress HENT: Yes: Atraumatic Neck: Yes: Supple Cardiovascular: Yes: Regular Rate and Rhythm Respiratory: Yes: CTA Bilaterally Gastrointestinal: Yes: Normal Bowel Sounds Extremities: Yes: WNL Neurological: Yes: Alert Labs: CBC, BMP 04/28/19 05:20 04/28/19 05:20 Discharge Summary Problems reviewed: Yes Reason For Visit: LEUKOPENIA AMS PNEUMONIA THROMBOCYTOPENIA Current Active Problems Altered mental state (Acute) Pneumonia (Acute) Supratherapeutic INR (Acute) Thrombocytopenia (Acute) Condition: Stable - Instructions Diet, Activity, Other Instructions: follow up pmd 2-3 days - Home Medications Comprehensive Discharge Medication List: Ambulatory Orders Aripiprazole [Abilify] 10 mg PO HS 06/10/16 Aspirin [ASA -] 81 mg PO DAILY 06/10/16 Atorvastatin Ca [Lipitor] 10 mg PO HS 06/10/16 Finasteride 5 mg PO DAILY 06/10/16 Lisinopril [Zestril] 2.5 mg PO DAILY 06/10/16 Tamsulosin HCl [Flomax -] 0.4 mg PO HS 01/12/18 Warfarin Na [Coumadin -] 10 mg PO ASDIR 02/08/18 Divalproex [Depakote -] 250 mg PO AM 12/31/18 Divalproex [Depakote -] 500 mg PO BID 12/31/18 Omeprazole 20 mg PO DAILY 01/02/19 Warfarin Na [Coumadin -] 5 mg PO TU@1800 01/02/19 Sulfamethoxazole/Trimethoprim [Bactrim DS -] 1 each PO BID #16 tablet 01/05/19 Mineral Oil/Petrolat,Wht/Water [Eucerin (Large Jar) -] 1 applic TP DAILY Multivitamin [Multiple Vitamins] 1 each PO DAILY 01/16/19 Doxycycline Hyclate [Vibratab -] 100 mg PO BID #14 tablet 01/19/19 cleared by id to be dc on no abx
[2019-04-29] MEDS ORDERED: WARFARIN NA 5 MG TABLET (UD) PO SCH (18:00)
== END 2019-04-29 18:13 | disposition home or self-care (01) | DRG 194 ==
LOC: JER 09:01 → JERBED 11:53 → J4W 14:02
PROVIDERS: ADMIT Internal Medicine; ATTEND Internal Medicine
DX: J18.9 Pneumonia, unspecified organism (principal); G93.40 Encephalopathy, unspecified; I25.10 Atherosclerotic heart disease of native coronary artery without angina pectoris; I10 Essential (primary) hypertension; E78.5 Hyperlipidemia, unspecified; Z95.2 Presence of prosthetic heart valve; N40.0 Benign prostatic hyperplasia without lower urinary tract symptoms; Z87.440 Personal history of urinary (tract) infections; D69.6 Thrombocytopenia, unspecified; R79.1 Abnormal coagulation profile; Z86.73 Personal history of transient ischemic attack (TIA), and cerebral infarction without residual deficits; F39 Unspecified mood [affective] disorder; R62.50 Unspecified lack of expected normal physiological development in childhood; F32.9 Major depressive disorder, single episode, unspecified; F41.9 Anxiety disorder, unspecified
CPT/HCPCS: 36415; 70450-TC; 71045-TC-FY; 76604; 80053; 80164; 80307; 81003; 82140; 82803; 82962; 83605; 83690; 83735; 83880; 84100; 84443; 84484; 85025; 85610; 85651; 85730; 87040; 87086; 93005; 93010; 99284-25; G0008; J0131; Q2036

== ENCOUNTER 2019-12-24 07:47 | Inpatient (IN) | payer OTHER ==
--- NOTE | 2019-12-24 08:07 | PDOC ---
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 Exam and F/U yesterday, new EF on 45% --> 29% on ECHO December 07, Mechanical AVR + rot 2000 on AC, atrial fibrillation, biotronic pacemaker (Dr. Burns at [facility]), discussion on facetime with Christian his aid and Brother HCP - DNR/DNI - entresto, stress test for ischemia, few years ago lateral wall infarct on stress test. Device test on December 06. Rafaelaalon - [phone] called - 2 weeks ago cardio requested ECHO, no result yet, cardiology spoke with brother yesterday, HR supposed to be at 50, but its 29, cardio suggested "surgery", cardiology spoke with brother who makes medical decisions. Picker Tender Helper at home - reported pt was sent this AM 2/2 hypotension 69/39 then 102/44, mentioned chest discomfort to the EMT. Cardiology: Dr. Lema - PCP: Dr. Jones call center analyst number for the snf: [phone] ROS Unable to obtain full ROS 2/2 intellectual disability, autism. PE Constitutional: Well-nourished, Well-developed, appearing stated age. HEENT: head is normocephalic, atraumatic. EOMI. PERRLA. Neck: supple. Full ROM. Cardiovascular: regular heart rhythm. Normal S1 and S2. loud murmur. no pericardial friction rub. Respiratory: clear to auscultation bilaterally. no crackles, rhonchi or wheezing. no stridor. Gastrointestinal: soft, flat, nontender. normal bowel sounds. no rebound, guarding, or masses. Extremities: peripheral pulses intact and equal. LLE calf larger than right, no pitting. Neurological: CN 2-12 grossly intact. moves all four extremities. Psych: awake, alert, oriented x3. slow mentation, but follows commands. answers most questions appropriately. Past History - Medical History Allergies/Adverse Reactions: Allergies Allergy/AdvReac Type Severity Reaction Status Date / Time beeswax Allergy Unknown Verified 12/24/19 07:48 venom-honey bee Allergy ANAPHYLAXIS Verified 12/24/19 07:48 [bee venom (honey bee)] Home Medications: Ambulatory Orders Aripiprazole [Abilify] 10 mg PO HS 06/10/16 Aspirin [ASA -] 81 mg PO DAILY 06/10/16 Atorvastatin Ca [Lipitor] 10 mg PO HS 06/10/16 Finasteride 5 mg PO DAILY 06/10/16 Lisinopril [Zestril] 2.5 mg PO DAILY 06/10/16 Tamsulosin HCl [Flomax -] 0.4 mg PO HS 01/12/18 Warfarin Na [Coumadin -] 10 mg PO ASDIR 02/08/18 Divalproex [Depakote -] 250 mg PO AM 12/31/18 Divalproex [Depakote -] 500 mg PO BID 12/31/18 Omeprazole 20 mg PO DAILY 01/02/19 Warfarin Na [Coumadin -] 5 mg PO TU@1800 01/02/19 Sulfamethoxazole/Trimethoprim [Bactrim DS -] 1 each PO BID #16 tablet 01/05/19 Mineral Oil/Petrolat,Wht/Water [Eucerin (Large Jar) -] 1 applic TP DAILY 01/16/19 Multivitamin [Multiple Vitamins] 1 each PO DAILY 01/16/19 Doxycycline Hyclate [Vibratab -] 100 mg PO BID #14 tablet 01/19/19 Levofloxacin [Levaquin] 750 mg PO DAILY 7 Days #7 tablet 11/06/19 Cardiac Disorders: Yes (aortic valve disorder, dvt, cardiomegaly) GI Disorders: Yes (volvulus of intestine, bowel or colon, SBO, POLYPS) - Immunization History Immunization Up to Date: Yes - Psycho-Social/Smoking History Years of Tobacco Use: 0 Number of Cigarettes Smoked Daily: 0 Cigars Per Day: 0 - Substance Abuse Hx (Audit-C & DAST Scrn) Score: In Men: 4 or > Positive; In Women: 3 or > Positive: 0 Screen Result (Pos requires Nsg. Audit-10AR): Negative Score: Yes response is considered Positive: 0 Screen Result (Positive result requires Nsg. DAST-10): Negative *Physical Exam - Vital Signs Last Vital Signs Temp Pulse Resp BP Pulse Ox 98.3 F 76 16 0/0 L 100 12/24/19 07:48 12/24/19 07:48 12/24/19 07:48 12/24/19 07:48 12/24/19 07:48 ED Treatment Course - LABORATORY CBC & Chemistry Diagram: 12/24/19 08:55 12/24/19 08:55 - RADIOLOGY Radiology Studies Ordered: Category Date Time Status CHEST X-RAY PORTABLE* [RAD] Stat Radiology 12/24/19 07:53 Ordered Medical Decision Making - Medical Decision Making 69 year old male with above PMH presented to ED for chest pain. Initial Vital Signs Temp Pulse Resp BP Pulse Ox 98.3 F 76 16 0/0 L 100 12/24/19 07:48 12/24/19 07:48 12/24/19 07:48 12/24/19 07:48 12/24/19 07:48 Afebrile. No tachycardia. No tachypnea. No hypoxia on room air. EKG rate 78, regular ventricularly paced rhythm, RBBB, no acute ST ch anges, QTc 556. CXR report: Elias Gamez Name: LUIS FERNANDO PADILLA DEPARTMENT OF RADIOLOGY Phys: Vania Polanco RESIDENT : 1950 Age: 69 Sex: M [facility] Acct: [id number] Loc: [address] Exam Date: 12/24/19 Status: [place] [id number] Unit Number: [id number] ACCESSION #: [id number] EXAM#: TYPE/EXAM: RESULT: [id number] RAD/CHEST X-RAY PORTABLE* Chest single view portable 8:20 AM Indication: Chest pain Comparison study available from 04/27/2019. Left endovenous pacemaker is again noted with 2 leads unchanged. The heart is enlarged. Aortic arch is elevated with a tortuous descending thoracic aorta. Median sternotomy sutures and CABG noted. No infiltrates or pleural effusions are seen. Reported By: Blane West MD 12/24/19 0901 VANIA POLANCO Technologist: Paulette Lora Transcribed Date/Time: 12/24/1901 Maintenance Tech: Blane West Printed Date/Time: By: 12/24/19 09:11 Call out placed to Dr. Lema - - pt's food products tester. 12/24/19 10:10 Laboratory Last Values WBC 3.5 K/mm3 (4.0-10.0) L 12/24/19 08:55 RBC 4.45 M/mm3 (4.00-5.60) 12/24/19 08:55 Hgb 12.9 GM/dL (11.7-16.9) 12/24/19 08:55 Hct 39.7 % (35.4-49) 12/24/19 08:55 MCV 89.3 fl (80-96) 12/24/19 08:55 MCH 29.0 pg (25.7-33.7) 12/24/19 08:55 MCHC 32.5 g/dl (32.0-35.9) 12/24/19 08:55 RDW 18.8 % (11.9-15.9) H 12/24/19 08:55 Plt Count 153 K/MM3 (134-434) D 12/24/19 08:55 MPV 8.8 fl (7.5-11.1) D 12/24/19 08:55 Absolute Neuts (auto) 1.7 K/mm3 (1.5-8.0) 12/24/19 08:55 Neutrophils % 47.2 % (42.8-82.8) D 12/24/19 08:55 Lymphocytes % 36.7 % (8-40) D 12/24/19 08:55 Monocytes % 13.0 % (3.8-10.2) H 12/24/19 08:55 Eosinophils % 2.4 % (0-4.5) D 12/24/19 08:55 Basophils % 0.7 % (0-2.0) D 12/24/19 08:55 Nucleated RBC % 0 % (0-0) 12/24/19 08:55 PT with INR 19.50 SEC (9.7-13.0) H 12/24/19 08:55 INR 1.64 (0.83-1.09) H 12/24/19 08:55 PTT (Actin FS) 40.5 SECONDS (25.2-36.5) H 12/24/19 08:55 Sodium 145 mmol/L (136-145) 12/24/19 08:55 Potassium 4.4 mmol/L (3.5-5.1) 12/24/19 08:55 Chloride 112 mmol/L (98-107) H 12/24/19 08:55 Carbon Dioxide 26 mmol/L (21-32) 12/24/19 08:55 Anion Gap 7 MMOL/L (8-16) L 12/24/19 08:55 BUN 22.4 mg/dL (7-18) H 12/24/19 08:55 Creatinine 1.4 mg/dL (0.55-1.3) H 12/24/19 08:55 Est GFR (CKD-EPI)AfAm 58.58 12/24/19 08:55 Est GFR (CKD-EPI)NonAf 50.54 12/24/19 08:55 Random Glucose 83 mg/dL (74-106) 12/24/19 08:55 Calcium 9.0 mg/dL (8.5-10.1) 12/24/19 08:55 Total Bilirubin 0.9 mg/dL (0.2-1) 12/24/19 08:55 AST 25 U/L (15-37) 12/24/19 08:55 ALT 18 U/L (13-61) 12/24/19 08:55 Alkaline Phosphatase 63 U/L (45-117) 12/24/19 08:55 Creatine Kinase 250 U/L (26-308) 12/24/19 08:55 Creatine Kinase Index 1.1 % (0.0-5.0) 12/24/19 08:55 CK-MB (CK-2) 2.8 ng/mL (0.5-3.6) 12/24/19 08:55 Troponin I 0.04 ng/ml (0.00-0.05) 12/24/19 08:55 B-Natriuretic Peptide 923.3 pg/ml (5-125) H 12/24/19 08:55 Total Protein 6.6 g/dl (6.4-8.2) 12/24/19 08:55 Albumin 3.0 g/dl (3.4-5.0) L 12/24/19 08:55 No leukocytosis. No anemia. No electrolyte abnormalities. JOSE. BNP elevation. Troponin wnl. 12/24/19 10:30 I spoke with Production Line Welder to inform her that we would be keeping the pt under observation. Discharge - Discharge Information Problems reviewed: Yes Clinical Impression/Diagnosis: Heart failure Qualifiers: Heart failure type: unspecified Heart failure chronicity: acute Qualified Code(s): I50.9 - Heart failure, unspecified Hypotension Qualifiers: Hypotension type: unspecified hypotension type Qualified Code(s): I95.9 - Hypotension, unspecified Condition: Guarded - Admission Yes - Follow up/Referral - Patient Discharge Instructions - Post Discharge Activity
[2019-12-24 09:10] LABS: BASO % 0.7 % (0-2.0); EOS % 2.4 % (0-4.5); HEMATOCRIT 39.7 % (35.4-49); HEMOGLOBIN 12.9 GM/dL (11.7-16.9); LYMPH % 36.7 % (8-40); MCHC 32.5 g/dl (32.0-35.9); MEAN CELL VOLUME 89.3 fl (80-96); MEAN PLT VOLUME 8.8 fl (7.5-11.1); NEUT % 47.2 % (42.8-82.8); PLATELET COUNT 153 K/MM3 (134-434); RBC 4.45 M/mm3 (4.00-5.60); RDW 18.8 % (11.9-15.9); WHITE BLOOD COUNT 3.5 K/mm3 (4.0-10.0)
[2019-12-24 09:17] LABS: INR 1.64 (0.83-1.09); PROTHROMBIN TIME (PATIENT) 19.5 SEC (9.7-13.0)
[2019-12-24 09:20] LABS: ACTIVATED PTT 40.5 SECONDS (25.2-36.5)
[2019-12-24 09:39] LABS: BILIRUBIN,TOTAL 0.9 mg/dL (0.2-1); BLOOD UREA NITROGEN 22.4 mg/dL (7-18); CREATININE 1.4 mg/dL (0.55-1.3); N-TERMINAL BNP 923.3 pg/ml (5-125); POTASSIUM 4.4 mmol/L (3.5-5.1); TOT PROT 6.6 g/dl (6.4-8.2)
--- NOTE | 2019-12-24 11:11 | HP ---
CHIEF COMPLAINT: Chest Pain PCP: Dr Jones HISTORY OF PRESENT ILLNESS: 69 year old male from a [facility] with history of autism spectrum disorder, intellectual delay, enterococcal endocarditis sp mechanical aortic valve replacement on warfarin, afib sp pacemaker placement, CVA, SBO, volvulus, BPH, chronic orchitis, DVT, UTI who was brought to the ED by ambulance after the [facility] aide found him to be hypotensive with systolic BP of 69 mmhg. Patient, after being asked, admitted that he was having chest pains. Secondary to intellectual disability, unable to give further history At ED BP is acceptable. Per out patient insurance producer Dr Lema [phone] he underwent an echocardiogram 2 weeks ago and verbal report to brother who is HCP, is that EF dropped from 50% to 29% At ED MDT=588. Recent Travel: none PAST MEDICAL HISTORY: as above PAST SURGICAL HISTORY: as above Social History: Smoking: no Alcohol: no Drugs: no Family history: unable to obtain Allergies beeswax Allergy (Unknown, Verified 12/24/19 07:48) venom-honey bee [bee venom (honey bee)] Allergy (Verified 12/24/19 07:48) ANAPHYLAXIS BEE STING HOME MEDICATIONS: Home Medications Medication Instructions Recorded Aripiprazole [Abilify] 10 mg PO HS 06/10/16 Aspirin [ASA -] 81 mg PO DAILY 06/10/16 Atorvastatin Ca [Lipitor] 10 mg PO HS 06/10/16 Finasteride 5 mg PO DAILY 06/10/16 Lisinopril [Zestril] 2.5 mg PO DAILY 06/10/16 Tamsulosin HCl [Flomax -] 0.4 mg PO HS 01/12/18 Warfarin Na [Coumadin -] 10 mg PO ASDIR 02/08/18 Divalproex [Depakote -] 250 mg PO AM 12/31/18 Divalproex [Depakote -] 500 mg PO BID 12/31/18 Omeprazole 20 mg PO DAILY 01/02/19 Warfarin Na [Coumadin -] 5 mg PO TU@1800 01/02/19 Sulfamethoxazole/Trimethoprim 1 each PO BID #16 tablet 01/05/19 [Bactrim DS -] Mineral Oil/Petrolat,Wht/Water 1 applic TP DAILY 01/16/19 [Eucerin (Large Jar) -] Multivitamin [Multiple Vitamins] 1 each PO DAILY 01/16/19 Doxycycline Hyclate [Vibratab -] 100 mg PO BID #14 tablet 01/19/19 Levofloxacin [Levaquin] 750 mg PO DAILY 7 Days #7 tablet 11/06/19 REVIEW OF SYSTEMS Unable to obtain PHYSICAL EXAMINATION Vital Signs - 24 hr 12/24/19 12/24/19 07:48 09:14 Temperature 98.3 F Pulse Rate 76 Pulse Rate [ 76 Left Radial] Respiratory 16 19 Rate Blood Pressure 0/0 L Blood Pressure 91/65 [Left Arm] O2 Sat by Pulse 100 99 Oximetry (%) GENERAL: Awake, alert, in no acute distress. HEAD: Normal with no signs of trauma. EYES: Pupils equal, round and reactive to light, extraocular movements intact, sclera anicteric, conjunctiva clear. No lid lag. EARS, NOSE, THROAT: oropharynx clear without exudates. Moist mucous membranes. NECK: Normal range of motion, supple without lymphadenopathy, JVD, or masses. LUNGS: Breath sounds equal, clear to auscultation bilaterally. No wheezes, and no crackles. No accessory muscle use. HEART: Regular rate and rhythm, normal S1 and S2 with 2/6 ejection murmur, positive mechanical valve sound noted. ABDOMEN: Soft, nontender, not distended, normoactive bowel sounds, no guarding, no rebound, no masses. No hepatomegaly or splenomegaly. MUSCULOSKELETAL: Normal range of motion at all joints. No bony deformities or tenderness. No CVA tenderness. UPPER EXTREMITIES: 2+ pulses, warm, well-perfused. No cyanosis. No clubbing. No peripheral edema. LOWER EXTREMITIES: 2+ pulses, warm, well-perfused. No calf tenderness. No peripheral edema. NEUROLOGICAL: He is nonverbal currently. He focuses. He follows simple commands but not reliably. Able to move upper and lower extremities. Follows some commands. Gait not checked PSYCHIATRIC: Good eye contact. SKIN: Warm, dry, normal turgor, no rashes or lesions noted, normal capillary refill. He has superficial/varicose veins at the lower extremities. Laboratory Results - last 24 hr 12/24/19 12/24/19 12/24/19 08:55 08:55 08:55 WBC 3.5 L RBC 4.45 Hgb 12.9 Hct 39.7 MCV 89.3 MCH 29.0 MCHC 32.5 RDW 18.8 H Plt Count 153 D MPV 8.8 D Absolute Neuts (auto) 1.7 Neutrophils % 47.2 D Lymphocytes % 36.7 D Monocytes % 13.0 H Eosinophils % 2.4 D Basophils % 0.7 D Nucleated RBC % 0 PT with INR 19.50 H INR 1.64 H PTT (Actin FS) 40.5 H Sodium 145 Potassium 4.4 Chloride 112 H Carbon Dioxide 26 Anion Gap 7 L BUN 22.4 H Creatinine 1.4 H Est GFR (CKD-EPI)AfAm 58.58 Est GFR (CKD-EPI)NonAf 50.54 Random Glucose 83 Calcium 9.0 Total Bilirubin 0.9 AST 25 ALT 18 Alkaline Phosphatase 63 Creatine Kinase 250 Creatine Kinase Index 1.1 CK-MB (CK-2) 2.8 Troponin I 0.04 B-Natriuretic Peptide 923.3 H Total Protein 6.6 Albumin 3.0 L ASSESSMENT/PLAN: 1. Chest pain - patient with multiple risk factors for ACS - on multiple appropriate cardiac meds, will continue - will check echocardiogram - serial troponins - cardiac monitoring - production statistical clerk insurance producer Dr Jackson consulted 2. CHF - will hold off on diuresis - Dr Jackson consulted - start entersto - echocardiogram 3. cont tamsulosin for BPH 4. Afib sp pacemaker - cont coumadin - rate is controlled 5. DVT prophylaxis - pt on warfarin (#3) Visit type - Emergency Visit Emergency Visit: Yes ED Registration Date: 12/24/19 Care time: The patient presented to the Emergency Department on the above date and was hospitalized for further evaluation of their emergent condition. - New Patient This patient is new to me today: Yes Date on this admission: 01/05/20 - Critical Care Critical Care patient: No
[2019-12-24] MEDS ORDERED: WARFARIN NA 5 MG TABLET PO ONE (11:36)
[2019-12-24] MEDS ORDERED: ARIPiprazole 10 MG TABLET PO ONE (11:38)
[2019-12-24] MEDS ORDERED: ATORVASTATIN CA 10 MG TABLET (FP) PO ONE (11:38)
--- NOTE | 2019-12-24 12:20 | EKG ---
Test Reason : Blood Pressure : / mmHG Vent. Rate : 078 BPM Atrial Rate : 076 BPM P-R Int : 000 ms QRS Dur : 196 ms QT Int : 488 ms P-R-T Axes : 012 269 099 degrees QTc Int : 556 ms Ventricular-paced rhythm WITH PREMATURE ATRIAL COMPLEXES WITH ABERRANT CONDUCTION ABNORMAL ECG WHEN COMPARED WITH ECG OF 06-NOV-2019 02:53, ABERRANT CONDUCTION IS NOW PRESENT VENT. RATE HAS DECREASED BY 3 BPM Confirmed by CUONG ARGUETA MD ([id number]) on 12/24/2019 12:20:27 PM Referred By: Confirmed By:CUONG ARGUETA MD
[2019-12-24] MEDS ORDERED: ARIPiprazole 5 MG TABLET ONE (13:25)
[2019-12-24] MEDS ORDERED: WARFARIN NA 5 MG TABLET ONE (13:25)
[2019-12-24] MEDS ORDERED: ATORVASTATIN CA 10 MG TABLET (FP) ONE (13:25)
--- NOTE | 2019-12-24 13:59 | PDOC ---
Documentation entered by Riya Collins SCRIBE, acting as scribe for Dinora Valentine MD. Dinora Valentine MD: This documentation has been prepared by the Dennis estes Brenda, SCRIBE, under my direction and personally reviewed by me in its entirety. I confirm that the documentation accurately reflects all work, treatment, procedures, and medical decision making performed by me. 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 Patient is a poor historian. Per [facility] staff, pt's blood pressure was 69/39 this AM at which point EMS was called. When EMS arrived, pt complained of CP. The patient denies shortness of breath, headache and dizziness. Denies fever, chills, nausea, vomiting, diarrhea and constipation. Denies any symtpoms. Allergies: NKA Past surgical history: "needs cards surgery" per brother Social history: No reported hx of tobacco use, alcohol use or illicit drug use. PCP: Dr. Jones Cardiology: Dr. Lema - - Physicial Exam PE: 12/24/19 09:36 GENERAL: Awake, alert, and fully oriented, in no acute distress. Appears younger than stated age. HEAD: No signs of trauma EYES: PERRLA, EOMI, sclera anicteric, conjunctiva clear ENT: Oropharynx clear without exudates. Moist mucosa NECK: Normal ROM, supple, no lymphadenopathy, JVD, or masses LUNGS: Breath sounds equal, clear to auscultation bilaterally. No wheezes, and no crackles HEART: Regular rate and rhythm, normal S1 and S2, no murmurs, rubs or gallops ABDOMEN: Soft, nontender, normoactive bowel sounds. No guarding, no rebound. No masses EXTREMITIES: 1+ non pitting edema b/l to calves. No clubbing or cyanosis. No cords, erythema, or tenderness BACK: No midline spinal tenderness in cervical/thoracic/lumbar region NEUROLOGICAL: Normal speech, cranial nerves intact, equal strength and sensation b/l SKIN: Warm, Dry, normal turgor, no rashes or lesions noted. - Medical Decision Making 12/24/19 11:54 69yo M with MMP including CHF w reduced EF presents to the ED with hypotension and CP At this time, BP 90/60, pt has no complaints of CP EKG V-paced with LBBB unchanged from prior Labs including trop unremarkable. Plan for obs admission for CP and hypotension given co-morbidities, age Discharge - Discharge Information Problems reviewed: Yes Clinical Impression/Diagnosis: Heart failure Qualifiers: Heart failure type: unspecified Heart failure chronicity: acute Qualified Code(s): I50.9 - Heart failure, unspecified Hypotension Qualifiers: Hypotension type: unspecified hypotension type Qualified Code(s): I95.9 - Hypotension, unspecified Condition: Guarded - Follow up/Referral - Patient Discharge Instructions - Post Discharge Activity
--- NOTE | 2019-12-24 16:58 | CON.CARD ---
Cardiology Consult (text) - Consultation Consultation Note: cc: hypotension hpi: 69 m hx mental retardation, htn, hld, cva, taa s/p repair, mech avr, biotronik ppm, syst chf, brought by aid for hypotension. Hx from charts and aid, pt not answering questions. Aid said that his bp was low and she asked him if anything was wrong but he didnt answer so then she asked him yes/no questions about different sxs and he said yes to chest pain. He appears comfortable now. pmh: per hpi psh: per hpi social: no tob fam: unknown ros: unable to obtain 2/2 ams meds: Home Medications Medication Instructions Recorded Aripiprazole [Abilify] 10 mg PO HS 06/10/16 Aspirin [ASA -] 81 mg PO DAILY 06/10/16 Atorvastatin Ca [Lipitor] 10 mg PO HS 06/10/16 Finasteride 5 mg PO DAILY 06/10/16 Lisinopril [Zestril] 2.5 mg PO DAILY 06/10/16 Tamsulosin HCl [Flomax -] 0.4 mg PO HS 01/12/18 Warfarin Na [Coumadin -] 10 mg PO ASDIR 02/08/18 Omeprazole 20 mg PO DAILY 01/02/19 Warfarin Na [Coumadin -] 5 mg PO TU@1800 01/02/19 Multivitamin [Multiple Vitamins] 1 each PO DAILY 01/16/19 Sacubitril/Valsartan [Entresto 24 1 each PO BID 12/24/19 mg-26 mg Tablet] pe: Vital Signs Period Temp Pulse Resp BP Sys/Dickey Pulse Ox Last 24 Hr 97 F-98.3 F 63-76 06-18 0-107/0-65 96-100 nad no jvd rrr s1s2 no mrg cta bl nl eff abd nt nd pos bs no le e/c/c abd nt nd pos bs no jaundice diaphoresis awake, confused Laboratory Last Values WBC 3.5 K/mm3 (4.0-10.0) L 12/24/19 08:55 RBC 4.45 M/mm3 (4.00-5.60) 12/24/19 08:55 Hgb 12.9 GM/dL (11.7-16.9) 12/24/19 08:55 Hct 39.7 % (35.4-49) 12/24/19 08:55 MCV 89.3 fl (80-96) 12/24/19 08:55 MCH 29.0 pg (25.7-33.7) 12/24/19 08:55 MCHC 32.5 g/dl (32.0-35.9) 12/24/19 08:55 RDW 18.8 % (11.9-15.9) H 12/24/19 08:55 Plt Count 153 K/MM3 (134-434) D 12/24/19 08:55 MPV 8.8 fl (7.5-11.1) D 12/24/19 08:55 Absolute Neuts (auto) 1.7 K/mm3 (1.5-8.0) 12/24/19 08:55 Neutrophils % 47.2 % (42.8-82.8) D 12/24/19 08:55 Lymphocytes % 36.7 % (8-40) D 12/24/19 08:55 Monocytes % 13.0 % (3.8-10.2) H 12/24/19 08:55 Eosinophils % 2.4 % (0-4.5) D 12/24/19 08:55 Basophils % 0.7 % (0-2.0) D 12/24/19 08:55 Nucleated RBC % 0 % (0-0) 12/24/19 08:55 PT with INR 19.50 SEC (9.7-13.0) H 12/24/19 08:55 INR 1.64 (0.83-1.09) H 12/24/19 08:55 PTT (Actin FS) 40.5 SECONDS (25.2-36.5) H 12/24/19 08:55 Sodium 145 mmol/L (136-145) 12/24/19 08:55 Potassium 4.4 mmol/L (3.5-5.1) 12/24/19 08:55 Chloride 112 mmol/L (98-107) H 12/24/19 08:55 Carbon Dioxide 26 mmol/L (21-32) 12/24/19 08:55 Anion Gap 7 MMOL/L (8-16) L 12/24/19 08:55 BUN 22.4 mg/dL (7-18) H 12/24/19 08:55 Creatinine 1.4 mg/dL (0.55-1.3) H 12/24/19 08:55 Est GFR (CKD-EPI)AfAm 58.58 12/24/19 08:55 Est GFR (CKD-EPI)NonAf 50.54 12/24/19 08:55 Random Glucose 83 mg/dL (74-106) 12/24/19 08:55 Calcium 9.0 mg/dL (8.5-10.1) 12/24/19 08:55 Total Bilirubin 0.9 mg/dL (0.2-1) 12/24/19 08:55 AST 25 U/L (15-37) 12/24/19 08:55 ALT 18 U/L (13-61) 12/24/19 08:55 Alkaline Phosphatase 63 U/L (45-117) 12/24/19 08:55 Creatine Kinase 250 U/L (26-308) 12/24/19 08:55 Creatine Kinase Index 1.1 % (0.0-5.0) 12/24/19 08:55 CK-MB (CK-2) 2.8 ng/mL (0.5-3.6) 12/24/19 08:55 Troponin I 0.04 ng/ml (0.00-0.05) 12/24/19 08:55 B-Natriuretic Peptide 923.3 pg/ml (5-125) H 12/24/19 08:55 Total Protein 6.6 g/dl (6.4-8.2) 12/24/19 08:55 Albumin 3.0 g/dl (3.4-5.0) L 12/24/19 08:55 ecg: vpaced tele: vpaced echo 01/2018: mod dec lvef, mod dec rv syst fcn, mod-sev mr, nl [facility] avr cxr: clear lungs a/p: 69 m hx mental retardation, htn, hld, cva, taa s/p repair, [facility] avr, biotronik ppm, syst chf, brought by aid for hypotension. hypotension, htn: -bp on low side here, possibly due to syst chf (lvef in 20s on recent outpt echo per charts) he has baseline hypotension. Monitor for now. Cont teri if tolerates. [facility] avr: -nl fcn on 2017 echo, check updated -inr is subtherapeutic, will start hep gtt ppm: -nl fcn on ecg/tele here. nl outpt check this month per charts. chronic syst chf: -does not appear vol overloaded, not on diuretic per home list -check updated echo -cont teri (or entresto if taking at home, need to clarify) cp: -unclear symptom as pt unable to give any details, appears comfortable -would tamar for now. if second trop is neg can dc tele.
[2019-12-24] MEDS ORDERED: HEPARIN NA (PORCINE) 5,000 UNITS/ML 1ML VIAL IVPUSH PRN ×2 (17:01)
[2019-12-24] MEDS ORDERED: HEPARIN INFUSION - 25,000 UNITS/500 ML INFUS.BAG IVPB ONE (17:08)
[2019-12-24] MEDS: HEPARIN - 25,000 UNIT in SODIUM CHLORIDE 495 ML IV SCH (17:20)
--- NOTE | 2019-12-25 05:46 | PN ---
Progress Note, Physician Chief Complaint: denies CP, SOB Aids at bedside History of Present Illness: TELE: A-V paced Chronic systolic CHF [facility] AVR Subtherapeutic INR Atypical CP - Current Medication List Current Medications: Active Medications Heparin Sodium (Porcine) (Heparin -) 1,000 unit IVPUSH PRN PRN PRN Reason: Heparin Heparin Sodium (Porcine) (Heparin -) 5,000 unit IVPUSH PRN PRN PRN Reason: Heparin Heparin Sodium (Porcine) 25, (000 unit/ Sodium Chloride) 500 mls @ 16 mls/hr IV TITR YANETH; Protocol Last Admin: 12/24/19 17:20 Dose: 800 unit/hr, 16 mls/hr Documented by: Lisinopril (Prinivil) 2.5 mg PO DAILY YANETH - Objective Vital Signs: Vital Signs Temperature 98.0 F 12/25/19 02:23 Pulse Rate 66 12/25/19 02:23 Respiratory Rate 18 12/25/19 02:23 Blood Pressure 96/54 L 12/25/19 02:23 O2 Sat by Pulse Oximetry (%) 98 12/25/19 02:23 Constitutional: Yes: No Distress Cardiovascular: Yes: Regular Rate and Rhythm, Other (Mechanical S2) Gastrointestinal: Yes: Soft Edema: No ...Motor Strength: WNL Labs: CBC, BMP 12/24/19 08:55 12/24/19 08:55 INR, PTT INR 1.64 (0.83-1.09) H 12/24/19 08:55 Laboratory Tests 12/24/19 12/24/19 12/24/19 08:55 08:55 23:25 WBC Hgb Plt Count INR 1.64 H PTT (Actin FS) 72.1 H Sodium 145 Potassium 4.4 Troponin I 0.04 B-Natriuretic Peptide 923.3 H 12/25/19 12/25/19 06:40 06:40 WBC 3.7 L Hgb 11.8 Plt Count 146 INR PTT (Actin FS) 90.9 H Sodium Potassium Troponin I B-Natriuretic Peptide - ....Imaging EKG: Image Reviewed Assessment/Plan echo 01/2018: mod dec lvef, mod dec rv syst fcn, mod-sev mr, nl [facility] avr a/p: 69 m hx mental retardation, htn, hld, cva, taa s/p repair, [facility] avr, biotronik ppm, syst chf, brought by aid for hypotension. hypotension, htn: -bp on low side here, possibly due to syst chf (lvef in 20s on recent outpt echo per charts) he has baseline hypotension. Monitor for now. Cont teri if tolerate s. mech avr: -nl fcn on 2018 echo, check updated -inr is subtherapeutic -Daily INR -Heparin gtts -----> Coumadin for INR goal 2-3 ppm: -nl fcn on ecg/tele here. nl outpt check this month per charts. chronic syst chf: -does not appear vol overloaded, not on diuretic per home list -check updated echo -cont teri cp: -unclear symptom as pt unable to give any details, appears comfortable -would tamar for now. if second trop is neg can dc tele.
[2019-12-25 08:08] LABS: BASO % 0.4 % (0-2.0); EOS % 3.4 % (0-4.5); HEMATOCRIT 36.8 % (35.4-49); HEMOGLOBIN 11.8 GM/dL (11.7-16.9); LYMPH % 33.8 % (8-40); MCH 28.5 pg (25.7-33.7); MEAN CELL VOLUME 88.9 fl (80-96); MEAN PLT VOLUME 10.5 fl (7.5-11.1); NEUT % 52.4 % (42.8-82.8); PLATELET COUNT 146 K/MM3 (134-434); RBC 4.14 M/mm3 (4.00-5.60); RDW 18.5 % (11.9-15.9); WHITE BLOOD COUNT 3.7 K/mm3 (4.0-10.0)
[2019-12-25] MEDS: HEPARIN - 25,000 UNIT in SODIUM CHLORIDE 495 ML IV SCH ×2 (09:15→18:49)
[2019-12-25] MEDS: LISINOPRIL 5 MG TABLET (FP) PO SCH (09:16)
[2019-12-25] MEDS: ASPIRIN 81 MG CHEWABLE TABLETS PO SCH (09:16)
[2019-12-25] MEDS: FINASTERIDE 5 MG TABLET (FP) PO SCH (09:16)
[2019-12-25] MEDS ORDERED: LISINOPRIL 5 MG TABLET (FP) PO SCH (10:00)
--- NOTE | 2019-12-25 11:55 | ECHO ---
Version: 1 Name: LUIS FERNANDO PADILLA Exam: Adult Echocardiogram Study Date: 12/25/2019, 10:49 AM Age: 69 Years MMode/2D Measurements & Calculations IVSd: 0.93 cm LVIDs: 5.3 cm LVIDd: 5.9 cm LVPWd: 1.05 cm LAV (MOD-bp): 58.6 ml Ao root diam: 2.6 cm LA dimension: 3.5 cm Doppler Measurements & Calculations MV E max jon: 38.3 cm/sec Med E/e': 6.0 MV A max jon: 109.6 cm/sec Med Peak E' Jon: 6.4 cm/sec MV E/A: 0.35 Lat E/e': 6.0 Lat Peak E' Jon: 6.4 cm/sec MR max P.9 mmHg Ao max P.8 mmHg Ao mean P.6 mmHg Ao V2 max: 164.2 cm/sec TR max jon: 222.6 cm/sec TR max P.9 mmHg Left Ventricle The left ventricle is mildly dilated. Left ventricular systolic function is severely reduced. Ejecti on Fraction = 15-20%. The transmitral spectral Doppler flow pattern is suggestive of impaired LV relaxa tion. Right Ventricle There is a pacemaker lead in the right ventricle. The right ventricle is grossly normal size. The ri ght ventricular systolic function is grossly normal. Atria The left atrium is mildly dilated. Mitral Valve The mitral valve leaflets appear thickened, but open well. There is no mitral valve stenosis. There is mild mitral regurgitation. Tricuspid Valve The tricuspid valve is normal in structure and function. There is mild tricuspid regurgitation. Aortic Valve There is a mechanical aortic valve. No hemodynamically significant valvular aortic stenosis. No aort ic regurgitation is present. Pulmonic Valve The pulmonic valve is not well seen, but is grossly normal. There is no pulmonic valvular stenosis. Great Vessels The aortic root is normal size. Pericardium/Pleura There is no pericardial effusion. Summary Statements The left ventricle is mildly dilated. Left ventricular systolic function is severely reduced. Ejection Fraction = 15-20%. The transmitral spectral Doppler flow pattern is suggestive of impaired LV relaxation. There is a pacemaker lead in the right ventricle. The left atrium is mildly dilated. The mitral valve leaflets appear thickened, but open well. There is mild mitral regurgitation. There is mild tricuspid regurgitation. There is a mechanical aortic valve. MD Guerra *Daily 12/25/2019, 11:54 AM Ordering Physician: Brayden Christian Performed By: Amira Rutledge
[2019-12-25 13:20] LABS: INR 1.59 (0.83-1.09); PROTHROMBIN TIME (PATIENT) 18.8 SEC (9.7-13.0)
--- NOTE | 2019-12-25 17:17 | PN ---
Physical Exam: SUBJECTIVE: Patient seen and examined at the bedside. comfortable at rest. aide at the bedside and provides me with history. patient admitted for chest pain and hypotension. patient is able to ambulate but needs a sitter 1:1 because he is impulsive and a fall risk. 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 Patient at that time reported chest pain. echo 12/25/2019: LV mildly dilated, LV systolic fx severely reduced, EF 15-20%, impaired LV relaxation,LA, mildly dilated. Vital Signs Period Temp Pulse Resp BP Sys/Dickey Pulse Ox Last 24 Hr 97.8 F-98.0 F 63-73 16-18 91-109/49-66 96-98 GENERAL: The patient is awake, alert, in no acute distress. tolerating room air. HEAD: Normal with no signs of trauma. EYES: PERRL, extraocular movements intact, sclera anicteric, conjunctiva clear. No ptosis. ENT: Ears normal, nares patent, oropharynx clear without exudates NECK: Trachea midline, full range of motion, supple. LUNGS: Breath sounds equal, clear to auscultation bilaterally HEART: Regular rate and rhythm ABDOMEN: Soft, nontender, nondistended, normoactive bowel sounds EXTREMITIES: no edema. NEUROLOGICAL: Normal speech, gait not observed. Laboratory Results - last 24 hr 12/24/19 12/24/19 12/25/19 11:17 23:25 06:40 WBC 3.7 L RBC 4.14 Hgb 11.8 Hct 36.8 MCV 88.9 MCH 28.5 MCHC 32.0 RDW 18.5 H Plt Count 146 MPV 10.5 D Absolute Neuts (auto) 1.9 Neutrophils % 52.4 Lymphocytes % 33.8 Monocytes % 10.0 Eosinophils % 3.4 Basophils % 0.4 Nucleated RBC % 0 PT with INR INR PTT (Actin FS) 72.1 H Creatine Kinase Creatine Kinase Index CK-MB (CK-2) Troponin I Triglycerides Cholesterol Total LDL Cholesterol HDL Cholesterol COVID-19 (DIEGO) Not detected 12/25/19 12/25/19 12/25/19 06:40 06:40 06:40 WBC RBC Hgb Hct MCV MCH MCHC RDW Plt Count MPV Absolute Neuts (auto) Neutrophils % Lymphocytes % Monocytes % Eosinophils % Basophils % Nucleated RBC % PT with INR 18.80 H INR 1.59 H PTT (Actin FS) 90.9 H Creatine Kinase Creatine Kinase Index CK-MB (CK-2) Troponin I 0.04 Triglycerides 36 Cholesterol 136 Total LDL Cholesterol 59 HDL Cholesterol 61 H COVID-19 (DIEGO) 12/25/19 12:43 WBC RBC Hgb Hct MCV MCH MCHC RDW Plt Count MPV Absolute Neuts (auto) Neutrophils % Lymphocytes % Monocytes % Eosinophils % Basophils % Nucleated RBC % PT with INR INR PTT (Actin FS) Creatine Kinase 162 Creatine Kinase Index 1.2 CK-MB (CK-2) 2.0 Troponin I 0.04 Triglycerides Cholesterol Total LDL Cholesterol HDL Cholesterol COVID-19 (DIEGO) Active Medications Generic Name Dose Route Start Last Admin Trade Name Freq PRN Reason Stop Dose Admin Aripiprazole 10 mg 12/25/19 22:00 Abilify PO HS YANETH Aspirin 81 mg 12/25/19 10:00 12/25/19 09:16 Asa - PO 81 mg DAILY YANETH Administration Atorvastatin Calcium 10 mg 12/25/19 22:00 Lipitor - PO HS YANETH Finasteride 5 mg 12/25/19 10:00 12/25/19 09:16 Proscar - PO 5 mg DAILY YANETH Administration Heparin Sodium (Porcine) 1,000 unit 12/24/19 17:01 Heparin - IVPUSH PRN PRN Heparin Heparin Sodium (Porcine) 5,000 unit 12/24/19 17:01 Heparin - IVPUSH PRN PRN Heparin Heparin Sodium (Porcine) 25, 500 mls @ 16 mls/hr 12/24/19 17:15 12/25/19 09:15 000 unit/ Sodium Chloride IV 700 unit/hr TITR YANETH 14 mls/hr Administration Protocol 800 UNIT/HR Lisinopril 2.5 mg 12/25/19 10:00 12/25/19 09:16 Prinivil PO 2.5 mg DAILY YANETH Administration Tamsulosin HCl 0.4 mg 12/25/19 22:00 Flomax - PO HS YANETH Warfarin Sodium 5 mg 12/29/19 18:00 Coumadin - PO TU@1800 [facility] ASSESSMENT/PLAN: Problem List - Problems (1) Chest pain Assessment/Plan: no chest pain reported on exam. comfortable at rest and tolerating room air troponins are negative echo as noted above with an EF 15-20%, cardiology following Code(s): R07.9 - CHEST PAIN, UNSPECIFIED (2) Hypotension Assessment/Plan: moniotor bp/on an teri Code(s): I95.9 - HYPOTENSION, UNSPECIFIED Qualifiers: Hypotension type: unspecified hypotension type Qualified Code(s): I95.9 - Hypotension, unspecified (3) Mechanical heart valve present Assessment/Plan: maintain inr between2.5-3.5. on heparin drip/coumadin bridging. Code(s): Z95.2 - PRESENCE OF PROSTHETIC HEART VALVE (4) Hypertension Assessment/Plan: on teri. monitor bp Code(s): I10 - ESSENTIAL (PRIMARY) HYPERTENSION (5) Afib Code(s): I48.91 - UNSPECIFIED ATRIAL FIBRILLATION (6) Lives in [facility] Assessment/Plan: aides at the bedside to provide support Code(s): Z59.3 - PROBLEMS RELATED TO LIVING IN RESIDENTIAL INSTITUTION (7) Systolic and diastolic CHF, acute on chronic Assessment/Plan: not on a lasix monitor intake output, labs, vitals, daily weights Code(s): I50.43 - ACUTE ON CHRONIC COMBINED SYSTOLIC AND DIASTOLIC HRT FAIL (8) DVT prophylaxis Assessment/Plan: on heparin drip with bridge to coumadin Code(s): LPO9170 - Visit type - Emergency Visit Emergency Visit: Yes ED Registration Date: 12/24/19 Care time: The patient presented to the Emergency Department on the above date and was hospitalized for further evaluation of their emergent condition. - New Patient This patient is new to me today: Yes Date on this admission: 12/25/19 - Critical Care Critical Care patient: No - Discharge Referral Referred to [facility] Med P.C.: No
[2019-12-25] MEDS ORDERED: WARFARIN NA 5 MG TABLET PO SCH (18:00)
[2019-12-25] MEDS: TAMSULOSIN HCL 0.4 MG CAP PO SCH (21:23)
[2019-12-25] MEDS: ATORVASTATIN CA 10 MG TABLET (FP) PO SCH (21:23)
[2019-12-25] MEDS: ARIPiprazole 10 MG TABLET PO SCH (21:23)
--- NOTE | 2019-12-26 07:23 | PN ---
Progress Note, Physician Chief Complaint: low bp History of Present Illness: alert, comfortable, no verbal communication. aide at bedside states he has not complained of anything including cp or sob, not appeared breathless or agitated - Current Medication List Current Medications: Active Medications Aripiprazole (Abilify) 10 mg PO HS [facility] Last Admin: 12/25/19 21:23 Dose: 10 mg Documented by: Aspirin (Asa -) 81 mg PO DAILY [facility] Last Admin: 12/25/19 09:16 Dose: 81 mg Documented by: Atorvastatin Calcium (Lipitor -) 10 mg PO HS [facility] Last Admin: 12/25/19 21:23 Dose: 10 mg Documented by: Finasteride (Proscar -) 5 mg PO DAILY [facility] Last Admin: 12/25/19 09:16 Dose: 5 mg Documented by: Heparin Sodium (Porcine) (Heparin -) 1,000 unit IVPUSH PRN PRN PRN Reason: Heparin Heparin Sodium (Porcine) (Heparin -) 5,000 unit IVPUSH PRN PRN PRN Reason: Heparin Heparin Sodium (Porcine) 25, (000 unit/ Sodium Chloride) 500 mls @ 16 mls/hr IV TITR [facility]; Protocol Last Titration: 12/25/19 20:08 Dose: 700 unit/hr, 14 mls/hr Documented by: Lisinopril (Prinivil) 2.5 mg PO DAILY [facility] Last Admin: 12/25/19 09:16 Dose: 2.5 mg Documented by: Tamsulosin HCl (Flomax -) 0.4 mg PO [facility] Last Admin: 12/25/19 21:23 Dose: 0.4 mg Documented by: Warfarin Sodium (Coumadin -) 5 mg PO DAILY@1800 [facility] Last Admin: 12/25/19 18:23 Dose: 5 mg Documented by: - Objective Vital Signs: Vital Signs Temperature 98.2 F 12/26/19 06:00 Pulse Rate 61 12/26/19 06:00 Respiratory Rate 20 12/26/19 06:00 Blood Pressure 98/57 L 12/26/19 06:00 O2 Sat by Pulse Oximetry (%) 96 12/25/19 21:00 Constitutional: Yes: Well Nourished, No Distress, Calm Cardiovascular: Yes: Regular Rate and Rhythm, S1, S2. No: JVD, Gallop, Murmur Respiratory: Yes: Regular, CTA Bilaterally. No: Accessory Muscle Use, Rales, Wheezes Extremities: No: Cold Edema: No Neurological: Yes: Alert. No: Seizure Psychiatric: No: Agitated Labs: CBC, BMP 12/25/19 06:40 12/24/19 08:55 INR, PTT INR 1.59 (0.83-1.09) H 12/25/19 06:40 Assessment/Plan Echo 01/2018: mod dec lvef, mod dec rv syst fcn, mod-sev mr, nl [facility] avr Echo 12/18: mild LVE, sev decr EF 15-20%. nl RV. PM/ICD wire in RV. [facility] AV normal fxn tele: As/[employer] a/p: 69 m hx mental retardation, htn, hld, cva, taa s/p repair, [facility] avr, biotronik ppm, syst chf, brought by aid for hypotension. hypotension, htn: -BP of 69 systolic documented at home, stable >90 here at his baseline from prior admits (90s-100s) -history of endocarditis, pt with prosthetic valve--check blood cultures -bp remains stable [facility] avr: -nl fcn on 2018 echo, check updated -inr is subtherapeutic -Daily INR--remains suboptimal, no uptrend. increase warfarin dose 5 to 7 mg. -Heparin gtts until INR at goal 2-3 ppm: -requires clarification as to whether this is PM or ICD. pt's EF makes him candidate for primary prevention ICD. however his EF apparently acutely dropped on recent outpatient echo, ? reversible etiology. he has outpatient ham stripper (Glen[facility] Lem[facility]) with whom he will continue to follow up for med titra tion and w/u of reversible etiologies, with consideration of ICD therapy (if not currently in place) in light of life expectancy and family goals of care. -nl fcn on ecg/tele here. nl outpt check this month per charts. chronic syst chf: -does not appear vol overloaded, not on diuretic per home list -cont low dose lisinopril -new decline in EF as outpt recently. defer B-B for now given reported severe hypotension at home--to f/u with outpt cardio cp: -history questionable based on [employer] description, pt unable to give any details -appears comfortable here, no further events -trop neg x 4, no further ischemia w/u planned
[2019-12-26 07:41] LABS: HEMATOCRIT 36.8 % (35.4-49); HEMOGLOBIN 11.8 GM/dL (11.7-16.9); MCH 28.8 pg (25.7-33.7); MEAN CELL VOLUME 90.1 fl (80-96); MEAN PLT VOLUME 9.3 fl (7.5-11.1); PLATELET COUNT 140 K/MM3 (134-434); RBC 4.09 M/mm3 (4.00-5.60); WHITE BLOOD COUNT 4.2 K/mm3 (4.0-10.0)
[2019-12-26 08:12] LABS: INR 1.41 (0.83-1.09); PROTHROMBIN TIME (PATIENT) 16.7 SEC (9.7-13.0)
[2019-12-26] MEDS: FINASTERIDE 5 MG TABLET (FP) PO SCH (09:05)
[2019-12-26] MEDS: ASPIRIN 81 MG CHEWABLE TABLETS PO SCH (09:06)
[2019-12-26] MEDS: LISINOPRIL 5 MG TABLET (FP) PO SCH (09:06)
[2019-12-26 10:17] LABS: ALBUMIN 2.8 g/dl (3.4-5.0); BILIRUBIN,TOTAL 0.6 mg/dL (0.2-1); BLOOD UREA NITROGEN 17.1 mg/dL (7-18); CALCIUM 8.8 mg/dL (8.5-10.1); CREATININE 1.1 mg/dL (0.55-1.3); MAGNESIUM 1.9 mg/dL (1.8-2.4); POTASSIUM 4.2 mmol/L (3.5-5.1)
[2019-12-26 10:32] LABS: BASO % 0.2 % (0-2.0); EOS % 3.2 % (0-4.5); HEMATOCRIT 37.1 % (35.4-49); HEMOGLOBIN 11.9 GM/dL (11.7-16.9); LYMPH % 35.6 % (8-40); MCH 28.8 pg (25.7-33.7); MEAN CELL VOLUME 90.1 fl (80-96); MEAN PLT VOLUME 9.9 fl (7.5-11.1); MONO % 11.9 % (3.8-10.2); NEUT % 49.1 % (42.8-82.8); PLATELET COUNT 141 K/MM3 (134-434); RBC 4.12 M/mm3 (4.00-5.60); RDW 18.6 % (11.9-15.9); WHITE BLOOD COUNT 4.1 K/mm3 (4.0-10.0)
--- NOTE | 2019-12-26 13:52 | PN ---
Physical Exam: SUBJECTIVE: Patient seen and examined at the bedside. Sitting up eating lunch, aide at the bedside. patient appears comfortable. no respiratory distress, breathing is non labored and he has no edema. 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 Patient at that time reported chest pain. echo 12/25/2019: LV mildly dilated, LV systolic fx severely reduced, EF 15-20%, impaired LV relaxation,LA, mildly dilated. on heparin drip with coumadin bridge. inr 1.5 Vital Signs Period Temp Pulse Resp BP Sys/Dickey Pulse Ox Last 24 Hr 97.6 F-98.3 F 60-73 16-20 91-101/45-57 96-96 GENERAL: The patient is awake, alert, in no acute distress. tolerating room air. HEAD: Normal with no signs of trauma. EYES: PERRL, extraocular movements intact, sclera anicteric, conjunctiva clear. No ptosis. ENT: Ears normal, nares patent, oropharynx clear without exudates NECK: Trachea midline, full range of motion, supple. LUNGS: Breath sounds equal, clear to auscultation bilaterally HEART: Regular rate and rhythm ABDOMEN: Soft, nontender, nondistended, normoactive bowel sounds EXTREMITIES: no edema. NEUROLOGICAL: limited speech, gait not observed. Laboratory Results - last 24 hr 12/25/19 12/25/19 12/25/19 12:43 17:40 19:30 WBC RBC Hgb Hct MCV MCH MCHC RDW Plt Count MPV Absolute Neuts (auto) Neutrophils % Lymphocytes % Monocytes % Eosinophils % Basophils % Nucleated RBC % PT with INR INR PTT (Actin FS) 69.6 H Sodium Potassium Chloride Carbon Dioxide Anion Gap BUN Creatinine Est GFR (CKD-EPI)AfAm Est GFR (CKD-EPI)NonAf Random Glucose Calcium Magnesium Total Bilirubin AST ALT Alkaline Phosphatase Creatine Kinase 141 Creatine Kinase Index 1.2 CK-MB (CK-2) 2.0 Troponin I 0.03 Total Protein Albumin 12/26/19 12/26/1920 06:01 06:17 06:17 WBC 4.2 RBC 4.09 Hgb 11.8 Hct 36.8 MCV 90.1 MCH 28.8 MCHC 32.0 RDW 18.0 H Plt Count 140 MPV 9.3 D Absolute Neuts (auto) Neutrophils % Lymphocytes % Monocytes % Eosinophils % Basophils % Nucleated RBC % PT with INR 16.70 H INR 1.41 H PTT (Actin FS) 67.0 H Sodium Potassium Chloride Carbon Dioxide Anion Gap BUN Creatinine Est GFR (CKD-EPI)AfAm Est GFR (CKD-EPI)NonAf Random Glucose Calcium Magnesium Total Bilirubin AST ALT Alkaline Phosphatase Creatine Kinase Creatine Kinase Index CK-MB (CK-2) Troponin I Total Protein Albumin 12/26/19 12/26/19 06:17 06:17 WBC 4.1 RBC 4.12 Hgb 11.9 Hct 37.1 MCV 90.1 MCH 28.8 MCHC 32.0 RDW 18.6 H Plt Count 141 MPV 9.9 Absolute Neuts (auto) 2.0 Neutrophils % 49.1 Lymphocytes % 35.6 Monocytes % 11.9 H Eosinophils % 3.2 Basophils % 0.2 Nucleated RBC % 0 PT with INR INR PTT (Actin FS) Sodium 143 Potassium 4.2 Chloride 112 H Carbon Dioxide 27 Anion Gap 4 L BUN 17.1 Creatinine 1.1 Est GFR (CKD-EPI)AfAm 78.41 Est GFR (CKD-EPI)NonAf 67.66 Random Glucose 76 Calcium 8.8 Magnesium 1.9 Total Bilirubin 0.6 AST 20 ALT 16 Alkaline Phosphatase 58 Creatine Kinase Creatine Kinase Index CK-MB (CK-2) Troponin I Total Protein 6.0 L Albumin 2.8 L Active Medications Generic Name Dose Route Start Last Admin Trade Name Freq PRN Reason Stop Dose Admin Aripiprazole 10 mg 12/25/19 22:00 12/25/19 21:23 Abilify PO 10 mg HS YANETH Administration Aspirin 81 mg 12/25/19 10:00 12/26/19 09:06 Asa - PO 81 mg DAILY YANETH Administration Atorvastatin Calcium 10 mg 12/25/19 22:00 12/25/19 21:23 Lipitor - PO 10 mg HS YANETH Administration Finasteride 5 mg 12/25/19 10:00 12/26/19 09:05 Proscar - PO 5 mg DAILY YANETH Administration Heparin Sodium (Porcine) 1,000 unit 12/24/19 17:01 Heparin - IVPUSH PRN PRN Heparin Heparin Sodium (Porcine) 5,000 unit 12/24/19 17:01 Heparin - IVPUSH PRN PRN Heparin Heparin Sodium (Porcine) 25, 500 mls @ 16 mls/hr 12/24/19 17:15 12/25/19 20:08 000 unit/ Sodium Chloride IV 700 unit/hr TITR YANETH 14 mls/hr Titration Protocol 800 UNIT/HR Lisinopril 2.5 mg 12/25/19 10:00 12/26/19 09:06 Prinivil PO 2.5 mg DAILY YANETH Administration Tamsulosin HCl 0.4 mg 12/25/19 22:00 12/25/19 21:23 Flomax - PO 0.4 mg HS YANETH Administration Warfarin Sodium 5 mg/ Warfarin 7 mg 12/26/19 18:00 Sodium 2 mg PO DAILY@1800 YANETH ASSESSMENT/PLAN: Problem List - Problems (1) Chest pain Assessment/Plan: no chest pain reported on exam. comfortable at rest and tolerating room air troponins are negative echo as noted above with an EF 15-20%, cardiology following Code(s): R07.9 - CHEST PAIN, UNSPECIFIED (2) Hypotension Assessment/Plan: moniotor bp/on an teri Code(s): I95.9 - HYPOTENSION, UNSPECIFIED Qualifiers: Hypotension type: unspecified hypotension type Qualified Code(s): I95.9 - Hypotension, unspecified (3) Mechanical heart valve present Assessment/Plan: maintain inr between2.5-3.5. on heparin drip/coumadin bridging. Code(s): Z95.2 - PRESENCE OF PROSTHETIC HEART VALVE (4) Hypertension Assessment/Plan: on teri. monitor bp Code(s): I10 - ESSENTIAL (PRIMARY) HYPERTENSION (5) Afib Code(s): I48.91 - UNSPECIFIED ATRIAL FIBRILLATION (6) [facility] in jail Assessment/Plan: aides at the bedside to provide support Code(s): Z59.3 - PROBLEMS RELATED TO LIVING IN RESIDENTIAL INSTITUTION (7) Systolic and diastolic CHF, acute on chronic Assessment/Plan: not on a lasix monitor intake output, labs, vitals, daily weights Code(s): I50.43 - ACUTE ON CHRONIC COMBINED SYSTOLIC AND DIASTOLIC HRT FAIL (8) DVT prophylaxis Assessment/Plan: on heparin drip with bridge to coumadin Code(s): [id number] - Visit type - Emergency Visit Emergency Visit: Yes ED Registration Date: 12/24/19 Care time: The patient presented to the Emergency Department on the above date and was hospitalized for further evaluation of their emergent condition. - New Patient This patient is new to me today: No - Critical Care Critical Care patient: No - Discharge Referral Referred to [facility] Med P.C.: No
[2019-12-26] MEDS ORDERED: WARFARIN NA 2 MG TABLET ONE (17:14)
[2019-12-26] MEDS ORDERED: WARFARIN NA 5 MG TABLET ONE (17:14)
[2019-12-26] MEDS: HEPARIN - 25,000 UNIT in SODIUM CHLORIDE 495 ML IV SCH (17:15)
[2019-12-26] MEDS ORDERED: WARFARIN NA 5 MG TABLET PO SCH (18:00)
[2019-12-26] MEDS ORDERED: WARFARIN NA 5 MG, WARFARIN NA 2 MG PO SCH (18:00)
[2019-12-26] MEDS: ARIPiprazole 10 MG TABLET PO SCH (21:14)
[2019-12-26] MEDS: ATORVASTATIN CA 10 MG TABLET (FP) PO SCH (21:14)
[2019-12-26] MEDS: TAMSULOSIN HCL 0.4 MG CAP PO SCH (21:14)
[2019-12-27 07:06] LABS: INR 1.34 (0.83-1.09); PROTHROMBIN TIME (PATIENT) 15.9 SEC (9.7-13.0)
[2019-12-27 07:08] LABS: BASO % 0.2 % (0-2.0); HEMATOCRIT 36.1 % (35.4-49); HEMOGLOBIN 11.5 GM/dL (11.7-16.9); MCH 28.4 pg (25.7-33.7); MCHC 31.8 g/dl (32.0-35.9); MEAN CELL VOLUME 89.1 fl (80-96); MONO % 13.9 % (3.8-10.2); NEUT % 41.9 % (42.8-82.8); PLATELET COUNT 135 K/MM3 (134-434); RBC 4.05 M/mm3 (4.00-5.60); RDW 18.1 % (11.9-15.9); WHITE BLOOD COUNT 3.7 K/mm3 (4.0-10.0)
[2019-12-27 07:09] LABS: ACTIVATED PTT 60.4 SECONDS (25.2-36.5)
[2019-12-27] MEDS ORDERED: WARFARIN NA 5 MG TABLET PO SCH (07:09)
[2019-12-27 07:11] LABS: ALBUMIN 2.7 g/dl (3.4-5.0); BILIRUBIN,TOTAL 0.5 mg/dL (0.2-1); BLOOD UREA NITROGEN 23.4 mg/dL (7-18); CALCIUM 8.9 mg/dL (8.5-10.1); CREATININE 1.2 mg/dL (0.55-1.3); MAGNESIUM 1.9 mg/dL (1.8-2.4); POTASSIUM 4.3 mmol/L (3.5-5.1); TOT PROT 5.8 g/dl (6.4-8.2)
--- NOTE | 2019-12-27 07:11 | PN ---
Progress Note, Physician Chief Complaint: low bp History of Present Illness: aide states there's been no distress, heavy/shallow breathing appears comfortable - Current Medication List Current Medications: Active Medications Aripiprazole (Abilify) 10 mg PO [facility] Last Admin: 12/26/19 21:14 Dose: 10 mg Documented by: Aspirin (Asa -) 81 mg PO DAILY [facility] Last Admin: 12/26/19 09:06 Dose: 81 mg Documented by: Atorvastatin Calcium (Lipitor -) 10 mg PO [facility] Last Admin: 12/26/19 21:14 Dose: 10 mg Documented by: Finasteride (Proscar -) 5 mg PO DAILY [facility] Last Admin: 12/26/19 09:05 Dose: 5 mg Documented by: Heparin Sodium (Porcine) (Heparin -) 1,000 unit IVPUSH PRN PRN PRN Reason: Heparin Heparin Sodium (Porcine) (Heparin -) 5,000 unit IVPUSH PRN PRN PRN Reason: Heparin Heparin Sodium (Porcine) 25, (000 unit/ Sodium Chloride) 500 mls @ 16 mls/hr IV TITR [facility]; Protocol Last Admin: 12/26/19 17:15 Dose: Not Given Documented by: Lisinopril (Prinivil) 2.5 mg PO DAILY [facility] Last Admin: 12/26/19 09:06 Dose: 2.5 mg Documented by: Tamsulosin HCl (Flomax -) 0.4 mg PO [facility] Last Admin: 12/26/19 21:14 Dose: 0.4 mg Documented by: Warfarin Sodium 5 mg/ Warfarin (Sodium 2 mg) 7 mg PO DAILY@1800 [facility] Last Admin: 12/26/19 17:15 Dose: 7 mg Documented by: - Objective Vital Signs: Vital Signs Temperature 97.6 F 12/27/19 05:56 Pulse Rate 60 12/27/19 05:56 Respiratory Rate 20 12/27/19 05:56 Blood Pressure 108/58 L 12/27/19 05:56 O2 Sat by Pulse Oximetry (%) 98 12/26/19 21:00 Constitutional: Yes: Well Nourished, No Distress, Calm Cardiovascular: Yes: Regular Rate and Rhythm, S1, S2 (mechanical). No: JVD, Gallop, Murmur Respiratory: Yes: Regular, CTA Bilaterally. No: Accessory Muscle Use Extremities: No: Cold Edema: No Neurological: Yes: Alert. No: Lethargy Psychiatric: No: Agitated Labs: CBC, BMP 12/27/19 05:20 INR, PTT INR 1.34 (0.83-1.09) H 12/27/19 05:20 Assessment/Plan Echo 01/2018: mod dec lvef, mod dec rv syst fcn, mod-sev mr, nl [facility] avr Echo 12/18: mild LVE, sev decr EF 15-20%. nl RV. PM/ICD wire in RV. 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 hypotension, htn: -BP of 69 systolic documented at home, stable >90 here at his baseline from prior admits (90s-100s) -history of endocarditis, pt with prosthetic valve--check blood cultures -Covid PCR negative -bp remains stable [facility] avr: -nl fcn on 2018 echo, check updated -inr is subtherapeutic -Daily INR--remains suboptimal, trending down-increase warfarin dose today (10mg). -Heparin gtts until INR at goal 2-3 ppm: -requires clarification as to whether this is PM or ICD. pt's EF makes him candidate for primary prevention ICD. however his EF apparently acutely dropped on recent outpatient echo, ? reversible etiology. he has outpatient neon electrician (Glenis Lem[facility]) with whom he will continue to follow up for med titr ation and w/u of reversible etiologies, with consideration of ICD therapy (if not currently in place) in light of life expectancy and family goals of care. -? if pt can comply with LifeVest until further evaluation with his neon electrician. -nl fcn on ecg/tele here. nl outpt check this month per charts. chronic syst chf: -does not appear vol overloaded, not on diuretic per home list -cont low dose lisinopril -new decline in EF as outpt recently. 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
[2019-12-27] MEDS: ASPIRIN 81 MG CHEWABLE TABLETS PO SCH (09:45)
[2019-12-27] MEDS: FINASTERIDE 5 MG TABLET (FP) PO SCH (09:45)
[2019-12-27] MEDS: LISINOPRIL 5 MG TABLET (FP) PO SCH (09:45)
[2019-12-27] MEDS ORDERED: PT OWN MED DRAWER 7, Y5N ONE ×4 (14:12→21:15)
--- NOTE | 2019-12-27 15:07 | PN ---
Physical Exam: SUBJECTIVE: Patient seen and examined. sitting up eating lunch, tolerating room air. no shortness of breath. 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 Patient at that time reported chest pain. echo 12/25/2019: LV mildly dilated, LV systolic fx severely reduced, EF 15-20%, impaired LV relaxation,LA, mildly dilated. on heparin drip with coumadin bridge. inr 1.5 Vital Signs Period Temp Pulse Resp BP Sys/Dickey Pulse Ox Last 24 Hr 97.6 F-98.6 F 60-115 18-20 94-118/46-82 98-99 GENERAL: The patient is awake, alert, in no acute distress. tolerating room air. HEAD: Normal with no signs of trauma. EYES: PERRL, extraocular movements intact, sclera anicteric, conjunctiva clear. No ptosis. ENT: Ears normal, nares patent, oropharynx clear without exudates NECK: Trachea midline, full range of motion, supple. LUNGS: Breath sounds equal, clear to auscultation bilaterally HEART: Regular rate and rhythm ABDOMEN: Soft, nontender, nondistended, normoactive bowel sounds EXTREMITIES: no edema. NEUROLOGICAL: limited speech, gait not observed Laboratory Results - last 24 hr 12/27/19 12/27/19 12/27/19 05:20 05:20 05:20 WBC Cancelled 3.7 L Corrected WBC (auto) Cancelled RBC Cancelled 4.05 Hgb Cancelled 11.5 L Hct Cancelled 36.1 MCV Cancelled 89.1 MCH Cancelled 28.4 MCHC Cancelled 31.8 L RDW Cancelled 18.1 H Plt Count Cancelled 135 MPV Cancelled 9.0 Absolute Neuts (auto) 1.5 Neutrophils % 41.9 L Lymphocytes % 39.0 Monocytes % 13.9 H Eosinophils % 5.0 H Basophils % 0.2 Nucleated RBC % 0 Manual Slide Review Cancelled Platelet Comment Cancelled PT with INR 15.90 H INR 1.34 H PTT (Actin FS) 60.4 H Sodium Potassium Chloride Carbon Dioxide Anion Gap BUN Creatinine Est GFR (CKD-EPI)AfAm Est GFR (CKD-EPI)NonAf Random Glucose Calcium Magnesium Total Bilirubin AST ALT Alkaline Phosphatase Total Protein Albumin 12/27/19 05:20 WBC Corrected WBC (auto) RBC Hgb Hct MCV MCH MCHC RDW Plt Count MPV Absolute Neuts (auto) Neutrophils % Lymphocytes % Monocytes % Eosinophils % Basophils % Nucleated RBC % Manual Slide Review Platelet Comment PT with INR INR PTT (Actin FS) Sodium 143 Potassium 4.3 Chloride 111 H Carbon Dioxide 24 Anion Gap 8 BUN 23.4 H Creatinine 1.2 Est GFR (CKD-EPI)AfAm 70.58 Est GFR (CKD-EPI)NonAf 60.90 Random Glucose 79 Calcium 8.9 Magnesium 1.9 Total Bilirubin 0.5 AST 18 ALT 15 Alkaline Phosphatase 60 Total Protein 5.8 L Albumin 2.7 L Active Medications Generic Name Dose Route Start Last Admin Trade Name Freq PRN Reason Stop Dose Admin Aripiprazole 10 mg 12/25/19 22:00 12/26/19 21:14 Abilify PO 10 mg HS YANETH Administration Aspirin 81 mg 12/25/19 10:00 12/27/19 09:45 Asa - PO 81 mg DAILY YANETH Administration Atorvastatin Calcium 10 mg 12/25/19 22:00 12/26/19 21:14 Lipitor - PO 10 mg HS YANETH Administration Finasteride 5 mg 12/25/19 10:00 12/27/19 09:45 Proscar - PO 5 mg DAILY YANETH Administration Heparin Sodium (Porcine) 1,000 unit 12/24/19 17:01 Heparin - IVPUSH PRN PRN Heparin Heparin Sodium (Porcine) 5,000 unit 12/24/19 17:01 Heparin - IVPUSH PRN PRN Heparin Heparin Sodium (Porcine) 25, 500 mls @ 16 mls/hr 12/24/19 17:15 12/26/19 17:15 000 unit/ Sodium Chloride IV Not Given TITR [facility] Protocol 800 UNIT/HR Lisinopril 2.5 mg 12/25/19 10:00 12/27/19 09:45 Prinivil PO 2.5 mg DAILY YANETH Administration Tamsulosin HCl 0.4 mg 12/25/19 22:00 12/26/19 21:14 Flomax - PO 0.4 mg HS YANETH Administration Warfarin Sodium 10 mg 12/27/19 18:00 Coumadin - PO 12/27/19 18:01 ONCE ONE Warfarin Sodium 10 mg 12/28/19 18:00 Coumadin - PO DAILY@1800 YANETH ASSESSMENT/PLAN: Problem List - Problems (1) Chest pain Assessment/Plan: no chest pain reported on exam. comfortable at rest and tolerating room air troponins are negative echo as noted above with an EF 15-20%, patient for possible life vest. cardiology following Code(s): R07.9 - CHEST PAIN, UNSPECIFIED (2) Hypotension Assessment/Plan: moniotor bp/on an teri Code(s): I95.9 - HYPOTENSION, UNSPECIFIED Qualifiers: Hypotension type: unspecified hypotension type Qualified Code(s): I95.9 - Hypotension, unspecified (3) Mechanical heart valve present Assessment/Plan: maintain inr between 2.5-3.5. on heparin drip/coumadin bridging. on coumadin 10mg Code(s): Z95.2 - PRESENCE OF PROSTHETIC HEART VALVE (4) Endocarditis Assessment/Plan: history of endocarditis. patient with prosthetic valve. blood cultures negative to date. Code(s): I38 - ENDOCARDITIS, VALVE UNSPECIFIED (5) Hypertension Assessment/Plan: on teri. monitor bp Code(s): I10 - ESSENTIAL (PRIMARY) HYPERTENSION (6) Lives in snf Assessment/Plan: aides at the bedside to provide support Code(s): Z59.3 - PROBLEMS RELATED TO LIVING IN RESIDENTIAL INSTITUTION (7) Systolic and diastolic CHF, acute on chronic Assessment/Plan: not on a lasix monitor intake output, labs, vitals, daily weights Code(s): I50.43 - ACUTE ON CHRONIC COMBINED SYSTOLIC AND DIASTOLIC HRT FAIL (8) DVT prophylaxis Assessment/Plan: on heparin drip with bridge to coumadin Code(s): UFK2247 - Visit type - Emergency Visit Emergency Visit: Yes ED Registration Date: 12/24/19 Care time: The patient presented to the Emergency Department on the above date and was hospitalized for further evaluation of their emergent condition. - New Patient This patient is new to me today: No - Critical Care Critical Care patient: No - Discharge Referral Referred to [facility] Med P.C.: No
[2019-12-27] MEDS: HEPARIN - 25,000 UNIT in SODIUM CHLORIDE 495 ML IV SCH ×2 (15:13→17:49)
[2019-12-27] MEDS ORDERED: WARFARIN NA 5 MG TABLET PO ONE (18:00)
[2019-12-27] MEDS: TAMSULOSIN HCL 0.4 MG CAP PO SCH (21:17)
[2019-12-27] MEDS: ATORVASTATIN CA 10 MG TABLET (FP) PO SCH (21:17)
[2019-12-27] MEDS: ARIPiprazole 10 MG TABLET PO SCH (21:17)
[2019-12-28 07:26] LABS: BASO % 0.4 % (0-2.0); EOS % 5.3 % (0-4.5); HEMATOCRIT 37.4 % (35.4-49); HEMOGLOBIN 11.7 GM/dL (11.7-16.9); LYMPH % 34.6 % (8-40); MCH 28.3 pg (25.7-33.7); MCHC 31.3 g/dl (32.0-35.9); MEAN CELL VOLUME 90.3 fl (80-96); MEAN PLT VOLUME 9.3 fl (7.5-11.1); MONO % 12.8 % (3.8-10.2); NEUT % 46.9 % (42.8-82.8); PLATELET COUNT 139 K/MM3 (134-434); RBC 4.14 M/mm3 (4.00-5.60); RDW 18.8 % (11.9-15.9); WHITE BLOOD COUNT 3.9 K/mm3 (4.0-10.0)
[2019-12-28 07:34] LABS: INR 1.49 (0.83-1.09); PROTHROMBIN TIME (PATIENT) 17.7 SEC (9.7-13.0)
[2019-12-28 07:37] LABS: ACTIVATED PTT 65.2 SECONDS (25.2-36.5)
[2019-12-28 08:06] LABS: ALBUMIN 2.9 g/dl (3.4-5.0); BILIRUBIN,TOTAL 0.4 mg/dL (0.2-1); BLOOD UREA NITROGEN 24.4 mg/dL (7-18); CALCIUM 8.9 mg/dL (8.5-10.1); CREATININE 1.2 mg/dL (0.55-1.3); MAGNESIUM 1.9 mg/dL (1.8-2.4); POTASSIUM 4.5 mmol/L (3.5-5.1); TOT PROT 6.2 g/dl (6.4-8.2)
[2019-12-28] MEDS: ASPIRIN 81 MG CHEWABLE TABLETS PO SCH (09:12)
[2019-12-28] MEDS: LISINOPRIL 5 MG TABLET (FP) PO SCH (09:12)
[2019-12-28] MEDS: FINASTERIDE 5 MG TABLET (FP) PO SCH (09:12)
--- NOTE | 2019-12-28 10:59 | PN ---
Progress Note (short form) - Note Progress Note: Chief Complaint: low bp History of Present Illness: aide states there's been no distress, heavy/shallow breathing appears comfortable Current Medications Generic Name Dose Route Start Last Admin Trade Name Maggie PRN Reason Stop Dose Admin Aripiprazole 10 mg 12/25/19 22:00 12/27/19 21:17 Abilify PO 10 mg HS YANETH Administration Aspirin 81 mg 12/25/19 10:00 12/28/19 09:12 Asa - PO 81 mg DAILY YANETH Administration Atorvastatin Calcium 10 mg 12/25/19 22:00 12/27/19 21:17 Lipitor - PO 10 mg HS YANETH Administration Finasteride 5 mg 12/25/19 10:00 12/28/19 09:12 Proscar - PO 5 mg DAILY YANETH Administration Heparin Sodium (Porcine) 1,000 unit 12/24/19 17:01 Heparin - IVPUSH PRN PRN Heparin Heparin Sodium (Porcine) 5,000 unit 12/24/19 17:01 Heparin - IVPUSH PRN PRN Heparin Heparin Sodium (Porcine) 25, 500 mls @ 16 mls/hr 12/24/19 17:15 12/27/19 15:13 000 unit/ Sodium Chloride IV 700 unit/hr TITR YANETH 14 mls/hr Administration Protocol 800 UNIT/HR Lisinopril 2.5 mg 12/25/19 10:00 12/28/19 09:12 Prinivil PO 2.5 mg DAILY YANETH Administration Tamsulosin HCl 0.4 mg 12/25/19 22:00 12/27/19 21:17 Flomax - PO 0.4 mg HS [facility] Administration Warfarin Sodium 10 mg 12/28/19 18:00 Coumadin - PO DAILY@1800 [facility] Vital Signs Period Temp Pulse Resp BP Sys/Dickey Pulse Ox Last 24 Hr 97.4 F-98.6 F 52-74 18-20 92-111/47-60 100 Constitutional: Yes: Well Nourished, No Distress, Calm Cardiovascular: Yes: Regular Rate and Rhythm, S1, S2 (mechanical). No: JVD, Gallop, Murmur Respiratory: Yes: Regular, CTA Bilaterally. No: Accessory Muscle Use Extremities: No: Cold Edema: No Neurological: Yes: Alert. No: Lethargy Psychiatric: No: Agitated Labs: CBC, BMP 12/28/19 06:05 12/28/19 06:05 Assessment/Plan Echo 01/2018: mod dec lvef, mod dec rv syst fcn, mod-sev mr, nl [facility] avr Echo 12/18: mild LVE, sev decr EF 15-20%. nl RV. PM/ICD wire in RV. 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 hypotension, htn: -BP of 69 systolic documented at home, stable >90 here at his baseline from prior admits (90s-100s) -history of endocarditis, pt with prosthetic valve--bld cxs ngtd -Covid PCR negative -bp remains stable [facility] avr: -nl fcn on 2018 echo, check updated -Heparin gtt until INR at goal 2-3 ppm: -requires clarification as to whether this is PM or ICD. pt's EF makes him candidate for primary prevention ICD. however his EF apparently acutely dropped on recent outpatient echo, ? reversible etiology. he has outpatient streetcar conductor (Glenis Lema [facility]) with whom he will continue to follow up for med titratio n and w/u of reversible etiologies, with consideration of ICD therapy (if not currently in place) in light of life expectancy and family goals of care. -? if pt can comply with LifeVest until further evaluation with his streetcar conductor. -nl fcn on ecg/tele here. nl outpt check this month per charts. chronic syst chf: -does not appear vol overloaded, not on diuretic per home list -cont low dose lisinopril -new decline in EF as outpt recently. 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
--- NOTE | 2019-12-28 12:32 | PN ---
Physical Exam: SUBJECTIVE: Patient seen and examined at the bedside. comfortable at rest, tolerating room air. 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 Patient at that time reported chest pain. echo 12/25/2019: LV mildly dilated, LV systolic fx severely reduced, EF 15-20%, impaired LV relaxation,LA, mildly dilated. on heparin drip with coumadin bridge. inr 1.5 Vital Signs Period Temp Pulse Resp BP Sys/Dickey Pulse Ox Last 24 Hr 97.4 F-98.6 F 52-74 18-20 92-111/47-60 98-100 GENERAL: The patient is awake, alert, in no acute distress. tolerating room air. HEAD: Normal with no signs of trauma. EYES: PERRL, extraocular movements intact, sclera anicteric, conjunctiva clear. No ptosis. ENT: Ears normal, nares patent, oropharynx clear without exudates NECK: Trachea midline, full range of motion, supple. LUNGS: Breath sounds equal, clear to auscultation bilaterally HEART: Regular rate and rhythm ABDOMEN: Soft, nontender, nondistended, normoactive bowel sounds EXTREMITIES: no edema. NEUROLOGICAL: limited speech, gait not observed Laboratory Results - last 24 hr 12/28/19 12/28/19 12/28/19 06:05 06:05 06:05 WBC Cancelled 3.9 L Corrected WBC (auto) Cancelled RBC Cancelled 4.14 Hgb Cancelled 11.7 Hct Cancelled 37.4 MCV Cancelled 90.3 MCH Cancelled 28.3 MCHC Cancelled 31.3 L RDW Cancelled 18.8 H Plt Count Cancelled 139 MPV Cancelled 9.3 Absolute Neuts (auto) 1.8 Neutrophils % 46.9 Lymphocytes % 34.6 Monocytes % 12.8 H Eosinophils % 5.3 H Basophils % 0.4 Nucleated RBC % 0 Manual Slide Review Cancelled Platelet Comment Cancelled PT with INR INR PTT (Actin FS) Cancelled Sodium Potassium Chloride Carbon Dioxide Anion Gap BUN Creatinine Est GFR (CKD-EPI)AfAm Est GFR (CKD-EPI)NonAf Random Glucose Calcium Magnesium Total Bilirubin AST ALT Alkaline Phosphatase Total Protein Albumin 12/28/19 12/28/19 06:05 06:05 WBC Corrected WBC (auto) RBC Hgb Hct MCV MCH MCHC RDW Plt Count MPV Absolute Neuts (auto) Neutrophils % Lymphocytes % Monocytes % Eosinophils % Basophils % Nucleated RBC % Manual Slide Review Platelet Comment PT with INR 17.70 H INR 1.49 H PTT (Actin FS) 65.2 H Sodium 143 Potassium 4.5 Chloride 111 H Carbon Dioxide 24 Anion Gap 8 BUN 24.4 H Creatinine 1.2 Est GFR (CKD-EPI)AfAm 70.58 Est GFR (CKD-EPI)NonAf 60.90 Random Glucose 98 Calcium 8.9 Magnesium 1.9 Total Bilirubin 0.4 AST 24 ALT 19 Alkaline Phosphatase 65 Total Protein 6.2 L Albumin 2.9 L Active Medications Generic Name Dose Route Start Last Admin Trade Name Freq PRN Reason Stop Dose Admin Aripiprazole 10 mg 12/25/19 22:00 12/27/19 21:17 Abilify PO 10 mg HS YANETH Administration Aspirin 81 mg 12/25/19 10:00 12/28/19 09:12 Asa - PO 81 mg DAILY YANETH Administration Atorvastatin Calcium 10 mg 12/25/19 22:00 12/27/19 21:17 Lipitor - PO 10 mg HS YANETH Administration Finasteride 5 mg 12/25/19 10:00 12/28/19 09:12 Proscar - PO 5 mg DAILY YANETH Administration Heparin Sodium (Porcine) 1,000 unit 12/24/19 17:01 Heparin - IVPUSH PRN PRN Heparin Heparin Sodium (Porcine) 5,000 unit 12/24/19 17:01 Heparin - IVPUSH PRN PRN Heparin Heparin Sodium (Porcine) 25, 500 mls @ 16 mls/hr 12/24/19 17:15 12/27/19 15:13 000 unit/ Sodium Chloride IV 700 unit/hr TITR YANETH 14 mls/hr Administration Protocol 800 UNIT/HR Lisinopril 2.5 mg 12/25/19 10:00 12/28/19 09:12 Prinivil PO 2.5 mg DAILY YANETH Administration Tamsulosin HCl 0.4 mg 12/25/19 22:00 12/27/19 21:17 Flomax - PO 0.4 mg HS YANETH Administration Warfarin Sodium 10 mg 12/28/19 18:00 Coumadin - PO DAILY@1800 YANETH ASSESSMENT/PLAN: Problem List - Problems (1) Chest pain Assessment/Plan: no chest pain reported on exam. comfortable at rest and tolerating room air troponins are negative echo as noted above with an EF 15-20%, patient for possible life vest. cardiology following Code(s): R07.9 - CHEST PAIN, UNSPECIFIED (2) Hypotension Assessment/Plan: moniotor bp/on an teri Code(s): I95.9 - HYPOTENSION, UNSPECIFIED Qualifiers: Hypotension type: unspecified hypotension type Qualified Code(s): I95.9 - Hypotension, unspecified (3) Mechanical heart valve present Assessment/Plan: maintain inr between 2.5-3.5. on heparin drip/coumadin bridging. on coumadin 10mg Code(s): Z95.2 - PRESENCE OF PROSTHETIC HEART VALVE (4) Endocarditis Assessment/Plan: history of endocarditis. patient with prosthetic valve. blood cultures negative to date. Code(s): I38 - ENDOCARDITIS, VALVE UNSPECIFIED (5) Hypertension Assessment/Plan: on teri. monitor bp Code(s): I10 - ESSENTIAL (PRIMARY) HYPERTENSION (6) Lives in longterm Assessment/Plan: aides at the bedside to provide support Code(s): Z59.3 - PROBLEMS RELATED TO LIVING IN RESIDENTIAL INSTITUTION (7) Systolic and diastolic CHF, acute on chronic Assessment/Plan: not on a lasix monitor intake output, labs, vitals, daily weights Code(s): I50.43 - ACUTE ON CHRONIC COMBINED SYSTOLIC AND DIASTOLIC HRT FAIL (8) DVT prophylaxis Assessment/Plan: on heparin drip with bridge to coumadin Code(s): [id number] - Visit type - Emergency Visit Emergency Visit: Yes ED Registration Date: 12/24/19 Care time: The patient presented to the Emergency Department on the above date and was hospitalized for further evaluation of their emergent condition. - New Patient This patient is new to me today: No - Critical Care Critical Care patient: No - Discharge Referral Referred to [facility] Med P.C.: No
[2019-12-28] MEDS: WARFARIN NA 5 MG TABLET PO SCH (17:47)
[2019-12-28] MEDS: HEPARIN - 25,000 UNIT in SODIUM CHLORIDE 495 ML IV SCH (17:49)
[2019-12-28] MEDS ORDERED: WARFARIN NA 7.5 MG TABLET (FP) PO SCH (18:00)
[2019-12-28] MEDS ORDERED: guaiFENesin/CODEINE 10 ML UNIT-DOSE CUPS PO ONE (20:58)
[2019-12-28] MEDS ORDERED: PT OWN MED DRAWER 7, Y5N ONE (21:45)
[2019-12-28] MEDS: TAMSULOSIN HCL 0.4 MG CAP PO SCH (21:46)
[2019-12-28] MEDS: ATORVASTATIN CA 10 MG TABLET (FP) PO SCH (21:47)
[2019-12-28] MEDS: ARIPiprazole 10 MG TABLET PO SCH (21:47)
[2019-12-29] MEDS: HEPARIN - 25,000 UNIT in SODIUM CHLORIDE 495 ML IV SCH (00:52)
[2019-12-29 06:32] LABS: BASO % 0.3 % (0-2.0); EOS % 4.8 % (0-4.5); HEMATOCRIT 34.7 % (35.4-49); HEMOGLOBIN 11.2 GM/dL (11.7-16.9); LYMPH % 38.1 % (8-40); MCHC 32.3 g/dl (32.0-35.9); MEAN CELL VOLUME 89.6 fl (80-96); MEAN PLT VOLUME 8.8 fl (7.5-11.1); MONO % 12.4 % (3.8-10.2); NEUT % 44.4 % (42.8-82.8); PLATELET COUNT 138 K/MM3 (134-434); RBC 3.87 M/mm3 (4.00-5.60); RDW 18.6 % (11.9-15.9)
[2019-12-29 06:46] LABS: INR 2.1 (0.83-1.09)
[2019-12-29 06:49] LABS: ACTIVATED PTT 67.9 SECONDS (25.2-36.5)
[2019-12-29 07:21] LABS: ALBUMIN 2.7 g/dl (3.4-5.0); BILIRUBIN,TOTAL 0.4 mg/dL (0.2-1); BLOOD UREA NITROGEN 24.5 mg/dL (7-18); CALCIUM 8.6 mg/dL (8.5-10.1); CREATININE 1.1 mg/dL (0.55-1.3); MAGNESIUM 1.9 mg/dL (1.8-2.4); POTASSIUM 4.4 mmol/L (3.5-5.1); TOT PROT 5.7 g/dl (6.4-8.2)
--- NOTE | 2019-12-29 07:53 | PN ---
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 Patient at that time reported chest pain. echo 12/25/2019: LV mildly dilated, LV systolic fx severely reduced, EF 15-20%, impaired LV relaxation,LA, mildly dilated. on heparin drip with coumadin bridge. inr 1.5 covid status: negative - Current Medication List Current Medications: Active Medications Aripiprazole (Abilify) 10 mg PO HS COUNTS INCLUDE 234 BEDS AT THE [facility] Last Admin: 12/28/19 21:47 Dose: 10 mg Documented by: Aspirin (Asa -) 81 mg PO DAILY COUNTS INCLUDE 234 BEDS AT THE [facility] Last Admin: 12/28/19 09:12 Dose: 81 mg Documented by: Atorvastatin Calcium (Lipitor -) 10 mg PO HS COUNTS INCLUDE 234 BEDS AT THE [facility] Last Admin: 12/28/19 21:47 Dose: 10 mg Documented by: Finasteride (Proscar -) 5 mg PO DAILY COUNTS INCLUDE 234 BEDS AT THE [facility] Last Admin: 12/28/19 09:12 Dose: 5 mg Documented by: Heparin Sodium (Porcine) (Heparin -) 1,000 unit IVPUSH PRN PRN PRN Reason: Heparin Heparin Sodium (Porcine) (Heparin -) 5,000 unit IVPUSH PRN PRN PRN Reason: Heparin Heparin Sodium (Porcine) 25, (000 unit/ Sodium Chloride) 500 mls @ 16 mls/hr IV TITR COUNTS INCLUDE 234 BEDS AT THE [facility]; Protocol Last Admin: 12/29/19 00:52 Dose: 700 unit/hr, 14 mls/hr Documented by: Lisinopril (Prinivil) 2.5 mg PO DAILY COUNTS INCLUDE 234 BEDS AT THE [facility] Last Admin: 12/28/19 09:12 Dose: 2.5 mg Documented by: Tamsulosin HCl (Flomax -) 0.4 mg PO [facility] Last Admin: 12/28/19 21:46 Dose: 0.4 mg Documented by: Warfarin Sodium (Coumadin -) 10 mg PO DAILY@1800 COUNTS INCLUDE 234 BEDS AT THE [facility] Last Admin: 12/28/19 17:47 Dose: 10 mg Documented by: - Objective Vital Signs: Vital Signs Temperature 97.6 F 12/29/19 06:00 Pulse Rate 65 12/29/19 06:00 Respiratory Rate 20 12/29/19 06:00 Blood Pressure 98/58 L 12/29/19 06:00 O2 Sat by Pulse Oximetry (%) 97 12/28/19 21:00 Constitutional: Yes: Well Nourished, No Distress, Calm Eyes: Yes: WNL, Conjunctiva Clear HENT: Yes: WNL, Atraumatic, Normocephalic Neck: Yes: WNL, Supple, Trachea Midline Cardiovascular: Yes: WNL, Regular Rate and Rhythm Respiratory: Yes: Regular, CTA Bilaterally, Diminished (at bases), Other (on RA) Gastrointestinal: Yes: WNL, Normal Bowel Sounds, Soft ...Rectal Exam: Yes: Deferred Genitourinary: Yes: WNL Breast(s): Yes: WNL Musculoskeletal: Yes: WNL Extremities: Yes: WNL Edema: No Peripheral Pulses WNL: Yes Peripheral Pulses: Left Radial: 2+, Right Radial: 2+, Left Doralis Pedis: 2+, Right Dorsalis Pedis: 2+, Left Femoral: 2+, Right Femoral: 2+ Integumentary: Yes: WNL Neurological: Yes: Alert, Other (abke to answer simple questions) ...Motor Strength: WNL Psychiatric: Yes: Alert Labs: CBC, BMP 12/29/19 05:30 12/29/19 05:30 INR, PTT INR 2.10 (0.83-1.09) H 12/29/19 05:30 Problem List - Problems (1) Autism Assessment/Plan: lives in [facility] aid at bedside Code(s): F84.0 - AUTISTIC DISORDER (2) Intellectual delay Code(s): F81.9 - DEVELOPMENTAL DISORDER OF SCHOLASTIC SKILLS, UNSPECIFIED (3) S/P AVR Assessment/Plan: maintain inr between 2.0-3.0 INR 2.12, can stopp heparin and c/w coumadin 10mg cardiology following Code(s): Z95.2 - PRESENCE OF PROSTHETIC HEART VALVE (4) Pacemaker Code(s): Z95.0 - PRESENCE OF CARDIAC PACEMAKER (5) History of CVA (cerebrovascular accident) Assessment/Plan: c/w asa PT Code(s): Z86.73 - PRSNL HX OF TIA (TIA), AND CEREB INFRC W/O RESID DEFICITS (6) BPH (benign prostatic hyperplasia) Assessment/Plan: c/w flomax Code(s): N40.0 - BENIGN PROSTATIC HYPERPLASIA WITHOUT LOWER URINRY TRACT SYMP (7) History of DVT (deep vein thrombosis) Code(s): Z86.718 - PERSONAL HISTORY OF OTHER VENOUS THROMBOSIS AND EMBOLISM (8) Prophylactic measure Code(s): Z29.9 - ENCOUNTER FOR PROPHYLACTIC MEASURES, UNSPECIFIED (9) Afib Code(s): I48.91 - UNSPECIFIED ATRIAL FIBRILLATION (10) Lives in residential Code(s): Z59.3 - PROBLEMS RELATED TO LIVING IN RESIDENTIAL INSTITUTION (11) Systolic and diastolic CHF, acute on chronic Assessment/Plan: not on a lasix monitor intake output, labs, vitals, daily weights possible zoll Life Vest needed Code(s): I50.43 - ACUTE ON CHRONIC COMBINED SYSTOLIC AND DIASTOLIC HRT FAIL (12) Chest pain Assessment/Plan: no chest pain reported presently comfortable on RA troponins are negative echo as noted above with an EF 15-20%, patient for possible life vest. cardiology following Code(s): R07.9 - CHEST PAIN, UNSPECIFIED (13) Endocarditis Assessment/Plan: h/o endocarditis patient with prosthetic valve BCx TD Code(s): I38 - ENDOCARDITIS, VALVE UNSPECIFIED Visit type - Emergency Visit Emergency Visit: Yes ED Registration Date: 12/24/19 Care time: The patient presented to the Emergency Department on the above date and was hospitalized for further evaluation of their emergent condition. - New Patient This patient is new to me today: Yes Date on this admission: 12/29/19 - Critical Care Critical Care patient: No - Discharge Referral Referred to [facility] Med P.C.: No
[2019-12-29] MEDS: ASPIRIN 81 MG CHEWABLE TABLETS PO SCH (10:04)
[2019-12-29] MEDS: FINASTERIDE 5 MG TABLET (FP) PO SCH (10:04)
[2019-12-29] MEDS: LISINOPRIL 5 MG TABLET (FP) PO SCH (10:04)
--- NOTE | 2019-12-29 13:59 | PN ---
Progress Note (short form) - Note Progress Note: Chief Complaint: low bp History of Present Illness: per aide he has been comfortable, no complaints Current Medications Generic Name Dose Route Start Last Admin Trade Name Maggie PRMarie Reason Stop Dose Admin Aripiprazole 10 mg 12/25/19 22:00 12/28/19 21:47 Abilify PO 10 mg HS YANETH Administration Aspirin 81 mg 12/25/19 10:00 12/29/19 10:04 Asa - PO 81 mg DAILY YANETH Administration Atorvastatin Calcium 10 mg 12/25/19 22:00 12/28/19 21:47 Lipitor - PO 10 mg HS YANETH Administration Finasteride 5 mg 12/25/19 10:00 12/29/19 10:04 Proscar - PO 5 mg DAILY YANETH Administration Lisinopril 2.5 mg 12/25/19 10:00 12/29/19 10:04 Prinivil PO 2.5 mg DAILY YANETH Administration Tamsulosin HCl 0.4 mg 12/25/19 22:00 12/28/19 21:46 Flomax - PO 0.4 mg HS YANETH Administration Warfarin Sodium 10 mg 12/28/19 18:00 12/28/19 17:47 Coumadin - PO 10 mg DAILY@1800 YANETH Administration Vital Signs Period Temp Pulse Resp BP Sys/Dickey Pulse Ox Last 24 Hr 97.6 F-98.1 F 65-76 18-20 92-104/43-58 95-97 Constitutional: Yes: Well Nourished, No Distress, Calm Cardiovascular: Yes: Regular Rate and Rhythm, S1, S2 (mechanical). No: JVD, Gallop, Murmur Respiratory: Yes: Regular, CTA Bilaterally. No: Accessory Muscle Use Abd: soft, nt, nd, +bs Extremities: No: Cold Edema: No Neurological: Yes: Alert. No: Lethargy Psychiatric: No: Agitated no jaundice, diaphoresis Assessment/Plan Echo 01/2018: mod dec lvef, mod dec rv syst fcn, mod-sev mr, nl [facility] avr Echo 12/18: mild LVE, sev decr EF 15-20%. nl RV. PM/ICD wire in RV. [facility] AV normal fxn tele: As/[employer] a/p: 69 m hx mental retardation, htn, hld, cva, taa s/p repair, [facility] avr, biotronik ppm, syst chf, brought by aid for hypotension. hypotension, htn: -BP of 69 systolic documented at home, stable >90 here at his baseline from prior admits (90s-100s) -history of endocarditis, pt with prosthetic valve--bld cxs ngtd -Covid PCR negative -bp remains stable [facility] avr: -nl fcn on 2018 echo, check updated -Heparin gtt until INR at goal 2-3 ppm: -requires clarification as to whether this is PM or ICD. pt's EF makes him candidate for primary prevention ICD. however his EF apparently acutely dropped on recent outpatient echo, ? reversible etiology. he has outpatient zinc plater (Glenis Lema, [facility]) with whom he will continue to follow up for med titration and w/u of reversible etiologies, with consideration of ICD therapy (if not currently in place) in light of life expectancy and family goals of care. -would defer LifeVest - unclear if patient can comply, no arrhythmia on tele and no recent [place]. defer discussion for ICD to outpatient setting -nl fcn on ecg/tele here. nl outpt check this month per charts. chronic syst chf: -does not appear vol overloaded, not on diuretic per home list -cont low dose lisinopril -new decline in EF as outpt recently. defer B-B for now given reported severe hypotension at home--to f/u with outpt cardio cp: -history questionable based on [employer] description, pt unable to give any details -appears comfortable here, no further events -trop neg x 4, no further ischemia w/u planned
[2019-12-29] MEDS: WARFARIN NA 5 MG TABLET PO SCH (17:48)
[2019-12-29] MEDS ORDERED: WARFARIN NA 5 MG TABLET PO SCH (18:00)
[2019-12-29] MEDS ORDERED: PT OWN MED DRAWER 7, Y5N ONE (21:44)
[2019-12-29] MEDS: ARIPiprazole 10 MG TABLET PO SCH (21:52)
[2019-12-29] MEDS: TAMSULOSIN HCL 0.4 MG CAP PO SCH (21:52)
[2019-12-29] MEDS: ATORVASTATIN CA 10 MG TABLET (FP) PO SCH (21:52)
[2019-12-30 06:16] LABS: HEMOGLOBIN 11.3 GM/dL (11.7-16.9); MCH 28.2 pg (25.7-33.7); MCHC 31.5 g/dl (32.0-35.9); MEAN CELL VOLUME 89.7 fl (80-96); MEAN PLT VOLUME 8.8 fl (7.5-11.1); PLATELET COUNT 142 K/MM3 (134-434); RBC 4.01 M/mm3 (4.00-5.60); RDW 18.7 % (11.9-15.9); WHITE BLOOD COUNT 3.4 K/mm3 (4.0-10.0)
--- NOTE | 2019-12-30 08:54 | PN ---
Progress Note, Physician Chief Complaint: Seen and examined in bed with aide from [facility] at bedside. In do distress. Pending second COVID PCR to return back to senior living. 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 Patient at that time reported chest pain. echo 12/25/2019: LV mildly dilated, LV systolic fx severely reduced, EF 15-20%, impaired LV relaxation,LA, mildly dilated. on heparin drip with coumadin bridge. inr 1.5 covid status: negative - Current Medication List Current Medications: Active Medications Aripiprazole (Abilify) 10 mg PO [facility] Last Admin: 12/29/19 21:52 Dose: 10 mg Documented by: Aspirin (Asa -) 81 mg PO DAILY [facility] Last Admin: 12/29/19 10:04 Dose: 81 mg Documented by: Atorvastatin Calcium (Lipitor -) 10 mg PO [facility] Last Admin: 12/29/19 21:52 Dose: 10 mg Documented by: Finasteride (Proscar -) 5 mg PO DAILY [facility] Last Admin: 12/29/19 10:04 Dose: 5 mg Documented by: Lisinopril (Prinivil) 2.5 mg PO DAILY [facility] Last Admin: 12/29/19 10:04 Dose: 2.5 mg Documented by: Tamsulosin HCl (Flomax -) 0.4 mg PO [facility] Last Admin: 12/29/19 21:52 Dose: 0.4 mg Documented by: Warfarin Sodium (Coumadin -) 10 mg PO DAILY@1800 [facility] Last Admin: 12/29/19 17:48 Dose: 10 mg Documented by: - Objective Vital Signs: Vital Signs Temperature 98.5 F 12/30/19 06:00 Pulse Rate 60 12/30/19 06:00 Respiratory Rate 19 12/30/19 06:00 Blood Pressure 100/58 L 12/30/19 06:00 O2 Sat by Pulse Oximetry (%) 95 12/29/19 21:00 Additional Findings/Remarks: Constitutional: Yes: Well Nourished, No Distress, Calm Eyes: Yes: WNL, Conjunctiva Clear HENT: Yes: WNL, Atraumatic, Normocephalic Neck: Yes: WNL, Supple, Trachea Midline Cardiovascular: Yes: WNL, Regular Rate and Rhythm Respiratory: Yes: Regular, CTA Bilaterally, Diminished (at bases), Other (on RA) Gastrointestinal: Yes: WNL, Normal Bowel Sounds, Soft ...Rectal Exam: Yes: Deferred Genitourinary: Yes: WNL Breast(s): Yes: WNL Musculoskeletal: Yes: WNL Extremities: Yes: WNL Edema: No Peripheral Pulses WNL: Yes Peripheral Pulses: Left Radial: 2+, Right Radial: 2+, Left Doralis Pedis: 2+, Right Dorsalis Pedis: 2+, Left Femoral: 2+, Right Femoral: 2+ Integumentary: Yes: WNL Neurological: Yes: Alert, Other (abke to answer simple questions) ...Motor Strength: WNL Psychiatric: Yes: Alert Labs: CBC, BMP 12/30/19 05:30 12/29/19 05:30 INR, PTT INR 2.10 (0.83-1.09) H 12/29/19 05:30 Problem List - Problems (1) Autism Assessment/Plan: lives in [facility] aide at bedside Code(s): F84.0 - AUTISTIC DISORDER (2) Intellectual delay Code(s): F81.9 - DEVELOPMENTAL DISORDER OF SCHOLASTIC SKILLS, UNSPECIFIED (3) S/P AVR Assessment/Plan: maintain inr between 2.0-3.0 INR 2.5, c/w Coumadin 10mg cardiology following Code(s): Z95.2 - PRESENCE OF PROSTHETIC HEART VALVE (4) Pacemaker Code(s): Z95.0 - PRESENCE OF CARDIAC PACEMAKER (5) History of CVA (cerebrovascular accident) Assessment/Plan: c/w asa PT Code(s): Z86.73 - PRSNL HX OF TIA (TIA), AND CEREB INFRC W/O RESID DEFICITS (6) BPH (benign prostatic hyperplasia) Assessment/Plan: c/w flomax Code(s): N40.0 - BENIGN PROSTATIC HYPERPLASIA WITHOUT LOWER URINRY TRACT SYMP (7) History of DVT (deep vein thrombosis) Code(s): Z86.718 - PERSONAL HISTORY OF OTHER VENOUS THROMBOSIS AND EMBOLISM (8) Prophylactic measure Assessment/Plan: FEN Fluids: adequate PO intake Electrolytes: monitor & replete as needed Nutrition: low fat diet DVT moderate risk sq heparin Dispo Maintain as inpatient full code discharge planning back to [facility] Code(s): Z29.9 - ENCOUNTER FOR PROPHYLACTIC MEASURES, UNSPECIFIED (9) Afib Assessment/Plan: no arrhythmia on tele monitoring Code(s): I48.91 - UNSPECIFIED ATRIAL FIBRILLATION (10) Lives in senior living Code(s): Z59.3 - PROBLEMS RELATED TO LIVING IN RESIDENTIAL INSTITUTION (11) Chest pain Assessment/Plan: no chest pain reported presently comfortable on RA troponins are negative echo as noted above with an EF 15-20%, patient for possible life vest. cardiology following Code(s): R07.9 - CHEST PAIN, UNSPECIFIED (12) Endocarditis Assessment/Plan: h/o endocarditis patient with prosthetic valve BCx NGTD Code(s): I38 - ENDOCARDITIS, VALVE UNSPECIFIED (13) Chronic systolic (congestive) heart failure Assessment/Plan: worsening HF on admission, not on a lasix at home monitor intake output, labs, vitals, daily weights c/w low dose lisinopril new decline in EF as outpt recently. defer B-B for now given reported severe hypotension at home--to f/u with outpt cardio-not candidate for Life Vest Code(s): I50.22 - CHRONIC SYSTOLIC (CONGESTIVE) HEART FAILURE (14) COVID-19 Assessment/Plan: second COVID PCR ending to return back to [facility] Code(s): U07.1 - COVID POSITIVE Visit type - Emergency Visit Emergency Visit: Yes ED Registration Date: 12/24/19 Care time: The patient presented to the Emergency Department on the above date and was hospitalized for further evaluation of their emergent condition. - New Patient This patient is new to me today: No - Critical Care Critical Care patient: No - Discharge Referral Referred to [facility] Med P.C.: No
[2019-12-30] MEDS: ASPIRIN 81 MG CHEWABLE TABLETS PO SCH (10:22)
[2019-12-30] MEDS: FINASTERIDE 5 MG TABLET (FP) PO SCH (10:22)
[2019-12-30] MEDS: LISINOPRIL 5 MG TABLET (FP) PO SCH (10:22)
[2019-12-30 12:34] LABS: BASO % 0.3 % (0-2.0); EOS % 3.4 % (0-4.5); HEMATOCRIT 34.8 % (35.4-49); HEMOGLOBIN 11.2 GM/dL (11.7-16.9); LYMPH % 33.5 % (8-40); MCHC 32.2 g/dl (32.0-35.9); MEAN CELL VOLUME 90.1 fl (80-96); MEAN PLT VOLUME 8.7 fl (7.5-11.1); MONO % 15.1 % (3.8-10.2); NEUT % 47.7 % (42.8-82.8); PLATELET COUNT 141 K/MM3 (134-434); RBC 3.86 M/mm3 (4.00-5.60); RDW 18.3 % (11.9-15.9); WHITE BLOOD COUNT 3.4 K/mm3 (4.0-10.0)
[2019-12-30 12:41] LABS: INR 2.54 (0.83-1.09); PROTHROMBIN TIME (PATIENT) 30.3 SEC (9.7-13.0)
--- NOTE | 2019-12-30 13:19 | PN ---
Progress Note (short form) - Note Progress Note: Chief Complaint: low bp History of Present Illness: per aide appears comfortable. patient unable to give hx Current Medications Generic Name Dose Route Start Last Admin Trade Name Maggie PRN Reason Stop Dose Admin Aripiprazole 10 mg 12/25/19 22:00 12/29/19 21:52 Abilify PO 10 mg HS YANETH Administration Aspirin 81 mg 12/25/19 10:00 12/30/19 10:22 Asa - PO 81 mg DAILY YANETH Administration Atorvastatin Calcium 10 mg 12/25/19 22:00 12/29/19 21:52 Lipitor - PO 10 mg HS YANETH Administration Finasteride 5 mg 12/25/19 10:00 12/30/19 10:22 Proscar - PO 5 mg DAILY YANETH Administration Lisinopril 2.5 mg 12/25/19 10:00 12/30/19 10:22 Prinivil PO 2.5 mg DAILY YANETH Administration Tamsulosin HCl 0.4 mg 12/25/19 22:00 12/29/19 21:52 Flomax - PO 0.4 mg HS YANETH Administration Warfarin Sodium 10 mg 12/28/19 18:00 12/29/19 17:48 Coumadin - PO 10 mg DAILY@1800 YANETH Administration Vital Signs Period Temp Pulse Resp BP Sys/Dickey Pulse Ox Last 24 Hr 98.0 F-98.9 F 60-71 16-19 80-105/35-60 95 Constitutional: Yes: Well Nourished, No Distress, Calm Cardiovascular: Yes: Regular Rate and Rhythm, S1, S2 (mechanical). No: JVD, Gallop, Murmur Respiratory: Yes: Regular, CTA Bilaterally. No: Accessory Muscle Use Abd: soft, nt, nd, +bs Extremities: No: Cold Edema: No Neurological: Yes: Alert. No: Lethargy Psychiatric: No: Agitated no jaundice, diaphoresis Assessment/Plan Echo 01/2018: mod dec lvef, mod dec rv syst fcn, mod-sev mr, nl [facility] avr Echo 12/18: mild LVE, sev decr EF 15-20%. nl RV. PM/ICD wire in RV. [facility] AV normal fxn tele: As/[employer] a/p: 69 m hx mental retardation, htn, hld, cva, taa s/p repair, [facility] avr, biotronik ppm, syst chf, brought by aid for hypotension. hypotension, htn: -BP of 69 systolic documented at home, stable >90 here at his baseline from prior admits (90s-100s) -history of endocarditis, pt with prosthetic valve--bld cxs ngtd -Covid PCR negative -bp remains stable [facility] avr: -nl fcn on 2018 echo, check updated -INR 2.5 - heparin dc'ed, cont warfarin goal INR 2-3 ppm: -requires clarification as to whether this is PM or ICD. pt's EF makes him candidate for primary prevention ICD. however his EF apparently acutely dropped on recent outpatient echo, ? reversible etiology. he has outpatient bookkeeping machine mechanic (Glenis Lema [facility]) with whom he will continue to follow up for med titration and w/u of reversible etiologies, with consideration of ICD therapy (if not currently in place) in light of life expectancy and family goals of care. -would defer LifeVest - unclear if patient can comply, no arrhythmia on tele and no recent [place]. defer discussion for ICD to outpatient setting -nl fcn on ecg/tele here. nl outpt check this month per charts. chronic syst chf: -does not appear vol overloaded, not on diuretic per home list -cont low dose lisinopril -new decline in EF as outpt recently. defer B-B for now given reported severe hypotension at home--to f/u with outpt cardio cp: -history questionable based on [employer] description, pt unable to give any details -appears comfortable here, no further events -trop neg x 4, no further ischemia w/u planned
[2019-12-30] MEDS ORDERED: MAGNESIUM OXIDE 400 MG TABLET (FP) PO ONE (13:51)
[2019-12-30] MEDS: WARFARIN NA 5 MG TABLET PO SCH (18:02)
[2019-12-30] MEDS ORDERED: PT OWN MED DRAWER 7, Y5N ONE (21:53)
[2019-12-30] MEDS: ARIPiprazole 10 MG TABLET PO SCH (21:54)
[2019-12-30] MEDS: TAMSULOSIN HCL 0.4 MG CAP PO SCH (21:54)
[2019-12-30] MEDS: ATORVASTATIN CA 10 MG TABLET (FP) PO SCH (21:54)
[2019-12-31 07:32] LABS: BASO % 0.3 % (0-2.0); EOS % 4.5 % (0-4.5); HEMOGLOBIN 11.7 GM/dL (11.7-16.9); LYMPH % 34.4 % (8-40); MCH 28.2 pg (25.7-33.7); MCHC 31.7 g/dl (32.0-35.9); MEAN CELL VOLUME 89.1 fl (80-96); MEAN PLT VOLUME 9.2 fl (7.5-11.1); MONO % 13.1 % (3.8-10.2); NEUT % 47.7 % (42.8-82.8); PLATELET COUNT 154 K/MM3 (134-434); RBC 4.15 M/mm3 (4.00-5.60); RDW 18.5 % (11.9-15.9); WHITE BLOOD COUNT 3.9 K/mm3 (4.0-10.0)
[2019-12-31 07:36] LABS: INR 2.48 (0.83-1.09); PROTHROMBIN TIME (PATIENT) 29.5 SEC (9.7-13.0)
--- NOTE | 2019-12-31 08:16 | PN ---
Progress Note, Physician Chief Complaint: Seen and examined in bed with aide from [facility] at bedside.Pleasant in do distress. Pending second COVID PCR to return back to senior living. 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 Patient at that time reported chest pain. echo 12/25/2019: LV mildly dilated, LV systolic fx severely reduced, EF 15-20%, impaired LV relaxation,LA, mildly dilated. on heparin drip with coumadin bridge. inr 1.5 covid status: negative - Current Medication List Current Medications: Active Medications Aripiprazole (Abilify) 10 mg PO [facility] Last Admin: 12/30/19 21:54 Dose: 10 mg Documented by: Aspirin (Asa -) 81 mg PO DAILY [facility] Last Admin: 12/30/19 10:22 Dose: 81 mg Documented by: Atorvastatin Calcium (Lipitor -) 10 mg PO [facility] Last Admin: 12/30/19 21:54 Dose: 10 mg Documented by: Finasteride (Proscar -) 5 mg PO DAILY [facility] Last Admin: 12/30/19 10:22 Dose: 5 mg Documented by: Lisinopril (Prinivil) 2.5 mg PO DAILY [facility] Last Admin: 12/30/19 10:22 Dose: 2.5 mg Documented by: Tamsulosin HCl (Flomax -) 0.4 mg PO [facility] Last Admin: 12/30/19 21:54 Dose: 0.4 mg Documented by: Warfarin Sodium (Coumadin -) 10 mg PO DAILY@1800 [facility] Last Admin: 12/30/19 18:02 Dose: 10 mg Documented by: - Objective Vital Signs: Vital Signs Temperature 98.1 F 12/31/19 06:00 Pulse Rate 60 12/31/19 06:00 Respiratory Rate 18 12/31/19 06:00 Blood Pressure 103/56 L 12/31/19 06:00 O2 Sat by Pulse Oximetry (%) 97 12/30/19 21:00 Eyes: Yes: WNL, Conjunctiva Clear, EOM Intact, Cataracts, Diplopia, Occular Pr osthesis, PERRL, Ptosis, Sclera Icterus, Tearing, Other Additional Findings/Remarks: Constitutional: Yes: Well Nourished, No Distress, Calm Eyes: Yes: WNL, Conjunctiva Clear HENT: Yes: WNL, Atraumatic, Normocephalic Neck: Yes: WNL, Supple, Trachea Midline Cardiovascular: Yes: WNL, Regular Rate and Rhythm Respiratory: Yes: Regular, CTA Bilaterally, Diminished (at bases), Other (on RA) Gastrointestinal: Yes: WNL, Normal Bowel Sounds, Soft ...Rectal Exam: Yes: Deferred Genitourinary: Yes: WNL Breast(s): Yes: WNL Musculoskeletal: Yes: WNL Extremities: Yes: WNL Edema: No Peripheral Pulses WNL: Yes Peripheral Pulses: Left Radial: 2+, Right Radial: 2+, Left Doralis Pedis: 2+, Right Dorsalis Pedis: 2+, Left Femoral: 2+, Right Femoral: 2+ Integumentary: Yes: WNL Neurological: Yes: Alert, Other (able to answer simple questions) ...Motor Strength: WNL Psychiatric: Yes: Alert Labs: CBC, BMP 12/31/19 06:18 12/29/19 05:30 INR, PTT INR 2.48 (0.83-1.09) H 12/31/19 06:18 Problem List - Problems (1) Autism Assessment/Plan: lives in [facility] aide at bedside Code(s): F84.0 - AUTISTIC DISORDER (2) Intellectual delay Code(s): F81.9 - DEVELOPMENTAL DISORDER OF SCHOLASTIC SKILLS, UNSPECIFIED (3) S/P AVR Assessment/Plan: maintain inr between 2.0-3.0 INR 2.48, c/w Coumadin 10mg cardiology following Code(s): Z95.2 - PRESENCE OF PROSTHETIC HEART VALVE (4) Pacemaker Code(s): Z95.0 - PRESENCE OF CARDIAC PACEMAKER (5) History of CVA (cerebrovascular accident) Assessment/Plan: c/w asa PT Code(s): Z86.73 - PRSNL HX OF TIA (TIA), AND CEREB INFRC W/O RESID DEFICITS (6) BPH (benign prostatic hyperplasia) Assessment/Plan: c/w flomax Code(s): N40.0 - BENIGN PROSTATIC HYPERPLASIA WITHOUT LOWER URINRY TRACT SYMP (7) History of DVT (deep vein thrombosis) Code(s): Z86.718 - PERSONAL HISTORY OF OTHER VENOUS THROMBOSIS AND EMBOLISM (8) Prophylactic measure Assessment/Plan: FEN Fluids: adequate PO intake Electrolytes: monitor & replete as needed Nutrition: low fat diet DVT moderate risk sq heparin Dispo Maintain as inpatient full code discharge planning back to [facility] pending negative COVID x 2 Code(s): Z29.9 - ENCOUNTER FOR PROPHYLACTIC MEASURES, UNSPECIFIED (9) Afib Assessment/Plan: no arrhythmia on tele monitoring Code(s): I48.91 - UNSPECIFIED ATRIAL FIBRILLATION (10) Lives in senior living Code(s): Z59.3 - PROBLEMS RELATED TO LIVING IN RESIDENTIAL INSTITUTION (11) Chest pain Assessment/Plan: no chest pain reported presently comfortable on RA troponins are negative echo as noted above with an EF 15-20%, patient for possible life vest. cardiology following no further ischemia w/u Code(s): R07.9 - CHEST PAIN, UNSPECIFIED (12) Endocarditis Assessment/Plan: h/o endocarditis patient with prosthetic valve BCx NGTD Code(s): I38 - ENDOCARDITIS, VALVE UNSPECIFIED (13) Chronic systolic (congestive) heart failure Assessment/Plan: worsening HF on admission, not on a lasix at home monitor intake output, labs, vitals, daily weights c/w low dose lisinopril new decline in EF as outpt recently. defer B-B for now given reported severe hypotension at home--to f/u with outpt cardio-not candidate for Life Vest Code(s): I50.22 - CHRONIC SYSTOLIC (CONGESTIVE) HEART FAILURE (14) Person under investigation for COVID-19 Assessment/Plan: second COVID PCR ending to return back to [facility] Code(s): Z20.828 - CONTACT W AND EXPOSURE TO OTH VIRAL COMMUNICABLE DISEASES Visit type - Emergency Visit Emergency Visit: Yes ED Registration Date: 12/24/19 Care time: The patient presented to the Emergency Department on the above date and was hospitalized for further evaluation of their emergent condition. - New Patient This patient is new to me today: No - Critical Care Critical Care patient: No - Discharge Referral Referred to [facility] Med P.C.: No
[2019-12-31] MEDS: FINASTERIDE 5 MG TABLET (FP) PO SCH (09:56)
[2019-12-31] MEDS: ASPIRIN 81 MG CHEWABLE TABLETS PO SCH (09:56)
[2019-12-31] MEDS: LISINOPRIL 5 MG TABLET (FP) PO SCH (09:56)
--- NOTE | 2019-12-31 11:00 | PN ---
Progress Note (short form) - Note Progress Note: Chief Complaint: low bp History of Present Illness: per aide appears comfortable. patient unable to give hx Current Medications Generic Name Dose Route Start Last Admin Trade Name Maggie PRN Reason Stop Dose Admin Aripiprazole 10 mg 12/25/19 22:00 12/30/19 21:54 Abilify PO 10 mg HS YANETH Administration Aspirin 81 mg 12/25/19 10:00 12/31/19 09:56 Asa - PO 81 mg DAILY YANETH Administration Atorvastatin Calcium 10 mg 12/25/19 22:00 12/30/19 21:54 Lipitor - PO 10 mg HS YANETH Administration Finasteride 5 mg 12/25/19 10:00 12/31/19 09:56 Proscar - PO 5 mg DAILY YANETH Administration Lisinopril 2.5 mg 12/25/19 10:00 12/31/19 09:56 Prinivil PO 2.5 mg DAILY YANETH Administration Tamsulosin HCl 0.4 mg 12/25/19 22:00 12/30/19 21:54 Flomax - PO 0.4 mg HS YANETH Administration Warfarin Sodium 10 mg 12/28/19 18:00 12/30/19 18:02 Coumadin - PO 10 mg DAILY@1800 YANETH Administration Vital Signs Period Temp Pulse Resp BP Sys/Dickey Pulse Ox Last 24 Hr 97.6 F-98.7 F 60-73 18-18 94-114/42-66 97-99 Constitutional: Yes: Well Nourished, No Distress, Calm Cardiovascular: Yes: Regular Rate and Rhythm, S1, S2 (mechanical). No: JVD, Gallop, Murmur Respiratory: Yes: Regular, CTA Bilaterally. No: Accessory Muscle Use Abd: soft, nt, nd, +bs Extremities: No: Cold Edema: No Neurological: Yes: Alert. No: Lethargy Psychiatric: No: Agitated no jaundice, diaphoresis CBC, BMP 12/31/19 06:18 12/29/19 05:30 Assessment/Plan Echo 01/2018: mod dec lvef, mod dec rv syst fcn, mod-sev mr, nl [facility] avr Echo 12/18: mild LVE, sev decr EF 15-20%. nl RV. PM/ICD wire in RV. 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 hypotension, htn: -BP of 69 systolic documented at home, stable >90 here at his baseline from prior admits (90s-100s) -history of endocarditis, pt with prosthetic valve--bld cxs ngtd -Covid PCR negative -bp remains stable mec avr: -nl fcn on 2018 echo, check updated -INR at goal, cont coumadin ppm: -requires clarification as to whether this is PM or ICD. pt's EF makes him candidate for primary prevention ICD. however his EF apparently acutely dropped on recent outpatient echo, ? reversible etiology. he has outpatient termite control service representative (Glenis Lema, [facility]) with whom he will continue to follow up for med titration and w/u of reversible etiologies, with consideration of ICD therapy (if not currently in place) in light of life expectancy and family goals of care. -would defer LifeVest - unclear if patient can comply, no arrhythmia on tele and no recent DC. defer discussion for ICD to outpatient setting -nl fcn on ecg/tele here. nl outpt check this month per charts. chronic syst chf: -does not appear vol overloaded, not on diuretic per home list -cont low dose lisinopril -new decline in EF as outpt recently. 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
[2019-12-31 13:56] VITALS: BMI 20.5
[2019-12-31] MEDS: WARFARIN NA 5 MG TABLET PO SCH (17:47)
[2019-12-31] MEDS ORDERED: PT OWN MED DRAWER 7, Y5N ONE (21:17)
[2019-12-31] MEDS: ARIPiprazole 10 MG TABLET PO SCH (21:26)
[2019-12-31] MEDS: ATORVASTATIN CA 10 MG TABLET (FP) PO SCH (21:27)
[2019-12-31] MEDS: TAMSULOSIN HCL 0.4 MG CAP PO SCH (21:27)
[2020-01-01 06:40] LABS: BASO % 0.3 % (0-2.0); EOS % 4.8 % (0-4.5); HEMATOCRIT 38.1 % (35.4-49); HEMOGLOBIN 11.9 GM/dL (11.7-16.9); LYMPH % 31.2 % (8-40); MCH 27.7 pg (25.7-33.7); MCHC 31.1 g/dl (32.0-35.9); MEAN CELL VOLUME 89.1 fl (80-96); MEAN PLT VOLUME 8.3 fl (7.5-11.1); MONO % 12.2 % (3.8-10.2); NEUT % 51.5 % (42.8-82.8); PLATELET COUNT 146 K/MM3 (134-434); RBC 4.28 M/mm3 (4.00-5.60); RDW 17.9 % (11.9-15.9); WHITE BLOOD COUNT 3.8 K/mm3 (4.0-10.0)
--- NOTE | 2020-01-01 06:50 | PN ---
Progress Note, Physician Chief Complaint: comfortable sitting in chair No acute events TELE: -CHIMNEY BUILDER VPCs, short 3 beat run NSVT on 12/28 No CP/SOB History of Present Illness: Developmental delay Cardiomyopathy AVR SH: non smoker - Current Medication List Current Medications: Active Medications Aripiprazole (Abilify) 10 mg PO [facility] Last Admin: 12/31/19 21:26 Dose: 10 mg Documented by: Aspirin (Asa -) 81 mg PO DAILY [facility] Last Admin: 12/31/19 09:56 Dose: 81 mg Documented by: Atorvastatin Calcium (Lipitor -) 10 mg PO [facility] Last Admin: 12/31/19 21:27 Dose: 10 mg Documented by: Finasteride (Proscar -) 5 mg PO DAILY [facility] Last Admin: 12/31/19 09:56 Dose: 5 mg Documented by: Lisinopril (Prinivil) 2.5 mg PO DAILY [facility] Last Admin: 12/31/19 09:56 Dose: 2.5 mg Documented by: Tamsulosin HCl (Flomax -) 0.4 mg PO [facility] Last Admin: 12/31/19 21:27 Dose: 0.4 mg Documented by: Warfarin Sodium (Coumadin -) 10 mg PO DAILY@1800 [facility] Last Admin: 12/31/19 17:47 Dose: 10 mg Documented by: - Objective Vital Signs: Vital Signs Temperature 98.5 F 01/01/20 06:00 Pulse Rate 61 01/01/20 06:00 Respiratory Rate 18 01/01/20 06:00 Blood Pressure 99/84 01/01/20 06:00 O2 Sat by Pulse Oximetry (%) 99 12/31/19 21:00 Constitutional: Yes: No Distress, Calm Eyes: Yes: Conjunctiva Clear, EOM Intact Neck: Yes: Supple Cardiovascular: Yes: Regular Rate and Rhythm Respiratory: Yes: CTA Bilaterally (no rales) Gastrointestinal: Yes: Soft (nt) Edema: No Labs: CBC, BMP 01/01/20 06:24 12/29/19 05:30 INR, PTT INR 2.48 (0.83-1.09) H 12/31/19 06:18 Microbiology 12/26/19 08:20 Blood - Peripheral Venous Blood Culture - Final NO GROWTH AFTER 5 DAYS INCUBATION 12/26/19 08:10 Blood - Peripheral Venous Blood Culture - Final NO GROWTH AFTER 5 DAYS INCUBATION Laboratory Tests 12/24/19 01/01/20 01/01/20 11:17 06:24 06:24 WBC 3.8 L Hgb 11.9 Plt Count 146 INR 2.59 H COVID-19 ([place]) Not detected - ....Imaging EKG: Image Reviewed Assessment/Plan Echo 01/2018: mod dec lvef, mod dec rv syst fcn, mod-sev mr, nl mec avr Echo 12/18: mild LVE, sev decr EF 15-20%. nl RV. PM/ICD wire in RV. 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 hypotension, htn: -BP of 69 systolic documented at home, stable >90 here at his baseline from prior admits (90s-100s) -history of endocarditis, pt with prosthetic valve--bld cxs ngtd -Covid PCR negative -bp remains stable [facility] avr: -nl fxn on echo -INR at goal, cont coumadin ppm: -requires clarification as to whether this is PM or ICD. pt's EF makes him candidate for primary prevention ICD. however his EF apparently acutely dropped on recent outpatient echo, ? reversible etiology. he has outpatient poultry processor (Glenis Lema [facility]) with whom he will continue to follow up for med titration and w/u of reversible etiologies, with consideration of ICD therapy (if not currently in place) in light of life expectancy and family goals of care. -would defer LifeVest - unclear if patient can comply, no sustained arrhythmia on tele and no recent [place]. defer discussion for ICD to outpatient setting -nl pacing fxn on ecg/tele here. nl outpt check this month per charts. chronic syst chf: -does not appear vol overloaded, not on diuretic per home list -cont low dose lisinopril -new decline in EF as outpt recently. 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
[2020-01-01 06:55] LABS: INR 2.59 (0.83-1.09); PROTHROMBIN TIME (PATIENT) 30.8 SEC (9.7-13.0)
--- NOTE | 2020-01-01 07:50 | DS ---
Physical Exam: SUBJECTIVE: Patient seen and examined OBJECTIVE: Vital Signs Period Temp Pulse Resp BP Sys/Dickey Pulse Ox Last 24 Hr 97.6 F-98.5 F 61-75 18-19 93-112/49-84 99-99 PHYSICAL EXAM GENERAL: The patient is awake, alert, and fully oriented, in no acute distress. HEAD: Normal with no signs of trauma. EYES: PERRL, extraocular movements intact, sclera anicteric, conjunctiva clear. ENT: Ears normal, nares patent, oropharynx clear without exudates, moist mucous membranes. NECK: Trachea midline, full range of motion, supple. LUNGS: Breath sounds equal, clear to auscultation bilaterally, no wheezes, no crackles, no accessory muscle use. HEART: Regular rate and rhythm, S1, S2 without murmur, rub or gallop. ABDOMEN: Soft, nontender, nondistended, normoactive bowel sounds, no guarding, no rebound, no hepatosplenomegaly, no masses. EXTREMITIES: 2+ pulses, warm, well-perfused, no edema. NEUROLOGICAL: Cranial nerves II through XII grossly intact. Normal speech, gait not observed. PSYCH: Normal mood, normal affect. SKIN: Warm, dry, normal turgor, no rashes or lesions noted. LABS Laboratory Results - last 24 hr 01/01/20 01/01/20 01/01/20 06:24 06:24 06:24 WBC 3.8 L RBC 4.28 Hgb 11.9 Hct 38.1 MCV 89.1 MCH 27.7 MCHC 31.1 L RDW 17.9 H Plt Count 146 MPV 8.3 Absolute Neuts (auto) 2.0 Neutrophils % 51.5 Lymphocytes % 31.2 Monocytes % 12.2 H Eosinophils % 4.8 H Basophils % 0.3 Nucleated RBC % 0 PT with INR 30.80 H INR 2.59 H Magnesium 2.0 HOSPITAL COURSE: Date of Admission:12/24/19 Date of Discharge: 01/01/20 Discharge Summary Problems reviewed: Yes Reason For Visit: HEART FAILURE,HYPOTENSION Current Active Problems Afib (Acute) Autism (Acute) BPH (benign prostatic hyperplasia) (Acute) COVID-19 (Acute) Chest pain (Acute) Chronic systolic (congestive) heart failure (Acute) Endocarditis (Acute) Heart failure (Acute) History of CVA (cerebrovascular accident) (Acute) History of DVT (deep vein thrombosis) (Acute) Hypertension (Acute) Hypotension (Acute) Intellectual delay (Acute) Lives in [facility] (Acute) Mechanical heart valve present (Acute) Pacemaker (Acute) Person under investigation for COVID-19 (Acute) Prophylactic measure (Acute) S/P AVR (Acute) Systolic and diastolic CHF w/reduced LV function, NYHA class 4 (Acute) Systolic and diastolic CHF, acute on chronic (Acute) UTI (urinary tract infection) (Acute) - Instructions Disposition: HOME - Home Medications Comprehensive Discharge Medication List: Ambulatory Orders Aripiprazole [Abilify] 10 mg PO HS 06/10/16 Aspirin [ASA -] 81 mg PO DAILY 06/10/16 Atorvastatin Ca [Lipitor] 10 mg PO HS 06/10/16 Finasteride 5 mg PO DAILY 06/10/16 Lisinopril [Zestril] 2.5 mg PO DAILY 06/10/16 Tamsulosin HCl [Flomax -] 0.4 mg PO HS 01/12/18 Warfarin Na [Coumadin -] 10 mg PO [facility] 02/08/18 Omeprazole 20 mg PO DAILY 01/02/19 Multivitamin [Multiple Vitamins] 1 each PO DAILY 01/16/19 Sacubitril/Valsartan [Entresto 24 mg-26 mg Tablet] 1 each PO BID 12/24/19 Lisinopril [Prinivil] 2.5 mg PO DAILY tablet 12/31/19 Warfarin Na [Coumadin -] 10 mg PO DAILY@1800 tablet 12/31/19 Problem List - Problems (1) Autism Code(s): F84.0 - AUTISTIC DISORDER (2) Intellectual delay Code(s): F81.9 - DEVELOPMENTAL DISORDER OF SCHOLASTIC SKILLS, UNSPECIFIED (3) S/P AVR Code(s): Z95.2 - PRESENCE OF PROSTHETIC HEART VALVE (4) Pacemaker Code(s): Z95.0 - PRESENCE OF CARDIAC PACEMAKER (5) History of CVA (cerebrovascular accident) Code(s): Z86.73 - PRSNL HX OF TIA (TIA), AND CEREB INFRC W/O RESID DEFICITS (6) BPH (benign prostatic hyperplasia) Code(s): N40.0 - BENIGN PROSTATIC HYPERPLASIA WITHOUT LOWER URINRY TRACT SYMP (7) History of DVT (deep vein thrombosis) Code(s): Z86.718 - PERSONAL HISTORY OF OTHER VENOUS THROMBOSIS AND EMBOLISM (8) Prophylactic measure Code(s): Z29.9 - ENCOUNTER FOR PROPHYLACTIC MEASURES, UNSPECIFIED (9) Afib Code(s): I48.91 - UNSPECIFIED ATRIAL FIBRILLATION (10) Lives in [facility] Code(s): Z59.3 - PROBLEMS RELATED TO LIVING IN RESIDENTIAL INSTITUTION (11) Chest pain Code(s): R07.9 - CHEST PAIN, UNSPECIFIED (12) Endocarditis Code(s): I38 - ENDOCARDITIS, VALVE UNSPECIFIED (13) Chronic systolic (congestive) heart failure Code(s): I50.22 - CHRONIC SYSTOLIC (CONGESTIVE) HEART FAILURE (14) Person under investigation for COVID-19 Code(s): Z20.828 - CONTACT W AND EXPOSURE TO OTH VIRAL COMMUNICABLE DISEASES - Discharge Referral Referred to [facility] Med P.C.: No
[2020-01-01] MEDS: FINASTERIDE 5 MG TABLET (FP) PO SCH (09:04)
[2020-01-01] MEDS: ASPIRIN 81 MG CHEWABLE TABLETS PO SCH (09:04)
[2020-01-01] MEDS: LISINOPRIL 5 MG TABLET (FP) PO SCH (09:04)
--- NOTE | 2020-01-01 16:58 | PN ---
Progress Note, Physician Chief Complaint: Seen and examined in bed with aide from [facility] at bedside.In no distress Pending second COVID PCR to return back to jail. 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 Patient at that time reported chest pain. echo 12/25/2019: LV mildly dilated, LV systolic fx severely reduced, EF 15-20%, impaired LV relaxation,LA, mildly dilated. on heparin drip with coumadin bridge. inr 1.5 covid status: negative - Current Medication List Current Medications: Active Medications Aripiprazole (Abilify) 10 mg PO [facility] Last Admin: 12/31/19 21:26 Dose: 10 mg Documented by: Aspirin (Asa -) 81 mg PO DAILY [facility] Last Admin: 01/01/20 09:04 Dose: 81 mg Documented by: Atorvastatin Calcium (Lipitor -) 10 mg PO [facility] Last Admin: 12/31/19 21:27 Dose: 10 mg Documented by: Finasteride (Proscar -) 5 mg PO DAILY [facility] Last Admin: 01/01/20 09:04 Dose: 5 mg Documented by: Lisinopril (Prinivil) 2.5 mg PO DAILY [facility] Last Admin: 01/01/20 09:04 Dose: 2.5 mg Documented by: Tamsulosin HCl (Flomax -) 0.4 mg PO [facility] Last Admin: 12/31/19 21:27 Dose: 0.4 mg Documented by: Warfarin Sodium (Coumadin -) 10 mg PO DAILY@1800 [facility] Last Admin: 12/31/19 17:47 Dose: 10 mg Documented by: - Objective Vital Signs: Vital Signs Temperature 98.3 F 01/01/20 13:34 Pulse Rate 89 01/01/20 13:34 Respiratory Rate 18 01/01/20 13:34 Blood Pressure 125/63 01/01/20 13:34 O2 Sat by Pulse Oximetry (%) 97 01/01/20 09:00 Additional Findings/Remarks: Constitutional: Yes: Well Nourished, No Distress, Calm Eyes: Yes: WNL, Conjunctiva Clear HENT: Yes: WNL, Atraumatic, Normocephalic Neck: Yes: WNL, Supple, Trachea Midline Cardiovascular: Yes: WNL, Regular Rate and Rhythm Respiratory: Yes: Regular, CTA Bilaterally, Diminished (at bases), Other (on RA) Gastrointestinal: Yes: WNL, Normal Bowel Sounds, Soft ...Rectal Exam: Yes: Deferred Genitourinary: Yes: WNL Breast(s): Yes: WNL Musculoskeletal: Yes: WNL Extremities: Yes: WNL Edema: No Peripheral Pulses WNL: Yes Peripheral Pulses: Left Radial: 2+, Right Radial: 2+, Left Doralis Pedis: 2+, Right Dorsalis Pedis: 2+, Left Femoral: 2+, Right Femoral: 2+ Integumentary: Yes: WNL Neurological: Yes: Alert, Other (able to answer simple questions) ...Motor Strength: WNL Psychiatric: Yes: Alert Labs: CBC, BMP 01/01/20 06:24 12/29/19 05:30 INR, PTT INR 2.59 (0.83-1.09) H 01/01/20 06:24 Problem List - Problems (1) Autism Assessment/Plan: lives in [facility] aide at bedside Code(s): F84.0 - AUTISTIC DISORDER (2) Intellectual delay Code(s): F81.9 - DEVELOPMENTAL DISORDER OF SCHOLASTIC SKILLS, UNSPECIFIED (3) S/P AVR Assessment/Plan: maintain inr between 2.0-3.0 INR 2.59, c/w Coumadin 10mg cardiology following Code(s): Z95.2 - PRESENCE OF PROSTHETIC HEART VALVE (4) Pacemaker Code(s): Z95.0 - PRESENCE OF CARDIAC PACEMAKER (5) History of CVA (cerebrovascular accident) Assessment/Plan: c/w asa PT Code(s): Z86.73 - PRSNL HX OF TIA (TIA), AND CEREB INFRC W/O RESID DEFICITS (6) BPH (benign prostatic hyperplasia) Assessment/Plan: c/w flomax Code(s): N40.0 - BENIGN PROSTATIC HYPERPLASIA WITHOUT LOWER URINRY TRACT SYMP (7) History of DVT (deep vein thrombosis) Code(s): Z86.718 - PERSONAL HISTORY OF OTHER VENOUS THROMBOSIS AND EMBOLISM (8) Prophylactic measure Assessment/Plan: FEN Fluids: adequate PO intake Electrolytes: monitor & replete as needed Nutrition: low fat diet DVT moderate risk sq heparin Dispo Maintain as inpatient full code discharge planning back to [facility] pending negative COVID x 2 Code(s): Z29.9 - ENCOUNTER FOR PROPHYLACTIC MEASURES, UNSPECIFIED (9) Afib Assessment/Plan: no arrhythmia on tele monitoring Code(s): I48.91 - UNSPECIFIED ATRIAL FIBRILLATION (10) Lives in jail Code(s): Z59.3 - PROBLEMS RELATED TO LIVING IN RESIDENTIAL INSTITUTION (11) Chest pain Assessment/Plan: no chest pain reported presently comfortable on RA troponins are negative echo as noted above with an EF 15-20%, patient for possible life vest. cardiology following no further ischemia w/u Code(s): R07.9 - CHEST PAIN, UNSPECIFIED (12) Endocarditis Assessment/Plan: h/o endocarditis patient with prosthetic valve BCx NGTD Code(s): I38 - ENDOCARDITIS, VALVE UNSPECIFIED (13) Chronic systolic (congestive) heart failure Assessment/Plan: worsening HF on admission, not on a lasix at home monitor intake output, labs, vitals, daily weights c/w low dose lisinopril new decline in EF as outpt recently. defer B-B for now given reported severe hypotension at home--to f/u with outpt cardio-not candidate for Life Vest Code(s): I50.22 - CHRONIC SYSTOLIC (CONGESTIVE) HEART FAILURE (14) Person under investigation for COVID-19 Assessment/Plan: second COVID PCR ending to return back to [facility] Code(s): Z20.828 - CONTACT W AND EXPOSURE TO OTH VIRAL COMMUNICABLE DISEASES Visit type - Emergency Visit Emergency Visit: Yes ED Registration Date: 12/24/19 Care time: The patient presented to the Emergency Department on the above date and was hospitalized for further evaluation of their emergent condition. - New Patient This patient is new to me today: No - Critical Care Critical Care patient: No - Discharge Referral Referred to [facility] Med P.C.: No
[2020-01-01] MEDS: WARFARIN NA 5 MG TABLET PO SCH (17:16)
[2020-01-01] MEDS: ATORVASTATIN CA 10 MG TABLET (FP) PO SCH (21:39)
[2020-01-01] MEDS: TAMSULOSIN HCL 0.4 MG CAP PO SCH (21:39)
[2020-01-01] MEDS: ARIPiprazole 10 MG TABLET PO SCH (21:40)
--- NOTE | 2020-01-02 06:32 | PN ---
Progress Note, Physician Chief Complaint: comfortable TELE: AV Paced, PVCs single and rare couplets. Denies CP/SOB/palps Aid at bedside History of Present Illness: systolic CHF, chronic AVR Atypical CP SH: non smoker - Current Medication List Current Medications: Active Medications Aripiprazole (Abilify) 10 mg PO [facility] Last Admin: 01/01/20 21:40 Dose: 10 mg Documented by: Aspirin (Asa -) 81 mg PO DAILY [facility] Last Admin: 01/01/20 09:04 Dose: 81 mg Documented by: Atorvastatin Calcium (Lipitor -) 10 mg PO [facility] Last Admin: 01/01/20 21:39 Dose: 10 mg Documented by: Finasteride (Proscar -) 5 mg PO DAILY [facility] Last Admin: 01/01/20 09:04 Dose: 5 mg Documented by: Lisinopril (Prinivil) 2.5 mg PO DAILY [facility] Last Admin: 01/01/20 09:04 Dose: 2.5 mg Documented by: Tamsulosin HCl (Flomax -) 0.4 mg PO [facility] Last Admin: 01/01/20 21:39 Dose: 0.4 mg Documented by: Warfarin Sodium (Coumadin -) 10 mg PO DAILY@1800 [facility] Last Admin: 01/01/20 17:16 Dose: 10 mg Documented by: - Objective Vital Signs: Vital Signs Temperature 98.1 F 01/02/20 02:00 Pulse Rate 70 01/02/20 02:00 Respiratory Rate 19 01/02/20 02:00 Blood Pressure 102/54 L 01/02/20 02:00 O2 Sat by Pulse Oximetry (%) 98 01/01/20 21:00 Constitutional: Yes: No Distress, Calm Eyes: Yes: Conjunctiva Clear HENT: Yes: Atraumatic, Normocephalic Cardiovascular: Yes: Regular Rate and Rhythm Respiratory: Yes: CTA Bilaterally (no wheezing or rales) Gastrointestinal: Yes: Soft (nt) Edema: No Peripheral Pulses WNL: Yes Neurological: Yes: Alert, Oriented ...Motor Strength: WNL Labs: CBC, BMP 01/01/20 06:24 12/29/19 05:30 INR, PTT INR 2.59 (0.83-1.09) H 01/01/20 06:24 Laboratory Tests 01/02/20 01/02/20 07:04 07:04 WBC 3.4 L Hgb 12.7 Plt Count 152 INR 2.80 H Assessment/Plan Assessment/Plan Echo 12/18: mild LVE, sev decr EF 15-20%. nl RV. PM/ICD wire in RV. mech AV normal fxn a/p: 69 m hx mental retardation, htn, hld, cva, taa s/p repair, mech avr, biotronik ppm, syst chf, brought by aid for hypotension. hypotension, htn: -BP of 69 systolic documented at home, stable >90 here at his baseline from prior admits (90s-100s) -history of endocarditis, pt with prosthetic valve--bld cxs negative -Covid PCR negative -bp remains stable [facility] avr: -nl fxn on echo -INR at goal, cont coumadin ppm: -requires clarification as to whether this is PM or ICD. pt's EF makes him candidate for primary prevention ICD. However his EF apparently acutely dropped on recent outpatient echo, ? reversible etiology. He has outpatient other sales support worker (Glenis Lema, [facility]) with whom he will continue to follow up for med titration and w/u of reversible etiologies, with consideration of ICD therapy (if not currently in place) in light of life expectancy and family goals of care. -would defer LifeVest - unclear if patient can comply, no sustained arrhythmia on tele and no recent NC. Defer discussion for ICD to outpatient setting -nl pacing fxn on ecg/tele here. nl outpt check this month per charts. chronic syst chf: -does not appear vol overloaded, not on diuretic per home list -cont low dose lisinopril -new decline in EF as outpt recently. Defer B-B for now given reported severe hypotension at home--to f/u with outpt cardio cp: -history questionable based on COMPOUNDING TECHNICIAN description, pt unable to give any details -appears comfortable here, no further events -trop neg x 4, no further ischemia w/u planned at this time, defer to his outpatient other sales support worker.
--- NOTE | 2020-01-02 08:05 | DS ---
Physical Exam: SUBJECTIVE: Patient seen and examined OBJECTIVE: Vital Signs Period Temp Pulse Resp BP Sys/Dickey Pulse Ox Last 24 Hr 98.1 F-98.8 F 67-89 18-19 101-132/54-69 97-98 PHYSICAL EXAM Constitutional: Yes: Well Nourished, No Distress, Calm Eyes: Yes: WNL, Conjunctiva Clear HENT: Yes: WNL, Atraumatic, Normocephalic Neck: Yes: WNL, Supple, Trachea Midline Cardiovascular: Yes: WNL, Regular Rate and Rhythm Respiratory: Yes: Regular, CTA Bilaterally, Diminished (at bases), Other (on RA) Gastrointestinal: Yes: WNL, Normal Bowel Sounds, Soft ...Rectal Exam: Yes: Deferred Genitourinary: Yes: WNL Breast(s): Yes: WNL Musculoskeletal: Yes: WNL Extremities: Yes: WNL Edema: No Peripheral Pulses WNL: Yes Peripheral Pulses: Left Radial: 2+, Right Radial: 2+, Left Doralis Pedis: 2+, Right Dorsalis Pedis: 2+, Left Femoral: 2+, Right Femoral: 2+ Integumentary: Yes: WNL Neurological: Yes: Alert, Other (able to answer simple questions) ...Motor Strength: WNL Psychiatric: Yes: Alert LABS Laboratory Results - last 24 hr 12/30/19 14:30 COVID-19 ([place]) Not detected HOSPITAL COURSE: Date of Admission:12/24/19 Date of Discharge: 01/02/20 Problem List - Problems (1) Autism Assessment/Plan: lives in [facility] aide at bedside Code(s): F84.0 - AUTISTIC DISORDER (2) Intellectual delay Code(s): F81.9 - DEVELOPMENTAL DISORDER OF SCHOLASTIC SKILLS, UNSPECIFIED (3) S/P AVR Assessment/Plan: maintain inr between 2.0-3.0 INR 2.59, c/w Coumadin 10mg cardiology following Code(s): Z95.2 - PRESENCE OF PROSTHETIC HEART VALVE (4) Pacemaker Code(s): Z95.0 - PRESENCE OF CARDIAC PACEMAKER (5) History of CVA (cerebrovascular accident) Assessment/Plan: c/w asa PT Code(s): Z86.73 - PRSNL HX OF TIA (TIA), AND CEREB INFRC W/O RESID DEFICITS (6) BPH (benign prostatic hyperplasia) Assessment/Plan: c/w flomax Code(s): N40.0 - BENIGN PROSTATIC HYPERPLASIA WITHOUT LOWER URINRY TRACT SYMP (7) History of DVT (deep vein thrombosis) Code(s): Z86.718 - PERSONAL HISTORY OF OTHER VENOUS THROMBOSIS AND EMBOLISM (8) Prophylactic measure Assessment/Plan: FEN Fluids: adequate PO intake Electrolytes: monitor & replete as needed Nutrition: low fat diet DVT moderate risk sq heparin Dispo Maintain as inpatient full code discharge planning back to [facility] pending negative COVID x 2 Code(s): Z29.9 - ENCOUNTER FOR PROPHYLACTIC MEASURES, UNSPECIFIED (9) Afib Assessment/Plan: no arrhythmia on tele monitoring Code(s): I48.91 - UNSPECIFIED ATRIAL FIBRILLATION (10) Lives in snf Code(s): Z59.3 - PROBLEMS RELATED TO LIVING IN RESIDENTIAL INSTITUTION (11) Chest pain Assessment/Plan: no chest pain reported presently comfortable on RA troponins are negative echo as noted above with an EF 15-20%, patient for possible life vest. cardiology following no further ischemia w/u Code(s): R07.9 - CHEST PAIN, UNSPECIFIED (12) Endocarditis Assessment/Plan: h/o endocarditis patient with prosthetic valve BCx NGTD Code(s): I38 - ENDOCARDITIS, VALVE UNSPECIFIED (13) Chronic systolic (congestive) heart failure Assessment/Plan: worsening HF on admission, not on a lasix at home monitor intake output, labs, vitals, daily weights c/w low dose lisinopril new decline in EF as outpt recently. defer B-B for now given reported severe hypotension at home--to f/u with outpt cardio-not candidate for Life Vest Code(s): I50.22 - CHRONIC SYSTOLIC (CONGESTIVE) HEART FAILURE (14) Person under investigation for COVID-19 Assessment/Plan: second COVID PCR negative to return back to [facility] Code(s): Z20.828 - CONTACT W AND EXPOSURE TO OTH VIRAL COMMUNICABLE DISEASES Minutes to complete discharge: 35 Discharge Summary Problems reviewed: Yes Reason For Visit: HEART FAILURE,HYPOTENSION Current Active Problems Afib (Acute) Autism (Acute) BPH (benign prostatic hyperplasia) (Acute) COVID-19 (Acute) Chest pain (Acute) Chronic systolic (congestive) heart failure (Acute) Endocarditis (Acute) Heart failure (Acute) History of CVA (cerebrovascular accident) (Acute) History of DVT (deep vein thrombosis) (Acute) Hypertension (Acute) Hypotension (Acute) Intellectual delay (Acute) Lives in snf (Acute) Mechanical heart valve present (Acute) Pacemaker (Acute) Person under investigation for COVID-19 (Acute) Prophylactic measure (Acute) S/P AVR (Acute) Systolic and diastolic CHF w/reduced LV function, NYHA class 4 (Acute) Systolic and diastolic CHF, acute on chronic (Acute) UTI (urinary tract infection) (Acute) Condition: Improved - Instructions Disposition: HOME - Home Medications Comprehensive Discharge Medication List: Ambulatory Orders Aripiprazole [Abilify] 10 mg PO HS 06/10/16 Aspirin [ASA -] 81 mg PO DAILY 06/10/16 Atorvastatin Ca [Lipitor] 10 mg PO HS 06/10/16 Finasteride 5 mg PO DAILY 06/10/16 Lisinopril [Zestril] 2.5 mg PO DAILY 06/10/16 Tamsulosin HCl [Flomax -] 0.4 mg PO HS 01/12/18 Warfarin Na [Coumadin -] 10 mg PO ASDIR 02/08/18 Omeprazole 20 mg PO DAILY 01/02/19 Multivitamin [Multiple Vitamins] 1 each PO DAILY 01/16/19 Sacubitril/Valsartan [Entresto 24 mg-26 mg Tablet] 1 each PO BID 12/24/19 Lisinopril [Prinivil] 2.5 mg PO DAILY tablet 12/31/19 Warfarin Na [Coumadin -] 10 mg PO DAILY@1800 tablet 12/31/19 Prescription Drug Monitoring Program (I-STOP) results: I-STOP not reviewed Problem List - Problems (1) Autism Code(s): F84.0 - AUTISTIC DISORDER (2) Intellectual delay Code(s): F81.9 - DEVELOPMENTAL DISORDER OF SCHOLASTIC SKILLS, UNSPECIFIED (3) S/P AVR Code(s): Z95.2 - PRESENCE OF PROSTHETIC HEART VALVE (4) Pacemaker Code(s): Z95.0 - PRESENCE OF CARDIAC PACEMAKER (5) History of CVA (cerebrovascular accident) Code(s): Z86.73 - PRSNL HX OF TIA (TIA), AND CEREB INFRC W/O RESID DEFICITS (6) BPH (benign prostatic hyperplasia) Code(s): N40.0 - BENIGN PROSTATIC HYPERPLASIA WITHOUT LOWER URINRY TRACT SYMP (7) History of DVT (deep vein thrombosis) Code(s): Z86.718 - PERSONAL HISTORY OF OTHER VENOUS THROMBOSIS AND EMBOLISM (8) Prophylactic measure Code(s): Z29.9 - ENCOUNTER FOR PROPHYLACTIC MEASURES, UNSPECIFIED (9) Afib Code(s): I48.91 - UNSPECIFIED ATRIAL FIBRILLATION (10) Lives in snf Code(s): Z59.3 - PROBLEMS RELATED TO LIVING IN RESIDENTIAL INSTITUTION (11) Chest pain Code(s): R07.9 - CHEST PAIN, UNSPECIFIED (12) Endocarditis Code(s): I38 - ENDOCARDITIS, VALVE UNSPECIFIED (13) Chronic systolic (congestive) heart failure Code(s): I50.22 - CHRONIC SYSTOLIC (CONGESTIVE) HEART FAILURE (14) Person under investigation for COVID-19 Code(s): Z20.828 - CONTACT W AND EXPOSURE TO OTH VIRAL COMMUNICABLE DISEASES This patient is new to me today: No Emergency Visit: Yes ED Registration Date: 12/24/19 Care time: The patient presented to the Emergency Department on the above date and was hospitalized for further evaluation of their emergent condition. Critical Care patient: No - Discharge Referral Referred to [facility] Med P.C.: No
[2020-01-02 08:23] LABS: BASO % 0.4 % (0-2.0); EOS % 5.4 % (0-4.5); HEMOGLOBIN 12.7 GM/dL (11.7-16.9); INR 2.8 (0.83-1.09); MCH 28.2 pg (25.7-33.7); MCHC 31.6 g/dl (32.0-35.9); MEAN CELL VOLUME 89.1 fl (80-96); MEAN PLT VOLUME 8.5 fl (7.5-11.1); MONO % 10.4 % (3.8-10.2); NEUT % 42.8 % (42.8-82.8); PLATELET COUNT 152 K/MM3 (134-434); PROTHROMBIN TIME (PATIENT) 33.4 SEC (9.7-13.0); RBC 4.49 M/mm3 (4.00-5.60); RDW 18.1 % (11.9-15.9); WHITE BLOOD COUNT 3.4 K/mm3 (4.0-10.0)
[2020-01-02] MEDS: ASPIRIN 81 MG CHEWABLE TABLETS PO SCH (09:05)
[2020-01-02] MEDS: LISINOPRIL 5 MG TABLET (FP) PO SCH (09:05)
[2020-01-02] MEDS: FINASTERIDE 5 MG TABLET (FP) PO SCH (09:05)
[2020-01-02] MEDS: WARFARIN NA 5 MG TABLET PO SCH (17:22)
[2020-01-02] MEDS ORDERED: PT OWN MED DRAWER 7, Y5N ONE (21:20)
[2020-01-02] MEDS: TAMSULOSIN HCL 0.4 MG CAP PO SCH (21:28)
[2020-01-02] MEDS: ARIPiprazole 10 MG TABLET PO SCH (21:28)
[2020-01-02] MEDS: ATORVASTATIN CA 10 MG TABLET (FP) PO SCH (21:28)
--- NOTE | 2020-01-03 07:58 | PN ---
Progress Note, Physician Chief Complaint: INR elevated No CP/SOB Off tele History of Present Illness: AVR Cardiomyopathy Develomental delay - Current Medication List Current Medications: Active Medications Aripiprazole (Abilify) 10 mg PO [facility] Last Admin: 01/02/20 21:28 Dose: 10 mg Documented by: Aspirin (Asa -) 81 mg PO DAILY [facility] Last Admin: 01/02/20 09:05 Dose: 81 mg Documented by: Atorvastatin Calcium (Lipitor -) 10 mg PO [facility] Last Admin: 01/02/20 21:28 Dose: 10 mg Documented by: Finasteride (Proscar -) 5 mg PO DAILY [facility] Last Admin: 01/02/20 09:05 Dose: 5 mg Documented by: Lisinopril (Prinivil) 2.5 mg PO DAILY [facility] Last Admin: 01/02/20 09:05 Dose: 2.5 mg Documented by: Tamsulosin HCl (Flomax -) 0.4 mg PO [facility] Last Admin: 01/02/20 21:28 Dose: 0.4 mg Documented by: Warfarin Sodium (Coumadin -) 10 mg PO DAILY@1800 [facility] Last Admin: 01/02/20 17:22 Dose: 10 mg Documented by: - Objective Vital Signs: Vital Signs Temperature 97.8 F 01/02/20 22:00 Pulse Rate 116 H 01/02/20 22:00 Respiratory Rate 20 01/02/20 22:00 Blood Pressure 94/46 L 01/02/20 22:00 O2 Sat by Pulse Oximetry (%) 95 01/02/20 23:06 Constitutional: Yes: No Distress, Calm Neck: Yes: Tenderness Respiratory: Yes: CTA Bilaterally Gastrointestinal: Yes: Soft (nt) Edema: No ...Motor Strength: WNL Labs: CBC, BMP 01/02/20 07:04 12/29/19 05:30 INR, PTT INR 2.80 (0.83-1.09) H 01/02/20 07:04 Laboratory Tests 01/02/20 01/03/20 07:04 06:50 WBC 3.4 L Hgb 12.7 Plt Count 152 INR 3.17 H Assessment/Plan Assessment/Plan Echo 12/18: mild LVE, sev decr EF 15-20%. nl RV. PM/ICD wire in RV. mech AV normal fxn a/p: 69 m hx mental retardation, htn, hld, cva, taa s/p repair, mech avr, biotronik ppm, syst chf, brought by aid for hypotension. hypotension, htn: -BP of 69 systolic documented at home, stable >90 here at his baseline from prior admits (90s-100s) -history of endocarditis, pt with prosthetic valve--bld cxs negative -Covid PCR negative -bp remains stable [facility] avr: -nl fxn on echo -supratherapeutic INR today, hold coumadin tonight. Needs INR in AM and close f/u of INR as outpt ppm: -requires clarification as to whether this is PM or ICD. pt's EF makes him candidate for primary prevention ICD. However his EF apparently acutely dropped on recent outpatient echo, ? reversible etiology. He has outpatient meteorology professor (Glenis Lema [facility]) with whom he will continue to follow up for med titration and w/u of reversible etiologies, with consideration of ICD therapy (if not currently in place) in light of life expectancy and family goals of care. -would defer LifeVest - unclear if patient can comply, no sustained arrhythmia on tele and no recent ID. Defer discussion for ICD to outpatient setting -nl pacing fxn on ecg/tele here. nl outpt check this month per charts. chronic syst chf: -does not appear vol overloaded, not on diuretic per home list -cont low dose lisinopril -new decline in EF as outpt recently. Defer B-B for now given reported severe hypotension at home--to f/u with outpt cardio cp: -history questionable based on [employer] OPERATOR description, pt unable to give any details -appears comfortable here, no further events -trop neg x 4, no further ischemia w/u planned at this time, defer to his outpatient meteorology professor.
[2020-01-03 08:10] LABS: INR 3.17 (0.83-1.09); PROTHROMBIN TIME (PATIENT) 37.8 SEC (9.7-13.0)
--- NOTE | 2020-01-03 08:44 | PN ---
Progress Note, Physician Chief Complaint: Seen and examined in bed with aide from [facility] at bedside.INR 3.6 today- holding Coumadin In no distress repeat COVID negative-plan to return back to [facility] tmrw if INR stable. 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 Patient at that time reported chest pain. echo 12/25/2019: LV mildly dilated, LV systolic fx severely reduced, EF 15-20%, impaired LV relaxation,LA, mildly dilated. on heparin drip with coumadin bridge. inr 1.5 covid status: negative - Current Medication List Current Medications: Active Medications Aripiprazole (Abilify) 10 mg PO [facility] Last Admin: 01/02/20 21:28 Dose: 10 mg Documented by: Aspirin (Asa -) 81 mg PO DAILY [facility] Last Admin: 01/02/20 09:05 Dose: 81 mg Documented by: Atorvastatin Calcium (Lipitor -) 10 mg PO [facility] Last Admin: 01/02/20 21:28 Dose: 10 mg Documented by: Finasteride (Proscar -) 5 mg PO DAILY [facility] Last Admin: 01/02/20 09:05 Dose: 5 mg Documented by: Lisinopril (Prinivil) 2.5 mg PO DAILY [facility] Last Admin: 01/02/20 09:05 Dose: 2.5 mg Documented by: Tamsulosin HCl (Flomax -) 0.4 mg PO [facility] Last Admin: 01/02/20 21:28 Dose: 0.4 mg Documented by: Warfarin Sodium (Coumadin -) 10 mg PO DAILY@1800 [facility] Last Admin: 01/02/20 17:22 Dose: 10 mg Documented by: - Objective Vital Signs: Vital Signs Temperature 97.8 F 01/02/20 22:00 Pulse Rate 116 H 01/02/20 22:00 Respiratory Rate 20 01/02/20 22:00 Blood Pressure 94/46 L 01/02/20 22:00 O2 Sat by Pulse Oximetry (%) 95 01/02/20 23:06 Additional Findings/Remarks: Constitutional: Yes: Well Nourished, No Distress, Calm Eyes: Yes: WNL, Conjunctiva Clear HENT: Yes: WNL, Atraumatic, Normocephalic Neck: Yes: WNL, Supple, Trachea Midline Cardiovascular: Yes: WNL, Regular Rate and Rhythm Respiratory: Yes: Regular, CTA Bilaterally, Diminished (at bases), Other (on RA) Gastrointestinal: Yes: WNL, Normal Bowel Sounds, Soft ...Rectal Exam: Yes: Deferred Genitourinary: Yes: WNL Breast(s): Yes: WNL Musculoskeletal: Yes: WNL Extremities: Yes: WNL Edema: No Peripheral Pulses WNL: Yes Peripheral Pulses: Left Radial: 2+, Right Radial: 2+, Left Doralis Pedis: 2+, Right Dorsalis Pedis: 2+, Left Femoral: 2+, Right Femoral: 2+ Integumentary: Yes: WNL Neurological: Yes: Alert, Other (able to answer simple questions) ...Motor Strength: WNL Psychiatric: Yes: Alert Labs: CBC, BMP 01/02/20 07:04 12/29/19 05:30 INR, PTT INR 3.17 (0.83-1.09) H 01/03/20 06:50 Problem List - Problems (1) Autism Assessment/Plan: lives in [facility] aide at bedside Code(s): F84.0 - AUTISTIC DISORDER (2) Intellectual delay Code(s): F81.9 - DEVELOPMENTAL DISORDER OF SCHOLASTIC SKILLS, UNSPECIFIED (3) S/P AVR Assessment/Plan: maintain inr between 2.0-3.0 INR 2.59, c/w Coumadin 10mg cardiology following Code(s): Z95.2 - PRESENCE OF PROSTHETIC HEART VALVE (4) Pacemaker Code(s): Z95.0 - PRESENCE OF CARDIAC PACEMAKER (5) History of CVA (cerebrovascular accident) Assessment/Plan: c/w asa PT Code(s): Z86.73 - PRSNL HX OF TIA (TIA), AND CEREB INFRC W/O RESID DEFICITS (6) BPH (benign prostatic hyperplasia) Assessment/Plan: c/w flomax Code(s): N40.0 - BENIGN PROSTATIC HYPERPLASIA WITHOUT LOWER URINRY TRACT SYMP (7) History of DVT (deep vein thrombosis) Code(s): Z86.718 - PERSONAL HISTORY OF OTHER VENOUS THROMBOSIS AND EMBOLISM (8) Prophylactic measure Assessment/Plan: FEN Fluids: adequate PO intake Electrolytes: monitor & replete as needed Nutrition: low fat diet DVT moderate risk sq heparin Dispo Maintain as inpatient full code discharge planning back to [facility] on Mon when RN available to receive Code(s): Z29.9 - ENCOUNTER FOR PROPHYLACTIC MEASURES, UNSPECIFIED (9) Afib Assessment/Plan: no arrhythmia on tele monitoring Code(s): I48.91 - UNSPECIFIED ATRIAL FIBRILLATION (10) Lives in assisted Code(s): Z59.3 - PROBLEMS RELATED TO LIVING IN RESIDENTIAL INSTITUTION (11) Chest pain Assessment/Plan: resolved comfortable on RA troponins are negative echo as noted above with an EF 15-20%, patient for possible life vest. cardiology following no further ischemia w/u Code(s): R07.9 - CHEST PAIN, UNSPECIFIED (12) Endocarditis Assessment/Plan: h/o endocarditis patient with prosthetic valve BCx NGTD Code(s): I38 - ENDOCARDITIS, VALVE UNSPECIFIED (13) Chronic systolic (congestive) heart failure Assessment/Plan: worsening HF on admission, not on a lasix at home monitor intake output, labs, vitals, daily weights c/w low dose lisinopril new decline in EF as outpt recently. defer B-B for now given reported severe hypotension at home--to f/u with outpt cardio-not candidate for Life Vest Code(s): I50.22 - CHRONIC SYSTOLIC (CONGESTIVE) HEART FAILURE (14) Person under investigation for COVID-19 Assessment/Plan: second COVID PCR ending to return back to [facility] Code(s): Z20.828 - CONTACT W AND EXPOSURE TO OTH VIRAL COMMUNICABLE DISEASES (15) COVID-19 ruled out Assessment/Plan: COVID negative x 2 Code(s): Z03.818 - ENCNTR FOR OBS FOR SUSP EXPSR TO OTH BIOLG AGENTS RULED OUT (16) Elevated INR Assessment/Plan: INR 3.6 holding Coumadin tonight pending level in am Code(s): R79.1 - ABNORMAL COAGULATION PROFILE Visit type - Emergency Visit Emergency Visit: Yes ED Registration Date: 12/24/19 Care time: The patient presented to the Emergency Department on the above date and was hospitalized for further evaluation of their emergent condition. - New Patient This patient is new to me today: No - Critical Care Critical Care patient: No - Discharge Referral Referred to [facility] No
[2020-01-03] MEDS: ASPIRIN 81 MG CHEWABLE TABLETS PO SCH (09:24)
[2020-01-03] MEDS: FINASTERIDE 5 MG TABLET (FP) PO SCH (09:24)
[2020-01-03] MEDS: LISINOPRIL 5 MG TABLET (FP) PO SCH (09:24)
[2020-01-03] MEDS ORDERED: PT OWN MED DRAWER 7, Y5N ONE (21:45)
[2020-01-03] MEDS: TAMSULOSIN HCL 0.4 MG CAP PO SCH (21:47)
[2020-01-03] MEDS: ATORVASTATIN CA 10 MG TABLET (FP) PO SCH (21:47)
[2020-01-03] MEDS: ARIPiprazole 10 MG TABLET PO SCH (22:31)
[2020-01-04 07:47] LABS: BASO % 0.6 % (0-2.0); EOS % 4.5 % (0-4.5); HEMATOCRIT 38.7 % (35.4-49); HEMOGLOBIN 12.1 GM/dL (11.7-16.9); LYMPH % 38.4 % (8-40); MCH 27.7 pg (25.7-33.7); MCHC 31.3 g/dl (32.0-35.9); MEAN CELL VOLUME 88.7 fl (80-96); MEAN PLT VOLUME 8.7 fl (7.5-11.1); MONO % 13.4 % (3.8-10.2); NEUT % 43.1 % (42.8-82.8); PLATELET COUNT 136 K/MM3 (134-434); RBC 4.37 M/mm3 (4.00-5.60); RDW 17.6 % (11.9-15.9); WHITE BLOOD COUNT 3.6 K/mm3 (4.0-10.0)
[2020-01-04 08:05] LABS: INR 2.73 (0.83-1.09); PROTHROMBIN TIME (PATIENT) 32.6 SEC (9.7-13.0)
[2020-01-04 08:20] LABS: BLOOD UREA NITROGEN 28.5 mg/dL (7-18); CALCIUM 9.1 mg/dL (8.5-10.1); MAGNESIUM 2.1 mg/dL (1.8-2.4); POTASSIUM 4.4 mmol/L (3.5-5.1)
--- NOTE | 2020-01-04 08:31 | PN ---
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 Patient at that time reported chest pain. echo 12/25/2019: LV mildly dilated, LV systolic fx severely reduced, EF 15-20%, impaired LV relaxation,LA, mildly dilated. on heparin drip with coumadin bridge. inr 1.5 covid status: negative - Current Medication List Current Medications: Active Medications Aripiprazole (Abilify) 10 mg PO [facility] Last Admin: 01/03/20 22:31 Dose: 10 mg Documented by: Aspirin (Asa -) 81 mg PO DAILY [facility] Last Admin: 01/03/20 09:24 Dose: 81 mg Documented by: Atorvastatin Calcium (Lipitor -) 10 mg PO [facility] Last Admin: 01/03/20 21:47 Dose: 10 mg Documented by: Finasteride (Proscar -) 5 mg PO DAILY [facility] Last Admin: 01/03/20 09:24 Dose: 5 mg Documented by: Lisinopril (Prinivil) 2.5 mg PO DAILY [facility] Last Admin: 01/03/20 09:24 Dose: 2.5 mg Documented by: Tamsulosin HCl (Flomax -) 0.4 mg PO [facility] Last Admin: 01/03/20 21:47 Dose: 0.4 mg Documented by: Warfarin Sodium (Coumadin -) 10 mg PO DAILY@1800 [facility] Last Admin: 01/02/20 17:22 Dose: 10 mg Documented by: - Objective Vital Signs: Vital Signs Temperature 98.4 F 01/04/20 06:00 Pulse Rate 74 01/04/20 06:00 Respiratory Rate 18 01/04/20 06:00 Blood Pressure 97/56 L 01/04/20 06:00 O2 Sat by Pulse Oximetry (%) 97 01/04/20 01:10 Labs: CBC, BMP 01/04/20 05:45 01/04/20 05:45 INR, PTT INR 2.73 (0.83-1.09) H 01/04/20 05:45 Problem List - Problems (1) Autism Code(s): F84.0 - AUTISTIC DISORDER (2) Intellectual delay Code(s): F81.9 - DEVELOPMENTAL DISORDER OF SCHOLASTIC SKILLS, UNSPECIFIED (3) S/P AVR Code(s): Z95.2 - PRESENCE OF PROSTHETIC HEART VALVE (4) Pacemaker Code(s): Z95.0 - PRESENCE OF CARDIAC PACEMAKER (5) History of CVA (cerebrovascular accident) Code(s): Z86.73 - PRSNL HX OF TIA (TIA), AND CEREB INFRC W/O RESID DEFICITS (6) BPH (benign prostatic hyperplasia) Code(s): N40.0 - BENIGN PROSTATIC HYPERPLASIA WITHOUT LOWER URINRY TRACT SYMP (7) History of DVT (deep vein thrombosis) Code(s): Z86.718 - PERSONAL HISTORY OF OTHER VENOUS THROMBOSIS AND EMBOLISM (8) Prophylactic measure Code(s): Z29.9 - ENCOUNTER FOR PROPHYLACTIC MEASURES, UNSPECIFIED (9) Afib Code(s): I48.91 - UNSPECIFIED ATRIAL FIBRILLATION (10) Lives in nursing home Code(s): Z59.3 - PROBLEMS RELATED TO LIVING IN RESIDENTIAL INSTITUTION (11) Chest pain Code(s): R07.9 - CHEST PAIN, UNSPECIFIED (12) Endocarditis Code(s): I38 - ENDOCARDITIS, VALVE UNSPECIFIED (13) Chronic systolic (congestive) heart failure Code(s): I50.22 - CHRONIC SYSTOLIC (CONGESTIVE) HEART FAILURE (14) Person under investigation for COVID-19 Code(s): Z20.828 - CONTACT W AND EXPOSURE TO OTH VIRAL COMMUNICABLE DISEASES (15) COVID-19 ruled out Code(s): Z03.818 - ENCNTR FOR OBS FOR SUSP EXPSR TO OTH BIOLG AGENTS RULED OUT (16) Elevated INR Code(s): R79.1 - ABNORMAL COAGULATION PROFILE
[2020-01-04 08:38] LABS: BILIRUBIN,TOTAL 0.4 mg/dL (0.2-1); CREATININE 1.2 mg/dL (0.55-1.3); TOT PROT 6.4 g/dl (6.4-8.2)
[2020-01-04 09:13] LABS: ANISOCYTOSIS 0; MACROCYTOSIS 0; PLATELET ESTIMATE DECREASED
[2020-01-04] MEDS: FINASTERIDE 5 MG TABLET (FP) PO SCH (09:31)
[2020-01-04] MEDS: LISINOPRIL 5 MG TABLET (FP) PO SCH (09:31)
[2020-01-04] MEDS: ASPIRIN 81 MG CHEWABLE TABLETS PO SCH (09:31)
[2020-01-04 09:58] VITALS: BP 117/52; PULSE 79; TEMP 98.5
--- NOTE | 2020-01-04 10:35 | PN ---
Progress Note (short form) - Note Progress Note: Patient cleared for discharge. Spoke with coordinator at [facility] and RN is available to accept. No change in clinical status. To have INR check on Saturday with dose daily Coumadin 7.5mg Problem List - Problems (1) Autism Code(s): F84.0 - AUTISTIC DISORDER (2) Intellectual delay Code(s): F81.9 - DEVELOPMENTAL DISORDER OF SCHOLASTIC SKILLS, UNSPECIFIED (3) S/P AVR Code(s): Z95.2 - PRESENCE OF PROSTHETIC HEART VALVE (4) Pacemaker Code(s): Z95.0 - PRESENCE OF CARDIAC PACEMAKER (5) History of CVA (cerebrovascular accident) Code(s): Z86.73 - PRSNL HX OF TIA (TIA), AND CEREB INFRC W/O RESID DEFICITS (6) BPH (benign prostatic hyperplasia) Code(s): N40.0 - BENIGN PROSTATIC HYPERPLASIA WITHOUT LOWER URINRY TRACT SYMP (7) History of DVT (deep vein thrombosis) Code(s): Z86.718 - PERSONAL HISTORY OF OTHER VENOUS THROMBOSIS AND EMBOLISM (8) Prophylactic measure Code(s): Z29.9 - ENCOUNTER FOR PROPHYLACTIC MEASURES, UNSPECIFIED (9) Afib Code(s): I48.91 - UNSPECIFIED ATRIAL FIBRILLATION (10) [facility] Code(s): Z59.3 - PROBLEMS RELATED TO LIVING IN RESIDENTIAL INSTITUTION (11) Chest pain Code(s): R07.9 - CHEST PAIN, UNSPECIFIED (12) Endocarditis Code(s): I38 - ENDOCARDITIS, VALVE UNSPECIFIED (13) Chronic systolic (congestive) heart failure Code(s): I50.22 - CHRONIC SYSTOLIC (CONGESTIVE) HEART FAILURE (14) COVID-19 ruled out Code(s): Z03.818 - ENCNTR FOR OBS FOR SUSP EXPSR TO OTH BIOLG AGENTS RULED OUT (15) Elevated INR Code(s): R79.1 - ABNORMAL COAGULATION PROFILE Visit type - Emergency Visit Emergency Visit: Yes ED Registration Date: 12/24/19 Care time: The patient presented to the Emergency Department on the above date and was hospitalized for further evaluation of their emergent condition. - New Patient This patient is new to me today: No - Critical Care Critical Care patient: No - Discharge Referral Referred to [facility] No
--- NOTE | 2020-01-04 12:07 | PN ---
Progress Note (short form) - Note Progress Note: Chief Complaint: low bp History of Present Illness: per aide pt has been comfortable. patient unable to give hx Current Medications Generic Name Dose Route Start Last Admin Trade Name Maggie PRN Reason Stop Dose Admin Aripiprazole 10 mg 12/25/19 22:00 01/03/20 22:31 Abilify PO 10 mg HS YANETH Administration Aspirin 81 mg 12/25/19 10:00 01/04/20 09:31 Asa - PO 81 mg DAILY YANETH Administration Atorvastatin Calcium 10 mg 12/25/19 22:00 01/03/20 21:47 Lipitor - PO 10 mg HS YANETH Administration Finasteride 5 mg 12/25/19 10:00 01/04/20 09:31 Proscar - PO 5 mg DAILY YANETH Administration Lisinopril 2.5 mg 12/25/19 10:00 01/04/20 09:31 Prinivil PO 2.5 mg DAILY YANETH Administration Tamsulosin HCl 0.4 mg 12/25/19 22:00 01/03/20 21:47 Flomax - PO 0.4 mg HS YANETH Administration Warfarin Sodium 7.5 mg 01/04/20 18:00 Coumadin - PO DAILY@1800 YANETH Vital Signs Period Temp Pulse Resp BP Sys/Dickey Pulse Ox Last 24 Hr 97.5 F-98.7 F 70-79 18-18 97-124/51-56 97-99 Constitutional: Yes: Well Nourished, No Distress, Calm Cardiovascular: Yes: Regular Rate and Rhythm, S1, S2 (mechanical). No: JVD, Gallop, Murmur Respiratory: Yes: Regular, CTA Bilaterally. No: Accessory Muscle Use Abd: soft, nt, nd, +bs Extremities: No: Cold Edema: No Neurological: Yes: Alert. No: Lethargy Psychiatric: No: Agitated no jaundice, diaphoresis CBC, BMP 01/04/20 05:45 01/04/20 05:45 Assessment/Plan Echo 01/2018: mod dec lvef, mod dec rv syst fcn, mod-sev mr, nl [facility] avr Echo 12/18: mild LVE, sev decr EF 15-20%. nl RV. PM/ICD wire in RV. [facility] AV normal fxn a/p: 69 m hx mental retardation, htn, hld, cva, taa s/p repair, mech avr, biotronik ppm, syst chf, brought by aid for hypotension. hypotension, htn: -BP of 69 systolic documented at home, stable >90 here at his baseline from prior admits (90s-100s) -history of endocarditis, pt with prosthetic valve--bld cxs ngtd -Covid PCR negative -bp remains stable [facility] avr: -nl fcn on echo -INR at goal, cont coumadin ppm: -requires clarification as to whether this is PM or ICD. pt's EF makes him candidate for primary prevention ICD. however his EF apparently acutely dropped on recent outpatient echo, ? reversible etiology. 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 -would defer LifeVest - unclear if patient can comply, no arrhythmia on tele and no recent ME. defer discussion for ICD to outpatient setting -nl fcn on ecg/tele here. nl outpt check recently per charts. chronic syst chf: -does not appear vol overloaded, not on diuretic per home list -cont low dose lisinopril -new decline in EF as outpt recently. defer B-B for now given reported severe hypotension at home--to f/u with outpt cardio cp: -history questionable based on HEAD MACHINIST description, pt unable to give any details -appears comfortable here, no further events -trop neg x 4, no further ischemia w/u planned cardiac proctor stable
[2020-01-04] MEDS ORDERED: WARFARIN NA 7.5 MG TABLET (FP) PO SCH (18:00)
== END 2020-01-04 13:54 | disposition home or self-care (01) | DRG 315 ==
LOC: JER 07:47 → JERBED 10:31 → J4S 23:08
PROVIDERS: ADMIT Internal Medicine; ATTEND Nurse Practitioner Acute Care
DX: I95.89 Other hypotension (principal); F84.0 Autistic disorder; I47.1 Supraventricular tachycardia; I50.22 Chronic systolic (congestive) heart failure; F79 Unspecified intellectual disabilities; I11.0 Hypertensive heart disease with heart failure; I25.10 Atherosclerotic heart disease of native coronary artery without angina pectoris; E78.5 Hyperlipidemia, unspecified; I44.7 Left bundle-branch block, unspecified; N40.0 Benign prostatic hyperplasia without lower urinary tract symptoms; I48.91 Unspecified atrial fibrillation; Z86.73 Personal history of transient ischemic attack (TIA), and cerebral infarction without residual deficits; Z95.2 Presence of prosthetic heart valve; Z86.718 Personal history of other venous thrombosis and embolism; Z95.0 Presence of cardiac pacemaker
CPT/HCPCS: 36415; 71045-TC-FY; 80053; 80061; 82550; 82553; 83721; 83735; 83880; 84484; 85025; 85027; 85610; 85730; 87040; 93005; 93010; 93306-TC; 99285-25; J1644; U0003

== ENCOUNTER 2022-01-13 10:01 | Inpatient (IN) | payer OTHER ==
[2022-01-13 12:18] LABS: HEMATOCRIT 38.4 % (35.4-49); HEMOGLOBIN 12.3 GM/dL (11.7-16.9); MCH 28.8 pg (25.7-33.7); MEAN CELL VOLUME 89.8 fl (80-96); PLATELET COUNT 108 10^3/uL (134-434); RBC 4.27 M/mm3 (4.00-5.60); RDW 14.8 % (11.9-15.9); WHITE BLOOD COUNT 3.6 K/mm3 (4.0-10.0)
[2022-01-13 12:37] LABS: ACTIVATED PTT 46.8 SECONDS (25.2-36.5); PROTHROMBIN TIME (PATIENT) 48.7 SEC (9.7-13.0)
[2022-01-13 12:39] LABS: INR 4.17 (0.83-1.09)
[2022-01-13] MEDS ORDERED: LIDOCAINE 5% TOPICAL PATCH TP ONE (12:40)
[2022-01-13 12:45] LABS: CALCIUM 8.9 mg/dL (8.5-10.1)
[2022-01-13 12:46] LABS: ALBUMIN 3.2 g/dl (3.4-5.0); BLOOD UREA NITROGEN 28.4 mg/dL (7-18)
[2022-01-13 12:49] LABS: CREATININE 1.1 mg/dL (0.55-1.3)
[2022-01-13 12:51] LABS: BILIRUBIN,TOTAL 0.4 mg/dL (0.2-1); TOT PROT 5.9 g/dl (6.4-8.2)
[2022-01-13] MEDS ORDERED: oxyCODONE HCL 5 MG TABLET PO ONE (13:21)
[2022-01-13 20:21] LABS: N-TERMINAL BNP 2640.9 pg/ml (5-125)
[2022-01-13] MEDS ORDERED: LIDOCAINE PATCH REMOVAL MC SCH (22:00)
[2022-01-13] MEDS: ARIPiprazole 5 MG TABLET PO SCH (23:29)
[2022-01-13] MEDS: SACUBITRIL/VALSARTAN 24 MG-26 MG TABLET PO SCH (23:29)
[2022-01-13] MEDS: traZODone HCL 50 MG TABLET (FP) PO SCH (23:29)
[2022-01-13] MEDS: ATORVASTATIN CA 10 MG TABLET (FP) PO SCH (23:29)
[2022-01-14] MEDS: TAMSULOSIN HCL 0.4 MG CAP PO SCH (08:25)
[2022-01-14 09:30] LABS: BASO % 0.2 % (0-2.0); EOS % 2.1 % (0-4.5); HEMATOCRIT 39.9 % (35.4-49); HEMOGLOBIN 12.7 GM/dL (11.7-16.9); LYMPH % 36.5 % (8-40); MCH 28.6 pg (25.7-33.7); MCHC 31.8 g/dl (32.0-35.9); MEAN CELL VOLUME 89.9 fl (80-96); MEAN PLT VOLUME 9.2 fl (7.5-11.1); MONO % 10.5 % (3.8-10.2); NEUT % 50.7 % (42.8-82.8); PLATELET COUNT 115 10^3/uL (134-434); RBC 4.44 M/mm3 (4.00-5.60); RDW 14.3 % (11.9-15.9); WHITE BLOOD COUNT 2.7 K/mm3 (4.0-10.0)
[2022-01-14 09:52] LABS: CALCIUM 9.2 mg/dL (8.5-10.1)
[2022-01-14 09:53] LABS: ALBUMIN 3.5 g/dl (3.4-5.0)
[2022-01-14 09:55] LABS: CREATININE 1.1 mg/dL (0.55-1.3)
[2022-01-14 09:56] LABS: BILIRUBIN,TOTAL 0.7 mg/dL (0.2-1); TOT PROT 6.4 g/dl (6.4-8.2)
[2022-01-14] MEDS: SACUBITRIL/VALSARTAN 24 MG-26 MG TABLET PO SCH ×2 (10:34→22:47)
[2022-01-14] MEDS: PANTOPRAZOLE 20 MG TABLET PO SCH (10:34)
[2022-01-14] MEDS: ASPIRIN COATED 81 MG TABLET.EC PO SCH (10:34)
[2022-01-14] MEDS: MULTIVITAMINS (DAILY MVI) TABLET (FP) PO SCH (10:34)
[2022-01-14 11:17] LABS: PH,URINE 5.5 (5.0-8.0); URINE APPEARANCE CLEAR; URINE BILIRUBIN NEGATIVE (NEGATIVE); URINE COLOR YELLOW; URINE GLUCOSE (UA) NEGATIVE (NEGATIVE); URINE KETONE NEGATIVE (NEGATIVE); URINE LEUK ESTERASE NEGATIVE (NEGATIVE); URINE NITRITE NEGATIVE (NEGATIVE); URINE PROTEIN NEGATIVE (NEGATIVE); URINE UROBILINOGEN 0.2 mg/dL (0.2-1.0)
[2022-01-14 12:07] LABS: INR 3.6 (0.83-1.09); PROTHROMBIN TIME (PATIENT) 41.9 SEC (9.7-13.0)
[2022-01-14] MEDS ORDERED: WARFARIN NA 3 MG TABLET PO ONE (18:00)
[2022-01-14] MEDS ORDERED: WARFARIN NA 5 MG TABLET PO SCH (18:00)
[2022-01-14] MEDS: ARIPiprazole 5 MG TABLET PO SCH (22:46)
[2022-01-14] MEDS: ATORVASTATIN CA 10 MG TABLET (FP) PO SCH (22:47)
[2022-01-14] MEDS: traZODone HCL 50 MG TABLET (FP) PO SCH (22:47)
[2022-01-15 09:29] LABS: BASO % 0.2 % (0-2.0); EOS % 2.4 % (0-4.5); HEMATOCRIT 41.3 % (35.4-49); HEMOGLOBIN 13.1 GM/dL (11.7-16.9); LYMPH % 40.7 % (8-40); MCH 28.5 pg (25.7-33.7); MCHC 31.8 g/dl (32.0-35.9); MEAN CELL VOLUME 89.7 fl (80-96); MEAN PLT VOLUME 8.7 fl (7.5-11.1); MONO % 9.6 % (3.8-10.2); NEUT % 47.1 % (42.8-82.8); PLATELET COUNT 106 10^3/uL (134-434); RDW 14.3 % (11.9-15.9); WHITE BLOOD COUNT 2.7 K/mm3 (4.0-10.0)
[2022-01-15 09:40] LABS: INR 2.49 (0.83-1.09); PROTHROMBIN TIME (PATIENT) 28.9 SEC (9.7-13.0)
[2022-01-15 09:59] LABS: CALCIUM 9.2 mg/dL (8.5-10.1)
[2022-01-15 10:00] LABS: BLOOD UREA NITROGEN 21.7 mg/dL (7-18)
[2022-01-15 10:03] LABS: CREATININE 1.2 mg/dL (0.55-1.3)
[2022-01-15] MEDS: MULTIVITAMINS (DAILY MVI) TABLET (FP) PO SCH (13:03)
[2022-01-15] MEDS: PANTOPRAZOLE 20 MG TABLET PO SCH (13:03)
[2022-01-15] MEDS: ASPIRIN COATED 81 MG TABLET.EC PO SCH (13:03)
[2022-01-15] MEDS: TAMSULOSIN HCL 0.4 MG CAP PO SCH (13:03)
[2022-01-15] MEDS: SACUBITRIL/VALSARTAN 24 MG-26 MG TABLET PO SCH ×2 (13:04→23:38)
[2022-01-15] MEDS ORDERED: LACTATED RINGERS SOLUTION 1000 ML INFUS.BAG IV ONE (23:20)
[2022-01-15] MEDS: ATORVASTATIN CA 10 MG TABLET (FP) PO SCH (23:38)
[2022-01-15] MEDS: ARIPiprazole 5 MG TABLET PO SCH (23:38)
[2022-01-15] MEDS: traZODone HCL 50 MG TABLET (FP) PO SCH (23:38)
[2022-01-16] MEDS: TAMSULOSIN HCL 0.4 MG CAP PO SCH (09:56)
[2022-01-16] MEDS: ASPIRIN COATED 81 MG TABLET.EC PO SCH (09:56)
[2022-01-16] MEDS: MULTIVITAMINS (DAILY MVI) TABLET (FP) PO SCH (09:56)
[2022-01-16] MEDS: PANTOPRAZOLE 20 MG TABLET PO SCH (09:57)
[2022-01-16] MEDS: SACUBITRIL/VALSARTAN 24 MG-26 MG TABLET PO SCH ×2 (10:19→22:37)
[2022-01-16] MEDS ORDERED: WARFARIN NA 7.5 MG TABLET PO ONE (18:00)
[2022-01-16] MEDS ORDERED: SODIUM CHLORIDE 250 ML IV STA (18:17)
[2022-01-16] MEDS: traZODone HCL 50 MG TABLET (FP) PO SCH (22:39)
[2022-01-16] MEDS: ATORVASTATIN CA 10 MG TABLET (FP) PO SCH (22:39)
[2022-01-16] MEDS: ARIPiprazole 5 MG TABLET PO SCH (22:39)
[2022-01-17 10:26] LABS: INR 1.67 (0.83-1.09); PROTHROMBIN TIME (PATIENT) 19.3 SEC (9.7-13.0)
[2022-01-17 10:38] LABS: BLOOD UREA NITROGEN 27.5 mg/dL (7-18); CALCIUM 8.6 mg/dL (8.5-10.1)
[2022-01-17 10:39] LABS: MAGNESIUM 1.7 mg/dL (1.8-2.4)
[2022-01-17 10:42] LABS: CREATININE 1.2 mg/dL (0.55-1.3); PHOSPHOROUS 2.9 mg/dL (2.5-4.9)
[2022-01-17 10:49] LABS: HEMATOCRIT 38.1 % (35.4-49); HEMOGLOBIN 12.3 GM/dL (11.7-16.9); MCH 28.6 pg (25.7-33.7); MCHC 32.2 g/dl (32.0-35.9); MEAN CELL VOLUME 88.8 fl (80-96); MEAN PLT VOLUME 9.2 fl (7.5-11.1); PLATELET COUNT 106 10^3/uL (134-434); RBC 4.29 M/mm3 (4.00-5.60); RDW 14.5 % (11.9-15.9); WHITE BLOOD COUNT 2.8 K/mm3 (4.0-10.0)
[2022-01-17] MEDS: ASPIRIN COATED 81 MG TABLET.EC PO SCH (11:12)
[2022-01-17] MEDS: MULTIVITAMINS (DAILY MVI) TABLET (FP) PO SCH (11:12)
[2022-01-17] MEDS: TAMSULOSIN HCL 0.4 MG CAP PO SCH (11:12)
[2022-01-17] MEDS: PANTOPRAZOLE 20 MG TABLET PO SCH (11:13)
[2022-01-17] MEDS: SACUBITRIL/VALSARTAN 24 MG-26 MG TABLET PO SCH ×2 (11:14→21:21)
[2022-01-17] MEDS ORDERED: MAGNESIUM 2GM/50ML STERILE WATER IVPB IVPB ONE (12:30)
[2022-01-17] MEDS ORDERED: WARFARIN NA 10 MG TABLET PO ONE (18:00)
[2022-01-17] MEDS: traZODone HCL 50 MG TABLET (FP) PO SCH (21:21)
[2022-01-17] MEDS: ATORVASTATIN CA 10 MG TABLET (FP) PO SCH (21:21)
[2022-01-17] MEDS: ARIPiprazole 5 MG TABLET PO SCH (21:21)
[2022-01-18 09:32] LABS: INR 1.63 (0.83-1.09); PROTHROMBIN TIME (PATIENT) 18.8 SEC (9.7-13.0)
[2022-01-18 09:34] LABS: ACTIVATED PTT 33.3 SECONDS (25.2-36.5)
[2022-01-18 09:45] LABS: CALCIUM 8.8 mg/dL (8.5-10.1)
[2022-01-18 09:46] LABS: BLOOD UREA NITROGEN 25.6 mg/dL (7-18); MAGNESIUM 2.3 mg/dL (1.8-2.4)
[2022-01-18 09:48] LABS: CREATININE 1.1 mg/dL (0.55-1.3); PHOSPHOROUS 3.3 mg/dL (2.5-4.9)
[2022-01-18 09:53] LABS: HEMATOCRIT 38.7 % (35.4-49); HEMOGLOBIN 12.4 GM/dL (11.7-16.9); MCH 28.7 pg (25.7-33.7); MCHC 31.9 g/dl (32.0-35.9); MEAN CELL VOLUME 89.7 fl (80-96); MEAN PLT VOLUME 9.4 fl (7.5-11.1); PLATELET COUNT 117 10^3/uL (134-434); RBC 4.31 M/mm3 (4.00-5.60); RDW 14.5 % (11.9-15.9); WHITE BLOOD COUNT 2.8 K/mm3 (4.0-10.0)
[2022-01-18] MEDS: MULTIVITAMINS (DAILY MVI) TABLET (FP) PO SCH (10:40)
[2022-01-18] MEDS: PANTOPRAZOLE 20 MG TABLET PO SCH (10:40)
[2022-01-18] MEDS: ASPIRIN COATED 81 MG TABLET.EC PO SCH (10:40)
[2022-01-18] MEDS: TAMSULOSIN HCL 0.4 MG CAP PO SCH (10:40)
[2022-01-18] MEDS: SACUBITRIL/VALSARTAN 24 MG-26 MG TABLET PO SCH ×3 (10:41→21:45)
[2022-01-18] MEDS ORDERED: WARFARIN NA 10 MG TABLET PO ONE (11:30)
[2022-01-18] MEDS: ENOXAPARIN NA (PORCINE) 60 MG/0.6 ML DISP.SYRIN SQ SCH ×2 (13:06→21:45)
[2022-01-18] MEDS: traZODone HCL 50 MG TABLET (FP) PO SCH (21:45)
[2022-01-18] MEDS: ARIPiprazole 5 MG TABLET PO SCH (21:45)
[2022-01-18] MEDS: ATORVASTATIN CA 10 MG TABLET (FP) PO SCH (21:45)
[2022-01-19] MEDS: TAMSULOSIN HCL 0.4 MG CAP PO SCH (08:59)
[2022-01-19 09:15] LABS: INR 2.29 (0.83-1.09); PROTHROMBIN TIME (PATIENT) 26.6 SEC (9.7-13.0)
[2022-01-19 09:35] LABS: BLOOD UREA NITROGEN 29.3 mg/dL (7-18); MAGNESIUM 2.2 mg/dL (1.8-2.4)
[2022-01-19 09:38] LABS: PHOSPHOROUS 2.9 mg/dL (2.5-4.9)
[2022-01-19 09:39] LABS: CREATININE 1.2 mg/dL (0.55-1.3)
[2022-01-19 09:53] LABS: HEMATOCRIT 36.1 % (35.4-49); HEMOGLOBIN 11.7 GM/dL (11.7-16.9); MCH 29.1 pg (25.7-33.7); MCHC 32.4 g/dl (32.0-35.9); MEAN CELL VOLUME 89.8 fl (80-96); MEAN PLT VOLUME 9.3 fl (7.5-11.1); PLATELET COUNT 117 10^3/uL (134-434); RBC 4.02 M/mm3 (4.00-5.60); RDW 14.4 % (11.9-15.9); WHITE BLOOD COUNT 3.3 K/mm3 (4.0-10.0)
[2022-01-19] MEDS: ENOXAPARIN NA (PORCINE) 60 MG/0.6 ML DISP.SYRIN SQ SCH ×2 (10:49→21:34)
[2022-01-19] MEDS: ASPIRIN COATED 81 MG TABLET.EC PO SCH (10:50)
[2022-01-19] MEDS: SACUBITRIL/VALSARTAN 24 MG-26 MG TABLET PO SCH ×2 (10:50→21:35)
[2022-01-19] MEDS: PANTOPRAZOLE 20 MG TABLET PO SCH (10:50)
[2022-01-19] MEDS: MULTIVITAMINS (DAILY MVI) TABLET (FP) PO SCH (10:50)
[2022-01-19] MEDS ORDERED: WARFARIN NA 10 MG TABLET PO ONE ×2 (13:03→18:00)
[2022-01-19] MEDS ORDERED: WARFARIN NA 5 MG TABLET PO ONE (18:15)
[2022-01-19] MEDS: ARIPiprazole 5 MG TABLET PO SCH (21:35)
[2022-01-19] MEDS: ATORVASTATIN CA 10 MG TABLET (FP) PO SCH (21:36)
[2022-01-19] MEDS: traZODone HCL 50 MG TABLET (FP) PO SCH (21:36)
[2022-01-20 09:09] LABS: INR 2.56 (0.83-1.09); PROTHROMBIN TIME (PATIENT) 29.7 SEC (9.7-13.0)
[2022-01-20] MEDS: SACUBITRIL/VALSARTAN 24 MG-26 MG TABLET PO SCH ×2 (09:18→21:21)
[2022-01-20] MEDS: ENOXAPARIN NA (PORCINE) 60 MG/0.6 ML DISP.SYRIN SQ SCH ×2 (09:18→21:21)
[2022-01-20] MEDS: TAMSULOSIN HCL 0.4 MG CAP PO SCH (09:18)
[2022-01-20 09:19] LABS: BASO % 0.2 % (0-2.0); EOS % 2.8 % (0-4.5); HEMATOCRIT 38.9 % (35.4-49); HEMOGLOBIN 12.5 GM/dL (11.7-16.9); MCH 28.9 pg (25.7-33.7); MCHC 32.2 g/dl (32.0-35.9); MEAN CELL VOLUME 89.7 fl (80-96); MEAN PLT VOLUME 9.1 fl (7.5-11.1); MONO % 9.2 % (3.8-10.2); NEUT % 56.8 % (42.8-82.8); PLATELET COUNT 114 10^3/uL (134-434); RBC 4.33 M/mm3 (4.00-5.60); RDW 14.7 % (11.9-15.9); WHITE BLOOD COUNT 3.5 K/mm3 (4.0-10.0)
[2022-01-20] MEDS: PANTOPRAZOLE 20 MG TABLET PO SCH (09:19)
[2022-01-20] MEDS: ASPIRIN COATED 81 MG TABLET.EC PO SCH (09:19)
[2022-01-20] MEDS: MULTIVITAMINS (DAILY MVI) TABLET (FP) PO SCH (09:19)
[2022-01-20 09:22] LABS: CALCIUM 9.1 mg/dL (8.5-10.1)
[2022-01-20 09:23] LABS: BLOOD UREA NITROGEN 22.4 mg/dL (7-18)
[2022-01-20 09:26] LABS: PHOSPHOROUS 3.1 mg/dL (2.5-4.9)
[2022-01-20] MEDS: ARIPiprazole 5 MG TABLET PO SCH (21:20)
[2022-01-20] MEDS: ATORVASTATIN CA 10 MG TABLET (FP) PO SCH (21:21)
[2022-01-20] MEDS: traZODone HCL 50 MG TABLET (FP) PO SCH (21:21)
[2022-01-21 09:06] LABS: INR 2.16 (0.83-1.09)
[2022-01-21] MEDS: MULTIVITAMINS (DAILY MVI) TABLET (FP) PO SCH (10:21)
[2022-01-21] MEDS: TAMSULOSIN HCL 0.4 MG CAP PO SCH (10:21)
[2022-01-21] MEDS: ENOXAPARIN NA (PORCINE) 60 MG/0.6 ML DISP.SYRIN SQ SCH ×2 (10:21→22:47)
[2022-01-21] MEDS: PANTOPRAZOLE 20 MG TABLET PO SCH (10:21)
[2022-01-21] MEDS: ASPIRIN COATED 81 MG TABLET.EC PO SCH (10:22)
[2022-01-21] MEDS: SACUBITRIL/VALSARTAN 24 MG-26 MG TABLET PO SCH ×2 (10:22→22:46)
[2022-01-21] MEDS: ARIPiprazole 5 MG TABLET PO SCH (22:46)
[2022-01-21] MEDS: ATORVASTATIN CA 10 MG TABLET (FP) PO SCH (22:46)
[2022-01-21] MEDS: traZODone HCL 50 MG TABLET (FP) PO SCH (22:46)
[2022-01-22] MEDS ORDERED: WARFARIN NA 10 MG TABLET PO ONE ×2 (08:01→11:15)
[2022-01-22] MEDS: TAMSULOSIN HCL 0.4 MG CAP PO SCH (08:29)
[2022-01-22] MEDS: ASPIRIN COATED 81 MG TABLET.EC PO SCH (09:50)
[2022-01-22] MEDS: ENOXAPARIN NA (PORCINE) 60 MG/0.6 ML DISP.SYRIN SQ SCH ×2 (09:50→22:00)
[2022-01-22] MEDS: MULTIVITAMINS (DAILY MVI) TABLET (FP) PO SCH (09:50)
[2022-01-22] MEDS: PANTOPRAZOLE 20 MG TABLET PO SCH (09:50)
[2022-01-22] MEDS: SACUBITRIL/VALSARTAN 24 MG-26 MG TABLET PO SCH ×3 (09:51→22:00)
[2022-01-22 10:24] LABS: BASO % 0.2 % (0-2.0); EOS % 2.7 % (0-4.5); HEMATOCRIT 37.9 % (35.4-49); HEMOGLOBIN 12.1 GM/dL (11.7-16.9); LYMPH % 27.5 % (8-40); MCH 28.7 pg (25.7-33.7); MCHC 31.8 g/dl (32.0-35.9); MEAN CELL VOLUME 90.1 fl (80-96); MEAN PLT VOLUME 9.5 fl (7.5-11.1); MONO % 10.5 % (3.8-10.2); NEUT % 59.1 % (42.8-82.8); PLATELET COUNT 126 10^3/uL (134-434); RBC 4.21 M/mm3 (4.00-5.60); RDW 14.5 % (11.9-15.9); WHITE BLOOD COUNT 3.4 K/mm3 (4.0-10.0)
[2022-01-22 10:36] LABS: INR 1.72 (0.83-1.09); PROTHROMBIN TIME (PATIENT) 19.9 SEC (9.7-13.0)
[2022-01-22 10:42] LABS: CALCIUM 8.9 mg/dL (8.5-10.1)
[2022-01-22 10:43] LABS: BLOOD UREA NITROGEN 26.8 mg/dL (7-18)
[2022-01-22 10:46] LABS: CREATININE 1.2 mg/dL (0.55-1.3); PHOSPHOROUS 3.3 mg/dL (2.5-4.9)
[2022-01-22] MEDS ORDERED: WARFARIN NA 5 MG TABLET PO ONE (13:00)
[2022-01-22] MEDS: ARIPiprazole 5 MG TABLET PO SCH (21:59)
[2022-01-22] MEDS: traZODone HCL 50 MG TABLET (FP) PO SCH (22:00)
[2022-01-22] MEDS: ATORVASTATIN CA 10 MG TABLET (FP) PO SCH (22:00)
[2022-01-23] MEDS: TAMSULOSIN HCL 0.4 MG CAP PO SCH (08:30)
[2022-01-23 09:05] LABS: INR 1.62 (0.83-1.09); PROTHROMBIN TIME (PATIENT) 18.7 SEC (9.7-13.0)
[2022-01-23 09:12] LABS: BASO % 0.1 % (0-2.0); BLOOD UREA NITROGEN 26.7 mg/dL (7-18); EOS % 1.5 % (0-4.5); HEMOGLOBIN 10.5 GM/dL (11.7-16.9); LYMPH % 18.4 % (8-40); MCH 29.1 pg (25.7-33.7); MCHC 32.9 g/dl (32.0-35.9); MEAN CELL VOLUME 88.5 fl (80-96); MEAN PLT VOLUME 8.6 fl (7.5-11.1); MONO % 8.8 % (3.8-10.2); NEUT % 71.2 % (42.8-82.8); PLATELET COUNT 117 10^3/uL (134-434); RBC 3.62 M/mm3 (4.00-5.60); RDW 14.2 % (11.9-15.9); WHITE BLOOD COUNT 4.2 K/mm3 (4.0-10.0)
[2022-01-23 09:13] LABS: MAGNESIUM 1.9 mg/dL (1.8-2.4)
[2022-01-23 09:15] LABS: PHOSPHOROUS 3.6 mg/dL (2.5-4.9)
[2022-01-23] MEDS ORDERED: WARFARIN NA 10 MG TABLET PO ONE (09:50)
[2022-01-23] MEDS: SACUBITRIL/VALSARTAN 24 MG-26 MG TABLET PO SCH ×2 (10:18→22:42)
[2022-01-23] MEDS: ENOXAPARIN NA (PORCINE) 60 MG/0.6 ML DISP.SYRIN SQ SCH ×2 (10:34→22:43)
[2022-01-23] MEDS: ASPIRIN COATED 81 MG TABLET.EC PO SCH (10:34)
[2022-01-23] MEDS: MULTIVITAMINS (DAILY MVI) TABLET (FP) PO SCH (10:34)
[2022-01-23] MEDS: PANTOPRAZOLE 20 MG TABLET PO SCH (10:34)
[2022-01-23] MEDS ORDERED: WARFARIN NA 5 MG TABLET PO ONE ×2 (12:00→18:00)
[2022-01-23] MEDS ORDERED: ALPRAZolam 0.25 MG TABLET PO PRN (14:17)
[2022-01-23] MEDS ORDERED: WARFARIN NA 10 MG TABLET PO SCH (18:00)
[2022-01-23] MEDS: ATORVASTATIN CA 10 MG TABLET (FP) PO SCH (22:43)
[2022-01-23] MEDS: ARIPiprazole 5 MG TABLET PO SCH (22:43)
[2022-01-24] MEDS: TAMSULOSIN HCL 0.4 MG CAP PO SCH (08:04)
[2022-01-24 09:01] LABS: HEMATOCRIT 30.3 % (35.4-49); HEMOGLOBIN 9.7 GM/dL (11.7-16.9); MCH 29.2 pg (25.7-33.7); MCHC 32.2 g/dl (32.0-35.9); MEAN CELL VOLUME 90.9 fl (80-96); MEAN PLT VOLUME 9.3 fl (7.5-11.1); PLATELET COUNT 122 10^3/uL (134-434); RBC 3.33 M/mm3 (4.00-5.60); RDW 14.7 % (11.9-15.9); WHITE BLOOD COUNT 5.3 K/mm3 (4.0-10.0)
[2022-01-24] MEDS: ASPIRIN COATED 81 MG TABLET.EC PO SCH (09:18)
[2022-01-24] MEDS: MULTIVITAMINS (DAILY MVI) TABLET (FP) PO SCH (09:18)
[2022-01-24] MEDS: PANTOPRAZOLE 20 MG TABLET PO SCH (09:18)
[2022-01-24] MEDS: ENOXAPARIN NA (PORCINE) 60 MG/0.6 ML DISP.SYRIN SQ SCH ×2 (09:19→22:32)
[2022-01-24] MEDS: SACUBITRIL/VALSARTAN 24 MG-26 MG TABLET PO SCH ×2 (09:19→22:32)
[2022-01-24 09:24] LABS: CALCIUM 9.1 mg/dL (8.5-10.1)
[2022-01-24 09:25] LABS: BLOOD UREA NITROGEN 24.9 mg/dL (7-18); MAGNESIUM 1.9 mg/dL (1.8-2.4)
[2022-01-24 09:28] LABS: PHOSPHOROUS 3.3 mg/dL (2.5-4.9)
[2022-01-24 09:48] LABS: INR 2.19 (0.83-1.09); PROTHROMBIN TIME (PATIENT) 25.4 SEC (9.7-13.0)
[2022-01-24 15:52] VITALS: BMI 20.3
[2022-01-24] MEDS ORDERED: WARFARIN NA 5 MG TABLET PO SCH ×2 (18:00)
[2022-01-24] MEDS: ARIPiprazole 5 MG TABLET PO SCH (22:28)
[2022-01-24] MEDS: ATORVASTATIN CA 10 MG TABLET (FP) PO SCH (22:32)
[2022-01-25 09:11] LABS: BASO % 0.2 % (0-2.0); EOS % 0.6 % (0-4.5); HEMATOCRIT 23.9 % (35.4-49); HEMOGLOBIN 7.7 GM/dL (11.7-16.9); LYMPH % 16.1 % (8-40); MCHC 32.3 g/dl (32.0-35.9); MEAN CELL VOLUME 89.6 fl (80-96); MEAN PLT VOLUME 9.6 fl (7.5-11.1); MONO % 9.8 % (3.8-10.2); NEUT % 73.3 % (42.8-82.8); PLATELET COUNT 117 10^3/uL (134-434); RBC 2.67 M/mm3 (4.00-5.60); RDW 14.3 % (11.9-15.9); WHITE BLOOD COUNT 5.5 K/mm3 (4.0-10.0)
[2022-01-25 09:16] LABS: INR 2.87 (0.83-1.09); PROTHROMBIN TIME (PATIENT) 33.4 SEC (9.7-13.0)
[2022-01-25] MEDS: ENOXAPARIN NA (PORCINE) 60 MG/0.6 ML DISP.SYRIN SQ SCH ×2 (09:39→21:15)
[2022-01-25] MEDS: MULTIVITAMINS (DAILY MVI) TABLET (FP) PO SCH (09:39)
[2022-01-25] MEDS: PANTOPRAZOLE 20 MG TABLET PO SCH (09:39)
[2022-01-25] MEDS: TAMSULOSIN HCL 0.4 MG CAP PO SCH (09:39)
[2022-01-25] MEDS: SACUBITRIL/VALSARTAN 24 MG-26 MG TABLET PO SCH ×2 (09:39→21:11)
[2022-01-25] MEDS: ASPIRIN COATED 81 MG TABLET.EC PO SCH (09:39)
[2022-01-25 09:58] LABS: CALCIUM 8.8 mg/dL (8.5-10.1)
[2022-01-25 09:59] LABS: BLOOD UREA NITROGEN 24.8 mg/dL (7-18)
[2022-01-25 10:01] LABS: CREATININE 0.9 mg/dL (0.55-1.3)
[2022-01-25 10:02] LABS: BILIRUBIN,TOTAL 0.6 mg/dL (0.2-1)
[2022-01-25 10:03] LABS: PHOSPHOROUS 3.5 mg/dL (2.5-4.9); TOT PROT 5.6 g/dl (6.4-8.2)
[2022-01-25] MEDS ORDERED: WARFARIN NA 5 MG TABLET PO SCH (10:07)
[2022-01-25] MEDS: ATORVASTATIN CA 10 MG TABLET (FP) PO SCH (21:14)
[2022-01-25] MEDS: ARIPiprazole 5 MG TABLET PO SCH (21:14)
[2022-01-25 22:01] VITALS: RESP 18
[2022-01-26 09:17] VITALS: TEMP 98.9
[2022-01-26] MEDS: MULTIVITAMINS (DAILY MVI) TABLET (FP) PO SCH (09:17)
[2022-01-26] MEDS: ENOXAPARIN NA (PORCINE) 60 MG/0.6 ML DISP.SYRIN SQ SCH (09:18)
[2022-01-26] MEDS: TAMSULOSIN HCL 0.4 MG CAP PO SCH (09:18)
[2022-01-26] MEDS: PANTOPRAZOLE 20 MG TABLET PO SCH (09:18)
[2022-01-26] MEDS: ASPIRIN COATED 81 MG TABLET.EC PO SCH (09:18)
[2022-01-26] MEDS: SACUBITRIL/VALSARTAN 24 MG-26 MG TABLET PO SCH (09:20)
[2022-01-26 13:51] LABS: BASO % 0.2 % (0-2.0); EOS % 0.6 % (0-4.5); HEMATOCRIT 23.5 % (35.4-49); HEMOGLOBIN 7.7 GM/dL (11.7-16.9); LYMPH % 11.1 % (8-40); MCHC 32.7 g/dl (32.0-35.9); MEAN CELL VOLUME 88.9 fl (80-96); MEAN PLT VOLUME 9.6 fl (7.5-11.1); MONO % 9.4 % (3.8-10.2); NEUT % 78.7 % (42.8-82.8); PLATELET COUNT 154 10^3/uL (134-434); RBC 2.64 M/mm3 (4.00-5.60); RDW 14.4 % (11.9-15.9); WHITE BLOOD COUNT 6.5 K/mm3 (4.0-10.0)
[2022-01-26 13:54] LABS: INR 3.49 (0.83-1.09); PROTHROMBIN TIME (PATIENT) 40.6 SEC (9.7-13.0)
[2022-01-26 14:17] LABS: CALCIUM 9.1 mg/dL (8.5-10.1)
[2022-01-26 14:18] LABS: BLOOD UREA NITROGEN 30.3 mg/dL (7-18); MAGNESIUM 2.2 mg/dL (1.8-2.4)
[2022-01-26 14:21] LABS: CREATININE 1.1 mg/dL (0.55-1.3); PHOSPHOROUS 3.7 mg/dL (2.5-4.9)
[2022-01-26 14:49] VITALS: BP 105/58; PULSE 95
[2022-01-26] MEDS ORDERED: WARFARIN NA 5 MG TABLET PO SCH (18:00)
== END 2022-01-26 17:46 | DRG 312 ==
LOC: JER 10:01 → JERBED 16:28 → J8W 22:49
PROVIDERS: ADMIT Internal Medicine
DX: R55 Syncope and collapse (principal); F84.0 Autistic disorder; I50.42 Chronic combined systolic (congestive) and diastolic (congestive) heart failure; N40.0 Benign prostatic hyperplasia without lower urinary tract symptoms; I11.0 Hypertensive heart disease with heart failure; I48.91 Unspecified atrial fibrillation; I10 Essential (primary) hypertension; E78.5 Hyperlipidemia, unspecified; D69.6 Thrombocytopenia, unspecified; G93.89 Other specified disorders of brain; K21.9 Gastro-esophageal reflux disease without esophagitis; R79.1 Abnormal coagulation profile; N45.2 Orchitis; F41.8 Other specified anxiety disorders; I25.10 Atherosclerotic heart disease of native coronary artery without angina pectoris; D72.829 Elevated white blood cell count, unspecified; Z86.73 Personal history of transient ischemic attack (TIA), and cerebral infarction without residual deficits; Z86.718 Personal history of other venous thrombosis and embolism; Z95.0 Presence of cardiac pacemaker
CPT/HCPCS: 0241U-QW; 36415; 70450-TC; 71046-TC-FY; 80048; 80053; 80061; 81003; 81240; 82272; 82962; 83036; 83605; 83735; 83880; 84100; 84443; 84484; 85025; 85027; 85260; 85610; 85730; 93005; 93010; 93306-TC; 97116-GP; 97161-GP; 99285-25

== ENCOUNTER 2022-02-21 12:31 | Emergency (ER) | payer OTHER ==
[2022-02-21 12:40] VITALS: BMI 20.8
[2022-02-21 14:13] LABS: BASO % 0.5 % (0-2.0); EOS % 1.9 % (0-4.5); HEMOGLOBIN 10.7 GM/dL (11.7-16.9); LYMPH % 24.8 % (8-40); MCHC 31.5 g/dl (32.0-35.9); MEAN CELL VOLUME 95.2 fl (80-96); MEAN PLT VOLUME 8.3 fl (7.5-11.1); MONO % 15.1 % (3.8-10.2); NEUT % 57.7 % (42.8-82.8); PLATELET COUNT 155 10^3/uL (134-434); RBC 3.57 M/mm3 (4.00-5.60); RDW 19.3 % (11.9-15.9)
[2022-02-21 14:32] LABS: CALCIUM 8.7 mg/dL (8.5-10.1)
[2022-02-21 14:33] LABS: ALBUMIN 3.2 g/dl (3.4-5.0); BLOOD UREA NITROGEN 24.2 mg/dL (7-18)
[2022-02-21 14:36] LABS: CREATININE 1.1 mg/dL (0.55-1.3)
[2022-02-21 14:38] LABS: TOT PROT 6.1 g/dl (6.4-8.2)
[2022-02-21 15:02] LABS: BILIRUBIN,TOTAL 0.5 mg/dL (0.2-1)
[2022-02-21 16:14] LABS: INR 3.66 (0.83-1.09); PROTHROMBIN TIME (PATIENT) 42.7 SEC (9.7-13.0)
[2022-02-21 16:17] LABS: ACTIVATED PTT 46.3 SECONDS (25.2-36.5)
[2022-02-21 17:07] VITALS: BP 98/57; PULSE 77; RESP 16; TEMP 98.3
[2022-02-21 17:52] LABS: PH,URINE 5.5 (5.0-8.0); URINE APPEARANCE CLEAR; URINE BILIRUBIN NEGATIVE (NEGATIVE); URINE COLOR YELLOW; URINE GLUCOSE (UA) 3+ (NEGATIVE); URINE KETONE NEGATIVE (NEGATIVE); URINE LEUK ESTERASE NEGATIVE (NEGATIVE); URINE NITRITE NEGATIVE (NEGATIVE); URINE PROTEIN NEGATIVE (NEGATIVE); URINE UROBILINOGEN 0.2 mg/dL (0.2-1.0)
== END 2022-02-21 18:23 | disposition home or self-care (01) ==
LOC: JER 12:31 → UNDOADMOB 16:28 → JERBED 16:28 → JER 18:23
DX: S00.03XA Contusion of scalp, initial encounter (principal); W19.XXXA Unspecified fall, initial encounter; Y92.9 Unspecified place or not applicable
CPT/HCPCS: 36415; 70450-TC; 72125-TC; 80053; 81003; 84484; 85025; 85610; 85730; 87086; 93005; 93010; 99284-25; C9803-CS; U0003; U0005

== ENCOUNTER 2022-03-26 10:14 | Observation (INO) | payer OTHER ==
[2022-03-26 10:29] VITALS: BMI 20.3
[2022-03-26 11:35] LABS: BASO % 0.3 % (0-2.0); EOS % 1.6 % (0-4.5); HEMATOCRIT 37.5 % (35.4-49); HEMOGLOBIN 11.7 GM/dL (11.7-16.9); LYMPH % 18.3 % (8-40); MCH 29.3 pg (25.7-33.7); MCHC 31.3 g/dl (32.0-35.9); MEAN CELL VOLUME 93.8 fl (80-96); MEAN PLT VOLUME 8.9 fl (7.5-11.1); NEUT % 68.8 % (42.8-82.8); PLATELET COUNT 143 10^3/uL (134-434); RDW 15.6 % (11.9-15.9); WHITE BLOOD COUNT 2.7 K/mm3 (4.0-10.0)
[2022-03-26 11:45] LABS: INR 2.52 (0.83-1.09); PROTHROMBIN TIME (PATIENT) 29.2 SEC (9.7-13.0)
[2022-03-26 11:48] LABS: ACTIVATED PTT 23.8 SECONDS (25.2-36.5)
[2022-03-26 11:57] LABS: CALCIUM 8.9 mg/dL (8.5-10.1)
[2022-03-26 11:58] LABS: ALBUMIN 3.2 g/dl (3.4-5.0); BLOOD UREA NITROGEN 29.3 mg/dL (7-18)
[2022-03-26 12:01] LABS: CREATININE 1.3 mg/dL (0.55-1.3); PHOSPHOROUS 3.2 mg/dL (2.5-4.9)
[2022-03-26 12:02] LABS: TOT PROT 6.1 g/dl (6.4-8.2)
[2022-03-26 12:03] LABS: BILIRUBIN,TOTAL 0.3 mg/dL (0.2-1)
[2022-03-26] MEDS ORDERED: SODIUM CHLORIDE 250 ML IV STA (16:06)
[2022-03-26] MEDS ORDERED: WARFARIN NA 5 MG TABLET PO SCH (19:00)
[2022-03-26] MEDS ORDERED: ARIPiprazole 5 MG TABLET ONE (22:28)
[2022-03-26] MEDS: ARIPiprazole 10 MG TABLET PO SCH (22:42)
[2022-03-26] MEDS: ATORVASTATIN CA 10 MG TABLET (FP) PO SCH (22:42)
[2022-03-26] MEDS: SACUBITRIL/VALSARTAN 24 MG-26 MG TABLET PO SCH (22:42)
[2022-03-27 08:57] LABS: HEMATOCRIT 38.1 % (35.4-49); MCH 29.2 pg (25.7-33.7); MCHC 31.4 g/dl (32.0-35.9); MEAN CELL VOLUME 92.8 fl (80-96); MEAN PLT VOLUME 8.3 fl (7.5-11.1); PLATELET COUNT 146 10^3/uL (134-434); RDW 15.3 % (11.9-15.9); WHITE BLOOD COUNT 2.8 K/mm3 (4.0-10.0)
[2022-03-27 08:59] LABS: INR 2.87 (0.83-1.09); PROTHROMBIN TIME (PATIENT) 33.4 SEC (9.7-13.0)
[2022-03-27] MEDS: PANTOPRAZOLE 20 MG TABLET PO SCH (09:17)
[2022-03-27] MEDS: ASPIRIN COATED 81 MG TABLET.EC PO SCH (09:17)
[2022-03-27] MEDS: SACUBITRIL/VALSARTAN 24 MG-26 MG TABLET PO SCH ×2 (09:17→22:00)
[2022-03-27 09:18] LABS: CALCIUM 9.1 mg/dL (8.5-10.1)
[2022-03-27 09:19] LABS: BLOOD UREA NITROGEN 25.7 mg/dL (7-18); MAGNESIUM 1.7 mg/dL (1.8-2.4)
[2022-03-27 09:22] LABS: CREATININE 1.1 mg/dL (0.55-1.3); PHOSPHOROUS 2.9 mg/dL (2.5-4.9)
[2022-03-27] MEDS ORDERED: FARXIGA 10 MG PO SCH (10:00)
[2022-03-27] MEDS ORDERED: MAGNESIUM SULFATE IN WATER 2 GM/50 ML IVPB IVPB ONE (14:11)
[2022-03-27] MEDS ORDERED: CARVEDILOL 3.125 MG TABLET (FP) PO ONE ×2 (14:19→16:45)
[2022-03-27 15:41] LABS: PH,URINE 5.5 (5.0-8.0); URINE APPEARANCE CLEAR; URINE BILIRUBIN NEGATIVE (NEGATIVE); URINE COLOR YELLOW; URINE GLUCOSE (UA) 2+ (NEGATIVE); URINE KETONE NEGATIVE (NEGATIVE); URINE LEUK ESTERASE NEGATIVE (NEGATIVE); URINE NITRITE NEGATIVE (NEGATIVE); URINE PROTEIN NEGATIVE (NEGATIVE)
[2022-03-27] MEDS: MIDODRINE HCL 2.5 MG TABLET PO SCH (17:13)
[2022-03-27] MEDS ORDERED: WARFARIN NA 5 MG TABLET PO SCH (18:00)
[2022-03-27] MEDS: CARVEDILOL 3.125 MG TABLET (FP) PO SCH (22:00)
[2022-03-27] MEDS: ARIPiprazole 10 MG TABLET PO SCH (22:00)
[2022-03-27] MEDS: ATORVASTATIN CA 10 MG TABLET (FP) PO SCH (22:00)
[2022-03-28 07:48] LABS: BASO % 0.2 % (0-2.0); EOS % 4.1 % (0-4.5); HEMATOCRIT 38.2 % (35.4-49); HEMOGLOBIN 12.1 GM/dL (11.7-16.9); LYMPH % 26.6 % (8-40); MCH 29.6 pg (25.7-33.7); MCHC 31.7 g/dl (32.0-35.9); MEAN CELL VOLUME 93.3 fl (80-96); MEAN PLT VOLUME 8.7 fl (7.5-11.1); MONO % 10.6 % (3.8-10.2); NEUT % 58.5 % (42.8-82.8); PLATELET COUNT 138 10^3/uL (134-434); RDW 15.4 % (11.9-15.9); WHITE BLOOD COUNT 2.7 K/mm3 (4.0-10.0)
[2022-03-28] MEDS: CARVEDILOL 3.125 MG TABLET (FP) PO SCH (10:25)
[2022-03-28] MEDS: MIDODRINE HCL 2.5 MG TABLET PO SCH ×2 (10:25→19:32)
[2022-03-28] MEDS: ASPIRIN COATED 81 MG TABLET.EC PO SCH (10:25)
[2022-03-28] MEDS: PANTOPRAZOLE 20 MG TABLET PO SCH (10:26)
[2022-03-28] MEDS: SACUBITRIL/VALSARTAN 24 MG-26 MG TABLET PO SCH (10:27)
[2022-03-28 12:20] LABS: INR 2.15 (0.83-1.09); PROTHROMBIN TIME (PATIENT) 24.9 SEC (9.7-13.0)
[2022-03-28 15:32] VITALS: RESP 20
[2022-03-28] MEDS ORDERED: WARFARIN NA 7.5 MG TABLET PO SCH (18:00)
[2022-03-28 18:07] VITALS: BP 97/58; PULSE 60; TEMP 97.6
== END 2022-03-28 18:36 | disposition home health service (06) ==
LOC: JER 10:14 → JERBED 14:00 → J4W 22:05
PROVIDERS: ADMIT Internal Medicine; ATTEND Internal Medicine
PROC: 3E033GC Introduction of Other Therapeutic Substance into Peripheral Vein, Percutaneous Approach (ICD-10-PCS; principal; 2022-03-26)
PROC: 3E0337Z Introduction of Electrolytic and Water Balance Substance into Peripheral Vein, Percutaneous Approach (ICD-10-PCS; 2022-03-26)
DX: I11.0 Hypertensive heart disease with heart failure (principal); I48.91 Unspecified atrial fibrillation; I38 Endocarditis, valve unspecified; F84.0 Autistic disorder; N40.0 Benign prostatic hyperplasia without lower urinary tract symptoms; I50.20 Unspecified systolic (congestive) heart failure; R56.9 Unspecified convulsions; K56.609 Unspecified intestinal obstruction, unspecified as to partial versus complete obstruction; Z86.718 Personal history of other venous thrombosis and embolism; R55 Syncope and collapse; Z91.030 Bee allergy status
CPT/HCPCS: 0241U-QW; 36415; 70450-TC; 71045-TC-FY; 80048; 80053; 81003; 82533; 82962; 83735; 84100; 84484; 85025; 85027; 85610; 85730; 93005; 93010; 96361; 96365; 97116-GP; 97161-GP; 99285-25; G0378

== ENCOUNTER 2022-05-28 10:03 | Observation (INO) | payer OTHER ==
[2022-05-28 10:27] VITALS: BMI 20.3
[2022-05-28] MEDS ORDERED: MIDODRINE HCL 5 MG TABLET PO ONE (12:03)
[2022-05-28] MEDS ORDERED: SODIUM CHLORIDE 0.9% 500 ML INFUS.BAG IV ONE (13:31)
[2022-05-28 14:29] LABS: BASO % 0.2 % (0-2.0); EOS % 1.2 % (0-4.5); HEMATOCRIT 36.6 % (35.4-49); HEMOGLOBIN 11.5 GM/dL (11.7-16.9); LYMPH % 21.6 % (8-40); MCH 27.3 pg (25.7-33.7); MCHC 31.3 g/dl (32.0-35.9); MEAN CELL VOLUME 87.3 fl (80-96); MEAN PLT VOLUME 8.8 fl (7.5-11.1); MONO % 12.1 % (3.8-10.2); NEUT % 64.9 % (42.8-82.8); PLATELET COUNT 123 10^3/uL (134-434); RDW 14.6 % (11.9-15.9); WHITE BLOOD COUNT 3.1 K/mm3 (4.0-10.0)
[2022-05-28 14:35] LABS: INR 3.04 (0.83-1.09); PROTHROMBIN TIME (PATIENT) 35.4 SEC (9.7-13.0)
[2022-05-28 14:37] LABS: ACTIVATED PTT 41.5 SECONDS (25.2-36.5)
[2022-05-28 14:59] LABS: ALBUMIN 3.2 g/dl (3.4-5.0); BLOOD UREA NITROGEN 25.5 mg/dL (7-18); CALCIUM 8.9 mg/dL (8.5-10.1)
[2022-05-28 15:02] LABS: CREATININE 1.3 mg/dL (0.55-1.3)
[2022-05-28 15:04] LABS: TOT PROT 5.8 g/dl (6.4-8.2)
[2022-05-28 16:12] LABS: BILIRUBIN,TOTAL 0.2 mg/dL (0.2-1)
[2022-05-28] MEDS: MIDODRINE HCL 5 MG TABLET PO SCH ×2 (20:03→20:14)
[2022-05-29 01:23] VITALS: PULSE 60; TEMP 98.1
[2022-05-29] MEDS: MIDODRINE HCL 5 MG TABLET PO SCH (08:35)
[2022-05-29 09:02] LABS: INR 3.04 (0.83-1.09); PROTHROMBIN TIME (PATIENT) 35.3 SEC (9.7-13.0)
[2022-05-29 09:08] LABS: BASO % 0.3 % (0-2.0); EOS % 1.4 % (0-4.5); HEMATOCRIT 38.2 % (35.4-49); LYMPH % 31.3 % (8-40); MCH 27.1 pg (25.7-33.7); MCHC 31.3 g/dl (32.0-35.9); MEAN CELL VOLUME 86.7 fl (80-96); MEAN PLT VOLUME 9.3 fl (7.5-11.1); MONO % 11.5 % (3.8-10.2); NEUT % 55.5 % (42.8-82.8); PLATELET COUNT 122 10^3/uL (134-434); RBC 4.41 M/mm3 (4.00-5.60); RDW 14.6 % (11.9-15.9); WHITE BLOOD COUNT 3.3 K/mm3 (4.0-10.0)
[2022-05-29 09:15] LABS: BLOOD UREA NITROGEN 25.8 mg/dL (7-18)
[2022-05-29 09:19] LABS: CREATININE 1.2 mg/dL (0.55-1.3); PHOSPHOROUS 3.3 mg/dL (2.5-4.9)
[2022-05-29] MEDS ORDERED: FINASTERIDE 5 MG TABLET (FP) PO SCH (10:00)
[2022-05-29] MEDS ORDERED: PATIENT'S OWN MEDICATION (NON-FORMULARY) (Dapagliflozin Propanediol 10 MG Tablet) PO SCH (10:00)
[2022-05-29] MEDS ORDERED: CARVEDILOL 3.125 MG TABLET (FP) PO SCH (11:45)
[2022-05-29] MEDS ORDERED: SACUBITRIL/VALSARTAN 24 MG-26 MG TABLET PO SCH (11:45)
[2022-05-29 12:22] VITALS: RESP 20
[2022-05-29] MEDS ORDERED: CARVEDILOL 3.125 MG TABLET (FP) ONE (12:22)
[2022-05-29] MEDS ORDERED: cefTRIAXone SODIUM 1 GM VIAL ONE (12:23)
[2022-05-29 14:01] VITALS: BP 107/62
[2022-05-29] MEDS ORDERED: WARFARIN NA 10 MG TABLET PO SCH (18:00)
[2022-05-29] MEDS ORDERED: ATORVASTATIN CA 10 MG TABLET (FP) PO SCH (22:00)
[2022-05-29] MEDS ORDERED: ARIPiprazole 10 MG TABLET PO SCH (22:00)
[2022-05-29] MEDS ORDERED: TAMSULOSIN HCL 0.4 MG CAP PO SCH (22:00)
== END 2022-05-29 14:40 ==
LOC: JER 10:03 → JERBED 16:27 → INTOOBSV 16:27 → UNDOADMOB 16:27 → JERBED 17:02 → UNDODISOB 05-29 14:40
PROVIDERS: ADMIT Internal Medicine; ATTEND Internal Medicine
PROC: 3E0337Z Introduction of Electrolytic and Water Balance Substance into Peripheral Vein, Percutaneous Approach (ICD-10-PCS; principal; 2022-05-28)
DX: S09.90XA Unspecified injury of head, initial encounter (principal); Z79.01 Long term (current) use of anticoagulants; I11.0 Hypertensive heart disease with heart failure; I50.30 Unspecified diastolic (congestive) heart failure; I25.10 Atherosclerotic heart disease of native coronary artery without angina pectoris; F84.0 Autistic disorder; Z95.2 Presence of prosthetic heart valve; Z29.8 Encounter for other specified prophylactic measures; Z91.030 Bee allergy status; W18.39XA Other fall on same level, initial encounter; Y93.89 Activity, other specified; Y92.89 Other specified places as the place of occurrence of the external cause
CPT/HCPCS: 0241U-QW; 36415; 70450-TC; 71045-TC-FY; 72125-TC; 80048; 80053; 83605; 83735; 84100; 84484; 85025; 85610; 85730; 87040; 93005; 93010; 96360; 99285-25; G0378

== ENCOUNTER 2023-09-07 08:05 | Inpatient (IN) | payer OTHER ==
[2023-09-07] MEDS ORDERED: NALOXONE HCL 0.4 MG/ML VIAL ONE (08:23)
[2023-09-07] MEDS ORDERED: RAPID SEQUENCE INTUBATION KIT NR ONE (08:45)
[2023-09-07] MEDS ORDERED: ROCURONIUM BROMIDE 50 MG/5 ML SYRINGE ONE (09:03)
[2023-09-07] MEDS ORDERED: KETAMINE HCL 200 MG/20 ML VIAL ONE (09:18)
[2023-09-07 09:31] LABS: PH,URINE 5.5 (5.0-8.0); URINE APPEARANCE CLEAR; URINE BILIRUBIN NEGATIVE (NEGATIVE); URINE COLOR YELLOW; URINE GLUCOSE (UA) 3+ (NEGATIVE); URINE KETONE NEGATIVE (NEGATIVE); URINE LEUK ESTERASE NEGATIVE (NEGATIVE); URINE NITRITE NEGATIVE (NEGATIVE); URINE PROTEIN NEGATIVE (NEGATIVE); URINE UROBILINOGEN 0.2 mg/dL (0.2-1.0)
[2023-09-07 09:41] LABS: INR 2.36 (0.83-1.09); PROTHROMBIN TIME (PATIENT) 27.1 SEC (9.7-13.0)
[2023-09-07] MEDS ORDERED: MIDAZOLAM IN 0.9 % SOD.CHLORID 1 MG/1 ML PLAST..BAG ONE (09:58)
[2023-09-07 10:15] LABS: N-TERMINAL BNP 5452.7 pg/ml (5-125)
[2023-09-07] MEDS: MIDAZOLAM IN 0.9 % SOD.CHLORID 100 MG/100 ML PLAST..BAG IVPB SCH (10:16)
[2023-09-07 10:27] LABS: VENOUS BASE EXCESS -1.1 mmol/L (-2-2); VENOUS O2 SATURATION 35.9 % (70-80); VENOUS PCO2 47.5 mmHg (38-52); VENOUS PH 7.339 (7.310-7.410)
[2023-09-07 10:37] LABS: ARTERIAL BLD GAS O2 SATURATION 98.8 % (95-98); ARTERIAL BLOOD GAS BASE EXCESS -6.2 mmol/L (-2-2); ARTERIAL BLOOD GAS PO2 159.2 mmHg (80-100); ARTERIAL BLOOD GAS pH 7.272 (7.350-7.450)
[2023-09-07] MEDS: FENTANYL NS IVPB 500 MCG/100 ML BAG IVPB SCH (10:38)
[2023-09-07 10:40] LABS: ALLENS TEST POSITIVE
[2023-09-07 10:48] LABS: ACTIVATED PTT 38.2 SECONDS (25.2-36.5)
[2023-09-07] MEDS ORDERED: methylPREDNISolone NA SUCC 40 MG/1 ML VIAL ONE (10:53)
[2023-09-07 10:57] LABS: POTASSIUM 4.5 mmol/L (3.5-5.1)
[2023-09-07 10:59] LABS: CALCIUM 9.3 mg/dL (8.5-10.1)
[2023-09-07 11:00] LABS: ALBUMIN 3.2 g/dl (3.4-5.0)
[2023-09-07 11:01] LABS: BLOOD UREA NITROGEN 26.5 mg/dL (7-18)
[2023-09-07 11:03] LABS: CREATININE 1.2 mg/dL (0.55-1.3)
[2023-09-07 11:04] LABS: TOT PROT 6.5 g/dl (6.4-8.2)
[2023-09-07 11:06] LABS: BILIRUBIN,TOTAL 0.5 mg/dL (0.2-1)
[2023-09-07 11:11] LABS: HEMATOCRIT 39.4 % (35.4-49); HEMOGLOBIN 12.3 GM/dL (11.7-16.9); MCH 27.1 pg (25.7-33.7); MCHC 31.2 g/dl (32.0-35.9); MEAN CELL VOLUME 86.6 fl (80-96); MEAN PLT VOLUME 8.9 fl (7.5-11.1); PLATELET COUNT 141 10^3/uL (134-434); RBC 4.55 M/mm3 (4.00-5.60); RDW 16.3 % (11.9-15.9)
[2023-09-07 11:41] LABS: ANISOCYTOSIS 0; MACROCYTOSIS 0
[2023-09-07 12:10] VITALS: PULSE 60
[2023-09-07] MEDS: SODIUM CHLORIDE 1,000 ML IV SCH (12:42)
[2023-09-07] MEDS: ENOXAPARIN NA (PORCINE) 40 MG/0.4 ML DISP.SYRIN SQ SCH (12:44)
[2023-09-07] MEDS ORDERED: PIPERACILLIN/TAZOB 3.375 GM 3.375 GM in DEXTROSE 5%-WATER - 50 ML IVPB SCH (12:45)
[2023-09-07] MEDS: VANCOMYCIN/WATER FOR INJ (PEG) 1,000 MG/200 ML BAG IVPB ONE (14:11)
[2023-09-07] MEDS: MUPIROCIN 2% TOPICAL OINTMENT FOR DECOLONIZATION NS SCH (14:12)
[2023-09-07 16:28] VITALS: BMI 22.6
[2023-09-07] MEDS: PIPERACILLIN/TAZOB 3.375 GM 3.375 GM in DEXTROSE 5%-WATER - 50 ML IVPB SCH (17:21)
[2023-09-07] MEDS: LACTATED RINGERS SOLUTION 1000 ML INFUS.BAG IV ONE (19:08)
[2023-09-07 20:04] VITALS: RESP 18
[2023-09-07 21:21] VITALS: BP 108/64; TEMP 99
[2023-09-07] MEDS ORDERED: CHLORHEXIDINE GLUCONATE 4% CLEANSER FOR DECOLONIZATION TP SCH (22:00)
[2023-09-08] MEDS ORDERED: PANTOPRAZOLE SODIUM 40 MG VIAL IVPUSH SCH (10:00)
== END 2023-09-07 21:19 | disposition short-term general hospital (02) | DRG 68 ==
LOC: JER 08:05 → JERBED 10:04 → JICU 12:24
PROVIDERS: ADMIT Internal Medicine Pulmonary Disease; ATTEND Internal Medicine Pulmonary Disease
PROC: 5A1935Z Respiratory Ventilation, Less than 24 Consecutive Hours (ICD-10-PCS; principal; 2023-09-07)
PROC: 0BH17EZ Insertion of Endotracheal Airway into Trachea, Via Natural or Artificial Opening (ICD-10-PCS; 2023-09-07)
DX: I66.23 Occlusion and stenosis of bilateral posterior cerebral arteries (principal); I50.22 Chronic systolic (congestive) heart failure; F84.0 Autistic disorder; I25.10 Atherosclerotic heart disease of native coronary artery without angina pectoris; I11.0 Hypertensive heart disease with heart failure; E78.5 Hyperlipidemia, unspecified; I48.91 Unspecified atrial fibrillation; N40.0 Benign prostatic hyperplasia without lower urinary tract symptoms; Z95.2 Presence of prosthetic heart valve; R94.31 Abnormal electrocardiogram [ECG] [EKG]; Z86.73 Personal history of transient ischemic attack (TIA), and cerebral infarction without residual deficits; R68.0 Hypothermia, not associated with low environmental temperature
CPT/HCPCS: 0241U-QW; 36415; 36600; 70450-TC; 70496-TC; 71045-TC-FY; 71260-TC; 72125-TC; 74177-TC; 80053; 80061; 81003; 82550; 82553; 82803; 82962; 83036; 83605; 83880; 84439; 84443; 84481; 84484; 85025; 85610; 85730; 86140; 86850; 86900; 86901; 87040; 93005; 93010; 99291; Q9967

== ENCOUNTER 2023-10-17 17:06 | Inpatient (IN) | payer OTHER ==
[2023-10-17] MEDS ORDERED: methylPREDNISolone NA SUCC 125 MG/2 ML VIAL ONE (18:25)
[2023-10-17] MEDS ORDERED: ALBUTEROL SO4 2.5/IPRATROPIUM 0.5 INH SOL 3 ML VIAL.NEB. NEB ONE (18:25)
[2023-10-17] MEDS: ALBUTEROL SO4 2.5/IPRATROPIUM 0.5 INH SOL 3 ML VIAL.NEB. NEB ONE (18:29)
[2023-10-17 18:59] LABS: BASO % 0.1 % (0-2.0); EOS % 0.3 % (0-4.5); HEMATOCRIT 32.7 % (35.4-49); HEMOGLOBIN 10.3 GM/dL (11.7-16.9); LYMPH % 12.7 % (8-40); MCH 26.7 pg (25.7-33.7); MCHC 31.3 g/dl (32.0-35.9); MEAN CELL VOLUME 85.2 fl (80-96); MEAN PLT VOLUME 8.4 fl (7.5-11.1); MONO % 10.8 % (3.8-10.2); NEUT % 76.1 % (42.8-82.8); PLATELET COUNT 166 10^3/uL (134-434); RBC 3.84 M/mm3 (4.00-5.60); RDW 16.9 % (11.9-15.9); WHITE BLOOD COUNT 3.8 K/mm3 (4.0-10.0)
[2023-10-17] MEDS: methylPREDNISolone NA SUCC 125 MG/2 ML VIAL IVPUSH ONE (18:59)
[2023-10-17 19:03] LABS: VENOUS BASE EXCESS -4.9 mmol/L (-2-2); VENOUS O2 SATURATION 18.7 % (70-80); VENOUS PCO2 46.3 mmHg (38-52); VENOUS PH 7.287 (7.310-7.410)
[2023-10-17 19:19] LABS: POTASSIUM 4.8 mmol/L (3.5-5.1)
[2023-10-17 19:21] LABS: ALBUMIN 3.2 g/dl (3.4-5.0); CALCIUM 8.9 mg/dL (8.5-10.1)
[2023-10-17 19:25] LABS: CREATININE 1.5 mg/dL (0.55-1.3)
[2023-10-17 19:26] LABS: BILIRUBIN,TOTAL 0.7 mg/dL (0.2-1); TOT PROT 6.2 g/dl (6.4-8.2)
[2023-10-17] MEDS: SODIUM CHLORIDE 0.9% 500 ML INFUS.BAG IV ONE (19:55)
[2023-10-17 19:57] LABS: N-TERMINAL BNP 23531.8 pg/ml (5-125)
[2023-10-17] MEDS ORDERED: ASPIRIN 81 MG CHEWABLE TABLETS ONE (20:53)
[2023-10-17] MEDS: ASPIRIN 81 MG CHEWABLE TABLETS PO ONE (21:31)
[2023-10-18] MEDS ORDERED: FUROSEMIDE 40 MG/4 ML INJECTABLE VIAL ONE (01:10)
[2023-10-18] MEDS: FUROSEMIDE 100 MG/10 ML INJECTABLE VIAL IVPB ONE (01:17)
[2023-10-18 03:30] LABS: POTASSIUM 4.7 mmol/L (3.5-5.1)
[2023-10-18 03:33] LABS: ALBUMIN 3.2 g/dl (3.4-5.0); MAGNESIUM 1.6 mg/dL (1.8-2.4)
[2023-10-18 03:35] LABS: PHOSPHOROUS 4.3 mg/dL (2.5-4.9)
[2023-10-18 03:36] LABS: CREATININE 1.5 mg/dL (0.55-1.3)
[2023-10-18 03:37] LABS: BILIRUBIN,TOTAL 0.6 mg/dL (0.2-1); TOT PROT 6.4 g/dl (6.4-8.2)
[2023-10-18] MEDS: FUROSEMIDE 100 MG/10 ML INJECTABLE VIAL IVPB SCH (05:43)
[2023-10-18] MEDS: HEPARIN NA (PORCINE) 5,000 UNITS/ML 1ML VIAL SQ SCH (05:43)
[2023-10-18 07:42] LABS: HEMATOCRIT 35.9 % (35.4-49); HEMOGLOBIN 11.1 GM/dL (11.7-16.9); MCH 26.2 pg (25.7-33.7); MEAN CELL VOLUME 84.5 fl (80-96); MEAN PLT VOLUME 9.2 fl (7.5-11.1); PLATELET COUNT 191 10^3/uL (134-434); RBC 4.24 M/mm3 (4.00-5.60); RDW 15.7 % (11.9-15.9); WHITE BLOOD COUNT 3.4 K/mm3 (4.0-10.0)
[2023-10-18] MEDS ORDERED: ATORVASTATIN CA 80 MG TABLET (FP) PO SCH (10:00)
[2023-10-18] MEDS: FINASTERIDE 5 MG TABLET (FP) PO SCH (10:08)
[2023-10-18] MEDS: MIDODRINE HCL 5 MG TABLET PO SCH (10:08)
[2023-10-18 10:54] LABS: ACTIVATED PTT 60.9 SECONDS (25.2-36.5)
[2023-10-18 11:01] LABS: PROTHROMBIN TIME (PATIENT) 117.8 SEC (9.7-13.0)
[2023-10-18 11:03] LABS: INR 10.39 (0.83-1.09)
[2023-10-18] MEDS: ALBUTEROL SO4 2.5/IPRATROPIUM 0.5 INH SOL 3 ML VIAL.NEB. NEB SCH (11:35)
[2023-10-18] MEDS: PHYTONADIONE 5 MG TABLET PO ONE (13:07)
[2023-10-18] MEDS: MAGNESIUM SULFATE IN WATER 2 GM/50 ML IVPB IVPB ONE (13:07)
[2023-10-18] MEDS: ALBUTEROL SO4 2.5/IPRATROPIUM 0.5 INH SOL 3 ML VIAL.NEB. NEB PRN (15:24)
[2023-10-18] MEDS: TAMSULOSIN HCL 0.4 MG CAP PO SCH (21:36)
[2023-10-18] MEDS: MELATONIN 1 MG TABLET PO SCH (21:36)
[2023-10-18] MEDS: traZODone HCL 100 MG TABLET (FP) PO SCH (21:36)
[2023-10-19 06:56] LABS: ARTERIAL BLOOD GAS BASE EXCESS -7.4 mmol/L (-2-2); ARTERIAL BLOOD GAS PO2 80.8 mmHg (80-100)
[2023-10-19 06:58] LABS: ALLENS TEST POSITIVE
[2023-10-19 07:01] LABS: ARTERIAL BLOOD GAS pH 7.193 (7.350-7.450)
[2023-10-19] MEDS: ALBUTEROL SO4 2.5/IPRATROPIUM 0.5 INH SOL 3 ML VIAL.NEB. NEB SCH ×2 (08:36→20:42)
[2023-10-19 08:41] LABS: BASO % 0.1 % (0-2.0); HEMOGLOBIN 11.5 GM/dL (11.7-16.9); MCH 26.5 pg (25.7-33.7); MCHC 30.9 g/dl (32.0-35.9); MEAN CELL VOLUME 85.9 fl (80-96); MEAN PLT VOLUME 9.1 fl (7.5-11.1); MONO % 6.8 % (3.8-10.2); NEUT % 88.1 % (42.8-82.8); PLATELET COUNT 211 10^3/uL (134-434); RBC 4.31 M/mm3 (4.00-5.60); RDW 16.4 % (11.9-15.9); WHITE BLOOD COUNT 8.7 K/mm3 (4.0-10.0)
[2023-10-19 08:44] LABS: INR 2.88 (0.83-1.09); PROTHROMBIN TIME (PATIENT) 33.1 SEC (9.7-13.0)
[2023-10-19 08:53] LABS: ARTERIAL BLD GAS O2 SATURATION 99.1 % (95-98); ARTERIAL BLOOD GAS BASE EXCESS -4.1 mmol/L (-2-2); ARTERIAL BLOOD GAS pH 7.286 (7.350-7.450)
[2023-10-19 08:54] LABS: ALLENS TEST POSITIVE
[2023-10-19 08:55] LABS: VENT MODE ST; VENT RATE 14
[2023-10-19 09:01] LABS: POTASSIUM 4.8 mmol/L (3.5-5.1)
[2023-10-19 09:08] LABS: CALCIUM 8.9 mg/dL (8.5-10.1)
[2023-10-19 09:09] LABS: BLOOD UREA NITROGEN 57.5 mg/dL (7-18)
[2023-10-19 09:11] LABS: CREATININE 2.1 mg/dL (0.55-1.3)
[2023-10-19] MEDS ORDERED: HEPARIN NA (PORCINE) 5,000 UNITS/ML 1ML VIAL IVPUSH PRN ×4 (10:29→11:26)
[2023-10-19] MEDS ORDERED: HEPARIN - 25,000 UNIT in SODIUM CHLORIDE 495 ML IV SCH (10:30)
[2023-10-19 10:54] LABS: ALBUMIN 3.4 g/dl (3.4-5.0)
[2023-10-19 10:56] LABS: BILIRUBIN,DIRECT 0.4 mg/dL (0.0-0.2)
[2023-10-19 10:58] LABS: TOT PROT 6.7 g/dl (6.4-8.2)
[2023-10-19 10:59] LABS: BILIRUBIN,TOTAL 0.8 mg/dL (0.2-1)
[2023-10-19 11:24] LABS: URINE APPEARANCE CLEAR; URINE BILIRUBIN NEGATIVE (NEGATIVE); URINE COLOR YELLOW; URINE GLUCOSE (UA) NEGATIVE (NEGATIVE); URINE KETONE NEGATIVE (NEGATIVE); URINE LEUK ESTERASE NEGATIVE (NEGATIVE); URINE NITRITE NEGATIVE (NEGATIVE); URINE PROTEIN NEGATIVE (NEGATIVE); URINE UROBILINOGEN 0.2 mg/dL (0.2-1.0)
[2023-10-19] MEDS: HEPARIN INFUSION - 25,000 UNITS/500 ML INFUS.BAG IVPB SCH (11:36)
[2023-10-19] MEDS: MUPIROCIN 2% TOPICAL OINTMENT FOR DECOLONIZATION NS SCH (11:37)
[2023-10-19] MEDS: DEXMEDETOMIDINE PREMIX 400 MCG/100 ML BAG IVPB SCH (11:42)
[2023-10-19] MEDS: FUROSEMIDE INJECTION 100 MG in SODIUM CHLORIDE 90 ML IVPB SCH ×2 (12:25→22:00)
[2023-10-19] MEDS ORDERED: WARFARIN NA 5 MG TABLET PO SCH ×2 (16:00→18:00)
[2023-10-19 18:24] LABS: POTASSIUM 4.9 mmol/L (3.5-5.1)
[2023-10-19 18:25] LABS: BLOOD UREA NITROGEN 52.2 mg/dL (7-18); CALCIUM 8.4 mg/dL (8.5-10.1)
[2023-10-19 18:29] LABS: CREATININE 1.7 mg/dL (0.55-1.3)
[2023-10-19] MEDS ORDERED: traZODone HCL 50 MG TABLET (FP) ONE (21:09)
[2023-10-19] MEDS: CHLORHEXIDINE GLUCONATE 4% CLEANSER FOR DECOLONIZATION TP SCH (21:30)
[2023-10-19] MEDS: TAMSULOSIN HCL 0.4 MG CAP PO SCH (21:30)
[2023-10-19] MEDS: traZODone HCL 100 MG TABLET (FP) PO SCH (21:30)
[2023-10-20 06:36] LABS: ARTERIAL BLD GAS O2 SATURATION 98.2 % (95-98); ARTERIAL BLOOD GAS BASE EXCESS 2.3 mmol/L (-2-2); ARTERIAL BLOOD GAS PO2 115.4 mmHg (80-100); ARTERIAL BLOOD GAS pH 7.399 (7.350-7.450)
[2023-10-20 06:38] LABS: ALLENS TEST POSITIVE
[2023-10-20 06:39] LABS: VENT MODE S/T; VENT RATE 14
[2023-10-20 07:53] LABS: BASO % 0.1 % (0-2.0); EOS % 1.1 % (0-4.5); HEMATOCRIT 35.7 % (35.4-49); HEMOGLOBIN 11.4 GM/dL (11.7-16.9); LYMPH % 4.6 % (8-40); MCH 26.7 pg (25.7-33.7); MCHC 31.9 g/dl (32.0-35.9); MEAN CELL VOLUME 83.9 fl (80-96); MEAN PLT VOLUME 8.8 fl (7.5-11.1); MONO % 6.6 % (3.8-10.2); NEUT % 87.6 % (42.8-82.8); PLATELET COUNT 204 10^3/uL (134-434); RBC 4.25 M/mm3 (4.00-5.60); RDW 15.8 % (11.9-15.9)
[2023-10-20 07:56] LABS: ACTIVATED PTT 75.8 SECONDS (25.2-36.5); INR 2.01 (0.83-1.09); PROTHROMBIN TIME (PATIENT) 23.1 SEC (9.7-13.0)
[2023-10-20 08:06] LABS: CALCIUM 8.6 mg/dL (8.5-10.1); POTASSIUM 3.5 mmol/L (3.5-5.1)
[2023-10-20 08:08] LABS: BLOOD UREA NITROGEN 41.6 mg/dL (7-18); MAGNESIUM 1.9 mg/dL (1.8-2.4)
[2023-10-20 08:10] LABS: CREATININE 1.2 mg/dL (0.55-1.3)
[2023-10-20] MEDS: MIDODRINE HCL 5 MG TABLET PO SCH (09:18)
[2023-10-20] MEDS: FINASTERIDE 5 MG TABLET (FP) PO SCH (09:18)
[2023-10-20] MEDS: POTASSIUM CHLORIDE ORAL LIQUID 20 MEQ/15 ML PO SCH (11:03)
[2023-10-20 15:34] LABS: BLOOD UREA NITROGEN 42.9 mg/dL (7-18); CALCIUM 8.9 mg/dL (8.5-10.1); CREATININE 1.2 mg/dL (0.55-1.3); POTASSIUM 3.8 mmol/L (3.5-5.1)
[2023-10-20] MEDS: NOREPINEPHRINE BITARTRATE 4,000 MCG in DEXTROSE 5%-WATER - 496 ML IV SCH (19:38)
[2023-10-20] MEDS ORDERED: traZODone HCL 50 MG TABLET (FP) ONE (20:36)
[2023-10-21] MEDS: FUROSEMIDE 100 MG/10 ML INJECTABLE VIAL IVPB SCH (06:35)
[2023-10-21 07:34] LABS: BASO % 0.1 % (0-2.0); EOS % 2.3 % (0-4.5); HEMATOCRIT 31.6 % (35.4-49); HEMOGLOBIN 10.4 GM/dL (11.7-16.9); LYMPH % 14.5 % (8-40); MCH 27.2 pg (25.7-33.7); MCHC 32.9 g/dl (32.0-35.9); MEAN CELL VOLUME 82.7 fl (80-96); MEAN PLT VOLUME 8.9 fl (7.5-11.1); MONO % 10.8 % (3.8-10.2); NEUT % 72.3 % (42.8-82.8); PLATELET COUNT 195 10^3/uL (134-434); RBC 3.82 M/mm3 (4.00-5.60); RDW 15.7 % (11.9-15.9); WHITE BLOOD COUNT 2.8 K/mm3 (4.0-10.0)
[2023-10-21 07:41] LABS: INR 2.04 (0.83-1.09); PROTHROMBIN TIME (PATIENT) 23.5 SEC (9.7-13.0)
[2023-10-21 07:44] LABS: ACTIVATED PTT 51.5 SECONDS (25.2-36.5)
[2023-10-21 07:54] LABS: POTASSIUM 3.9 mmol/L (3.5-5.1)
[2023-10-21 07:55] LABS: CALCIUM 8.6 mg/dL (8.5-10.1)
[2023-10-21 07:56] LABS: BLOOD UREA NITROGEN 34.4 mg/dL (7-18)
[2023-10-21 11:36] LABS: BILIRUBIN,DIRECT 0.4 mg/dL (0.0-0.2)
[2023-10-21 11:38] LABS: TOT PROT 5.3 g/dl (6.4-8.2)
[2023-10-21 11:55] LABS: ALBUMIN 2.5 g/dl (3.4-5.0)
[2023-10-21] MEDS: WARFARIN NA 5 MG TABLET PO SCH (19:13)
[2023-10-21] MEDS ORDERED: traZODone HCL 50 MG TABLET (FP) ONE (20:59)
[2023-10-22] MEDS: ALBUTEROL SO4 2.5/IPRATROPIUM 0.5 INH SOL 3 ML VIAL.NEB. NEB PRN (02:49)
[2023-10-22 06:42] LABS: HEMOGLOBIN 10.8 GM/dL (11.7-16.9); MCH 26.6 pg (25.7-33.7); MCHC 31.8 g/dl (32.0-35.9); MEAN CELL VOLUME 83.6 fl (80-96); MEAN PLT VOLUME 8.5 fl (7.5-11.1); PLATELET COUNT 224 10^3/uL (134-434); RBC 4.06 M/mm3 (4.00-5.60); RDW 15.4 % (11.9-15.9); WHITE BLOOD COUNT 3.7 K/mm3 (4.0-10.0)
[2023-10-22 06:50] LABS: INR 1.81 (0.83-1.09); PROTHROMBIN TIME (PATIENT) 20.9 SEC (9.7-13.0)
[2023-10-22 07:02] LABS: POTASSIUM 3.6 mmol/L (3.5-5.1)
[2023-10-22 07:09] LABS: CALCIUM 8.8 mg/dL (8.5-10.1)
[2023-10-22 07:10] LABS: ALBUMIN 2.6 g/dl (3.4-5.0); BLOOD UREA NITROGEN 30.8 mg/dL (7-18); MAGNESIUM 1.8 mg/dL (1.8-2.4)
[2023-10-22 07:12] LABS: BILIRUBIN,DIRECT 0.5 mg/dL (0.0-0.2); CREATININE 1.1 mg/dL (0.55-1.3)
[2023-10-22 07:13] LABS: PHOSPHOROUS 3.1 mg/dL (2.5-4.9)
[2023-10-22 07:15] LABS: TOT PROT 5.6 g/dl (6.4-8.2)
[2023-10-22] MEDS: MAGNESIUM 1GM/D5W - 1 GM/100 ML IVPB IVPB ONE (09:52)
[2023-10-22] MEDS: POLYETHYLENE GLYCOL (HEALTHYLAX) 3350 17 GM PACKET PO SCH (09:58)
[2023-10-22] MEDS: POTASSIUM CHLORIDE TABS 20 MEQ TABLET.ER (FP) PO ONE (10:26)
[2023-10-22 13:05] VITALS: BMI 21.9
[2023-10-22] MEDS ORDERED: HEPARIN NA (PORCINE) 5,000 UNITS/ML 1ML VIAL IVPUSH PRN (21:11)
[2023-10-22] MEDS: HEPARIN INFUSION - 25,000 UNITS/500 ML INFUS.BAG IVPB SCH (21:21)
[2023-10-22] MEDS: MUPIROCIN 2% TOPICAL OINTMENT FOR DECOLONIZATION NS SCH (21:22)
[2023-10-22] MEDS: CHLORHEXIDINE GLUCONATE 4% CLEANSER FOR DECOLONIZATION TP SCH (21:22)
[2023-10-22] MEDS ORDERED: traZODone HCL 50 MG TABLET (FP) ONE (21:24)
[2023-10-22] MEDS: TAMSULOSIN HCL 0.4 MG CAP PO SCH (21:24)
[2023-10-22] MEDS: traZODone HCL 100 MG TABLET (FP) PO SCH (21:25)
[2023-10-23] MEDS: FUROSEMIDE 100 MG/10 ML INJECTABLE VIAL IVPB SCH (06:07)
[2023-10-23 07:14] LABS: BASO % 0.1 % (0-2.0); EOS % 1.6 % (0-4.5); HEMATOCRIT 35.9 % (35.4-49); HEMOGLOBIN 11.2 GM/dL (11.7-16.9); LYMPH % 18.4 % (8-40); MCHC 31.3 g/dl (32.0-35.9); MEAN CELL VOLUME 83.2 fl (80-96); MEAN PLT VOLUME 8.1 fl (7.5-11.1); MONO % 14.3 % (3.8-10.2); NEUT % 65.6 % (42.8-82.8); PLATELET COUNT 265 10^3/uL (134-434); RBC 4.32 M/mm3 (4.00-5.60); RDW 15.7 % (11.9-15.9); WHITE BLOOD COUNT 4.8 K/mm3 (4.0-10.0)
[2023-10-23 07:19] LABS: INR 1.81 (0.83-1.09); PROTHROMBIN TIME (PATIENT) 20.9 SEC (9.7-13.0)
[2023-10-23 07:21] LABS: ACTIVATED PTT 56.3 SECONDS (25.2-36.5)
[2023-10-23 07:36] LABS: CALCIUM 9.6 mg/dL (8.5-10.1)
[2023-10-23 07:37] LABS: ALBUMIN 2.8 g/dl (3.4-5.0); BLOOD UREA NITROGEN 32.6 mg/dL (7-18); MAGNESIUM 2.3 mg/dL (1.8-2.4)
[2023-10-23 07:39] LABS: PHOSPHOROUS 3.5 mg/dL (2.5-4.9)
[2023-10-23 07:40] LABS: CREATININE 1.2 mg/dL (0.55-1.3)
[2023-10-23 07:41] LABS: TOT PROT 6.1 g/dl (6.4-8.2)
[2023-10-23 07:46] LABS: POTASSIUM 4.4 mmol/L (3.5-5.1)
[2023-10-23] MEDS: ALBUTEROL SO4 2.5/IPRATROPIUM 0.5 INH SOL 3 ML VIAL.NEB. NEB SCH (08:55)
[2023-10-23] MEDS: MIDODRINE HCL 5 MG TABLET PO SCH (09:25)
[2023-10-23] MEDS: POLYETHYLENE GLYCOL (HEALTHYLAX) 3350 17 GM PACKET PO SCH (09:25)
[2023-10-23] MEDS: FINASTERIDE 5 MG TABLET (FP) PO SCH (09:25)
[2023-10-23] MEDS: WARFARIN NA 5 MG TABLET PO SCH (18:03)
[2023-10-23] MEDS ORDERED: INSULIN (NOVOLOG) ASPART 100 UNITS/ML 10ML VIAL ONE (18:23)
[2023-10-23] MEDS ORDERED: traZODone HCL 50 MG TABLET (FP) ONE (20:09)
[2023-10-24] MEDS: FUROSEMIDE 40 MG TABLET (FP) PO SCH (06:10)
[2023-10-24 06:42] LABS: BASO % 0.2 % (0-2.0); EOS % 1.9 % (0-4.5); HEMOGLOBIN 11.7 GM/dL (11.7-16.9); LYMPH % 23.4 % (8-40); MCH 26.1 pg (25.7-33.7); MCHC 31.5 g/dl (32.0-35.9); MEAN CELL VOLUME 82.8 fl (80-96); MONO % 15.2 % (3.8-10.2); NEUT % 59.3 % (42.8-82.8); PLATELET COUNT 285 10^3/uL (134-434); RBC 4.47 M/mm3 (4.00-5.60); RDW 15.6 % (11.9-15.9); WHITE BLOOD COUNT 5.7 K/mm3 (4.0-10.0)
[2023-10-24 07:50] LABS: POTASSIUM 4.2 mmol/L (3.5-5.1)
[2023-10-24 07:53] LABS: BLOOD UREA NITROGEN 42.9 mg/dL (7-18); CALCIUM 9.3 mg/dL (8.5-10.1)
[2023-10-24 07:54] LABS: ALBUMIN 2.9 g/dl (3.4-5.0)
[2023-10-24 07:57] LABS: CREATININE 1.5 mg/dL (0.55-1.3)
[2023-10-24 07:58] LABS: BILIRUBIN,TOTAL 0.9 mg/dL (0.2-1); TOT PROT 6.3 g/dl (6.4-8.2)
[2023-10-24 08:19] LABS: INR 1.79 (0.83-1.09); PROTHROMBIN TIME (PATIENT) 20.6 SEC (9.7-13.0)
[2023-10-24 08:22] LABS: ACTIVATED PTT 81.6 SECONDS (25.2-36.5)
[2023-10-24] MEDS ORDERED: DOCUSATE NA 100 MG/10 ML UNIT-DOSE CUPS PO PRN (16:37)
[2023-10-24] MEDS: WARFARIN NA 7.5 MG TABLET PO SCH (17:08)
[2023-10-24] MEDS: MIDODRINE HCL 2.5 MG TABLET PO SCH (17:08)
[2023-10-24] MEDS: BISACODYL 10 MG SUPP.RECT PR ONE ×2 (17:09→20:05)
[2023-10-24] MEDS: EMPAGLIFLOZIN (JARDIANCE) 10 MG TABLET PO SCH (17:09)
[2023-10-24] MEDS: LACTULOSE 20 GM/30 ML UDC (FOR ORAL USE ONLY) PO ONE (17:09)
[2023-10-24] MEDS ORDERED: traZODone HCL 50 MG TABLET (FP) ONE (19:57)
[2023-10-24] MEDS: POLYETHYLENE GLYCOL (HEALTHYLAX) 3350 17 GM PACKET PO SCH (21:16)
[2023-10-24] MEDS ORDERED: DOCUSATE SODIUM 100 MG CAPSULE (FP) PO SCH (22:00)
[2023-10-25 06:57] LABS: BASO % 0.2 % (0-2.0); EOS % 0.4 % (0-4.5); HEMATOCRIT 38.2 % (35.4-49); LYMPH % 7.8 % (8-40); MCH 26.1 pg (25.7-33.7); MCHC 31.5 g/dl (32.0-35.9); MEAN CELL VOLUME 82.8 fl (80-96); MEAN PLT VOLUME 8.1 fl (7.5-11.1); MONO % 10.3 % (3.8-10.2); NEUT % 81.3 % (42.8-82.8); PLATELET COUNT 286 10^3/uL (134-434); RBC 4.61 M/mm3 (4.00-5.60); RDW 15.7 % (11.9-15.9); WHITE BLOOD COUNT 16.5 K/mm3 (4.0-10.0)
[2023-10-25 07:05] LABS: POTASSIUM 4.5 mmol/L (3.5-5.1)
[2023-10-25 07:16] LABS: ALBUMIN 3.1 g/dl (3.4-5.0); BLOOD UREA NITROGEN 47.4 mg/dL (7-18); CALCIUM 10.1 mg/dL (8.5-10.1)
[2023-10-25 07:19] LABS: CREATININE 1.5 mg/dL (0.55-1.3)
[2023-10-25 07:21] LABS: BILIRUBIN,TOTAL 0.9 mg/dL (0.2-1); TOT PROT 6.7 g/dl (6.4-8.2)
[2023-10-25 07:41] LABS: INR 1.66 (0.83-1.09); PROTHROMBIN TIME (PATIENT) 18.5 SEC (9.7-13.0)
[2023-10-25 07:44] LABS: ACTIVATED PTT 63.5 SECONDS (25.2-36.5)
[2023-10-25] MEDS: FUROSEMIDE 40 MG/4 ML INJECTABLE VIAL IVPB SCH (16:03)
[2023-10-25] MEDS ORDERED: traZODone HCL 50 MG TABLET (FP) ONE (20:57)
[2023-10-26 06:38] LABS: INR 1.87 (0.83-1.09); PROTHROMBIN TIME (PATIENT) 20.8 SEC (9.7-13.0)
[2023-10-26 06:39] LABS: BASO % 0.3 % (0-2.0); EOS % 2.6 % (0-4.5); HEMATOCRIT 38.6 % (35.4-49); LYMPH % 18.8 % (8-40); MCHC 31.2 g/dl (32.0-35.9); MEAN CELL VOLUME 83.2 fl (80-96); MONO % 13.1 % (3.8-10.2); NEUT % 65.2 % (42.8-82.8); PLATELET COUNT 275 10^3/uL (134-434); RBC 4.63 M/mm3 (4.00-5.60); RDW 15.6 % (11.9-15.9); WHITE BLOOD COUNT 6.4 K/mm3 (4.0-10.0)
[2023-10-26 07:28] LABS: CALCIUM 9.5 mg/dL (8.5-10.1)
[2023-10-26 07:29] LABS: BLOOD UREA NITROGEN 50.7 mg/dL (7-18)
[2023-10-26 07:32] LABS: CREATININE 1.4 mg/dL (0.55-1.3)
[2023-10-26 08:12] LABS: TOT PROT 6.5 g/dl (6.4-8.2)
[2023-10-26 08:13] LABS: BILIRUBIN,TOTAL 0.6 mg/dL (0.2-1)
[2023-10-26 08:19] LABS: ACTIVATED PTT 69.3 SECONDS (25.2-36.5)
[2023-10-26] MEDS: ALBUTEROL SO4 2.5/IPRATROPIUM 0.5 INH SOL 3 ML VIAL.NEB. NEB PRN (20:32)
[2023-10-26] MEDS ORDERED: traZODone HCL 50 MG TABLET (FP) ONE (21:15)
[2023-10-27 07:03] LABS: POTASSIUM 4.2 mmol/L (3.5-5.1)
[2023-10-27 07:04] LABS: INR 1.86 (0.83-1.09); PROTHROMBIN TIME (PATIENT) 20.6 SEC (9.7-13.0)
[2023-10-27 07:06] LABS: CALCIUM 9.9 mg/dL (8.5-10.1)
[2023-10-27 07:07] LABS: ALBUMIN 2.9 g/dl (3.4-5.0); BLOOD UREA NITROGEN 53.2 mg/dL (7-18)
[2023-10-27 07:10] LABS: CREATININE 1.3 mg/dL (0.55-1.3)
[2023-10-27 07:11] LABS: TOT PROT 6.6 g/dl (6.4-8.2)
[2023-10-27 07:12] LABS: BILIRUBIN,TOTAL 0.6 mg/dL (0.2-1)
[2023-10-27 07:20] LABS: HEMATOCRIT 39.7 % (35.4-49); HEMOGLOBIN 12.3 GM/dL (11.7-16.9); MCH 25.9 pg (25.7-33.7); MEAN CELL VOLUME 83.4 fl (80-96); MEAN PLT VOLUME 8.7 fl (7.5-11.1); PLATELET COUNT 281 10^3/uL (134-434); RBC 4.76 M/mm3 (4.00-5.60); RDW 16.1 % (11.9-15.9); WHITE BLOOD COUNT 5.7 K/mm3 (4.0-10.0)
[2023-10-27 09:38] LABS: ACTIVATED PTT 43.8 SECONDS (25.2-36.5)
[2023-10-27] MEDS: HEPARIN NA (PORCINE) 5,000 UNITS/ML 1ML VIAL IVPUSH PRN (09:48)
[2023-10-27] MEDS ORDERED: traZODone HCL 50 MG TABLET (FP) ONE (21:28)
[2023-10-28 07:22] LABS: INR 1.88 (0.83-1.09); PROTHROMBIN TIME (PATIENT) 20.9 SEC (9.7-13.0)
[2023-10-28 07:29] LABS: POTASSIUM 3.9 mmol/L (3.5-5.1)
[2023-10-28 07:34] LABS: BLOOD UREA NITROGEN 52.6 mg/dL (7-18); CALCIUM 9.8 mg/dL (8.5-10.1); MAGNESIUM 2.7 mg/dL (1.8-2.4)
[2023-10-28 07:37] LABS: CREATININE 1.6 mg/dL (0.55-1.3)
[2023-10-28 07:39] LABS: BILIRUBIN,TOTAL 0.6 mg/dL (0.2-1); TOT PROT 6.5 g/dl (6.4-8.2)
[2023-10-28] MEDS: WARFARIN NA 10 MG TABLET PO ONE (17:26)
[2023-10-28 19:17] LABS: INR 1.57 (0.83-1.09); PROTHROMBIN TIME (PATIENT) 17.5 SEC (9.7-13.0)
[2023-10-28] MEDS ORDERED: traZODone HCL 50 MG TABLET (FP) ONE (20:44)
[2023-10-29 07:14] LABS: BASO % 0.4 % (0-2.0); HEMATOCRIT 40.9 % (35.4-49); HEMOGLOBIN 12.7 GM/dL (11.7-16.9); LYMPH % 28.6 % (8-40); MCH 25.8 pg (25.7-33.7); MCHC 31.1 g/dl (32.0-35.9); MEAN CELL VOLUME 82.9 fl (80-96); MEAN PLT VOLUME 8.1 fl (7.5-11.1); MONO % 10.9 % (3.8-10.2); NEUT % 58.1 % (42.8-82.8); PLATELET COUNT 272 10^3/uL (134-434); RBC 4.93 M/mm3 (4.00-5.60); WHITE BLOOD COUNT 4.8 K/mm3 (4.0-10.0)
[2023-10-29 07:32] LABS: POTASSIUM 3.8 mmol/L (3.5-5.1)
[2023-10-29 07:36] LABS: BLOOD UREA NITROGEN 54.2 mg/dL (7-18); CALCIUM 9.7 mg/dL (8.5-10.1)
[2023-10-29 07:39] LABS: CREATININE 1.4 mg/dL (0.55-1.3)
[2023-10-29 07:41] LABS: BILIRUBIN,TOTAL 0.6 mg/dL (0.2-1); TOT PROT 6.6 g/dl (6.4-8.2)
[2023-10-29 08:07] LABS: INR 1.6 (0.83-1.09); PROTHROMBIN TIME (PATIENT) 17.8 SEC (9.7-13.0)
[2023-10-29 08:08] LABS: ACTIVATED PTT 76.8 SECONDS (25.2-36.5)
[2023-10-29] MEDS: WARFARIN NA 10 MG TABLET PO SCH (17:13)
[2023-10-29] MEDS ORDERED: traZODone HCL 50 MG TABLET (FP) ONE (20:22)
[2023-10-29] MEDS: MELATONIN 5 MG TABLETS PO PRN (21:11)
[2023-10-30 07:20] LABS: INR 2.24 (0.83-1.09); PROTHROMBIN TIME (PATIENT) 24.7 SEC (9.7-13.0)
[2023-10-30 07:33] LABS: BASO % 0.4 % (0-2.0); HEMATOCRIT 39.6 % (35.4-49); HEMOGLOBIN 12.8 GM/dL (11.7-16.9); LYMPH % 26.1 % (8-40); MCH 26.5 pg (25.7-33.7); MCHC 32.2 g/dl (32.0-35.9); MEAN CELL VOLUME 82.3 fl (80-96); MEAN PLT VOLUME 8.3 fl (7.5-11.1); NEUT % 60.5 % (42.8-82.8); PLATELET COUNT 257 10^3/uL (134-434); RBC 4.81 M/mm3 (4.00-5.60); RDW 16.3 % (11.9-15.9); WHITE BLOOD COUNT 5.5 K/mm3 (4.0-10.0)
[2023-10-30 07:37] LABS: CALCIUM 9.5 mg/dL (8.5-10.1)
[2023-10-30 07:38] LABS: BLOOD UREA NITROGEN 57.4 mg/dL (7-18)
[2023-10-30 07:41] LABS: CREATININE 1.5 mg/dL (0.55-1.3)
[2023-10-30 07:44] LABS: BILIRUBIN,TOTAL 0.6 mg/dL (0.2-1); TOT PROT 6.6 g/dl (6.4-8.2)
[2023-10-30] MEDS ORDERED: traZODone HCL 50 MG TABLET (FP) ONE (20:33)
[2023-10-31 06:44] LABS: BASO % 0.7 % (0-2.0); EOS % 1.2 % (0-4.5); HEMOGLOBIN 13.5 GM/dL (11.7-16.9); LYMPH % 17.1 % (8-40); MCH 26.2 pg (25.7-33.7); MCHC 31.4 g/dl (32.0-35.9); MEAN CELL VOLUME 83.4 fl (80-96); MEAN PLT VOLUME 8.7 fl (7.5-11.1); PLATELET COUNT 242 10^3/uL (134-434); RBC 5.16 M/mm3 (4.00-5.60); RDW 16.4 % (11.9-15.9)
[2023-10-31 06:49] LABS: POTASSIUM 4.5 mmol/L (3.5-5.1)
[2023-10-31 06:51] LABS: ALBUMIN 3.1 g/dl (3.4-5.0); BLOOD UREA NITROGEN 59.2 mg/dL (7-18)
[2023-10-31 06:54] LABS: CREATININE 1.5 mg/dL (0.55-1.3)
[2023-10-31 06:56] LABS: BILIRUBIN,TOTAL 0.5 mg/dL (0.2-1); TOT PROT 6.9 g/dl (6.4-8.2)
[2023-10-31 07:53] LABS: INR 2.61 (0.83-1.09); PROTHROMBIN TIME (PATIENT) 28.7 SEC (9.7-13.0)
[2023-10-31] MEDS ORDERED: traZODone HCL 50 MG TABLET (FP) ONE (21:04)
[2023-11-01 07:50] LABS: BASO % 0.8 % (0-2.0); EOS % 1.6 % (0-4.5); HEMATOCRIT 40.6 % (35.4-49); HEMOGLOBIN 13.3 GM/dL (11.7-16.9); LYMPH % 24.9 % (8-40); MCHC 32.8 g/dl (32.0-35.9); MEAN CELL VOLUME 82.4 fl (80-96); MEAN PLT VOLUME 8.5 fl (7.5-11.1); MONO % 10.2 % (3.8-10.2); NEUT % 62.5 % (42.8-82.8); PLATELET COUNT 245 10^3/uL (134-434); RBC 4.93 M/mm3 (4.00-5.60); RDW 16.5 % (11.9-15.9); WHITE BLOOD COUNT 4.2 K/mm3 (4.0-10.0)
[2023-11-01 08:03] LABS: INR 3.21 (0.83-1.09); PROTHROMBIN TIME (PATIENT) 35.1 SEC (9.7-13.0)
[2023-11-01 08:05] LABS: ACTIVATED PTT 87.4 SECONDS (25.2-36.5)
[2023-11-01 08:41] LABS: ALBUMIN 3.1 g/dl (3.4-5.0); BILIRUBIN,TOTAL 0.5 mg/dL (0.2-1); BLOOD UREA NITROGEN 55.9 mg/dL (7-18); CALCIUM 9.6 mg/dL (8.5-10.1); CREATININE 1.4 mg/dL (0.55-1.3); POTASSIUM 4.2 mmol/L (3.5-5.1); TOT PROT 6.9 g/dl (6.4-8.2)
[2023-11-01] MEDS: ENOXAPARIN NA (PORCINE) 60 MG/0.6 ML DISP.SYRIN SQ ONE (11:26)
[2023-11-01 15:30] VITALS: BP 106/68; PULSE 74; RESP 15
[2023-11-01 15:47] VITALS: TEMP 98.3
== END 2023-11-01 17:06 | disposition home health service (06) | DRG 291 ==
LOC: JER 17:06 → JERBED 20:03 → J4S 10-18 01:53 → JICU 10-19 10:37 → J2W 10-22 20:04
PROVIDERS: ADMIT Student in an Organized Health Care Education/Training Program; ATTEND Internal Medicine
DX: I11.0 Hypertensive heart disease with heart failure (principal); I50.23 Acute on chronic systolic (congestive) heart failure; J96.01 Acute respiratory failure with hypoxia; J96.02 Acute respiratory failure with hypercapnia; R57.0 Cardiogenic shock; F84.0 Autistic disorder; N17.9 Acute kidney failure, unspecified; E44.0 Moderate protein-calorie malnutrition; N50.89 Other specified disorders of the male genital organs; I25.10 Atherosclerotic heart disease of native coronary artery without angina pectoris; E78.5 Hyperlipidemia, unspecified; I48.91 Unspecified atrial fibrillation; F79 Unspecified intellectual disabilities; N40.0 Benign prostatic hyperplasia without lower urinary tract symptoms; N45.2 Orchitis; K63.89 Other specified diseases of intestine; F41.8 Other specified anxiety disorders; G47.00 Insomnia, unspecified; K59.00 Constipation, unspecified; D64.9 Anemia, unspecified; D72.829 Elevated white blood cell count, unspecified; Z95.1 Presence of aortocoronary bypass graft; Z68.20 Body mass index [BMI] 20.0-20.9, adult
CPT/HCPCS: 0241U-QW; 36415; 36600; 71045-TC-FY; 74018-TC-FY; 76775-TC; 80048; 80053; 80076; 81003; 82550; 82553; 82728; 82803; 83540; 83550; 83735; 83880; 84100; 84300; 84484; 85025; 85027; 85610; 85730; 87040; 87086; 93005; 93010; 93306-TC; 94640; 94660; 97116-GP; 97162-GP; 99285-25; J1250; J1644